=== PATIENT | male | born 1955 | race Caucasian/White ===

== ENCOUNTER 2017-01-12 15:28 | Inpatient (IN) | payer BC ==
[2017-01-12 15:44] VITALS: BMI 17.9
--- NOTE | 2017-01-12 16:26 | PDOC ---
History of Present Illness - General History Source: Patient - History of Present Illness Initial Comments: 01/12/17 16:52 Patient is a 61 y.o. 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 Uribe) where patient was noted to be saturating in the high 80's. Patient notes increased labored breathing for the past 4 days as well as productive (whitish sputum) cough. Patient further notes a chest tightness similar to the tightness he experience at the time of his previous PNAs. Patient notes his last radiation treatment was in August 2016 and his decreased appetite hastened placement of a J tube. <Chhaya Cortez - Last Filed: 01/12/17 19:09> <Jon Moser - Last Filed: 01/12/17 19:54> - General Chief Complaint: Shortness of Breath Stated Complaint: SOB (PCP SENT) Time Seen by Provider: 01/12/17 16:25 Past History - Past Medical History Anemia: No Asthma: Yes Cancer: No Cardiac Disorders: No CVA: No COPD: Yes CHF: No Dementia: No Diabetes: No GI Disorders: No Disorders: No HTN: No Hypercholesterolemia: No Liver Disease: No Seizures: No Thyroid Disease: No - Surgical History Abdominal Surgery: No Appendectomy: No Cardiac Surgery: No Cholecystectomy: No Lung Surgery: Yes (rt partial thoracotomy 50 yrs ago) Neurologic Surgery: No Orthopedic Surgery: No - Immunization History Td Vaccination: No Immunization Up to Date: Yes (FLU/PNA) - Suicide/Smoking/Psychosocial Hx Smoking Status: No Smoking History: Never smoked Have you smoked in the past 12 months: No Number of Cigarettes Smoked Daily: 0 Information on smoking cessation initiated: No Hx Alcohol Use: No Drug/Substance Use Hx: No Substance Use Type: None Hx Substance Use Treatment: No <Chhaya Cortez - Last Filed: 01/12/17 19:09> <Jon Moser - Last Filed: 01/12/17 19:54> - Past Medical History Allergies/Adverse Reactions: Allergies Allergy/AdvReac Type Severity Reaction Status Date / Time No Known Allergies Allergy Verified 01/12/17 15:39 Home Medications: Ambulatory Orders Montelukast Na [Singulair -] 10 mg PO HS 05/04/12 Albuterol Sulfate 0.042% [Ventolin 0.042% (Half-Strength) -] 1 neb PO BID #0 vial 05/10/12 Tiotropium [place] [Spiriva] 1 inh IH DAILY #0 inh 05/10/12 Budesonide/Formeterol Fumarate [SYMBICORT 160/4.5mcg -] 2 inh PO BID 02/20/14 Review of Systems - Review of Systems Constitutional: No: Chills, Fever Respiratory: Yes: Cough (productive, whitish/grayish sputum), Shortness of Breath Cardiac (ROS): Yes: Chest Pain ("tightness') ABD/GI: No: Constipated, Diarrhea, Nausea, Vomiting <Chhaya Cortez - Last Filed: 01/12/17 19:09> *Physical Exam - Vital Signs Last Vital Signs Temp Pulse Resp BP Pulse Ox 98.0 F 111 H 16 109/90 93 L 01/12/17 15:39 01/12/17 15:39 01/12/17 15:39 01/12/17 15:39 01/12/17 15:39 - Physical Exam General Appearance: Yes: Cachetic, Thin Neck: positive: Trachea midline, Supple Respiratory/Chest: positive: Accessory Muscle Use, Labored Respiration, Rhonchi Cardiovascular: positive: S1, S2 Gastrointestinal/Abdominal: positive: Soft Integumentary: positive: Dry, Warm, Pale Neurologic: positive: Fully Oriented, Alert <Chhaya Cortez - Last Filed: 01/12/17 19:09> - Vital Signs Last Vital Signs Temp Pulse Resp BP Pulse Ox 98.0 F 111 H 16 109/90 93 L 01/12/17 15:39 01/12/17 15:39 01/12/17 15:39 01/12/17 15:39 01/12/17 15:39 <Jon Moser - Last Filed: 01/12/17 19:54> ED Treatment Course - LABORATORY CBC & Chemistry Diagram: 01/12/17 16:52 01/12/17 16:52 <Chhaya Cortez - Last Filed: 01/12/17 19:09> - LABORATORY CBC & Chemistry Diagram: 01/12/17 16:52 01/12/17 16:52 - ADDITIONAL ORDERS Additional order review: Laboratory Results 01/12/17 01/12/17 17:11 16:52 Sodium 134 L Potassium 4.4 Chloride 95 L Carbon Dioxide 34 H D Anion Gap 5 L BUN 18 Creatinine 0.9 Creat Clearance w eGFR > 60 Random Glucose 92 Calcium 8.7 Total Bilirubin 0.4 AST 21 D ALT 26 D Alkaline Phosphatase 94 D Creatine Kinase 38 L Troponin I 0.02 B-Natriuretic Peptide 870.75 H Total Protein 8.2 D Albumin 2.8 L 01/12/17 16:52 RBC 4.26 MCV 84.8 MCHC 33.0 RDW 15.6 D MPV 7.4 L D Neutrophils % 71.5 Lymphocytes % 12.2 Monocytes % 14.5 H D Eosinophils % 1.4 D Basophils % 0.4 D <Jon Moser - Last Filed: 01/12/17 19:54> Medical Decision Making - Medical Decision Making 01/12/17 17:16 Patient is a 61 y.o. male with a h/o restrictive lung disease 2/2 to childhood collapsed lung w/subsequent lobectomy, tonsillar cancer with lymphatic spread (s /p chemotherapy and radiation completed August 2016) as well as two recent episodes of pneumonia (MRSA and Pseudomonas) who presents with dyspnea. Initial DDx is for PNA vs. Pulmonary Embolism (h/o of malignancy, dyspneic, tachycardic) vs. Bronchitis vs. ACS (less likely) PLAN: 1. CXR 2. Sputum Culture 3. CBC, CMP 4. BNP 01/12/17 18:55 CXR shows pleural thickening/effusion. CBC shows no leukocytosis; Troponin (-) x1. CT with contrast ordered to rule out PE. Patient signed out to Dr. Curtis ( Resident) and Dr. Moser (Attending) <Chhaya Cortez - Last Filed: 01/12/17 19:09> *DC/Admit/Observation/Transfer <Chhaya Cortez - Last Filed: 01/12/17 19:09> - Discharge Dispostion Admit: Yes Decision to Admit order Date/Time: Decision to Admit Order Category Date Time Status Decision to Admit to Hospital Routine Admission 01/12/17 19:53 Active <Jon Moser - Last Filed: 01/12/17 19:54> Diagnosis at time of Disposition: Dyspnea
[2017-01-12 17:21] LABS: BASOPHIL 0.4 % (0-2.0); EOSINOPHIL 1.4 % (0-4.5); MEAN CELL VOLUME 84.8 fl (80-96); MEAN PLT VOLUME 7.4 fl (7.5-11.1); NEUTROPHILS 71.5 % (42.8-82.8); PLATELET COUNT 238 K/MM3 (134-434); RDW 15.6 % (11.9-15.9); WHITE BLOOD COUNT 7.4 K/mm3 (4.0-10.0)
[2017-01-12 17:44] LABS: ALBUMIN 2.8 g/dl (3.4-5.0); ANION GAP 5 (8-16); BILIRUBIN,TOTAL 0.4 mg/dL (0.2-1.0); CALCIUM 8.7 mg/dL (8.5-10.1); CO2 34 mmol/L (21-32); CREATININE 0.9 mg/dL (0.7-1.3); GLUCOSE,RANDOM 92 mg/dL (74-106); SGOT/AST 21 U/L (15-37); SGPT/ALT 26 U/L (12-78); TOT PROT 8.2 g/dl (6.4-8.2)
[2017-01-12 17:45] LABS: TROPONIN I 0.02 ng/ml (0.00-0.05)
[2017-01-12 17:47] LABS: ALK PHOS 94 U/L (45-117)
--- NOTE | 2017-01-12 18:34 | PDOC ---
Attending Attestation - Resident Resident Name: DanaChhaya - ED Attending Attestation I have performed the following: I have examined & evaluated the patient, The case was reviewed & discussed with the resident, I agree w/resident's findings & plan, Exceptions are as noted - HPI HPI: 01/12/17 18:28 61 M with h/o RL lobectomy, restrictive lung disease on 3 L O2 @ baseline, metastatic tonsillar cancer, presenting to ER with SOB. Pt has baseline dyspnea but states that it has progressively worsened over past 4 days. Denies CP. Denies F/C. Denies leg swelling. Pt endorses cough. - Physicial Exam PE: 01/12/17 18:30 "GENERAL: Awake, alert, and fully oriented, in no acute distress HEAD: No signs of trauma EYES: PERRLA, EOMI, sclera anicteric, conjunctiva clear ENT: Auricles normal inspection, hearing grossly normal, nares patent, oropharynx clear without exudates. Moist mucosa NECK: Normal ROM, supple, no lymphadenopathy, JVD, or masses LUNGS: diffuse rales, no wheezing, no rhonchi HEART: Regular rate and rhythm, normal S1 and S2, no murmurs, rubs or gallops ABDOMEN: Soft, nontender, normoactive bowel sounds. No guarding, no rebound. No masses EXTREMITIES: Normal range of motion, no edema. No clubbing or cyanosis. No cords, erythema, or tenderness NEUROLOGICAL: Cranial nerves II through XII grossly intact. Normal speech, normal gait SKIN: Warm, Dry, normal turgor, no rashes or lesions noted. " - Medical Decision Making 01/12/17 18:31 61 M with SOB x 4 days and increasing O2 requirement. Pt non-toxic appearing with no fever. Suspicion for infectious process is low, but pt has h/o recurrent PNA. Pt also has active cancer and is at risk for PE. Symptoms may also simply be due to progression of underlying chronic lung disease. - Labs - CXR - Consider CTPE 01/12/17 18:57 CTPE negative for PE. Pt to be admitted for new oxygen requirement, worsening SOB. Case discussed in detail with admitting physician including history, physical exam and ancillary studies. Admitting physician has assumed care for the patient and will follow all pending diagnostics and complete the evaluation and treatment.
--- NOTE | 2017-01-12 19:59 | PDOC ---
*Physical Exam - Vital Signs Last Vital Signs Temp Pulse Resp BP Pulse Ox 98.0 F 111 H 16 109/90 93 L 01/12/17 15:39 01/12/17 15:39 01/12/17 15:39 01/12/17 15:39 01/12/17 15:39 ED Treatment Course - LABORATORY CBC & Chemistry Diagram: 01/12/17 16:52 01/12/17 16:52 - ADDITIONAL ORDERS Additional order review: Laboratory Results 01/12/17 01/12/17 17:11 16:52 Sodium 134 L Potassium 4.4 Chloride 95 L Carbon Dioxide 34 H D Anion Gap 5 L BUN 18 Creatinine 0.9 Creat Clearance w eGFR > 60 Random Glucose 92 Calcium 8.7 Total Bilirubin 0.4 AST 21 D ALT 26 D Alkaline Phosphatase 94 D Creatine Kinase 38 L Troponin I 0.02 B-Natriuretic Peptide 870.75 H Total Protein 8.2 D Albumin 2.8 L 01/12/17 16:52 RBC 4.26 MCV 84.8 MCHC 33.0 RDW 15.6 D MPV 7.4 L D Neutrophils % 71.5 Lymphocytes % 12.2 Monocytes % 14.5 H D Eosinophils % 1.4 D Basophils % 0.4 D Medical Decision Making - Medical Decision Making 01/12/17 19:52 Sign out received by Dr. Cortez EKG: Sinus tachycardia - RBBB - Septal infarct age indertemined - Possible inferior infarct Abnormal ECG 01/13/17 01:30 CTA:There is no evidence of a pulmonary embolus in the main pulmonary artery and its proximal branches, bilaterally. Worsening extensive bronchiectatic changes again seen with suggestion of air trapping/ scattered areas of atelectatic changes. Chronic consolidation/atelectasis of the right lower lobe with cystic changes and tubular like densities likely on the basis of bronchiectasis is again seen. PAtient admitted to med surg by Dr. TRIVEDI. *DC/Admit/Observation/Transfer Diagnosis at time of Disposition: Dyspnea
[2017-01-12] MEDS ORDERED: methylPREDNISolone NA SUCC 125 MG/2 ML VIAL IVPB ONE (22:38)
[2017-01-12] MEDS ORDERED: [UNRECOGNIZED DRUG - OTHER] IN SCH (22:45)
[2017-01-12] MEDS: ALPRAZolam 0.25 MG TABLET PO PRN (23:17)
[2017-01-12] MEDS: BUDESONIDE 0.25 MG/2ML INH SUSP VIAL NEB PRN (23:55)
[2017-01-13 00:43] LABS: TROPONIN I 0.02 ng/ml (0.00-0.05)
[2017-01-13] MEDS: BUDESONIDE/FORMETEROL FUMARATE 160/4.5 mcg INHALER IH SCH ×2 (01:15→09:56)
[2017-01-13] MEDS: methylPREDNISolone NA SUCC 40 MG/1 ML VIAL IVPB SCH ×5 (05:13→21:28)
[2017-01-13] MEDS: ALBUTEROL SO4 0.083% IH SOL 2.5 MG/3 ML VIAL.NEB. NEB PRN (05:59)
[2017-01-13 07:12] LABS: MCH 27.7 pg (25.7-33.7); MCHC 32.5 g/dl (32.0-35.9); MEAN CELL VOLUME 85.2 fl (80-96); MEAN PLT VOLUME 7.9 fl (7.5-11.1); PLATELET COUNT 209 K/MM3 (134-434); RDW 15.2 % (11.9-15.9); WHITE BLOOD COUNT 5.6 K/mm3 (4.0-10.0)
[2017-01-13 07:43] LABS: ALBUMIN 2.7 g/dl (3.4-5.0); ALK PHOS 88 U/L (45-117); ANION GAP 9 (8-16); BILIRUBIN,TOTAL 0.5 mg/dL (0.2-1.0); CALCIUM 8.6 mg/dL (8.5-10.1); CO2 30 mmol/L (21-32); CREATININE 0.7 mg/dL (0.7-1.3); GLUCOSE,RANDOM 106 mg/dL (74-106); SGOT/AST 19 U/L (15-37); SGPT/ALT 27 U/L (12-78); TOT PROT 7.8 g/dl (6.4-8.2)
[2017-01-13 07:47] LABS: CPK 34 IU/L (39-308); TROPONIN I < 0.02 ng/ml (0.00-0.05)
--- NOTE | 2017-01-13 08:55 | CON.CARD ---
Consult Consult Specialty:: cardiology Reason for Consultation:: dyspnea; atypical chest pain - History of Present Illness Chief Complaint: Presently no chest pain; dyspnea on minimal exertion. History of Present Illness: Patient is a 61 y.o. 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 Uribe) where patient was noted to be saturating in the high 80's. Patient notes increased labored breathing for the past 4 days as well as productive (whitish sputum) cough. Patient further notes a chest tightness similar to the tightness he experienced at the time of his previous PNAs. Patient notes his last radiation treatment was in August 2016 and his decreased appetite hastened placement of a J tube. - History Source History Provided By: Patient, Medical Record Limitations to Obtaining History: No Limitations - Past Medical History Cardio/Vascular: Yes: CHF Pulmonary: Yes: COPD, Pneumonia - Past Surgical History Additional Surgical History: right lobectomy - Alcohol/Substance Use Hx Alcohol Use: No History of Substance Use: reports: None - Smoking History Smoking history: Never smoked Have you smoked in the past 12 months: No Aproximately how many cigarettes per day: 0 Home Medications - Allergies Allergies/Adverse Reactions: Allergies Allergy/AdvReac Type Severity Reaction Status Date / Time No Known Allergies Allergy Verified 01/12/17 15:39 - Home Medications Home Medications: Ambulatory Orders Montelukast Na [Singulair -] 10 mg PO HS 05/04/12 Tiotropium [place] [Spiriva] 1 inh IH DAILY #0 inh 05/10/12 Budesonide/Formeterol Fumarate [SYMBICORT 160/4.5mcg -] 2 inh PO BID 02/20/14 Albuterol Sulfate [Proair Respiclick] 90 mcg IH DAILY 01/12/17 Alprazolam [Xanax] 0.25 mg PO DAILY 01/12/17 Erythromycin [Derrikc-Tab -] 500 mg PO Q2D 01/12/17 Escitalopram Oxalate [Lexapro -] 5 mg PO DAILY 10/12/17 Nebulizer/Compressor [Pulmoneb Lt Compressor Nebul] 1 inh IN BID 01/12/17 Family Disease History - Family Disease History Family History: Denies Review of Systems - Review of Systems Constitutional: reports: Unintentional Wgt. Loss, Weakness Eyes: reports: No Symptoms HENT: reports: No Symptoms Neck: reports: No Symptoms Cardiovascular: reports: Shortness of Breath Respiratory: reports: SOB on Exertion Gastrointestinal: reports: No Symptoms Genitourinary: reports: No Symptoms Breasts: reports: No Symptoms Reported Musculoskeletal: reports: Muscle Weakness Integumentary: reports: No Symptoms Neurological: reports: No Symptoms Endocrine: reports: No Symptoms Hematology/Lymphatic: reports: No Symptoms Psychiatric: reports: Anxiety, Depression - Risk Factors Known Risk Factors: Yes: Age, Gender, Physical Inactivity, Other (COPD ( bronchiectasis)) Vital Signs: Vital Signs Temperature 98.1 F 01/13/17 06:33 Pulse Rate 87 01/13/17 06:33 Respiratory Rate 22 01/13/17 06:33 Blood Pressure 102/59 01/13/17 06:33 O2 Sat by Pulse Oximetry (%) 92 L 01/12/17 19:15 Constitutional: Yes: Anxious Eyes: Yes: WNL HENT: Yes: WNL Neck: Yes: WNL Respiratory: Yes: Diminished, SOB on Exertion Gastrointestinal: Yes: Soft Renal/: No: Anuria Cardiovascular: Yes: Tachycardia JVD: No Carotid Bruit: No PMI: Non-Displaced Heart Sounds: Yes: S1, Split S2 Murmur: Yes: Diastolic Murmur (2/4, RSB-->base) Musculoskeletal: Yes: Muscle Weakness Extremities: Yes: Cool Edema: No Peripheral Pulses WNL: No Peripheral Pulses: 1+ Left Doralis Pedis, 1+ Right Dorsalis Pedis Integumentary: Yes: WNL Neurological: Yes: Alert, Oriented, Weakness Psychiatric: Yes: Alert, Oriented - Other Data Labs, Other Data: CBC, BMP 01/13/17 05:10 01/13/17 05:10 Troponin, BNP 01/13/17 01/13/17 00:00 05:10 Troponin I 0.02 < 0.02 Troponin, BNP 01/13/17 01/13/17 00:00 05:10 Troponin I 0.02 < 0.02 Echo: Pending Imaging - Results Chest X-ray: Image Reviewed Cat Scan: Image Reviewed (bronchiectasis;plueral thickening) EKG: Image Reviewed (sinus tachycardia; RBBB; RADHA; ?old septal and inferior [place]) Problem List - Problems (1) Acute and chronic respiratory failure with hypoxia Assessment/Plan: CT chest: bronchiectasis Antibiotics, O2, steroids, and bronchodilators per PMD and appeals nurse. Code(s): J96.21 - ACUTE AND CHRONIC RESPIRATORY FAILURE WITH HYPOXIA (2) Bronchiectasis Code(s): J47.9 - BRONCHIECTASIS, UNCOMPLICATED (3) Dyspnea Code(s): R06.00 - DYSPNEA, UNSPECIFIED (4) Tongue cancer Assessment/Plan: s/p radiation-and chemotherapy Code(s): C02.9 - MALIGNANT NEOPLASM OF TONGUE, UNSPECIFIED (5) Congestive heart failure Assessment/Plan: elevated BNP; +JVP. ECHO for LVEF and and RVEF, chamber sizes, valve status (diastolic murmum), wall motion ( EKG changes: ? old infacrct) Lipid levels TSH Code(s): I50.9 - HEART FAILURE, UNSPECIFIED (6) Anxiety and depression Assessment/Plan: Pt's physical health has deterioated significantly over the past 2 years, as has his emotional state. Code(s): F41.8 - OTHER SPECIFIED ANXIETY DISORDERS
--- NOTE | 2017-01-13 09:08 | EKG ---
Test Reason : Blood Pressure : / mmHG Vent. Rate : 104 BPM Atrial Rate : 104 BPM P-R Int : 146 ms QRS Dur : 130 ms QT Int : 360 ms P-R-T Axes : 065 234 053 degrees QTc Int : 473 ms SINUS TACHYCARDIA RIGHT ATRIAL ENLARGEMENT RIGHT BUNDLE BRANCH BLOCK SEPTAL INFARCT , AGE UNDETERMINED POSSIBLE INFERIOR INFARCT (CITED ON OR BEFORE 01-JUL-2011) ABNORMAL ECG Confirmed by ASHLI COHEN MD ([id number]) on 01/13/2017 9:08:17 AM Referred By: Confirmed By:ASHLI COHEN MD
[2017-01-13] MEDS: ESCITALOPRAM OXALATE 10 MG TABLET (FP) PO SCH (09:34)
[2017-01-13] MEDS: HEPARIN NA (PORCINE) 5,000 UNITS/ML 1ML VIAL SQ SCH ×2 (09:34→21:28)
[2017-01-13] MEDS ORDERED: PT OWN MED DRAWER 7, Y5N ONE (09:55)
[2017-01-13] MEDS: TIOTROPIUM BROMIDE 18 MCG/INH (DEVICE W/ 5 CAPSULES) IH SCH (09:56)
--- NOTE | 2017-01-13 10:06 | HP ---
Admitting History and Physical - Primary Care Physician PCP: Johnnie Uribe - Admission Chief Complaint: SOB History of Present Illness: Pt with worsening SOB and more white productive cough for the last 3-4 days, came to my office yesterday, noticed to be in respiratory distress, RR 30, O2 sat of 86-87% on 4 L NC, referred to ER. He was found tachycardic, tachypneic, admitted to telemetry History Source: Patient Limitations to Obtaining History: No Limitations - Past Medical History Pulmonary: Yes: COPD, Other (ILD, Bronchiectasis, Bulluos Ds. Now on cotinue O2 supplementation) Additional Past Medical History: Tongue CA w innvassion of cervical LN, s/p chemo - Smoking History Smoking history: Never smoked Have you smoked in the past 12 months: No Aproximately how many cigarettes per day: 0 - Alcohol/Substance Use Hx Alcohol Use: No Home Medications - Allergies Allergies/Adverse Reactions: Allergies Allergy/AdvReac Type Severity Reaction Status Date / Time No Known Allergies Allergy Verified 01/12/17 15:39 - Home Medications Home Medications: Ambulatory Orders RX: Montelukast Na [Singulair -] 10 mg PO HS 05/04/12 RX: Tiotropium [place] [Spiriva] 1 inh IH DAILY #0 inh 05/10/12 RX: Budesonide/Formeterol Fumarate [SYMBICORT 160/4.5mcg -] 2 inh PO BID Albuterol Sulfate [Proair Respiclick] 90 mcg IH DAILY 01/12/17 Alprazolam [Xanax] 0.25 mg PO DAILY 01/12/17 Escitalopram Oxalate [Lexapro -] 5 mg PO DAILY 01/12/17 Nebulizer/Compressor [Pulmoneb Lt Compressor Nebul] 1 inh IN BID 01/12/17 RX: Erythromycin [Derrick-Tab -] 500 mg PO TID 01/12/17 Review of Systems - Review of Systems Constitutional: denies: Chills, Fever Eyes: denies: Blurred Vision, Double Vision, Recent Change in Vision HENT: denies: Difficult Swallowing, Ear Discharge, Ear Pain, Nasal Congestion, Throat Pain Neck: denies: Pain on Movement, Stiffness Cardiovascular: reports: Palpitations, Shortness of Breath. denies: Chest Pain , Edema Respiratory: reports: Cough, SOB on Exertion, Wheezing Gastrointestinal: denies: Abdominal Pain, Constipation, Diarrhea, Nausea, Vomiting Genitourinary: denies: Burning, Discharge, Dysuria, Frequency Musculoskeletal: denies: Back Pain, Muscle Pain Integumentary: denies: Eczema, Rash Neurological: reports: Weakness. denies: Change in LOC, Change in Speech, Numbness Endocrine: denies: Excessive Sweating, Intolerance to Cold Hematology/Lymphatic: denies: Easily Bruised, Excessive Bleeding Psychiatric: denies: Anxiety, Depression Physical Examination Vital Signs: Vital Signs Temperature 98.4 F 01/13/17 09:15 Pulse Rate 96 H 01/13/17 09:15 Respiratory Rate 22 01/13/17 09:15 Blood Pressure 109/60 01/13/17 09:15 O2 Sat by Pulse Oximetry (%) 96 01/13/17 09:15 Constitutional: Yes: No Distress, Calm Eyes: Yes: EOM Intact, PERRL HENT: Yes: Normocephalic. No: Epistaxis, Nasal Congestion, Pharyngeal Erythema , Rhinnorhea Neck: Yes: Supple. No: Lymphadenopathy Cardiovascular: Yes: Regular Rate and Rhythm, Tachycardia Respiratory: Yes: Regular, CTA Bilaterally, Rales, Rhonchi. No: Wheezes Gastrointestinal: Yes: Normal Bowel Sounds, Soft. No: Palpable Mass, Tenderness ...Rectal Exam: Yes: Deferred Renal/: No: CVA Tenderness - Left, CVA Tenderness - Right Musculoskeletal: No: Back Pain, Joint Stiffness, Joint Swelling Extremities: Yes: Calf Tenderness. No: Cyanosis Edema: No Integumentary: No: Bruising, Rash Neurological: Yes: Alert, Oriented, Other (motor and sensory symmetric bilat in UE, LE, face) Psychiatric: Yes: Alert, Oriented Labs: CBC, BMP 01/13/17 05:10 01/13/17 05:10 Imaging - Results Chest X-ray: Report Reviewed, Image Reviewed Cat Scan: Report Reviewed Assessment/Plan (Problem list was added here, as program doesn't "Problem list" tab is not active) Acute COPD exacerbation Tachycardia Dspnea Hypoxia ILD Bronchietasis Bilateral Bullous Disease Admit to telemetry Start IV steroids. Pulmonary and Cardio Consults ECHO Serial CE- negative AM labs DVT and GI Prophylaxis
--- NOTE | 2017-01-13 12:35 | PN ---
Progress Note (short form) - Note Progress Note: PULMONARY CONSULTATION DICTATED 01/13/17 IMP ACUTE ON CHRONIC HYPOXEMIC RESPIRATORY FAILURE EXTENSIVE BRONCHIECTASIS ILD URI H/O TONGUE CA S/P RT/CHEMO PLAN IV STEROIDS INHALED BRONCHODILATORS O2 ANTIBIOTICS CHEST PT SPUTUM C+S OUTPATIENT PULMONARY REHAB 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
[2017-01-13] MEDS: RANITIDINE HCL 150 MG TABLET (FP) PO SCH (13:50)
[2017-01-13] MEDS ORDERED: ARFORMOTEROL TARTRATE 15 MCG/2 ML VIAL NEB ONE (14:03)
[2017-01-13] MEDS: BUDESONIDE 0.25 MG/2ML INH SUSP VIAL NEB PRN ×2 (14:06→14:20)
--- NOTE | 2017-01-13 15:10 | CONS ---
DATE OF CONSULTATION: 01/13/2017 REFERRING PHYSICIAN: Johnnie Uribe MD HISTORY OF PRESENT ILLNESS: The patient is a 61-year-old male with a past medical history of chronic lung disease, extensive bronchiectasis, chronic hypoxemic respiratory failure on home O2, history of tongue CA with invasion of lymph nodes status post RT and chemotherapy approximately 6 months ago. He also has a history of a partial lung resection many years ago secondary to pneumonia, a history of multiple bronchoscopies in the past currently being followed at [facility]. He was initially on the transplant list until he recently was noted to have tongue CA. He was admitted to [facility] with complaints of increasing shortness of breath and cough productive of white sputum. The patient denied having chest pain or palpitations. The patient stated that for approximately the past few months, he has been on continuous home O2. He states that he went to see Dr. Uribe yesterday in the office and was noted to be in marked respiratory distress with tachypnea at a rate in the 30s and O2 saturation 86% to 87% on 4 L of nasal cannula. At this time, he was referred to the emergency room. In the ER, he was treated with inhaled bronchodilators and steroids and transferred to the medical telemetry unit for further management. The patient denies hemoptysis and denies any history of DVT or PE in the past. There is no history of respiratory failure in the past requiring ventilatory support. He is a nonsmoker. There is no history of occupational exposure to chemical fumes. There is no history of recent travel. The patient is currently maintained at home on inhaled bronchodilators as well as Zithromax 3 times a week. In the past, when he has had exacerbations, he has been placed on tobramycin. PAST MEDICAL HISTORY: Again, this includes extensive chronic lung disease with chronic hypoxemic respiratory failure, extensive bronchiectasis, bullous disease, history of tongue CA with invasion of cervical lymph nodes status post chemotherapy. MEDICATIONS PRIOR TO ADMISSION: Singulair, Spiriva, Symbicort, ProAir, Xanax, Lexapro, PulmoNeb and erythromycin. CURRENT MEDICATIONS: Pulmicort, Symbicort, Solu-Medrol, heparin, Lexapro, Spiriva, Xanax, albuterol, Zantac and Singulair. REVIEW OF SYSTEMS: Positive shortness of breath, positive cough, positive sputum. No chest pain. No palpitations. No fevers. Positive weight loss. No hemoptysis. No abdominal pain. PHYSICAL EXAMINATION: General: The patient is a well-developed, well-nourished male, awake, alert, and currently in no acute distress. Vital signs: He is currently afebrile, blood pressure 109/60, respiratory rate 22, O2 saturation is 94% on 4 L. HEENT: Head is normocephalic atraumatic. Neck: Supple. Heart: Regular, S1, S2. Chest: A few scattered , bilateral wheezes and crackles throughout. Abdomen: Soft. Bowel sounds positive. Extremities: No cyanosis or edema. LABORATORIES: WBC is 5.6, hemoglobin 11.4, hematocrit 35, platelet count of 209,000. INR is 1.10. Chemistries: BUN 21, creatinine 0.7, albumin 2.7. Chest CT showed no evidence of any pulmonary emboli or extensive bronchiectatic changes. Right lower lobe bilaterally, extensive, right greater than left, chronic consolidation, atelectasis, and cystic changes, again, the right lower lobe and bilateral ground-glass opacities. There is a nodular density. IMPRESSION: 1. Acute on chronic hypoxemic respiratory failure signaling extensive chronic lung disease, extensive chronic bronchiectasis. There is also underlying interstitial lung disease. 2. Rule out possible underlying infectious process, upper respiratory infection. 3. History of tongue cancer status post chemotherapy. PLAN: Antibiotics, IV steroids, inhaled bronchodilators, chest PT, supplemental O2. Also, patient is a good candidate for outpatient pulmonary rehabilitation post discharge and nutritional support. DENISE FORD M.D. [id number]
[2017-01-13] MEDS ORDERED: ERYTHROMYCIN BASE 500 MG TABLET PO SCH (20:45)
[2017-01-13] MEDS: MONTELUKAST NA 10 MG TABLET PO SCH (21:28)
[2017-01-13] MEDS: ALPRAZolam 0.25 MG TABLET PO PRN (21:31)
[2017-01-13] MEDS: BUDESONIDE 0.25 MG/2ML INH SUSP VIAL NEB SCH (22:56)
[2017-01-14] MEDS: methylPREDNISolone NA SUCC 40 MG/1 ML VIAL IVPB SCH ×4 (03:38→22:34)
[2017-01-14 07:44] LABS: MCH 27.5 pg (25.7-33.7); MCHC 32.2 g/dl (32.0-35.9); MEAN CELL VOLUME 85.4 fl (80-96); PLATELET COUNT 196 K/MM3 (134-434); RDW 14.8 % (11.9-15.9); WHITE BLOOD COUNT 5.7 K/mm3 (4.0-10.0)
[2017-01-14 08:52] LABS: ANION GAP 7 (8-16); CALCIUM 8.5 mg/dL (8.5-10.1); CO2 30 mmol/L (21-32); CREATININE 0.8 mg/dL (0.7-1.3); GLUCOSE,RANDOM 121 mg/dL (74-106)
--- NOTE | 2017-01-14 08:56 | PN ---
Progress Note (short form) - Note Progress Note: ID Consult dictated Acute exacerbation, chronic bronchiectasis RLL pneumonia Hx Tonsillar ca with local metastasis s/p chemo/RT Hx Pseudomonas pneumonia Await sputum c/s Empiric zosyn/ zithromax
--- NOTE | 2017-01-14 09:06 | PN ---
Progress Note, Physician Chief Complaint: feeling "better" TELE: NSR - Current Medication List Current Medications: Active Medications Albuterol Sulfate (Ventolin 0.083% Nebulizer Soln -) 1 amp NEB Q6H PRN PRN Reason: SHORT OF BREATH/WHEEZING Last Admin: 01/13/17 05:59 Dose: 1 amp Alprazolam (Xanax -) 0.25 mg PO HS PRN Last Admin: 01/13/17 21:31 Dose: 0.25 mg Budesonide (Pulmicort 0.25 Mg Nebulizer -) 1 amp NEB BID [facility] Last Admin: 01/13/17 22:56 Dose: 1 amp Erythromycin (Derrick-Tab -) 500 mg PO MoWeFr@1000 [facility] Escitalopram Oxalate (Lexapro -) 5 mg PO DAILY [facility] Last Admin: 01/13/17 09:34 Dose: 5 mg Heparin Sodium (Porcine) (Heparin -) 5,000 unit SQ BID [facility] Last Admin: 01/13/17 21:28 Dose: 5,000 unit Piperacillin/Tazobactam/Dextrose (Zosyn 3.375gm Ivpb (Premix)) 50 mls @ 100 mls /hr IVPB Q8H-IV [facility] PRN Reason: Protocol Azithromycin 500 mg/ Dextrose 250 mls @ 250 mls/hr IVPB DAILY [facility] Methylprednisolone Sodium Succinate (Solu-Medrol -) 40 mg IVPB Q6H-IV [facility] Last Admin: 01/14/17 03:38 Dose: 40 mg Montelukast Sodium (Singulair -) 10 mg PO HS [facility] Last Admin: 01/13/17 21:28 Dose: 10 mg Ranitidine HCl (Zantac -) 150 mg PO DAILY [facility] Last Admin: 01/13/17 13:50 Dose: 150 mg Tiotropium [place] (Spiriva -) 1 puff IH DAILY [facility] Last Admin: 01/13/17 09:56 Dose: 1 inh - Objective Vital Signs: Vital Signs Temperature 98 F 01/14/17 05:32 Pulse Rate 88 01/14/17 05:32 Respiratory Rate 18 01/14/17 05:32 Blood Pressure 100/45 01/14/17 05:32 O2 Sat by Pulse Oximetry (%) 98 01/13/17 20:24 Constitutional: Yes: Calm Cardiovascular: Yes: Regular Rate and Rhythm Respiratory: Yes: Other (decreased basilar breath sounds) Gastrointestinal: Yes: Soft Edema: No Neurological: Yes: Alert Labs: CBC, BMP 01/14/17 05:18 01/14/17 05:18 Laboratory Tests 01/12/17 01/13/17 01/13/17 17:11 00:00 05:10 WBC Hgb Plt Count Potassium Creatinine Creatine Kinase 38 L 37 L 34 L Troponin I 0.02 0.02 < 0.02 01/14/17 01/14/17 05:18 05:18 WBC 5.7 Hgb 10.4 L Plt Count 196 Potassium 4.5 Creatinine 0.8 Creatine Kinase Troponin I - ....Imaging EKG: Image Reviewed Assessment/Plan Bronchiectasis RLL PNA Possible ASHD REC: Supp O2 and abx as per PMD and ID As echo shows wall motion abnormalities, underlying ASHD is possible and should be further evaluated when PNA resolves. Start ASA 81 if no contraindications. Plan for Persantine MIBI prior to d/c when acute infectious process resolved/ treated. Coverage for [facility]
[2017-01-14] MEDS: BUDESONIDE 0.25 MG/2ML INH SUSP VIAL NEB SCH ×2 (10:33→22:12)
[2017-01-14] MEDS ORDERED: PT OWN MED DRAWER 7, Y5N ONE (10:34)
[2017-01-14] MEDS: HEPARIN NA (PORCINE) 5,000 UNITS/ML 1ML VIAL SQ SCH ×2 (10:40→22:34)
[2017-01-14] MEDS: ESCITALOPRAM OXALATE 10 MG TABLET (FP) PO SCH (10:41)
[2017-01-14] MEDS: RANITIDINE HCL 150 MG TABLET (FP) PO SCH (10:41)
[2017-01-14] MEDS: TIOTROPIUM BROMIDE 18 MCG/INH (DEVICE W/ 5 CAPSULES) IH SCH (10:45)
[2017-01-14] MEDS: PIPERACILLIN/TAZOB 3.375 GM 50 ML IVPB SCH ×2 (10:46→16:59)
--- NOTE | 2017-01-14 11:35 | CONS ---
DATE OF CONSULTATION: DATE OF DICTATION: 01/14/2017 HISTORY OF PRESENT ILLNESS: The patient is a 61-year-old male with a long history of chronic bronchiectasis with frequent exacerbations, evaluated for right lower lobe pneumonia. He presented to his primary care physician with complaints of worsening shortness of breath and cough for the past 4 days. He was noted in the doctor's office to be in respiratory distress with a respiratory rate in the 30s and hypoxemic with an O2 saturation in the high 80s. He was referred to the emergency room, where he was admitted. A CAT scan of the chest shows severe bronchiectasis of the lungs bilaterally with a chronic right lower lobe consolidation. He reports cough productive of yellowish sputum. He denies any hemoptysis. He denies any high-grade fever or shaking chills. The patient has a long history of chronic lung disease. He had a lobectomy performed at age 7 for a collapsed lung. He has had exacerbations of his bronchiectasis with recurrent pneumonias. Sputum cultures in the past have grown Pseudomonas and MRSA. He is on oxygen at home. 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 He is status post chemotherapy and radiation. His treatments finished in August of this year. PAST MEDICAL HISTORY: As above. ALLERGIES: No known allergies. MEDICATIONS: Include Singulair, Ventolin, Symbicort. SOCIAL HISTORY: He is a nonsmoker. He lives at home. He was recently hospitalized at [facility] for exacerbation of his bronchiectasis and pneumonia. He reports in the recent past he was treated with tobramycin for recurrent Pseudomonas pneumonia. SYSTEMS REVIEW: Neurologic: No loss of consciousness, seizure activity, focal weakness. Cardiac: Negative chest pain or palpitations. Respiratory: As per HPI. Gastrointestinal: Negative vomiting or diarrhea. Genitourinary: Negative for urinary tract infection. LABORATORY DATA: White count 5.7, hematocrit 32.1, platelet count 196. Creatinine 0.7. CAT scan shows extensive bronchiectatic changes bilaterally with a right lower lobe consolidation. PHYSICAL EXAMINATION: General: He is a thin male. He is moderately short of breath at rest on nasal cannula O2. Vital Signs: His temperature 98, blood pressure 100/45, pulse 88, regular, respirations 18 per minute. HEENT: Sclerae anicteric. Cardiac: Heart sounds S1, S2. Lungs: Diminished breath sounds bilaterally. Scattered rhonchi. Abdomen: Soft. No tenderness elicited. No mass, rebound, or rigidity. Extremities: Negative for edema. IMPRESSION: 1. Acute exacerbation of chronic bronchiectasis. 2. Right lower lobe pneumonia. 3. History of Pseudomonas pneumonia. RECOMMENDATIONS: Obtain blood cultures. Await sputum culture result. Urine Legionella and pneumococcal antigens. Empiric antibiotic coverage for possible recurrent Pseudomonas pneumonia with Zosyn. Zithromax for coverage of atypical pulmonary pathogens. Continue supplemental oxygen, intravenous corticosteroids, and bronchodilators. Will follow. Thank you for the kind referral. ASHLI EMANUEL M.D. [id number]
[2017-01-14] MEDS: AZITHROMYCIN IVPB 500 MG in DEXTROSE 5%-WATER - 250 ML IVPB SCH (11:41)
--- NOTE | 2017-01-14 12:12 | PN ---
Progress Note (short form) - Note Progress Note: Feels better today. Less SOB. No CP. No acute events overnight. Intake & Output 01/11/17 01/12/17 01/13/17 01/14/17 23:59 23:59 23:59 23:59 Intake Total 600 200 Balance 600 200 Weight 125 lb 125 lb Last Vital Signs Temp Pulse Resp BP Pulse Ox 98 F 93 H 18 100/45 95 01/14/17 05:32 01/14/17 10:33 01/14/17 05:32 01/14/17 05:32 01/14/17 10:33 Active Medications Albuterol Sulfate (Ventolin 0.083% Nebulizer Soln -) 1 amp NEB Q6H PRN PRN Reason: SHORT OF BREATH/WHEEZING Last Admin: 01/13/17 05:59 Dose: 1 amp Alprazolam (Xanax -) 0.25 mg PO HS PRN Last Admin: 01/13/17 21:31 Dose: 0.25 mg Budesonide (Pulmicort 0.25 Mg Nebulizer -) 1 amp NEB BID [facility] Last Admin: 01/14/17 10:33 Dose: 1 amp Erythromycin (Derrick-Tab -) 500 mg PO MoWeFr@1000 [facility] Escitalopram Oxalate (Lexapro -) 5 mg PO DAILY [facility] Last Admin: 01/14/17 10:41 Dose: 5 mg Heparin Sodium (Porcine) (Heparin -) 5,000 unit SQ BID [facility] Last Admin: 01/14/17 10:40 Dose: 5,000 unit Piperacillin/Tazobactam/Dextrose (Zosyn 3.375gm Ivpb (Premix)) 50 mls @ 100 mls /hr IVPB Q8H-IV [facility] PRN Reason: Protocol Last Admin: 01/14/17 10:46 Dose: 100 mls/hr Azithromycin 500 mg/ Dextrose 250 mls @ 250 mls/hr IVPB DAILY [facility] Last Admin: 01/14/17 11:41 Dose: 250 mls/hr Methylprednisolone Sodium Succinate (Solu-Medrol -) 40 mg IVPB Q6H-IV [facility] Last Admin: 01/14/17 10:41 Dose: 40 mg Montelukast Sodium (Singulair -) 10 mg PO HS [facility] Last Admin: 01/13/17 21:28 Dose: 10 mg Ranitidine HCl (Zantac -) 150 mg PO DAILY [facility] Last Admin: 01/14/17 10:41 Dose: 150 mg Tiotropium [place] (Spiriva -) 1 puff IH DAILY [facility] Last Admin: 01/14/17 10:45 Dose: 1 inh Constitutional: Yes: NAD Calm Cardiovascular: Yes: Regular Rate and Rhythm Respiratory: Yes: few bilateral rhonchi Gastrointestinal: Yes: Soft Edema: No Neurological: Yes: Alert Laboratory Results - last 24 hr 01/14/17 01/14/17 05:18 05:18 WBC 5.7 RBC 3.76 L Hgb 10.4 L Hct 32.1 L MCV 85.4 MCH 27.5 MCHC 32.2 RDW 14.8 Plt Count 196 MPV 8.0 Sodium 135 L Potassium 4.5 Chloride 98 Carbon Dioxide 30 Anion Gap 7 L BUN 30 H D Creatinine 0.8 Random Glucose 121 H Calcium 8.5 Problem List - Problems (1) Dyspnea Code(s): R06.00 - DYSPNEA, UNSPECIFIED (2) Acute and chronic respiratory failure with hypoxia Code(s): J96.21 - ACUTE AND CHRONIC RESPIRATORY FAILURE WITH HYPOXIA (3) Bronchiectasis Code(s): J47.9 - BRONCHIECTASIS, UNCOMPLICATED (4) Tongue cancer Code(s): C02.9 - MALIGNANT NEOPLASM OF TONGUE, UNSPECIFIED IMP ACUTE ON CHRONIC HYPOXEMIC RESPIRATORY FAILURE EXTENSIVE BRONCHIECTASIS ILD URI H/O TONGUE CA S/P RT/CHEMO PLAN IV STEROIDS INHALED BRONCHODILATORS O2 ANTIBIOTICS CHEST PT OUTPATIENT PULMONARY REHAB POST DISCHARGE DR CARVER
--- NOTE | 2017-01-14 14:09 | PN ---
Progress Note, Physician History of Present Illness: Pt w/o fever, CP, palp, N, V, abd pain. - Current Medication List Current Medications: Active Medications Albuterol Sulfate (Ventolin 0.083% Nebulizer Soln -) 1 amp NEB Q6H PRN PRN Reason: SHORT OF BREATH/WHEEZING Last Admin: 01/13/17 05:59 Dose: 1 amp Alprazolam (Xanax -) 0.25 mg PO HS PRN Last Admin: 01/13/17 21:31 Dose: 0.25 mg Budesonide (Pulmicort 0.25 Mg Nebulizer -) 1 amp NEB BID [facility] Last Admin: 01/14/17 10:33 Dose: 1 amp Erythromycin (Derrick-Tab -) 500 mg PO MoWeFr@1000 [facility] Escitalopram Oxalate (Lexapro -) 5 mg PO DAILY [facility] Last Admin: 01/14/17 10:41 Dose: 5 mg Heparin Sodium (Porcine) (Heparin -) 5,000 unit SQ BID [facility] Last Admin: 01/14/17 10:40 Dose: 5,000 unit Piperacillin/Tazobactam/Dextrose (Zosyn 3.375gm Ivpb (Premix)) 50 mls @ 100 mls /hr IVPB Q8H-IV [facility] PRN Reason: Protocol Last Admin: 01/14/17 10:46 Dose: 100 mls/hr Azithromycin 500 mg/ Dextrose 250 mls @ 250 mls/hr IVPB DAILY [facility] Last Admin: 01/14/17 11:41 Dose: 250 mls/hr Methylprednisolone Sodium Succinate (Solu-Medrol -) 40 mg IVPB Q6H-IV [facility] Last Admin: 01/14/17 10:41 Dose: 40 mg Montelukast Sodium (Singulair -) 10 mg PO HS [facility] Last Admin: 01/13/17 21:28 Dose: 10 mg Ranitidine HCl (Zantac -) 150 mg PO DAILY [facility] Last Admin: 01/14/17 10:41 Dose: 150 mg Tiotropium [place] (Spiriva -) 1 puff IH DAILY [facility] Last Admin: 01/14/17 10:45 Dose: 1 inh - Objective Vital Signs: Vital Signs Temperature 98 F 01/14/17 05:32 Pulse Rate 93 H 01/14/17 10:33 Respiratory Rate 18 01/14/17 05:32 Blood Pressure 100/45 01/14/17 05:32 O2 Sat by Pulse Oximetry (%) 95 01/14/17 10:33 Constitutional: Yes: No Distress, Calm Cardiovascular: Yes: Regular Rate and Rhythm, S1, S2 Respiratory: Yes: Regular, CTA Bilaterally, Rales Gastrointestinal: Yes: Normal Bowel Sounds, Soft. No: Tenderness Edema: No Neurological: Yes: Alert, Oriented Labs: CBC, BMP 01/14/17 05:18 01/14/17 05:18 Problem List - Problems (1) Acute and chronic respiratory failure with hypoxia Code(s): J96.21 - ACUTE AND CHRONIC RESPIRATORY FAILURE WITH HYPOXIA (2) Dyspnea Code(s): R06.00 - DYSPNEA, UNSPECIFIED (3) Tachycardia Code(s): R00.0 - TACHYCARDIA, UNSPECIFIED (4) Congestive heart failure Code(s): I50.9 - HEART FAILURE, UNSPECIFIED Qualifiers: Congestive heart failure type: systolic (5) Pulmonary hypertension Code(s): I27.20 - PULMONARY HYPERTENSION, UNSPECIFIED (6) Bronchiectasis Code(s): J47.9 - BRONCHIECTASIS, UNCOMPLICATED (7) Anxiety Code(s): F41.9 - ANXIETY DISORDER, UNSPECIFIED (8) Depression Code(s): F32.9 - MAJOR DEPRESSIVE DISORDER, SINGLE EPISODE, UNSPECIFIED Assessment/Plan Admitted to telemetry. IV steroids. Pulmonary and Cardio Consults appreciated ID consult appreciated.. Possible RLL PNA; IV abtx-per ID ECHO done, abnormal Serial CE- negative AM labs DVT and GI Prophylaxis Incentive spirometry.
[2017-01-14] MEDS: MONTELUKAST NA 10 MG TABLET PO SCH (22:35)
[2017-01-14] MEDS: ALPRAZolam 0.25 MG TABLET PO PRN (22:43)
[2017-01-15] MEDS: PIPERACILLIN/TAZOB 3.375 GM 50 ML IVPB SCH ×3 (01:46→17:28)
[2017-01-15] MEDS: methylPREDNISolone NA SUCC 40 MG/1 ML VIAL IVPB SCH ×3 (03:00→17:13)
[2017-01-15 07:57] LABS: MCH 27.9 pg (25.7-33.7); MCHC 32.4 g/dl (32.0-35.9); PLATELET COUNT 187 K/MM3 (134-434); RDW 15.4 % (11.9-15.9)
[2017-01-15 08:16] LABS: ANION GAP 9 (8-16); CALCIUM 8.1 mg/dL (8.5-10.1); CO2 30 mmol/L (21-32); CREATININE 0.9 mg/dL (0.7-1.3); GLUCOSE,RANDOM 109 mg/dL (74-106)
--- NOTE | 2017-01-15 09:10 | PN ---
Progress Note, Physician Chief Complaint: no distress TELE: NSR - Current Medication List Current Medications: Active Medications Albuterol Sulfate (Ventolin 0.083% Nebulizer Soln -) 1 amp NEB Q6H PRN PRN Reason: SHORT OF BREATH/WHEEZING Last Admin: 01/13/17 05:59 Dose: 1 amp Alprazolam (Xanax -) 0.25 mg PO HS PRN Last Admin: 01/14/17 22:43 Dose: 0.25 mg Budesonide (Pulmicort 0.25 Mg Nebulizer -) 1 amp NEB BID [facility] Last Admin: 01/14/17 22:12 Dose: 1 amp Erythromycin (Derrick-Tab -) 500 mg PO MoWeFr@1000 [facility] Escitalopram Oxalate (Lexapro -) 5 mg PO DAILY [facility] Last Admin: 01/14/17 10:41 Dose: 5 mg Heparin Sodium (Porcine) (Heparin -) 5,000 unit SQ BID [facility] Last Admin: 01/14/17 22:34 Dose: 5,000 unit Piperacillin/Tazobactam/Dextrose (Zosyn 3.375gm Ivpb (Premix)) 50 mls @ 100 mls /hr IVPB Q8H-IV [facility] PRN Reason: Protocol Last Admin: 01/15/17 01:46 Dose: 100 mls/hr Azithromycin 500 mg/ Dextrose 250 mls @ 250 mls/hr IVPB DAILY [facility] Last Admin: 01/14/17 11:41 Dose: 250 mls/hr Methylprednisolone Sodium Succinate (Solu-Medrol -) 40 mg IVPB Q6H-IV [facility] Last Admin: 01/15/17 03:00 Dose: 40 mg Montelukast Sodium (Singulair -) 10 mg PO HS [facility] Last Admin: 01/14/17 22:35 Dose: 10 mg Ranitidine HCl (Zantac -) 150 mg PO DAILY [facility] Last Admin: 01/14/17 10:41 Dose: 150 mg Tiotropium [place] (Spiriva -) 1 puff IH DAILY [facility] Last Admin: 01/14/17 10:45 Dose: 1 inh - Objective Vital Signs: Vital Signs Temperature 98 F 01/15/17 05:58 Pulse Rate 60 01/15/17 05:58 Respiratory Rate 20 01/15/17 05:58 Blood Pressure 92/52 01/15/17 05:58 O2 Sat by Pulse Oximetry (%) 95 01/14/17 20:45 Constitutional: Yes: Calm Cardiovascular: Yes: Regular Rate and Rhythm Respiratory: Yes: Other (no wheezing, decreased basilar breath sounds) Gastrointestinal: Yes: Soft Edema: No Neurological: Yes: Alert Labs: CBC, BMP 01/15/17 05:15 01/15/17 05:15 Laboratory Tests 01/15/17 01/15/17 05:15 05:15 WBC 6.0 Hgb 10.7 L Plt Count 187 Sodium 136 Potassium 4.5 Creatinine 0.9 - ....Imaging EKG: Image Reviewed Assessment/Plan Assessment/Plan Bronchiectasis, extensive RLL PNA Possible ASHD REC: Supp O2 and abx as per PMD and ID As echo shows wall motion abnormalities, underlying ASHD is possible and should be further evaluated when PNA resolves. Start ASA 81 if no contraindications. Plan for Persantine MIBI prior to d/c when acute infectious process resolved/ treated. Coverage for [facility]
[2017-01-15] MEDS: AZITHROMYCIN IVPB 500 MG in DEXTROSE 5%-WATER - 250 ML IVPB SCH (09:30)
[2017-01-15] MEDS: HEPARIN NA (PORCINE) 5,000 UNITS/ML 1ML VIAL SQ SCH ×2 (09:30→22:15)
[2017-01-15] MEDS: RANITIDINE HCL 150 MG TABLET (FP) PO SCH (09:30)
[2017-01-15] MEDS: ESCITALOPRAM OXALATE 10 MG TABLET (FP) PO SCH (09:31)
[2017-01-15] MEDS: TIOTROPIUM BROMIDE 18 MCG/INH (DEVICE W/ 5 CAPSULES) IH SCH (09:43)
[2017-01-15] MEDS: BUDESONIDE 0.25 MG/2ML INH SUSP VIAL NEB SCH ×2 (10:29→21:57)
[2017-01-15] MEDS ORDERED: PT OWN MED DRAWER 7, Y5N ONE ×2 (10:41→16:36)
--- NOTE | 2017-01-15 11:36 | PN ---
Progress Note, Physician History of Present Illness: Pt w/o fever, CP, palp, N, V, abd pain. Pt states that is breathing a little better. - Current Medication List Current Medications: Active Medications Albuterol Sulfate (Ventolin 0.083% Nebulizer Soln -) 1 amp NEB Q6H PRN PRN Reason: SHORT OF BREATH/WHEEZING Last Admin: 01/13/17 05:59 Dose: 1 amp Alprazolam (Xanax -) 0.25 mg PO HS PRN Last Admin: 01/14/17 22:43 Dose: 0.25 mg Budesonide (Pulmicort 0.25 Mg Nebulizer -) 1 amp NEB BID [facility] Last Admin: 01/15/17 10:29 Dose: 1 amp Erythromycin (Derrick-Tab -) 500 mg PO MoWeFr@1000 [facility] Escitalopram Oxalate (Lexapro -) 5 mg PO DAILY [facility] Last Admin: 01/15/17 09:31 Dose: 5 mg Heparin Sodium (Porcine) (Heparin -) 5,000 unit SQ BID [facility] Last Admin: 01/15/17 09:30 Dose: 5,000 unit Piperacillin/Tazobactam/Dextrose (Zosyn 3.375gm Ivpb (Premix)) 50 mls @ 100 mls /hr IVPB Q8H-IV [facility] PRN Reason: Protocol Last Admin: 01/15/17 09:30 Dose: 100 mls/hr Azithromycin 500 mg/ Dextrose 250 mls @ 250 mls/hr IVPB DAILY [facility] Last Admin: 01/15/17 09:30 Dose: 250 mls/hr Methylprednisolone Sodium Succinate (Solu-Medrol -) 40 mg IVPB Q6H-IV [facility] Last Admin: 01/15/17 09:30 Dose: 40 mg Montelukast Sodium (Singulair -) 10 mg PO HS [facility] Last Admin: 01/14/17 22:35 Dose: 10 mg Ranitidine HCl (Zantac -) 150 mg PO DAILY [facility] Last Admin: 01/15/17 09:30 Dose: 150 mg Tiotropium [place] (Spiriva -) 1 puff IH DAILY [facility] Last Admin: 01/15/17 09:43 Dose: 1 inh - Objective Vital Signs: Vital Signs Temperature 97.8 F 01/15/17 10:00 Pulse Rate 88 01/15/17 10:29 Respiratory Rate 20 01/15/17 10:00 Blood Pressure 98/54 01/15/17 10:00 O2 Sat by Pulse Oximetry (%) 98 01/15/17 10:29 Constitutional: Yes: No Distress, Calm Cardiovascular: Yes: Regular Rate and Rhythm, S1, S2 Respiratory: Yes: Regular, CTA Bilaterally, Rales Gastrointestinal: Yes: Normal Bowel Sounds, Soft. No: Tenderness Edema: No Neurological: Yes: Alert, Oriented Labs: CBC, BMP 01/15/17 05:15 01/15/17 05:15 Problem List - Problems (1) Acute and chronic respiratory failure with hypoxia Code(s): J96.21 - ACUTE AND CHRONIC RESPIRATORY FAILURE WITH HYPOXIA (2) Dyspnea Code(s): R06.00 - DYSPNEA, UNSPECIFIED (3) Tachycardia Code(s): R00.0 - TACHYCARDIA, UNSPECIFIED (4) Congestive heart failure Code(s): I50.9 - HEART FAILURE, UNSPECIFIED Qualifiers: Congestive heart failure type: systolic (5) Pulmonary hypertension Code(s): I27.20 - PULMONARY HYPERTENSION, UNSPECIFIED (6) Bronchiectasis Code(s): J47.9 - BRONCHIECTASIS, UNCOMPLICATED (7) Anxiety Code(s): F41.9 - ANXIETY DISORDER, UNSPECIFIED (8) Depression Code(s): F32.9 - MAJOR DEPRESSIVE DISORDER, SINGLE EPISODE, UNSPECIFIED Assessment/Plan Admitted to telemetry. IV steroids. Pulmonary and Cardio Consults appreciated ID consult appreciated.. Possible RLL PNA; IV abtx-per ID ECHO done, abnormal Serial CE- negative AM labs DVT and GI Prophylaxis Incentive spirometry. OOB[facility]
--- NOTE | 2017-01-15 11:55 | PN ---
Progress Note (short form) - Note Progress Note: Feels better today. Less SOB. No CP. No acute events overnight. Intake & Output 01/12/17 01/13/17 01/14/17 01/15/17 23:59 23:59 23:59 23:59 Intake Total 600 500 275 Balance 600 500 275 Weight 125 lb 125 lb Last Vital Signs Temp Pulse Resp BP Pulse Ox 97.8 F 88 20 98/54 98 01/15/17 10:00 01/15/17 10:29 01/15/17 10:00 01/15/17 10:00 01/15/17 10:29 Active Medications Albuterol Sulfate (Ventolin 0.083% Nebulizer Soln -) 1 amp NEB Q6H PRN PRN Reason: SHORT OF BREATH/WHEEZING Last Admin: 01/13/17 05:59 Dose: 1 amp Alprazolam (Xanax -) 0.25 mg PO HS PRN Last Admin: 01/14/17 22:43 Dose: 0.25 mg Budesonide (Pulmicort 0.25 Mg Nebulizer -) 1 amp NEB BID [facility] Last Admin: 01/15/17 10:29 Dose: 1 amp Erythromycin (Derrick-Tab -) 500 mg PO MoWeFr@1000 [facility] Escitalopram Oxalate (Lexapro -) 5 mg PO DAILY [facility] Last Admin: 01/15/17 09:31 Dose: 5 mg Heparin Sodium (Porcine) (Heparin -) 5,000 unit SQ BID [facility] Last Admin: 01/15/17 09:30 Dose: 5,000 unit Piperacillin/Tazobactam/Dextrose (Zosyn 3.375gm Ivpb (Premix)) 50 mls @ 100 mls /hr IVPB Q8H-IV [facility] PRN Reason: Protocol Last Admin: 01/15/17 09:30 Dose: 100 mls/hr Azithromycin 500 mg/ Dextrose 250 mls @ 250 mls/hr IVPB DAILY [facility] Last Admin: 01/15/17 09:30 Dose: 250 mls/hr Methylprednisolone Sodium Succinate (Solu-Medrol -) 40 mg IVPB Q6H-IV [facility] Last Admin: 01/15/17 09:30 Dose: 40 mg Montelukast Sodium (Singulair -) 10 mg PO HS [facility] Last Admin: 01/14/17 22:35 Dose: 10 mg Ranitidine HCl (Zantac -) 150 mg PO DAILY [facility] Last Admin: 01/15/17 09:30 Dose: 150 mg Tiotropium [place] (Spiriva -) 1 puff IH DAILY [facility] Last Admin: 01/15/17 09:43 Dose: 1 inh Constitutional: Yes: NAD Cardiovascular: Yes: Regular Rate and Rhythm Respiratory: Yes: few bilateral rhonchi Gastrointestinal: Yes: Soft Edema: No Neurological: Yes: Alert Laboratory Results - last 24 hr 01/15/17 01/15/17 05:15 05:15 WBC 6.0 RBC 3.84 L Hgb 10.7 L Hct 33.0 L MCV 86.0 MCH 27.9 MCHC 32.4 RDW 15.4 Plt Count 187 MPV 8.0 Sodium 136 Potassium 4.5 Chloride 97 L Carbon Dioxide 30 Anion Gap 9 BUN 30 H Creatinine 0.9 Random Glucose 109 H Calcium 8.1 L Problem List - Problems (1) Dyspnea Code(s): R06.00 - DYSPNEA, UNSPECIFIED (2) Acute and chronic respiratory failure with hypoxia Code(s): J96.21 - ACUTE AND CHRONIC RESPIRATORY FAILURE WITH HYPOXIA (3) Bronchiectasis Code(s): J47.9 - BRONCHIECTASIS, UNCOMPLICATED (4) Tongue cancer Code(s): C02.9 - MALIGNANT NEOPLASM OF TONGUE, UNSPECIFIED IMP ACUTE ON CHRONIC HYPOXEMIC RESPIRATORY FAILURE EXTENSIVE BRONCHIECTASIS ILD URI H/O TONGUE CA S/P RT/CHEMO PLAN DECREASE IV STEROIDS INHALED BRONCHODILATORS O2 ANTIBIOTICS CHEST PT OUTPATIENT PULMONARY REHAB POST DISCHARGE DR CARVER
[2017-01-15] MEDS: ALPRAZolam 0.25 MG TABLET PO PRN (22:15)
[2017-01-15] MEDS: MONTELUKAST NA 10 MG TABLET PO SCH (22:15)
[2017-01-16] MEDS: methylPREDNISolone NA SUCC 40 MG/1 ML VIAL IVPB SCH ×3 (03:05→17:26)
[2017-01-16] MEDS: PIPERACILLIN/TAZOB 3.375 GM 50 ML IVPB SCH ×3 (03:13→17:26)
[2017-01-16 06:56] LABS: MCH 27.6 pg (25.7-33.7); MCHC 32.2 g/dl (32.0-35.9); MEAN CELL VOLUME 85.9 fl (80-96); MEAN PLT VOLUME 7.8 fl (7.5-11.1); PLATELET COUNT 178 K/MM3 (134-434); WHITE BLOOD COUNT 6.2 K/mm3 (4.0-10.0)
[2017-01-16 07:17] LABS: ALBUMIN 2.2 g/dl (3.4-5.0); ALK PHOS 75 U/L (45-117); ANION GAP 7 (8-16); BILIRUBIN,TOTAL 0.3 mg/dL (0.2-1.0); CALCIUM 7.5 mg/dL (8.5-10.1); CO2 32 mmol/L (21-32); CREATININE 0.7 mg/dL (0.7-1.3); GLUCOSE,RANDOM 101 mg/dL (74-106); SGOT/AST 14 U/L (15-37); SGPT/ALT 32 U/L (12-78); TOT PROT 6.4 g/dl (6.4-8.2)
[2017-01-16] MEDS ORDERED: PT OWN MED DRAWER 7, Y5N ONE (09:06)
[2017-01-16] MEDS: HEPARIN NA (PORCINE) 5,000 UNITS/ML 1ML VIAL SQ SCH ×2 (09:17→21:23)
[2017-01-16] MEDS: RANITIDINE HCL 150 MG TABLET (FP) PO SCH (09:17)
[2017-01-16] MEDS: ESCITALOPRAM OXALATE 10 MG TABLET (FP) PO SCH (09:17)
[2017-01-16] MEDS: AZITHROMYCIN IVPB 500 MG in DEXTROSE 5%-WATER - 250 ML IVPB SCH (09:19)
[2017-01-16] MEDS ORDERED: ERYTHROMYCIN BASE 250 MG TAB PO SCH (10:00)
[2017-01-16] MEDS: BUDESONIDE 0.25 MG/2ML INH SUSP VIAL NEB SCH ×2 (10:45→22:56)
[2017-01-16] MEDS: ALBUTEROL SO4 0.083% IH SOL 2.5 MG/3 ML VIAL.NEB. NEB PRN (10:45)
--- NOTE | 2017-01-16 11:42 | PN ---
Progress Note, Physician History of Present Illness: pulmonary alert,feeling better, less dyspneic.+ cough yellow sputum - Current Medication List Current Medications: Active Medications Albuterol Sulfate (Ventolin 0.083% Nebulizer Soln -) 1 amp NEB Q6H PRN PRN Reason: SHORT OF BREATH/WHEEZING Last Admin: 01/16/17 10:45 Dose: 1 amp Alprazolam (Xanax -) 0.25 mg PO HS PRN Last Admin: 01/15/17 22:15 Dose: 0.25 mg Budesonide (Pulmicort 0.25 Mg Nebulizer -) 1 amp NEB BID [facility] Last Admin: 01/16/17 10:45 Dose: 1 amp Erythromycin (Derrick-Tab -) 500 mg PO MoWeFr@1000 [facility] Last Admin: 01/16/17 09:18 Dose: 500 mg Escitalopram Oxalate (Lexapro -) 5 mg PO DAILY [facility] Last Admin: 01/16/17 09:17 Dose: 5 mg Heparin Sodium (Porcine) (Heparin -) 5,000 unit SQ BID [facility] Last Admin: 01/16/17 09:17 Dose: 5,000 unit Piperacillin/Tazobactam/Dextrose (Zosyn 3.375gm Ivpb (Premix)) 50 mls @ 100 mls /hr IVPB Q8H-IV [facility] PRN Reason: Protocol Last Admin: 01/16/17 09:19 Dose: 100 mls/hr Azithromycin 500 mg/ Dextrose 250 mls @ 250 mls/hr IVPB DAILY [facility] Last Admin: 01/16/17 09:19 Dose: 250 mls/hr Methylprednisolone Sodium Succinate (Solu-Medrol -) 40 mg IVPB Q8H-IV [facility] Last Admin: 01/16/17 09:17 Dose: 40 mg Montelukast Sodium (Singulair -) 10 mg PO HS [facility] Last Admin: 01/15/17 22:15 Dose: 10 mg Ranitidine HCl (Zantac -) 150 mg PO DAILY [facility] Last Admin: 01/16/17 09:17 Dose: 150 mg Tiotropium [place] (Spiriva -) 1 puff IH DAILY [facility] Last Admin: 01/15/17 09:43 Dose: 1 inh - Objective Vital Signs: Vital Signs Temperature 98 F 01/16/17 09:38 Pulse Rate 79 01/16/17 10:35 Respiratory Rate 20 01/16/17 09:38 Blood Pressure 100/54 01/16/17 09:38 O2 Sat by Pulse Oximetry (%) 97 01/16/17 10:35 Constitutional: Yes: Calm, Thin Eyes: Yes: WNL HENT: Yes: WNL Neck: Yes: WNL Cardiovascular: Yes: Regular Rate and Rhythm, S1, S2 Respiratory: Yes: Rales, Rhonchi Gastrointestinal: Yes: Normal Bowel Sounds, Soft Extremities: Yes: WNL Edema: No Labs: CBC, BMP 01/16/17 06:30 01/16/17 06:30 Problem List - Problems (1) Dyspnea Code(s): R06.00 - DYSPNEA, UNSPECIFIED (2) Acute and chronic respiratory failure with hypoxia Code(s): J96.21 - ACUTE AND CHRONIC RESPIRATORY FAILURE WITH HYPOXIA (3) Bronchiectasis Code(s): J47.9 - BRONCHIECTASIS, UNCOMPLICATED (4) Tongue cancer Code(s): C02.9 - MALIGNANT NEOPLASM OF TONGUE, UNSPECIFIED Assessment/Plan IMP ACUTE ON CHRONIC HYPOXEMIC RESPIRATORY FAILURE EXTENSIVE BRONCHIECTASIS ILD URI H/O TONGUE CA S/P RT/CHEMO PLAN IV STEROIDS INHALED BRONCHODILATORS O2 ANTIBIOTICS PER ID CHEST PT OUTPATIENT PULMONARY REHAB 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
[2017-01-16] MEDS: TIOTROPIUM BROMIDE 18 MCG/INH (DEVICE W/ 5 CAPSULES) IH SCH (11:59)
--- NOTE | 2017-01-16 12:33 | PN ---
Progress Note, Physician History of Present Illness: Patient is a 61 y.o. 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 Uribe) where patient was noted to be saturating in the high 80's. Patient notes increased labored breathing for the past 4 days as well as productive (whitish sputum) cough. Patient further notes a chest tightness similar to the tightness he experienced at the time of his previous PNAs. Patient notes his last radiation treatment was in August 2016 and his decreased appetite hastened placement of a J tube. - Current Medication List Current Medications: Active Medications Albuterol Sulfate (Ventolin 0.083% Nebulizer Soln -) 1 amp NEB Q6H PRN PRN Reason: SHORT OF BREATH/WHEEZING Last Admin: 01/16/17 10:45 Dose: 1 amp Alprazolam (Xanax -) 0.25 mg PO HS PRN Last Admin: 01/15/17 22:15 Dose: 0.25 mg Budesonide (Pulmicort 0.25 Mg Nebulizer -) 1 amp NEB BID [facility] Last Admin: 01/16/17 10:45 Dose: 1 amp Escitalopram Oxalate (Lexapro -) 5 mg PO DAILY [facility] Last Admin: 01/16/17 09:17 Dose: 5 mg Heparin Sodium (Porcine) (Heparin -) 5,000 unit SQ BID [facility] Last Admin: 01/16/17 09:17 Dose: 5,000 unit Piperacillin/Tazobactam/Dextrose (Zosyn 3.375gm Ivpb (Premix)) 50 mls @ 100 mls /hr IVPB Q8H-IV [facility]EN PRN Reason: Protocol Last Admin: 01/16/17 09:19 Dose: 100 mls/hr Methylprednisolone Sodium Succinate (Solu-Medrol -) 40 mg IVPB Q8H-IV [facility] Last Admin: 01/16/17 09:17 Dose: 40 mg Montelukast Sodium (Singulair -) 10 mg PO HS [facility] Last Admin: 01/15/17 22:15 Dose: 10 mg Ranitidine HCl (Zantac -) 150 mg PO DAILY [facility] Last Admin: 01/16/17 09:17 Dose: 150 mg Tiotropium [place] (Spiriva -) 1 puff IH DAILY [facility] Last Admin: 01/16/17 11:59 Dose: 1 inh - Objective Vital Signs: Vital Signs Temperature 98 F 01/16/17 09:38 Pulse Rate 79 01/16/17 10:35 Respiratory Rate 20 01/16/17 09:38 Blood Pressure 100/54 01/16/17 09:38 O2 Sat by Pulse Oximetry (%) 97 01/16/17 10:35 Eyes: Yes: WNL, Conjunctiva Clear, EOM Intact HENT: Yes: WNL, Atraumatic, Normocephalic Neck: Yes: WNL, Supple, Trachea Midline Cardiovascular: Yes: WNL, Regular Rate and Rhythm Respiratory: Yes: Diminished Gastrointestinal: Yes: WNL, Normal Bowel Sounds Genitourinary: Yes: WNL Musculoskeletal: Yes: WNL Extremities: Yes: WNL Edema: No Integumentary: Yes: WNL Neurological: Yes: WNL, Alert, Oriented ...Motor Strength: WNL Psychiatric: Yes: WNL Labs: CBC, BMP 01/16/17 06:30 01/16/17 06:30 Assessment/Plan Bronchiectasis, extensive RLL PNA Possible ASHD REC: Supp O2 and abx as per PMD and ID As echo shows wall motion abnormalities, underlying ASHD is possible and should be further evaluated when PNA resolves. Start ASA 81 if no contraindications. Plan for Persantine MIBI prior to d/c when acute infectious process resolved/ treated.
--- NOTE | 2017-01-16 14:52 | PN ---
Progress Note (short form) - Note Progress Note: Reports cough productive of greenish sputum Remains dyspneic at rest No c/o chest pain No c/o fever/ chills Afebrile Cor S1S2 + bilateral rhonchi, bibasilar crepitations abdomen soft, non tender no edema Sputum c/s Pseudomonas Acute exacerbation, chronic bronchiectasis RLL pneumonia + Sputum c/s Pseudomonas Hx tonsilar ca Continue zosyn, steroids, bronchodilators
--- NOTE | 2017-01-16 17:33 | PN ---
Progress Note, Physician History of Present Illness: Pt w/o fever, CP, palp, N, V, abd pain. Pt is bringing up green sputum, about the same amount as before. - Current Medication List Current Medications: Active Medications Albuterol Sulfate (Ventolin 0.083% Nebulizer Soln -) 1 amp NEB Q6H PRN PRN Reason: SHORT OF BREATH/WHEEZING Last Admin: 01/16/17 10:45 Dose: 1 amp Alprazolam (Xanax -) 0.25 mg PO HS PRN Last Admin: 01/15/17 22:15 Dose: 0.25 mg Budesonide (Pulmicort 0.25 Mg Nebulizer -) 1 amp NEB BID [facility] Last Admin: 01/16/17 10:45 Dose: 1 amp Escitalopram Oxalate (Lexapro -) 5 mg PO DAILY [facility] Last Admin: 01/16/17 09:17 Dose: 5 mg Heparin Sodium (Porcine) (Heparin -) 5,000 unit SQ BID [facility] Last Admin: 01/16/17 09:17 Dose: 5,000 unit Piperacillin/Tazobactam/Dextrose (Zosyn 3.375gm Ivpb (Premix)) 50 mls @ 100 mls /hr IVPB Q8H-IV LA[facility]EN PRN Reason: Protocol Last Admin: 01/16/17 17:26 Dose: 100 mls/hr Methylprednisolone Sodium Succinate (Solu-Medrol -) 40 mg IVPB Q8H-IV [facility] Last Admin: 01/16/17 17:26 Dose: 40 mg Montelukast Sodium (Singulair -) 10 mg PO HS [facility] Last Admin: 01/15/17 22:15 Dose: 10 mg Ranitidine HCl (Zantac -) 150 mg PO DAILY [facility] Last Admin: 01/16/17 09:17 Dose: 150 mg Tiotropium [place] (Spiriva -) 1 puff IH DAILY [facility] Last Admin: 01/16/17 11:59 Dose: 1 inh - Objective Vital Signs: Vital Signs Temperature 98.4 F 01/16/17 15:00 Pulse Rate 72 01/16/17 15:00 Respiratory Rate 20 01/16/17 15:00 Blood Pressure 94/44 01/16/17 15:00 O2 Sat by Pulse Oximetry (%) 97 01/16/17 10:35 Constitutional: Yes: No Distress, Calm Cardiovascular: Yes: Regular Rate and Rhythm, S1, S2 Respiratory: Yes: Regular, Rales, Rhonchi Gastrointestinal: Yes: Normal Bowel Sounds, Soft. No: Tenderness Edema: No Neurological: Yes: Alert, Oriented Labs: CBC, BMP 01/16/17 06:30 01/16/17 06:30 Problem List - Problems (1) Acute and chronic respiratory failure with hypoxia Code(s): J96.21 - ACUTE AND CHRONIC RESPIRATORY FAILURE WITH HYPOXIA (2) Dyspnea Code(s): R06.00 - DYSPNEA, UNSPECIFIED (3) Tachycardia Code(s): R00.0 - TACHYCARDIA, UNSPECIFIED (4) Congestive heart failure Code(s): I50.9 - HEART FAILURE, UNSPECIFIED Qualifiers: Congestive heart failure type: systolic (5) Pulmonary hypertension Code(s): I27.20 - PULMONARY HYPERTENSION, UNSPECIFIED (6) Bronchiectasis Code(s): J47.9 - BRONCHIECTASIS, UNCOMPLICATED (7) Anxiety Code(s): F41.9 - ANXIETY DISORDER, UNSPECIFIED (8) Depression Code(s): F32.9 - MAJOR DEPRESSIVE DISORDER, SINGLE EPISODE, UNSPECIFIED Assessment/Plan Admitted to telemetry. IV steroids-tapered. Pulmonary and Cardio Consults appreciated ID consult appreciated.. RLL PNA; IV abtx-per ID ECHO done, abnormal; needs Stress test in the future. Serial CE- negative AM labs DVT and GI Prophylaxis Incentive spirometry. OOBTC
[2017-01-16] MEDS: MONTELUKAST NA 10 MG TABLET PO SCH (21:23)
[2017-01-16] MEDS: ALPRAZolam 0.25 MG TABLET PO PRN (21:31)
[2017-01-17] MEDS: methylPREDNISolone NA SUCC 40 MG/1 ML VIAL IVPB SCH ×3 (01:20→21:32)
[2017-01-17] MEDS: PIPERACILLIN/TAZOB 3.375 GM 50 ML IVPB SCH ×3 (01:43→17:45)
[2017-01-17 06:59] LABS: MCH 27.9 pg (25.7-33.7); MCHC 32.4 g/dl (32.0-35.9); MEAN CELL VOLUME 86.2 fl (80-96); MEAN PLT VOLUME 7.8 fl (7.5-11.1); PLATELET COUNT 167 K/MM3 (134-434); RDW 15.4 % (11.9-15.9); WHITE BLOOD COUNT 4.4 K/mm3 (4.0-10.0)
[2017-01-17 07:05] LABS: ANION GAP 6 (8-16); CALCIUM 7.9 mg/dL (8.5-10.1); CO2 33 mmol/L (21-32); GLUCOSE,RANDOM 114 mg/dL (74-106)
[2017-01-17 07:06] LABS: CREATININE 0.7 mg/dL (0.7-1.3)
[2017-01-17] MEDS ORDERED: PT OWN MED DRAWER 7, Y5N ONE ×2 (09:15→22:24)
[2017-01-17] MEDS: RANITIDINE HCL 150 MG TABLET (FP) PO SCH (09:55)
[2017-01-17] MEDS: ESCITALOPRAM OXALATE 10 MG TABLET (FP) PO SCH (09:56)
[2017-01-17] MEDS: HEPARIN NA (PORCINE) 5,000 UNITS/ML 1ML VIAL SQ SCH ×2 (09:57→21:32)
[2017-01-17] MEDS: TIOTROPIUM BROMIDE 18 MCG/INH (DEVICE W/ 5 CAPSULES) IH SCH (09:59)
[2017-01-17] MEDS: BUDESONIDE 0.25 MG/2ML INH SUSP VIAL NEB SCH ×2 (10:03→22:51)
--- NOTE | 2017-01-17 11:26 | PN ---
Progress Note, Physician History of Present Illness: pulmonary alert,less dyspneic,+cough - Current Medication List Current Medications: Active Medications Albuterol Sulfate (Ventolin 0.083% Nebulizer Soln -) 1 amp NEB Q6H PRN PRN Reason: SHORT OF BREATH/WHEEZING Last Admin: 01/16/17 10:45 Dose: 1 amp Alprazolam (Xanax -) 0.25 mg PO HS PRN Last Admin: 01/16/17 21:31 Dose: 0.25 mg Budesonide (Pulmicort 0.25 Mg Nebulizer -) 1 amp NEB BID [facility] Last Admin: 01/17/17 10:03 Dose: 1 amp Escitalopram Oxalate (Lexapro -) 5 mg PO DAILY [facility] Last Admin: 01/17/17 09:56 Dose: 5 mg Heparin Sodium (Porcine) (Heparin -) 5,000 unit SQ BID [facility] Last Admin: 01/17/17 09:57 Dose: 5,000 unit Piperacillin/Tazobactam/Dextrose (Zosyn 3.375gm Ivpb (Premix)) 50 mls @ 100 mls /hr IVPB Q8H-IV LAUREN PRN Reason: Protocol Last Admin: 01/17/17 11:16 Dose: 100 mls/hr Methylprednisolone Sodium Succinate (Solu-Medrol -) 40 mg IVPB Q8H-IV [facility] Last Admin: 01/17/17 09:58 Dose: 40 mg Montelukast Sodium (Singulair -) 10 mg PO HS [facility] Last Admin: 01/16/17 21:23 Dose: 10 mg Ranitidine HCl (Zantac -) 150 mg PO DAILY [facility] Last Admin: 01/17/17 09:55 Dose: 150 mg Tiotropium [place] (Spiriva -) 1 puff IH DAILY [facility] Last Admin: 01/17/17 09:59 Dose: 1 inh - Objective Vital Signs: Vital Signs Temperature 98.1 F 01/17/17 08:56 Pulse Rate 81 01/17/17 08:56 Respiratory Rate 20 01/17/17 08:56 Blood Pressure 98/55 01/17/17 08:56 O2 Sat by Pulse Oximetry (%) 92 L 01/17/17 08:26 Constitutional: Yes: Well Nourished, Calm Eyes: Yes: WNL HENT: Yes: WNL Neck: Yes: WNL, Tenderness Cardiovascular: Yes: S1, S2 Respiratory: Yes: Rales (danielle crackles) Gastrointestinal: Yes: Normal Bowel Sounds, Soft Extremities: Yes: WNL Edema: No Labs: CBC, BMP 01/17/17 06:15 01/17/17 06:15 Problem List - Problems (1) Dyspnea Code(s): R06.00 - DYSPNEA, UNSPECIFIED (2) Acute and chronic respiratory failure with hypoxia Code(s): J96.21 - ACUTE AND CHRONIC RESPIRATORY FAILURE WITH HYPOXIA (3) Bronchiectasis Code(s): J47.9 - BRONCHIECTASIS, UNCOMPLICATED (4) Tongue cancer Code(s): C02.9 - MALIGNANT NEOPLASM OF TONGUE, UNSPECIFIED Assessment/Plan IMP ACUTE ON CHRONIC HYPOXEMIC RESPIRATORY FAILURE EXTENSIVE BRONCHIECTASIS ILD URI H/O TONGUE CA S/P RT/CHEMO PLAN TAPER STEROIDS INHALED BRONCHODILATORS O2 ANTIBIOTICS PER ID CHEST PT OUTPATIENT PULMONARY REHAB 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
--- NOTE | 2017-01-17 13:42 | PN ---
Progress Note, Physician Chief Complaint: Pt A&Ox3; no chest pain; remains dyspneic on minimal exertion. History of Present Illness: Patient is a 61 y.o. 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 Uribe) where patient was noted to be saturating in the high 80's. Patient notes increased labored breathing for the past 4 days as well as productive (whitish sputum) cough. Patient further notes a chest tightness similar to the tightness he experienced at the time of his previous PNAs. Patient notes his last radiation treatment was in August 2016 and his decreased appetite hastened placement of a J tube. - Current Medication List Current Medications: Active Medications Albuterol Sulfate (Ventolin 0.083% Nebulizer Soln -) 1 amp NEB Q6H PRN PRN Reason: SHORT OF BREATH/WHEEZING Last Admin: 01/16/17 10:45 Dose: 1 amp Alprazolam (Xanax -) 0.25 mg PO HS PRN Last Admin: 01/16/17 21:31 Dose: 0.25 mg Budesonide (Pulmicort 0.25 Mg Nebulizer -) 1 amp NEB BID [facility] Last Admin: 01/17/17 10:03 Dose: 1 amp Escitalopram Oxalate (Lexapro -) 5 mg PO DAILY [facility] Last Admin: 01/17/17 09:56 Dose: 5 mg Heparin Sodium (Porcine) (Heparin -) 5,000 unit SQ BID [facility] Last Admin: 01/17/17 09:57 Dose: 5,000 unit Piperacillin/Tazobactam/Dextrose (Zosyn 3.375gm Ivpb (Premix)) 50 mls @ 100 mls /hr IVPB Q8H-IV LAUREN PRN Reason: Protocol Last Admin: 01/17/17 11:16 Dose: 100 mls/hr Methylprednisolone Sodium Succinate (Solu-Medrol -) 40 mg IVPB BID [facility] Montelukast Sodium (Singulair -) 10 mg PO HS [facility] Last Admin: 01/16/17 21:23 Dose: 10 mg Ranitidine HCl (Zantac -) 150 mg PO DAILY [facility] Last Admin: 01/17/17 09:55 Dose: 150 mg Tiotropium [place] (Spiriva -) 1 puff IH DAILY [facility] Last Admin: 01/17/17 09:59 Dose: 1 inh - Objective Vital Signs: Vital Signs Temperature 98.1 F 01/17/17 08:56 Pulse Rate 81 01/17/17 08:56 Respiratory Rate 20 01/17/17 08:56 Blood Pressure 98/55 01/17/17 08:56 O2 Sat by Pulse Oximetry (%) 92 L 01/17/17 08:26 Constitutional: Yes: Calm Eyes: Yes: WNL HENT: Yes: WNL Neck: Yes: WNL Cardiovascular: Yes: S1, S2 (split) Respiratory: Yes: Diminished Gastrointestinal: Yes: Soft ...Rectal Exam: Yes: Deferred Genitourinary: No: Anuria Musculoskeletal: Yes: Muscle Weakness Extremities: Yes: Cool Edema: No Peripheral Pulses WNL: No Peripheral Pulses: Left Doralis Pedis: 1+, Right Dorsalis Pedis: 1+ Integumentary: Yes: WNL Neurological: Yes: Alert, Oriented, Weakness Psychiatric: Yes: Alert, Oriented Labs: CBC, BMP 01/17/17 06:15 01/17/17 06:15 Abnormal Lab Results 01/17/17 01/17/17 06:15 06:15 RBC 3.78 L Hgb 10.6 L Hct 32.6 L Carbon Dioxide 33 H Anion Gap 6 L BUN 26 H Random Glucose 114 H Calcium 7.9 L - ....Imaging Other: Image Reviewed (telemetry: NSR; no arrhytmias) Problem List - Problems (1) Acute and chronic respiratory failure with hypoxia Assessment/Plan: CT chest: bronchiectasis On antibiotics, O2, steroids, and bronchodilators 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 Code(s): J96.21 - ACUTE AND CHRONIC RESPIRATORY FAILURE WITH HYPOXIA (2) Bronchiectasis Code(s): J47.9 - BRONCHIECTASIS, UNCOMPLICATED (3) Dyspnea Code(s): R06.00 - DYSPNEA, UNSPECIFIED (4) Tongue cancer Assessment/Plan: s/p radiation-and chemotherapy Code(s): C02.9 - MALIGNANT NEOPLASM OF TONGUE, UNSPECIFIED (5) Congestive heart failure Assessment/Plan: Borderline reduced LVEF; regional wall motion abnormalities (anteroseptal). Would start lisinopril; f/u BUN/Cr, electrolytes, BP. Lipid levels pending TSH pending. For stress Persantine MIBI (cleared from ID standpoint). Code(s): I50.9 - HEART FAILURE, UNSPECIFIED Qualifiers: Congestive heart failure type: systolic (6) Anxiety and depression Assessment/Plan: Pt's physical health has deteriorated significantly over the past 2 years, as has his emotional state. Code(s): F41.8 - OTHER SPECIFIED ANXIETY DISORDERS
[2017-01-17 20:51] LABS: THYROID STIMULATING HORMONE 0.34 uIU/ml (0.358-3.74)
[2017-01-17] MEDS: MONTELUKAST NA 10 MG TABLET PO SCH (21:32)
[2017-01-17] MEDS: ALPRAZolam 0.25 MG TABLET PO PRN (22:58)
[2017-01-18] MEDS: PIPERACILLIN/TAZOB 3.375 GM 50 ML IVPB SCH ×3 (01:01→17:41)
[2017-01-18 07:13] LABS: MCH 27.6 pg (25.7-33.7); MEAN CELL VOLUME 86.3 fl (80-96); MEAN PLT VOLUME 7.7 fl (7.5-11.1); PLATELET COUNT 171 K/MM3 (134-434); RDW 15.7 % (11.9-15.9); WHITE BLOOD COUNT 5.8 K/mm3 (4.0-10.0)
[2017-01-18 08:21] LABS: ANION GAP 5 (8-16); CO2 34 mmol/L (21-32); CREATININE 0.7 mg/dL (0.7-1.3); GLUCOSE,RANDOM 108 mg/dL (74-106)
[2017-01-18] MEDS: HEPARIN NA (PORCINE) 5,000 UNITS/ML 1ML VIAL SQ SCH ×2 (09:19→22:37)
[2017-01-18] MEDS: ESCITALOPRAM OXALATE 10 MG TABLET (FP) PO SCH (09:20)
[2017-01-18] MEDS: methylPREDNISolone NA SUCC 40 MG/1 ML VIAL IVPB SCH ×2 (09:22→22:37)
[2017-01-18] MEDS: RANITIDINE HCL 150 MG TABLET (FP) PO SCH (09:22)
[2017-01-18] MEDS ORDERED: AZITHROMYCIN 250 MG TABLET PO SCH (10:00)
[2017-01-18] MEDS ORDERED: DIPYRIDAMOLE STRESS TEST IVPB ONE (10:00)
[2017-01-18] MEDS ORDERED: WATER IVPB ONE (10:00)
[2017-01-18] MEDS ORDERED: DEXTROSE 5% IVPB ONE (10:00)
[2017-01-18] MEDS: BUDESONIDE 0.25 MG/2ML INH SUSP VIAL NEB SCH ×2 (10:20→21:43)
--- NOTE | 2017-01-18 10:21 | PN ---
Progress Note, Physician History of Present Illness: Patient is a 61 y.o. 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 Uribe) where patient was noted to be saturating in the high 80's. Patient notes increased labored breathing for the past 4 days as well as productive (whitish sputum) cough. Patient further notes a chest tightness similar to the tightness he experienced at the time of his previous PNAs. Patient notes his last radiation treatment was in August 2016 and his decreased appetite hastened placement of a J tube. - Current Medication List Current Medications: Active Medications Albuterol Sulfate (Ventolin 0.083% Nebulizer Soln -) 1 amp NEB Q6H PRN PRN Reason: SHORT OF BREATH/WHEEZING Last Admin: 01/16/17 10:45 Dose: 1 amp Alprazolam (Xanax -) 0.25 mg PO HS PRN Last Admin: 01/17/17 22:58 Dose: 0.25 mg Budesonide (Pulmicort 0.25 Mg Nebulizer -) 1 amp NEB BID [facility] Last Admin: 01/17/17 22:51 Dose: 1 amp Escitalopram Oxalate (Lexapro -) 5 mg PO DAILY [facility] Last Admin: 01/18/17 09:20 Dose: 5 mg Heparin Sodium (Porcine) (Heparin -) 5,000 unit SQ BID [facility] Last Admin: 01/18/17 09:19 Dose: 5,000 unit Piperacillin/Tazobactam/Dextrose (Zosyn 3.375gm Ivpb (Premix)) 50 mls @ 100 mls /hr IVPB Q8H-IV LAUREN PRN Reason: Protocol Last Admin: 01/18/17 01:01 Dose: 100 mls/hr Methylprednisolone Sodium Succinate (Solu-Medrol -) 40 mg IVPB BID [facility] Last Admin: 01/18/17 09:22 Dose: 40 mg Montelukast Sodium (Singulair -) 10 mg PO HS [facility] Last Admin: 01/17/17 21:32 Dose: 10 mg Ranitidine HCl (Zantac -) 150 mg PO DAILY [facility] Last Admin: 01/18/17 09:22 Dose: 150 mg Tiotropium [place] (Spiriva -) 1 puff IH DAILY [facility] Last Admin: 01/17/17 09:59 Dose: 1 inh - Objective Vital Signs: Vital Signs Temperature 98.3 F 01/18/17 06:00 Pulse Rate 70 01/18/17 06:00 Respiratory Rate 20 01/18/17 06:00 Blood Pressure 103/54 01/18/17 06:00 O2 Sat by Pulse Oximetry (%) 100 01/17/17 20:17 Eyes: Yes: WNL, Conjunctiva Clear, EOM Intact HENT: Yes: WNL, Atraumatic, Normocephalic Neck: Yes: WNL, Supple, Trachea Midline Cardiovascular: Yes: WNL, Regular Rate and Rhythm Respiratory: Yes: WNL, Regular, CTA Bilaterally Gastrointestinal: Yes: WNL, Normal Bowel Sounds Genitourinary: Yes: WNL Musculoskeletal: Yes: WNL Extremities: Yes: WNL Edema: No Integumentary: Yes: WNL Neurological: Yes: WNL, Alert, Oriented ...Motor Strength: WNL Psychiatric: Yes: WNL Labs: CBC, BMP 01/18/17 05:18 01/18/17 05:18 Assessment/Plan - Problems (1) Acute and chronic respiratory failure with hypoxia Assessment/Plan: CT chest: bronchiectasis On antibiotics, O2, steroids, and bronchodilators 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 Code(s): J96.21 - ACUTE AND CHRONIC RESPIRATORY FAILURE WITH HYPOXIA (2) Bronchiectasis Code(s): J47.9 - BRONCHIECTASIS, UNCOMPLICATED (3) Dyspnea Code(s): R06.00 - DYSPNEA, UNSPECIFIED (4) Tongue cancer Assessment/Plan: s/p radiation-and chemotherapy Code(s): C02.9 - MALIGNANT NEOPLASM OF TONGUE, UNSPECIFIED (5) Congestive heart failure Assessment/Plan: Borderline reduced LVEF; regional wall motion abnormalities (anteroseptal). Would start lisinopril; f/u BUN/Cr, electrolytes, BP. Lipid levels pending TSH pending. For stress Persantine MIBI (cleared from ID standpoint). Code(s): I50.9 - HEART FAILURE, UNSPECIFIED Qualifiers: Congestive heart failure type: systolic (6) Anxiety and depression Assessment/Plan: Pt's physical health has deteriorated significantly over the past 2 years, as has his emotional state. Code(s): F41.8 - OTHER SPECIFIED ANXIETY DISORDERS
--- NOTE | 2017-01-18 11:53 | PN ---
Progress Note, Physician - Current Medication List Current Medications: Active Medications Albuterol Sulfate (Ventolin 0.083% Nebulizer Soln -) 1 amp NEB Q6H PRN PRN Reason: SHORT OF BREATH/WHEEZING Last Admin: 01/16/17 10:45 Dose: 1 amp Alprazolam (Xanax -) 0.25 mg PO HS PRN Last Admin: 01/17/17 22:58 Dose: 0.25 mg Budesonide (Pulmicort 0.25 Mg Nebulizer -) 1 amp NEB BID [facility] Last Admin: 01/17/17 22:51 Dose: 1 amp Escitalopram Oxalate (Lexapro -) 5 mg PO DAILY [facility] Last Admin: 01/18/17 09:20 Dose: 5 mg Heparin Sodium (Porcine) (Heparin -) 5,000 unit SQ BID [facility] Last Admin: 01/18/17 09:19 Dose: 5,000 unit Piperacillin/Tazobactam/Dextrose (Zosyn 3.375gm Ivpb (Premix)) 50 mls @ 100 mls /hr IVPB Q8H-IV [facility]UREN PRN Reason: Protocol Last Admin: 01/18/17 01:01 Dose: 100 mls/hr Methylprednisolone Sodium Succinate (Solu-Medrol -) 40 mg IVPB BID [facility] Last Admin: 01/18/17 09:22 Dose: 40 mg Montelukast Sodium (Singulair -) 10 mg PO HS [facility] Last Admin: 01/17/17 21:32 Dose: 10 mg Ranitidine HCl (Zantac -) 150 mg PO DAILY [facility] Last Admin: 01/18/17 09:22 Dose: 150 mg Tiotropium [place] (Spiriva -) 1 puff IH DAILY [facility] Last Admin: 01/17/17 09:59 Dose: 1 inh - Objective Vital Signs: Vital Signs Temperature 97.8 F 01/18/17 10:00 Pulse Rate 81 01/18/17 10:00 Respiratory Rate 20 01/18/17 10:00 Blood Pressure 110/56 01/18/17 10:00 O2 Sat by Pulse Oximetry (%) 96 01/18/17 09:00 Labs: CBC, BMP 01/18/17 05:18 01/18/17 05:18 Problem List - Problems (1) Dyspnea Code(s): R06.00 - DYSPNEA, UNSPECIFIED (2) Acute and chronic respiratory failure with hypoxia Code(s): J96.21 - ACUTE AND CHRONIC RESPIRATORY FAILURE WITH HYPOXIA (3) Bronchiectasis Code(s): J47.9 - BRONCHIECTASIS, UNCOMPLICATED (4) Tongue cancer Code(s): C02.9 - MALIGNANT NEOPLASM OF TONGUE, UNSPECIFIED Assessment/Plan IMP ACUTE ON CHRONIC HYPOXEMIC RESPIRATORY FAILURE EXTENSIVE BRONCHIECTASIS ILD URI H/O TONGUE CA S/P RT/CHEMO PLAN TAPER STEROIDS INHALED BRONCHODILATORS O2 ANTIBIOTICS PER ID CHEST PT OUTPATIENT PULMONARY REHAB 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
--- NOTE | 2017-01-18 13:50 | PN ---
Progress Note, Physician History of Present Illness: Pt w/o fever, CP, palp, N, V, abd pain. Pt still with green sputum. - Current Medication List Current Medications: Active Medications Albuterol Sulfate (Ventolin 0.083% Nebulizer Soln -) 1 amp NEB Q6H PRN PRN Reason: SHORT OF BREATH/WHEEZING Last Admin: 01/16/17 10:45 Dose: 1 amp Alprazolam (Xanax -) 0.25 mg PO HS PRN Last Admin: 01/17/17 22:58 Dose: 0.25 mg Budesonide (Pulmicort 0.25 Mg Nebulizer -) 1 amp NEB BID [facility] Last Admin: 01/18/17 10:20 Dose: Not Given Escitalopram Oxalate (Lexapro -) 5 mg PO DAILY [facility] Last Admin: 01/18/17 09:20 Dose: 5 mg Heparin Sodium (Porcine) (Heparin -) 5,000 unit SQ BID [facility] Last Admin: 01/18/17 09:19 Dose: 5,000 unit Piperacillin/Tazobactam/Dextrose (Zosyn 3.375gm Ivpb (Premix)) 50 mls @ 100 mls /hr IVPB Q8H-IV [facility] PRN Reason: Protocol Last Admin: 01/18/17 01:01 Dose: 100 mls/hr Methylprednisolone Sodium Succinate (Solu-Medrol -) 40 mg IVPB BID [facility] Last Admin: 01/18/17 09:22 Dose: 40 mg Montelukast Sodium (Singulair -) 10 mg PO HS [facility] Last Admin: 01/17/17 21:32 Dose: 10 mg Ranitidine HCl (Zantac -) 150 mg PO DAILY [facility] Last Admin: 01/18/17 09:22 Dose: 150 mg Tiotropium [place] (Spiriva -) 1 puff IH DAILY [facility] Last Admin: 01/17/17 09:59 Dose: 1 inh - Objective Vital Signs: Vital Signs Temperature 97.8 F 01/18/17 10:00 Pulse Rate 81 01/18/17 10:00 Respiratory Rate 20 01/18/17 10:00 Blood Pressure 110/56 01/18/17 10:00 O2 Sat by Pulse Oximetry (%) 96 01/18/17 09:00 Constitutional: Yes: No Distress, Calm Cardiovascular: Yes: Regular Rate and Rhythm, S1, S2 Respiratory: Yes: Regular, CTA Bilaterally, Rhonchi Gastrointestinal: Yes: Normal Bowel Sounds, Soft. No: Tenderness Edema: No Neurological: Yes: Alert, Oriented Labs: CBC, BMP 01/18/17 05:18 01/18/17 05:18 Problem List - Problems (1) Acute and chronic respiratory failure with hypoxia Code(s): J96.21 - ACUTE AND CHRONIC RESPIRATORY FAILURE WITH HYPOXIA (2) Dyspnea Code(s): R06.00 - DYSPNEA, UNSPECIFIED (3) Tachycardia Code(s): R00.0 - TACHYCARDIA, UNSPECIFIED (4) Congestive heart failure Code(s): I50.9 - HEART FAILURE, UNSPECIFIED Qualifiers: Congestive heart failure type: systolic (5) Pulmonary hypertension Code(s): I27.20 - PULMONARY HYPERTENSION, UNSPECIFIED (6) Bronchiectasis Code(s): J47.9 - BRONCHIECTASIS, UNCOMPLICATED (7) Anxiety Code(s): F41.9 - ANXIETY DISORDER, UNSPECIFIED (8) Depression Code(s): F32.9 - MAJOR DEPRESSIVE DISORDER, SINGLE EPISODE, UNSPECIFIED Assessment/Plan Admitted to telemetry. IV steroids-tapered. Pulmonary and Cardio Consults appreciated ID consult appreciated.. RLL PNA; IV abtx-per ID ECHO done, abnormal. Pt had Pharm Stress Test today. Serial CE- negative AM labs DVT and GI Prophylaxis Incentive spirometry. OOBTC
[2017-01-18] MEDS: TIOTROPIUM BROMIDE 18 MCG/INH (DEVICE W/ 5 CAPSULES) IH SCH (13:58)
[2017-01-18] MEDS ORDERED: BUDESONIDE 0.5 MG/2 ML INH SUSP VIAL NEB ONE (20:56)
[2017-01-18] MEDS: MONTELUKAST NA 10 MG TABLET PO SCH (22:37)
[2017-01-18] MEDS: ALPRAZolam 0.25 MG TABLET PO PRN (22:38)
[2017-01-19] MEDS: PIPERACILLIN/TAZOB 3.375 GM 50 ML IVPB SCH ×3 (02:07→18:53)
--- NOTE | 2017-01-19 07:08 | PN ---
Progress Note, Physician Chief Complaint: Pt A&Ox3; no chest pain; remains dyspneic on minimal exertion. History of Present Illness: Patient is a 61 y.o. 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 Uribe) where patient was noted to be saturating in the high 80's. Patient notes increased labored breathing for the past 4 days as well as productive (whitish sputum) cough. Patient further notes a chest tightness similar to the tightness he experienced at the time of his previous PNAs. Patient notes his last radiation treatment was in August 2016 and his decreased appetite hastened placement of a J tube. - Current Medication List Current Medications: Active Medications Albuterol Sulfate (Ventolin 0.083% Nebulizer Soln -) 1 amp NEB Q6H PRN PRN Reason: SHORT OF BREATH/WHEEZING Last Admin: 01/16/17 10:45 Dose: 1 amp Alprazolam (Xanax -) 0.25 mg PO HS PRN Last Admin: 01/18/17 22:38 Dose: 0.25 mg Budesonide (Pulmicort 0.25 Mg Nebulizer -) 1 amp NEB BID [facility] Last Admin: 01/18/17 21:43 Dose: 1 amp Escitalopram Oxalate (Lexapro -) 5 mg PO DAILY [facility] Last Admin: 01/18/17 09:20 Dose: 5 mg Heparin Sodium (Porcine) (Heparin -) 5,000 unit SQ BID [facility] Last Admin: 01/18/17 22:37 Dose: 5,000 unit Piperacillin/Tazobactam/Dextrose (Zosyn 3.375gm Ivpb (Premix)) 50 mls @ 100 mls /hr IVPB Q8H-IV [facility] PRN Reason: Protocol Last Admin: 01/19/17 02:07 Dose: 100 mls/hr Methylprednisolone Sodium Succinate (Solu-Medrol -) 40 mg IVPB BID [facility] Last Admin: 01/18/17 22:37 Dose: 40 mg Montelukast Sodium (Singulair -) 10 mg PO HS [facility] Last Admin: 01/18/17 22:37 Dose: 10 mg Ranitidine HCl (Zantac -) 150 mg PO DAILY [facility] Last Admin: 01/18/17 09:22 Dose: 150 mg Tiotropium [place] (Spiriva -) 1 puff IH DAILY [facility] Last Admin: 01/18/17 13:58 Dose: 1 inh - Objective Vital Signs: Vital Signs Temperature 98.1 F 01/19/17 06:00 Pulse Rate 73 01/19/17 06:00 Respiratory Rate 20 01/19/17 06:00 Blood Pressure 103/58 01/19/17 06:00 O2 Sat by Pulse Oximetry (%) 97 01/18/17 21:00 Constitutional: Yes: Anxious Eyes: Yes: WNL Respiratory: Yes: Diminished, Rhonchi, SOB on Exertion Gastrointestinal: Yes: WNL ...Rectal Exam: Yes: Deferred Genitourinary: No: Anuria Musculoskeletal: Yes: Muscle Weakness Extremities: Yes: WNL Edema: No Peripheral Pulses WNL: Yes Integumentary: Yes: WNL Neurological: Yes: WNL Psychiatric: Yes: Other (anxiety/depression) Labs: CBC, BMP 01/18/17 05:18 01/18/17 05:18 Problem List - Problems (1) Acute and chronic respiratory failure with hypoxia Assessment/Plan: CT chest: bronchiectasis On antibiotics, O2, steroids, and bronchodilators per PMD and coding advisor. Code(s): J96.21 - ACUTE AND CHRONIC RESPIRATORY FAILURE WITH HYPOXIA (2) Bronchiectasis Code(s): J47.9 - BRONCHIECTASIS, UNCOMPLICATED (3) Dyspnea Code(s): R06.00 - DYSPNEA, UNSPECIFIED (4) Tongue cancer Assessment/Plan: s/p radiation-and chemotherapy Code(s): C02.9 - MALIGNANT NEOPLASM OF TONGUE, UNSPECIFIED (5) Congestive heart failure Assessment/Plan: Borderline reduced LVEF; regional wall motion abnormalities (anteroseptal). Would start lisinopril; f/u BUN/Cr, electrolytes, BP. Total cholesterol 138 mg/dL. TSH mildly reduced/ f/u free T3 and T4. Stress Persantine MIBI : no myocardial ischemia; inferior wall changes likelier due to diaphragmatic attenuation artifact than old IW IA (no regional wall motion abnormality of inferior wall noted on ECHO). Code(s): I50.9 - HEART FAILURE, UNSPECIFIED Qualifiers: Congestive heart failure type: systolic (6) Anxiety and depression Assessment/Plan: Pt's physical health has deteriorated significantly over the past 2 years, as has his emotional state. Code(s): F41.8 - OTHER SPECIFIED ANXIETY DISORDERS
[2017-01-19] MEDS: ESCITALOPRAM OXALATE 10 MG TABLET (FP) PO SCH (10:19)
[2017-01-19] MEDS: methylPREDNISolone NA SUCC 40 MG/1 ML VIAL IVPB SCH ×2 (10:19→21:42)
[2017-01-19] MEDS: RANITIDINE HCL 150 MG TABLET (FP) PO SCH (10:19)
[2017-01-19] MEDS: HEPARIN NA (PORCINE) 5,000 UNITS/ML 1ML VIAL SQ SCH ×2 (10:19→21:42)
[2017-01-19] MEDS: BUDESONIDE 0.25 MG/2ML INH SUSP VIAL NEB SCH ×2 (10:25→22:49)
--- NOTE | 2017-01-19 11:25 | PN ---
Progress Note (short form) - Note Progress Note: PULMONARY Still dyspneic especially with exertion. About the same as yesterday. No fevers or chills. Last Vital Signs Temp Pulse Resp BP Pulse Ox 97.8 F 88 28 H 99/57 97 01/19/17 10:15 01/19/17 10:15 01/19/17 10:15 01/19/17 10:15 01/18/17 21:00 Gen: tachypneic with speaking Heart: RRR Lung: basilar rhonchi, rales Abd: soft, nontender Ext: no edema CBC, BMP 01/18/17 05:18 01/18/17 05:18 Active Medications Albuterol Sulfate (Ventolin 0.083% Nebulizer Soln -) 1 amp NEB Q6H PRN PRN Reason: SHORT OF BREATH/WHEEZING Last Admin: 01/16/17 10:45 Dose: 1 amp Alprazolam (Xanax -) 0.25 mg PO HS PRN Last Admin: 01/18/17 22:38 Dose: 0.25 mg Budesonide (Pulmicort 0.25 Mg Nebulizer -) 1 amp NEB BID [facility] Last Admin: 01/19/17 10:25 Dose: 1 amp Escitalopram Oxalate (Lexapro -) 5 mg PO DAILY [facility] Last Admin: 01/19/17 10:19 Dose: 5 mg Heparin Sodium (Porcine) (Heparin -) 5,000 unit SQ BID [facility] Last Admin: 01/19/17 10:19 Dose: 5,000 unit Piperacillin/Tazobactam/Dextrose (Zosyn 3.375gm Ivpb (Premix)) 50 mls @ 100 mls /hr IVPB Q8H-IV [facility] PRN Reason: Protocol Last Admin: 01/19/17 02:07 Dose: 100 mls/hr Methylprednisolone Sodium Succinate (Solu-Medrol -) 40 mg IVPB BID [facility] Last Admin: 01/19/17 10:19 Dose: 40 mg Montelukast Sodium (Singulair -) 10 mg PO HS [facility] Last Admin: 01/18/17 22:37 Dose: 10 mg Ranitidine HCl (Zantac -) 150 mg PO DAILY [facility] Last Admin: 01/19/17 10:19 Dose: 150 mg Tiotropium [place] (Spiriva -) 1 puff IH DAILY [facility] Last Admin: 01/18/17 13:58 Dose: 1 inh A/P Acute on Chronic Hypoxic Respiratory Failure Acute COPD/Bronchiectasis Exacerbation h/o Tonsillar Ca with LN met s/p RT/chemo - continue medrol at current dose - inhaled bronchodilators standing and PRN - O2 to keep SpO2 >90% - antibiotics per ID - DVT prophylaxis
[2017-01-19] MEDS ORDERED: PT OWN MED DRAWER 7, Y5N ONE (15:11)
[2017-01-19] MEDS: TIOTROPIUM BROMIDE 18 MCG/INH (DEVICE W/ 5 CAPSULES) IH SCH (15:30)
--- NOTE | 2017-01-19 16:49 | PN ---
Progress Note, Physician History of Present Illness: Pt w/o fever, CP, palp, N, V, abd pain. Pt still unchanged sputum (amount, color). - Current Medication List Current Medications: Active Medications Albuterol Sulfate (Ventolin 0.083% Nebulizer Soln -) 1 amp NEB Q6H PRN PRN Reason: SHORT OF BREATH/WHEEZING Last Admin: 01/16/17 10:45 Dose: 1 amp Alprazolam (Xanax -) 0.25 mg PO HS PRN Last Admin: 01/18/17 22:38 Dose: 0.25 mg Budesonide (Pulmicort 0.25 Mg Nebulizer -) 1 amp NEB BID [facility] Last Admin: 01/19/17 10:25 Dose: 1 amp Escitalopram Oxalate (Lexapro -) 5 mg PO DAILY [facility] Last Admin: 01/19/17 10:19 Dose: 5 mg Heparin Sodium (Porcine) (Heparin -) 5,000 unit SQ BID [facility] Last Admin: 01/19/17 10:19 Dose: 5,000 unit Piperacillin/Tazobactam/Dextrose (Zosyn 3.375gm Ivpb (Premix)) 50 mls @ 100 mls /hr IVPB Q8H-IV [facility] PRN Reason: Protocol Last Admin: 01/19/17 15:22 Dose: 100 mls/hr Methylprednisolone Sodium Succinate (Solu-Medrol -) 40 mg IVPB BID [facility] Last Admin: 01/19/17 10:19 Dose: 40 mg Montelukast Sodium (Singulair -) 10 mg PO HS [facility] Last Admin: 01/18/17 22:37 Dose: 10 mg Ranitidine HCl (Zantac -) 150 mg PO DAILY [facility] Last Admin: 01/19/17 10:19 Dose: 150 mg Tiotropium [place] (Spiriva -) 1 puff IH DAILY [facility] Last Admin: 01/19/17 15:30 Dose: 1 inh - Objective Vital Signs: Vital Signs Temperature 98.3 F 01/19/17 14:38 Pulse Rate 95 H 01/19/17 14:38 Respiratory Rate 28 H 01/19/17 10:15 Blood Pressure 93/57 01/19/17 14:38 O2 Sat by Pulse Oximetry (%) 94 L 01/19/17 11:00 Constitutional: Yes: No Distress, Calm Cardiovascular: Yes: Regular Rate and Rhythm, S1, S2 Respiratory: Yes: Regular, Rales (worse at bases), Rhonchi Edema: No Neurological: Yes: Alert, Oriented Labs: CBC, BMP 01/18/17 05:18 01/18/17 05:18 Problem List - Problems (1) Acute and chronic respiratory failure with hypoxia Code(s): J96.21 - ACUTE AND CHRONIC RESPIRATORY FAILURE WITH HYPOXIA (2) Dyspnea Code(s): R06.00 - DYSPNEA, UNSPECIFIED (3) Tachycardia Code(s): R00.0 - TACHYCARDIA, UNSPECIFIED (4) Congestive heart failure Code(s): I50.9 - HEART FAILURE, UNSPECIFIED Qualifiers: Congestive heart failure type: systolic (5) Pulmonary hypertension Code(s): I27.20 - PULMONARY HYPERTENSION, UNSPECIFIED (6) Bronchiectasis Code(s): J47.9 - BRONCHIECTASIS, UNCOMPLICATED (7) Anxiety Code(s): F41.9 - ANXIETY DISORDER, UNSPECIFIED (8) Depression Code(s): F32.9 - MAJOR DEPRESSIVE DISORDER, SINGLE EPISODE, UNSPECIFIED Assessment/Plan Admitted to telemetry. IV steroids-tapered. Pulmonary and Cardio Consults appreciated ID consult appreciated.. RLL PNA; IV abtx-per ID ECHO done, abnormal. Pt had Pharm Stress Test- no reversible ischemia, possible old infarct.. Serial CE- negative AM labs DVT and GI Prophylaxis Incentive spirometry. OOBTC
[2017-01-19] MEDS: MONTELUKAST NA 10 MG TABLET PO SCH (21:42)
[2017-01-19] MEDS: ALPRAZolam 0.25 MG TABLET PO PRN (21:50)
[2017-01-20] MEDS: PIPERACILLIN/TAZOB 3.375 GM 50 ML IVPB SCH ×3 (02:04→18:17)
[2017-01-20 08:49] LABS: MCH 27.6 pg (25.7-33.7); MCHC 32.7 g/dl (32.0-35.9); MEAN CELL VOLUME 84.5 fl (80-96); MEAN PLT VOLUME 7.2 fl (7.5-11.1); PLATELET COUNT 199 K/MM3 (134-434); RDW 15.4 % (11.9-15.9); WHITE BLOOD COUNT 5.5 K/mm3 (4.0-10.0)
[2017-01-20 09:11] LABS: ANION GAP 7 (8-16); CALCIUM 8.2 mg/dL (8.5-10.1); CO2 33 mmol/L (21-32); CREATININE 0.7 mg/dL (0.7-1.3); GLUCOSE,RANDOM 92 mg/dL (74-106)
[2017-01-20] MEDS ORDERED: PT OWN MED DRAWER 7, Y5N ONE (09:54)
[2017-01-20] MEDS: methylPREDNISolone NA SUCC 40 MG/1 ML VIAL IVPB SCH ×2 (10:18→21:27)
[2017-01-20] MEDS: RANITIDINE HCL 150 MG TABLET (FP) PO SCH (10:18)
[2017-01-20] MEDS: HEPARIN NA (PORCINE) 5,000 UNITS/ML 1ML VIAL SQ SCH (10:18)
[2017-01-20] MEDS: BUDESONIDE 0.25 MG/2ML INH SUSP VIAL NEB SCH ×2 (10:21→22:21)
[2017-01-20] MEDS: ESCITALOPRAM OXALATE 10 MG TABLET (FP) PO SCH (10:22)
[2017-01-20] MEDS: TIOTROPIUM BROMIDE 18 MCG/INH (DEVICE W/ 5 CAPSULES) IH SCH (10:27)
--- NOTE | 2017-01-20 13:15 | PN ---
Progress Note (short form) - Note Progress Note: PULMONARY VSS/AFEBRILE ANICTERIC SCATTERED RHONCHI S1S2 BS+ NO EDEMA LABS/MEDS/NOTES/IMAGING REVIEWED Acute on Chronic Hypoxic Respiratory Failure Acute COPD/Bronchiectasis Exacerbation h/o Tonsillar Ca with LN met s/p RT/chemo - continue medrol at current dose - inhaled bronchodilators standing and PRN - O2 to keep SpO2 >90% - antibiotics per ID - DVT prophylaxis Chanda OSORIO MD
--- NOTE | 2017-01-20 15:24 | PN ---
Progress Note, Physician History of Present Illness: Reports moderate amounts of greenish sputum despite zosyn No c/o chest pain Dyspneic at rest on nasal cannula - Current Medication List Current Medications: Active Medications Albuterol Sulfate (Ventolin 0.083% Nebulizer Soln -) 1 amp NEB Q6H PRN PRN Reason: SHORT OF BREATH/WHEEZING Last Admin: 01/16/17 10:45 Dose: 1 amp Alprazolam (Xanax -) 0.25 mg PO HS PRN Last Admin: 01/19/17 21:50 Dose: 0.25 mg Budesonide (Pulmicort 0.25 Mg Nebulizer -) 1 amp NEB BID [facility] Last Admin: 01/20/17 10:21 Dose: 1 amp Escitalopram Oxalate (Lexapro -) 5 mg PO DAILY [facility] Last Admin: 01/20/17 10:22 Dose: 5 mg Piperacillin/Tazobactam/Dextrose (Zosyn 3.375gm Ivpb (Premix)) 50 mls @ 100 mls /hr IVPB Q8H-IV [facility] PRN Reason: Protocol Last Admin: 01/20/17 10:28 Dose: 100 mls/hr Methylprednisolone Sodium Succinate (Solu-Medrol -) 40 mg IVPB BID [facility] Last Admin: 01/20/17 10:18 Dose: 40 mg Montelukast Sodium (Singulair -) 10 mg PO HS [facility] Last Admin: 01/19/17 21:42 Dose: 10 mg Ranitidine HCl (Zantac -) 150 mg PO DAILY [facility] Last Admin: 01/20/17 10:18 Dose: 150 mg Tiotropium [place] (Spiriva -) 1 puff IH DAILY [facility] Last Admin: 01/20/17 10:27 Dose: 1 inh - Objective Vital Signs: Vital Signs Temperature 97.3 F L 01/20/17 14:39 Pulse Rate 95 H 01/20/17 14:39 Respiratory Rate 20 01/20/17 10:00 Blood Pressure 98/56 01/20/17 14:39 O2 Sat by Pulse Oximetry (%) 93 L 01/19/17 20:36 Constitutional: Yes: No Distress, Thin Eyes: Yes: Conjunctiva Clear Cardiovascular: Yes: Regular Rate and Rhythm, S1, S2 Respiratory: Yes: Rhonchi, Other (rhonchi at R base) Gastrointestinal: Yes: Normal Bowel Sounds, Soft. No: Tenderness Edema: No Labs: CBC, BMP 01/20/17 07:12 01/20/17 07:12 Assessment/Plan RLL pneumonia + Sputum c/s pseudomonas Chronic bronchiectasis Hx tonsillar ca In light of persistant sputum production, will add levaquin Continue zosyn
[2017-01-20] MEDS: LEVOFLOXACIN 500 MG IVPB 100 ML IVPB SCH (16:55)
--- NOTE | 2017-01-20 18:32 | PN ---
Progress Note, Physician History of Present Illness: Pt w/o fever, CP, palp, N, V, abd pain. Pt still unchanged sputum (amount, color). - Current Medication List Current Medications: Active Medications Albuterol Sulfate (Ventolin 0.083% Nebulizer Soln -) 1 amp NEB Q6H PRN PRN Reason: SHORT OF BREATH/WHEEZING Last Admin: 01/16/17 10:45 Dose: 1 amp Budesonide (Pulmicort 0.25 Mg Nebulizer -) 1 amp NEB BID [facility] Last Admin: 01/20/17 10:21 Dose: 1 amp Escitalopram Oxalate (Lexapro -) 5 mg PO DAILY [facility] Last Admin: 01/20/17 10:22 Dose: 5 mg Piperacillin/Tazobactam/Dextrose (Zosyn 3.375gm Ivpb (Premix)) 50 mls @ 100 mls /hr IVPB Q8H-IV [facility] PRN Reason: Protocol Last Admin: 01/20/17 18:17 Dose: 100 mls/hr Levofloxacin (Levaquin 500 Mg Premixed Ivpb -) 100 mls @ 100 mls/hr IVPB DAILY [facility] Last Admin: 01/20/17 16:55 Dose: 100 mls/hr Methylprednisolone Sodium Succinate (Solu-Medrol -) 40 mg IVPB BID [facility] Last Admin: 01/20/17 10:18 Dose: 40 mg Montelukast Sodium (Singulair -) 10 mg PO HS [facility] Last Admin: 01/19/17 21:42 Dose: 10 mg Ranitidine HCl (Zantac -) 150 mg PO DAILY [facility] Last Admin: 01/20/17 10:18 Dose: 150 mg Tiotropium [place] (Spiriva -) 1 puff IH DAILY [facility] Last Admin: 01/20/17 10:27 Dose: 1 inh - Objective Vital Signs: Vital Signs Temperature 97.3 F L 01/20/17 14:39 Pulse Rate 95 H 01/20/17 14:39 Respiratory Rate 20 01/20/17 10:00 Blood Pressure 98/56 01/20/17 14:39 O2 Sat by Pulse Oximetry (%) 97 01/20/17 09:00 Constitutional: Yes: No Distress, Calm Cardiovascular: Yes: Regular Rate and Rhythm, S1, S2 Respiratory: Yes: Regular, Rhonchi, Wheezes Gastrointestinal: Yes: Normal Bowel Sounds, Soft. No: Tenderness Edema: No Neurological: Yes: Alert, Oriented Labs: CBC, BMP 01/20/17 07:12 01/20/17 07:12 Problem List - Problems (1) Acute and chronic respiratory failure with hypoxia Code(s): J96.21 - ACUTE AND CHRONIC RESPIRATORY FAILURE WITH HYPOXIA (2) Dyspnea Code(s): R06.00 - DYSPNEA, UNSPECIFIED (3) Tachycardia Code(s): R00.0 - TACHYCARDIA, UNSPECIFIED (4) Congestive heart failure Code(s): I50.9 - HEART FAILURE, UNSPECIFIED Qualifiers: Congestive heart failure type: systolic (5) Pulmonary hypertension Code(s): I27.20 - PULMONARY HYPERTENSION, UNSPECIFIED (6) Bronchiectasis Code(s): J47.9 - BRONCHIECTASIS, UNCOMPLICATED (7) Anxiety Code(s): F41.9 - ANXIETY DISORDER, UNSPECIFIED (8) Depression Code(s): F32.9 - MAJOR DEPRESSIVE DISORDER, SINGLE EPISODE, UNSPECIFIED Assessment/Plan s/p admission to telemetry, now on regular floor IV steroids-tapered. Pulmonary and Cardio Consults appreciated ID consult appreciated.. RLL PNA; IV abtx-per ID ( Levaquin was added) ECHO done, abnormal. Pt had Pharm Stress Test- no reversible ischemia, possible old infarct.. Serial CE- negative AM labs DVT and GI Prophylaxis Incentive spirometry. OOBTC
[2017-01-20] MEDS: MONTELUKAST NA 10 MG TABLET PO SCH (21:27)
--- NOTE | 2017-01-20 22:07 | PN ---
Progress Note, Physician Chief Complaint: Pt A&Ox3; no chest pain; dyspneic on mild exertion. History of Present Illness: Patient is a 61 y.o. 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 Uribe) where patient was noted to be saturating in the high 80's. Patient notes increased labored breathing for the past 4 days as well as productive (whitish sputum) cough. Patient further notes a chest tightness similar to the tightness he experienced at the time of his previous PNAs. Patient notes his last radiation treatment was in August 2016 and his decreased appetite hastened placement of a J tube. - Current Medication List Current Medications: Active Medications Albuterol Sulfate (Ventolin 0.083% Nebulizer Soln -) 1 amp NEB Q6H PRN PRN Reason: SHORT OF BREATH/WHEEZING Last Admin: 01/16/17 10:45 Dose: 1 amp Budesonide (Pulmicort 0.25 Mg Nebulizer -) 1 amp NEB BID [facility] Last Admin: 01/20/17 10:21 Dose: 1 amp Escitalopram Oxalate (Lexapro -) 5 mg PO DAILY [facility] Last Admin: 01/20/17 10:22 Dose: 5 mg Piperacillin/Tazobactam/Dextrose (Zosyn 3.375gm Ivpb (Premix)) 50 mls @ 100 mls /hr IVPB Q8H-IV [facility] PRN Reason: Protocol Last Admin: 01/20/17 18:17 Dose: 100 mls/hr Levofloxacin (Levaquin 500 Mg Premixed Ivpb -) 100 mls @ 100 mls/hr IVPB DAILY [facility] Last Admin: 01/20/17 16:55 Dose: 100 mls/hr Methylprednisolone Sodium Succinate (Solu-Medrol -) 40 mg IVPB BID [facility] Last Admin: 01/20/17 21:27 Dose: 40 mg Montelukast Sodium (Singulair -) 10 mg PO HS [facility] Last Admin: 01/20/17 21:27 Dose: 10 mg Ranitidine HCl (Zantac -) 150 mg PO DAILY [facility] Last Admin: 01/20/17 10:18 Dose: 150 mg Tiotropium [place] (Spiriva -) 1 puff IH DAILY [facility] Last Admin: 01/20/17 10:27 Dose: 1 inh - Objective Vital Signs: Vital Signs Temperature 98.4 F 01/20/17 18:37 Pulse Rate 76 01/20/17 18:37 Respiratory Rate 18 01/20/17 18:37 Blood Pressure 99/57 01/20/17 18:37 O2 Sat by Pulse Oximetry (%) 97 01/20/17 09:00 Constitutional: Yes: Calm Eyes: Yes: WNL HENT: Yes: WNL Neck: Yes: WNL Cardiovascular: Yes: Regular Rate and Rhythm Respiratory: Yes: Diminished Gastrointestinal: Yes: Soft ...Rectal Exam: Yes: Deferred Genitourinary: No: Anuria Labs: CBC, BMP 01/20/17 07:12 01/20/17 07:12 Problem List - Problems (1) Acute and chronic respiratory failure with hypoxia Assessment/Plan: CT chest: bronchiectasis On antibiotics, O2, steroids, and bronchodilators per PMD and bus company manager. Code(s): J96.21 - ACUTE AND CHRONIC RESPIRATORY FAILURE WITH HYPOXIA (2) Bronchiectasis Code(s): J47.9 - BRONCHIECTASIS, UNCOMPLICATED (3) Dyspnea Code(s): R06.00 - DYSPNEA, UNSPECIFIED (4) Congestive heart failure Assessment/Plan: Borderline reduced LVEF; regional wall motion abnormalities (anteroseptal). Would start lisinopril (though BP borderline low at times); f/u BUN/Cr, electrolytes, BP. Total cholesterol 138 mg/dL. TSH mildly reduced/ f/u free T3 and T4. Stress Persantine MIBI : no myocardial ischemia; inferior wall changes likelier due to diaphragmatic attenuation artifact than old IW IA (no regional wall motion abnormality of inferior wall noted on ECHO). Code(s): I50.9 - HEART FAILURE, UNSPECIFIED Qualifiers: Congestive heart failure type: systolic (5) Anxiety and depression Assessment/Plan: Pt's physical health has deteriorated significantly over the past 2 years, as has his emotional state. Code(s): F41.8 - OTHER SPECIFIED ANXIETY DISORDERS (6) Tonsillar cancer Code(s): C09.9 - MALIGNANT NEOPLASM OF TONSIL, UNSPECIFIED (7) Pneumonia Assessment/Plan: c/o continued cough with greenish phlegm (difficult to bring up). F/u with pulmonary, ID. Code(s): J18.9 - PNEUMONIA, UNSPECIFIED ORGANISM
[2017-01-21] MEDS: PIPERACILLIN/TAZOB 3.375 GM 50 ML IVPB SCH ×3 (01:53→17:16)
[2017-01-21 08:50] LABS: ANION GAP 5 (8-16); CALCIUM 8.1 mg/dL (8.5-10.1); CO2 32 mmol/L (21-32); CREATININE 0.7 mg/dL (0.7-1.3); GLUCOSE,RANDOM 99 mg/dL (74-106)
--- NOTE | 2017-01-21 09:31 | PN ---
Progress Note, Physician History of Present Illness: Still with cough productive of greenish sputum Dyspneic at rest. No c/o chest pain. Afebrile on steroids No adverse rxn to antibiotics - Current Medication List Current Medications: Active Medications Albuterol Sulfate (Ventolin 0.083% Nebulizer Soln -) 1 amp NEB Q6H PRN PRN Reason: SHORT OF BREATH/WHEEZING Last Admin: 01/16/17 10:45 Dose: 1 amp Budesonide (Pulmicort 0.25 Mg Nebulizer -) 1 amp NEB BID [facility] Last Admin: 01/20/17 22:21 Dose: 1 amp Escitalopram Oxalate (Lexapro -) 5 mg PO DAILY [facility] Last Admin: 01/20/17 10:22 Dose: 5 mg Piperacillin/Tazobactam/Dextrose (Zosyn 3.375gm Ivpb (Premix)) 50 mls @ 100 mls /hr IVPB Q8H-IV [facility] PRN Reason: Protocol Last Admin: 01/21/17 01:53 Dose: 100 mls/hr Levofloxacin (Levaquin 500 Mg Premixed Ivpb -) 100 mls @ 100 mls/hr IVPB DAILY [facility] Last Admin: 01/20/17 16:55 Dose: 100 mls/hr Methylprednisolone Sodium Succinate (Solu-Medrol -) 40 mg IVPB BID [facility] Last Admin: 01/20/17 21:27 Dose: 40 mg Montelukast Sodium (Singulair -) 10 mg PO HS [facility] Last Admin: 01/20/17 21:27 Dose: 10 mg Ranitidine HCl (Zantac -) 150 mg PO DAILY [facility] Last Admin: 01/20/17 10:18 Dose: 150 mg Tiotropium [place] (Spiriva -) 1 puff IH DAILY [facility] Last Admin: 01/20/17 10:27 Dose: 1 inh - Objective Vital Signs: Vital Signs Temperature 98.1 F 01/21/17 06:00 Pulse Rate 59 L 01/21/17 06:00 Respiratory Rate 18 01/21/17 06:00 Blood Pressure 98/62 01/21/17 06:00 O2 Sat by Pulse Oximetry (%) 96 01/20/17 21:00 Constitutional: Yes: No Distress, Cachectic Eyes: Yes: Conjunctiva Clear Cardiovascular: Yes: Regular Rate and Rhythm, S1, S2 Respiratory: Yes: Other (rales R base) Gastrointestinal: Yes: Normal Bowel Sounds, Soft. No: Tenderness Edema: No Labs: CBC, BMP 01/20/17 07:12 01/21/17 06:00 Assessment/Plan RLL pneumonia + Sputum c/s pseudomonas Chronic bronchiectasis Hx tonsillar ca Continue zosyn/ levaquin Steroids, bronchodilators
[2017-01-21] MEDS ORDERED: PT OWN MED DRAWER 7, Y5N ONE ×2 (09:43→22:47)
[2017-01-21] MEDS: RANITIDINE HCL 150 MG TABLET (FP) PO SCH (10:08)
[2017-01-21] MEDS: ESCITALOPRAM OXALATE 10 MG TABLET (FP) PO SCH (10:08)
[2017-01-21] MEDS: LACTOBACILLUS ACIDOPHILUS 1 EACH TAB (FP) PO SCH (10:08)
[2017-01-21] MEDS: LEVOFLOXACIN 500 MG IVPB 100 ML IVPB SCH (10:08)
[2017-01-21] MEDS: methylPREDNISolone NA SUCC 40 MG/1 ML VIAL IVPB SCH ×2 (10:08→21:14)
[2017-01-21] MEDS: TIOTROPIUM BROMIDE 18 MCG/INH (DEVICE W/ 5 CAPSULES) IH SCH (10:09)
[2017-01-21] MEDS: BUDESONIDE 0.25 MG/2ML INH SUSP VIAL NEB SCH ×2 (10:10→23:00)
--- NOTE | 2017-01-21 12:23 | PN ---
Progress Note, Physician History of Present Illness: Pt w/o fever, CP, palp, N, V, abd pain. Pt with minimal improvement in sputum (amount). - Current Medication List Current Medications: Active Medications Albuterol Sulfate (Ventolin 0.083% Nebulizer Soln -) 1 amp NEB Q6H PRN PRN Reason: SHORT OF BREATH/WHEEZING Last Admin: 01/16/17 10:45 Dose: 1 amp Budesonide (Pulmicort 0.25 Mg Nebulizer -) 1 amp NEB BID [facility] Last Admin: 01/21/17 10:10 Dose: 1 amp Escitalopram Oxalate (Lexapro -) 5 mg PO DAILY [facility] Last Admin: 01/21/17 10:08 Dose: 5 mg Piperacillin/Tazobactam/Dextrose (Zosyn 3.375gm Ivpb (Premix)) 50 mls @ 100 mls /hr IVPB Q8H-IV [facility] PRN Reason: Protocol Last Admin: 01/21/17 11:57 Dose: 100 mls/hr Levofloxacin (Levaquin 500 Mg Premixed Ivpb -) 100 mls @ 100 mls/hr IVPB DAILY [facility] Last Admin: 01/21/17 10:08 Dose: 100 mls/hr Lactobacillus Acidophilus (Bacid -) 1 tab PO DAILY [facility] Last Admin: 01/21/17 10:08 Dose: 1 tab Methylprednisolone Sodium Succinate (Solu-Medrol -) 40 mg IVPB BID [facility] Last Admin: 01/21/17 10:08 Dose: 40 mg Montelukast Sodium (Singulair -) 10 mg PO HS [facility] Last Admin: 01/20/17 21:27 Dose: 10 mg Ranitidine HCl (Zantac -) 150 mg PO DAILY [facility] Last Admin: 01/21/17 10:08 Dose: 150 mg Tiotropium [place] (Spiriva -) 1 puff IH DAILY [facility] Last Admin: 01/21/17 10:09 Dose: 1 inh - Objective Vital Signs: Vital Signs Temperature 97.9 F 01/21/17 10:00 Pulse Rate 79 01/21/17 10:10 Respiratory Rate 18 01/21/17 10:00 Blood Pressure 94/62 01/21/17 10:00 O2 Sat by Pulse Oximetry (%) 98 01/21/17 10:10 Constitutional: Yes: No Distress, Calm Cardiovascular: Yes: Regular Rate and Rhythm, S1, S2 Respiratory: Yes: Regular, Rhonchi (at bases bilat.) Gastrointestinal: Yes: Normal Bowel Sounds, Soft. No: Tenderness Edema: No Neurological: Yes: Alert, Oriented Labs: CBC, BMP 01/20/17 07:12 01/21/17 06:00 Problem List - Problems (1) Acute and chronic respiratory failure with hypoxia Code(s): J96.21 - ACUTE AND CHRONIC RESPIRATORY FAILURE WITH HYPOXIA (2) Dyspnea Code(s): R06.00 - DYSPNEA, UNSPECIFIED (3) Tachycardia Code(s): R00.0 - TACHYCARDIA, UNSPECIFIED (4) Congestive heart failure Code(s): I50.9 - HEART FAILURE, UNSPECIFIED (5) Pulmonary hypertension Code(s): I27.20 - PULMONARY HYPERTENSION, UNSPECIFIED (6) Bronchiectasis Code(s): J47.9 - BRONCHIECTASIS, UNCOMPLICATED (7) Anxiety Code(s): F41.9 - ANXIETY DISORDER, UNSPECIFIED (8) Depression Code(s): F32.9 - MAJOR DEPRESSIVE DISORDER, SINGLE EPISODE, UNSPECIFIED Assessment/Plan Hyponatremia- 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 Pulmonary and Cardio Consults appreciated ID consult appreciated. Serial CE- negative RLL PNA; IV abtx-per ID ( Levaquin was added) ECHO done, abnormal. Pt had Pharm Stress Test- no reversible ischemia, possible old infarct.. DVT and GI Prophylaxis Incentive spirometry. Pulmonary Toilet OOBTC AM labs
--- NOTE | 2017-01-21 12:34 | PN ---
Progress Note, Physician Chief Complaint: Pt A&Ox3; no chest pain; dyspneic on mild exertion. History of Present Illness: Patient is a 61 y.o. 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 Uribe) where patient was noted to be saturating in the high 80's. Patient notes increased labored breathing for the past 4 days as well as productive (whitish sputum) cough. Patient further notes a chest tightness similar to the tightness he experienced at the time of his previous PNAs. Patient notes his last radiation treatment was in August 2016 and his decreased appetite hastened placement of a J tube. - Current Medication List Current Medications: Active Medications Albuterol Sulfate (Ventolin 0.083% Nebulizer Soln -) 1 amp NEB Q6H PRN PRN Reason: SHORT OF BREATH/WHEEZING Last Admin: 01/16/17 10:45 Dose: 1 amp Budesonide (Pulmicort 0.25 Mg Nebulizer -) 1 amp NEB BID [facility] Last Admin: 01/21/17 10:10 Dose: 1 amp Escitalopram Oxalate (Lexapro -) 5 mg PO DAILY [facility] Last Admin: 01/21/17 10:08 Dose: 5 mg Piperacillin/Tazobactam/Dextrose (Zosyn 3.375gm Ivpb (Premix)) 50 mls @ 100 mls /hr IVPB Q8H-IV [facility] PRN Reason: Protocol Last Admin: 01/21/17 11:57 Dose: 100 mls/hr Levofloxacin (Levaquin 500 Mg Premixed Ivpb -) 100 mls @ 100 mls/hr IVPB DAILY [facility] Last Admin: 01/21/17 10:08 Dose: 100 mls/hr Lactobacillus Acidophilus (Bacid -) 1 tab PO DAILY [facility] Last Admin: 01/21/17 10:08 Dose: 1 tab Methylprednisolone Sodium Succinate (Solu-Medrol -) 40 mg IVPB BID [facility] Last Admin: 01/21/17 10:08 Dose: 40 mg Montelukast Sodium (Singulair -) 10 mg PO HS [facility] Last Admin: 01/20/17 21:27 Dose: 10 mg Ranitidine HCl (Zantac -) 150 mg PO DAILY [facility] Last Admin: 01/21/17 10:08 Dose: 150 mg Tiotropium [place] (Spiriva -) 1 puff IH DAILY [facility] Last Admin: 01/21/17 10:09 Dose: 1 inh - Objective Vital Signs: Vital Signs Temperature 97.9 F 01/21/17 10:00 Pulse Rate 79 01/21/17 10:10 Respiratory Rate 18 01/21/17 10:00 Blood Pressure 94/62 01/21/17 10:00 O2 Sat by Pulse Oximetry (%) 98 01/21/17 10:10 Constitutional: Yes: Anxious, Thin Eyes: Yes: WNL HENT: Yes: WNL Neck: Yes: WNL, Thyromegaly Respiratory: Yes: Diminished Gastrointestinal: Yes: Soft ...Rectal Exam: Yes: Deferred Genitourinary: No: Anuria Breast(s): Yes: WNL Musculoskeletal: Yes: Muscle Weakness Extremities: Yes: Cool Edema: No Peripheral Pulses WNL: Yes Integumentary: Yes: WNL Neurological: Yes: Alert, Oriented, Weakness Psychiatric: Yes: Alert, Oriented, Other (anxiety/depression) Labs: CBC, BMP 01/20/17 07:12 01/21/17 06:00 Problem List - Problems (1) Acute and chronic respiratory failure with hypoxia Assessment/Plan: CT chest: bronchiectasis On antibiotics, O2, steroids, and bronchodilators 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 Code(s): J96.21 - ACUTE AND CHRONIC RESPIRATORY FAILURE WITH HYPOXIA (2) Bronchiectasis Code(s): J47.9 - BRONCHIECTASIS, UNCOMPLICATED (3) Dyspnea Code(s): R06.00 - DYSPNEA, UNSPECIFIED (4) Congestive heart failure Assessment/Plan: Borderline reduced LVEF; regional wall motion abnormalities (anteroseptal). Would start lisinopril (though BP borderline low at times); f/u BUN/Cr, electrolytes, BP. Total cholesterol 138 mg/dL. TSH mildly reduced/ f/u free T3 and T4. Stress Persantine MIBI : no myocardial ischemia; inferior wall changes likelier due to diaphragmatic attenuation artifact than old IW NM (no regional wall motion abnormality of inferior wall noted on ECHO). Code(s): I50.9 - HEART FAILURE, UNSPECIFIED Qualifiers: Congestive heart failure type: systolic (5) Anxiety and depression Assessment/Plan: Pt's physical health has deteriorated significantly over the past 2 years, as has his emotional state. Code(s): F41.8 - OTHER SPECIFIED ANXIETY DISORDERS (6) Tonsillar cancer Code(s): C09.9 - MALIGNANT NEOPLASM OF TONSIL, UNSPECIFIED (7) Pneumonia Assessment/Plan: c/o continued cough with greenish phlegm (difficult to bring up). F/u with pulmonary, ID. Code(s): J18.9 - PNEUMONIA, UNSPECIFIED ORGANISM
[2017-01-21] MEDS: MONTELUKAST NA 10 MG TABLET PO SCH (21:13)
[2017-01-21] MEDS: HEPARIN NA (PORCINE) 5,000 UNITS/ML 1ML VIAL SQ SCH (21:13)
[2017-01-21] MEDS: ALPRAZolam 0.25 MG TABLET PO PRN (23:47)
[2017-01-22] MEDS: PIPERACILLIN/TAZOB 3.375 GM 50 ML IVPB SCH ×3 (02:35→18:22)
[2017-01-22 08:31] LABS: ANION GAP 9 (8-16); CALCIUM 8.1 mg/dL (8.5-10.1); CO2 30 mmol/L (21-32); CREATININE 0.7 mg/dL (0.7-1.3); GLUCOSE,RANDOM 112 mg/dL (74-106)
[2017-01-22] MEDS: LEVOFLOXACIN 500 MG IVPB 100 ML IVPB SCH (10:07)
[2017-01-22] MEDS: LACTOBACILLUS ACIDOPHILUS 1 EACH TAB (FP) PO SCH (10:08)
[2017-01-22] MEDS: HEPARIN NA (PORCINE) 5,000 UNITS/ML 1ML VIAL SQ SCH ×2 (10:09→21:17)
[2017-01-22] MEDS: ESCITALOPRAM OXALATE 10 MG TABLET (FP) PO SCH (10:10)
[2017-01-22] MEDS: TIOTROPIUM BROMIDE 18 MCG/INH (DEVICE W/ 5 CAPSULES) IH SCH (10:11)
[2017-01-22] MEDS: RANITIDINE HCL 150 MG TABLET (FP) PO SCH (10:11)
[2017-01-22] MEDS: methylPREDNISolone NA SUCC 40 MG/1 ML VIAL IVPB SCH (10:11)
[2017-01-22] MEDS: BUDESONIDE 0.25 MG/2ML INH SUSP VIAL NEB SCH ×2 (10:15→21:46)
--- NOTE | 2017-01-22 11:15 | PN ---
Progress Note, Physician History of Present Illness: Pt w/o fever, CP, palp, N, V, abd pain. Pt with sputum unchanged (amount, color, thichness). - Current Medication List Current Medications: Active Medications Albuterol Sulfate (Ventolin 0.083% Nebulizer Soln -) 1 amp NEB Q6H PRN PRN Reason: SHORT OF BREATH/WHEEZING Last Admin: 01/16/17 10:45 Dose: 1 amp Alprazolam (Xanax -) 0.25 mg PO HS PRN Last Admin: 01/21/17 23:47 Dose: 0.25 mg Budesonide (Pulmicort 0.25 Mg Nebulizer -) 1 amp NEB BID [facility] Last Admin: 01/21/17 23:00 Dose: 1 amp Escitalopram Oxalate (Lexapro -) 5 mg PO DAILY [facility] Last Admin: 01/22/17 10:10 Dose: 5 mg Heparin Sodium (Porcine) (Heparin -) 5,000 unit SQ BID [facility] Last Admin: 01/22/17 10:09 Dose: 5,000 unit Piperacillin/Tazobactam/Dextrose (Zosyn 3.375gm Ivpb (Premix)) 50 mls @ 100 mls /hr IVPB Q8H-IV [facility] PRN Reason: Protocol Last Admin: 01/22/17 10:14 Dose: 100 mls/hr Levofloxacin (Levaquin 500 Mg Premixed Ivpb -) 100 mls @ 100 mls/hr IVPB DAILY [facility] Last Admin: 01/22/17 10:07 Dose: 100 mls/hr Lactobacillus Acidophilus (Bacid -) 1 tab PO DAILY [facility] Last Admin: 01/22/17 10:08 Dose: 1 tab Methylprednisolone Sodium Succinate (Solu-Medrol -) 40 mg IVPB BID [facility] Last Admin: 01/22/17 10:11 Dose: 40 mg Montelukast Sodium (Singulair -) 10 mg PO HS [facility] Last Admin: 01/21/17 21:13 Dose: 10 mg Ranitidine HCl (Zantac -) 150 mg PO DAILY [facility] Last Admin: 01/22/17 10:11 Dose: 150 mg Tiotropium [place] (Spiriva -) 1 puff IH DAILY [facility] Last Admin: 01/22/17 10:11 Dose: 1 inh - Objective Vital Signs: Vital Signs Temperature 97.9 F 01/22/17 06:00 Pulse Rate 71 01/22/17 06:00 Respiratory Rate 18 01/22/17 06:00 Blood Pressure 96/71 01/22/17 06:00 O2 Sat by Pulse Oximetry (%) 98 01/21/17 21:00 Constitutional: Yes: No Distress, Calm Cardiovascular: Yes: Regular Rate and Rhythm, S1, S2 Respiratory: Yes: Regular, Rhonchi (bilat) Gastrointestinal: Yes: Normal Bowel Sounds, Soft. No: Tenderness Edema: No Neurological: Yes: Alert, Oriented Labs: CBC, BMP 01/20/17 07:12 01/22/17 06:00 Problem List - Problems (1) Acute and chronic respiratory failure with hypoxia Code(s): J96.21 - ACUTE AND CHRONIC RESPIRATORY FAILURE WITH HYPOXIA (2) Dyspnea Code(s): R06.00 - DYSPNEA, UNSPECIFIED (3) Tachycardia Code(s): R00.0 - TACHYCARDIA, UNSPECIFIED (4) Congestive heart failure Code(s): I50.9 - HEART FAILURE, UNSPECIFIED Qualifiers: Congestive heart failure type: systolic (5) Pulmonary hypertension Code(s): I27.20 - PULMONARY HYPERTENSION, UNSPECIFIED (6) Bronchiectasis Code(s): J47.9 - BRONCHIECTASIS, UNCOMPLICATED (7) Anxiety Code(s): F41.9 - ANXIETY DISORDER, UNSPECIFIED (8) Depression Code(s): F32.9 - MAJOR DEPRESSIVE DISORDER, SINGLE EPISODE, UNSPECIFIED (9) Hyponatremia Code(s): E87.1 - HYPO-OSMOLALITY AND HYPONATREMIA Assessment/Plan Hyponatremia- 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 Pulmonary and Cardio Consults appreciated ID consult appreciated. Serial CE- negative RLL PNA; IV abtx-per ID ( Levaquin was added) ECHO done, abnormal. Pt had Pharm Stress Test- no reversible ischemia, possible old infarct.. DVT and GI Prophylaxis Incentive spirometry. Pulmonary Toilet. Cont current treatment. OOBTC AM labs
--- NOTE | 2017-01-22 12:16 | PN ---
Progress Note (short form) - Note Progress Note: PULMONARY VSS/AFEBRILE ANICTERIC SCATTERED RHONCHI S1S2 BS+ NO EDEMA LABS/MEDS/NOTES/IMAGING REVIEWED Acute on Chronic Hypoxic Respiratory Failure Acute COPD/Bronchiectasis Exacerbation h/o Tonsillar Ca with LN met s/p RT/chemo - medrol changed to prednisone - inhaled bronchodilators standing and PRN - O2 to keep SpO2 >90% - antibiotics per ID - DVT prophylaxis - chest PT Chanda OSORIO MD
[2017-01-22] MEDS: MONTELUKAST NA 10 MG TABLET PO SCH (21:16)
[2017-01-22] MEDS: ALPRAZolam 0.25 MG TABLET PO PRN (22:49)
[2017-01-23] MEDS: PIPERACILLIN/TAZOB 3.375 GM 50 ML IVPB SCH ×3 (01:17→17:34)
[2017-01-23 07:31] LABS: ANION GAP 10 (8-16); CALCIUM 7.8 mg/dL (8.5-10.1); CO2 32 mmol/L (21-32); CREATININE 0.8 mg/dL (0.7-1.3); GLUCOSE,RANDOM 84 mg/dL (74-106)
[2017-01-23] MEDS: ESCITALOPRAM OXALATE 10 MG TABLET (FP) PO SCH (09:19)
[2017-01-23] MEDS: LEVOFLOXACIN 500 MG IVPB 100 ML IVPB SCH (09:19)
[2017-01-23] MEDS: predniSONE 20 MG TABLET (UD) PO SCH (09:19)
[2017-01-23] MEDS: LACTOBACILLUS ACIDOPHILUS 1 EACH TAB (FP) PO SCH (09:19)
[2017-01-23] MEDS: RANITIDINE HCL 150 MG TABLET (FP) PO SCH (09:19)
[2017-01-23] MEDS: HEPARIN NA (PORCINE) 5,000 UNITS/ML 1ML VIAL SQ SCH ×2 (09:20→21:36)
[2017-01-23] MEDS ORDERED: PT OWN MED DRAWER 7, Y5N ONE (09:32)
[2017-01-23] MEDS: BUDESONIDE 0.25 MG/2ML INH SUSP VIAL NEB SCH ×2 (10:35→22:20)
[2017-01-23] MEDS: ALBUTEROL SO4 0.083% IH SOL 2.5 MG/3 ML VIAL.NEB. NEB PRN ×2 (10:35→17:25)
[2017-01-23] MEDS: TIOTROPIUM BROMIDE 18 MCG/INH (DEVICE W/ 5 CAPSULES) IH SCH (10:59)
--- NOTE | 2017-01-23 13:18 | PN ---
Progress Note, Physician History of Present Illness: Patient is a 61 y.o. 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 Uribe) where patient was noted to be saturating in the high 80's. Patient notes increased labored breathing for the past 4 days as well as productive (whitish sputum) cough. Patient further notes a chest tightness similar to the tightness he experienced at the time of his previous PNAs. Patient notes his last radiation treatment was in August 2016 and his decreased appetite hastened placement of a J tube. - Current Medication List Current Medications: Active Medications Albuterol Sulfate (Ventolin 0.083% Nebulizer Soln -) 1 amp NEB Q6H PRN PRN Reason: SHORT OF BREATH/WHEEZING Last Admin: 01/23/17 10:35 Dose: 1 amp Alprazolam (Xanax -) 0.25 mg PO HS PRN Last Admin: 01/22/17 22:49 Dose: 0.25 mg Budesonide (Pulmicort 0.25 Mg Nebulizer -) 1 amp NEB BID [facility] Last Admin: 01/23/17 10:35 Dose: 1 amp Escitalopram Oxalate (Lexapro -) 5 mg PO DAILY [facility] Last Admin: 01/23/17 09:19 Dose: 5 mg Heparin Sodium (Porcine) (Heparin -) 5,000 unit SQ BID [facility] Last Admin: 01/23/17 09:20 Dose: 5,000 unit Piperacillin/Tazobactam/Dextrose (Zosyn 3.375gm Ivpb (Premix)) 50 mls @ 100 mls /hr IVPB Q8H-IV [facility] PRN Reason: Protocol Last Admin: 01/23/17 09:24 Dose: 100 mls/hr Levofloxacin (Levaquin 500 Mg Premixed Ivpb -) 100 mls @ 100 mls/hr IVPB DAILY [facility] Last Admin: 01/23/17 09:19 Dose: 100 mls/hr Lactobacillus Acidophilus (Bacid -) 1 tab PO DAILY [facility] Last Admin: 01/23/17 09:19 Dose: 1 tab Montelukast Sodium (Singulair -) 10 mg PO HS [facility] Last Admin: 01/22/17 21:16 Dose: 10 mg Prednisone (Deltasone -) 40 mg PO DAILY [facility] Last Admin: 01/23/17 09:19 Dose: 40 mg Ranitidine HCl (Zantac -) 150 mg PO DAILY [facility] Last Admin: 01/23/17 09:19 Dose: 150 mg Tiotropium [place] (Spiriva -) 1 puff IH DAILY [facility] Last Admin: 01/23/17 10:59 Dose: 1 inh - Objective Vital Signs: Vital Signs Temperature 98.2 F 01/22/17 20:31 Pulse Rate 88 01/23/17 10:54 Respiratory Rate 18 01/22/17 20:31 Blood Pressure 95/63 01/22/17 20:31 O2 Sat by Pulse Oximetry (%) 94 L 01/23/17 10:54 Eyes: Yes: WNL, Conjunctiva Clear, EOM Intact HENT: Yes: WNL, Atraumatic, Normocephalic Neck: Yes: WNL, Supple, Trachea Midline Cardiovascular: Yes: WNL, Regular Rate and Rhythm Respiratory: Yes: WNL, Regular, CTA Bilaterally Gastrointestinal: Yes: WNL, Normal Bowel Sounds Genitourinary: Yes: WNL Musculoskeletal: Yes: WNL Extremities: Yes: WNL Edema: No Integumentary: Yes: WNL Neurological: Yes: WNL, Alert, Oriented ...Motor Strength: WNL Psychiatric: Yes: WNL Labs: CBC, BMP 01/20/17 07:12 01/23/17 05:40 Assessment/Plan - Problems (1) Acute and chronic respiratory failure with hypoxia Assessment/Plan: CT chest: bronchiectasis On antibiotics, O2, steroids, and 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 Code(s): J96.21 - ACUTE AND CHRONIC RESPIRATORY FAILURE WITH HYPOXIA (2) Bronchiectasis Code(s): J47.9 - BRONCHIECTASIS, UNCOMPLICATED (3) Dyspnea Code(s): R06.00 - DYSPNEA, UNSPECIFIED (4) Congestive heart failure Assessment/Plan: Borderline reduced LVEF; regional wall motion abnormalities (anteroseptal). Would start lisinopril (though BP borderline low at times); f/u BUN/Cr, electrolytes, BP. Total cholesterol 138 mg/dL. TSH mildly reduced/ f/u free T3 and T4. Stress Persantine MIBI : no myocardial ischemia; inferior wall changes likelier due to diaphragmatic attenuation artifact than old IW CO (no regional wall motion abnormality of inferior wall noted on ECHO). Code(s): I50.9 - HEART FAILURE, UNSPECIFIED Qualifiers: Congestive heart failure type: systolic (5) Anxiety and depression Assessment/Plan: Pt's physical health has deteriorated significantly over the past 2 years, as has his emotional state. Code(s): F41.8 - OTHER SPECIFIED ANXIETY DISORDERS (6) Tonsillar cancer Code(s): C09.9 - MALIGNANT NEOPLASM OF TONSIL, UNSPECIFIED (7) Pneumonia Assessment/Plan: c/o continued cough with greenish phlegm (difficult to bring up). F/u with pulmonary, ID. Code(s): J18.9 - PNEUMONIA, UNSPECIFIED ORGANISM
--- NOTE | 2017-01-23 13:34 | PN ---
Progress Note, Physician History of Present Illness: PULMONARY ALERT,FEELING BETTER,LESS DYSPNEIC,+COUGH - Current Medication List Current Medications: Active Medications Albuterol Sulfate (Ventolin 0.083% Nebulizer Soln -) 1 amp NEB Q6H PRN PRN Reason: SHORT OF BREATH/WHEEZING Last Admin: 01/23/17 10:35 Dose: 1 amp Alprazolam (Xanax -) 0.25 mg PO HS PRN Last Admin: 01/22/17 22:49 Dose: 0.25 mg Budesonide (Pulmicort 0.25 Mg Nebulizer -) 1 amp NEB BID [facility] Last Admin: 01/23/17 10:35 Dose: 1 amp Escitalopram Oxalate (Lexapro -) 5 mg PO DAILY [facility] Last Admin: 01/23/17 09:19 Dose: 5 mg Heparin Sodium (Porcine) (Heparin -) 5,000 unit SQ BID [facility] Last Admin: 01/23/17 09:20 Dose: 5,000 unit Piperacillin/Tazobactam/Dextrose (Zosyn 3.375gm Ivpb (Premix)) 50 mls @ 100 mls /hr IVPB Q8H-IV [facility] PRN Reason: Protocol Last Admin: 01/23/17 09:24 Dose: 100 mls/hr Levofloxacin (Levaquin 500 Mg Premixed Ivpb -) 100 mls @ 100 mls/hr IVPB DAILY [facility] Last Admin: 01/23/17 09:19 Dose: 100 mls/hr Lactobacillus Acidophilus (Bacid -) 1 tab PO DAILY [facility] Last Admin: 01/23/17 09:19 Dose: 1 tab Montelukast Sodium (Singulair -) 10 mg PO HS [facility] Last Admin: 01/22/17 21:16 Dose: 10 mg Prednisone (Deltasone -) 40 mg PO DAILY [facility] Last Admin: 01/23/17 09:19 Dose: 40 mg Ranitidine HCl (Zantac -) 150 mg PO DAILY [facility] Last Admin: 01/23/17 09:19 Dose: 150 mg Tiotropium [place] (Spiriva -) 1 puff IH DAILY [facility] Last Admin: 01/23/17 10:59 Dose: 1 inh - Objective Vital Signs: Vital Signs Temperature 98.2 F 01/22/17 20:31 Pulse Rate 88 01/23/17 10:54 Respiratory Rate 18 01/22/17 20:31 Blood Pressure 95/63 01/22/17 20:31 O2 Sat by Pulse Oximetry (%) 94 L 01/23/17 10:54 Constitutional: Yes: Calm, Thin Eyes: Yes: WNL HENT: Yes: WNL Neck: Yes: WNL Cardiovascular: Yes: Regular Rate and Rhythm, S1, S2 Respiratory: Yes: Rhonchi (SCATTERED RHONCHI) Gastrointestinal: Yes: Normal Bowel Sounds, Soft Extremities: Yes: WNL Edema: No Labs: CBC, BMP 01/20/17 07:12 01/23/17 05:40 Problem List - Problems (1) Dyspnea Code(s): R06.00 - DYSPNEA, UNSPECIFIED (2) Acute and chronic respiratory failure with hypoxia Code(s): J96.21 - ACUTE AND CHRONIC RESPIRATORY FAILURE WITH HYPOXIA (3) Bronchiectasis Code(s): J47.9 - BRONCHIECTASIS, UNCOMPLICATED (4) Tongue cancer Code(s): C02.9 - MALIGNANT NEOPLASM OF TONGUE, UNSPECIFIED Assessment/Plan IMP ACUTE ON CHRONIC HYPOXEMIC RESPIRATORY FAILURE EXTENSIVE BRONCHIECTASIS ILD URI H/O TONGUE CA S/P RT/CHEMO PLAN TAPER STEROIDS INHALED BRONCHODILATORS O2 ANTIBIOTICS PER ID CHEST PT OUTPATIENT PULMONARY REHAB 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
--- NOTE | 2017-01-23 14:33 | PN ---
Progress Note, Physician History of Present Illness: Still with dyspnea, thick green sputum No fever/ chills No c/o chest pain - Current Medication List Current Medications: Active Medications Albuterol Sulfate (Ventolin 0.083% Nebulizer Soln -) 1 amp NEB Q6H PRN PRN Reason: SHORT OF BREATH/WHEEZING Last Admin: 01/23/17 10:35 Dose: 1 amp Alprazolam (Xanax -) 0.25 mg PO HS PRN Last Admin: 01/22/17 22:49 Dose: 0.25 mg Budesonide (Pulmicort 0.25 Mg Nebulizer -) 1 amp NEB BID [facility] Last Admin: 01/23/17 10:35 Dose: 1 amp Escitalopram Oxalate (Lexapro -) 5 mg PO DAILY [facility] Last Admin: 01/23/17 09:19 Dose: 5 mg Heparin Sodium (Porcine) (Heparin -) 5,000 unit SQ BID [facility] Last Admin: 01/23/17 09:20 Dose: 5,000 unit Piperacillin/Tazobactam/Dextrose (Zosyn 3.375gm Ivpb (Premix)) 50 mls @ 100 mls /hr IVPB Q8H-IV [facility] PRN Reason: Protocol Last Admin: 01/23/17 09:24 Dose: 100 mls/hr Levofloxacin (Levaquin 500 Mg Premixed Ivpb -) 100 mls @ 100 mls/hr IVPB DAILY [facility] Last Admin: 01/23/17 09:19 Dose: 100 mls/hr Lactobacillus Acidophilus (Bacid -) 1 tab PO DAILY [facility] Last Admin: 01/23/17 09:19 Dose: 1 tab Montelukast Sodium (Singulair -) 10 mg PO HS [facility] Last Admin: 01/22/17 21:16 Dose: 10 mg Prednisone (Deltasone -) 40 mg PO DAILY [facility] Last Admin: 01/23/17 09:19 Dose: 40 mg Ranitidine HCl (Zantac -) 150 mg PO DAILY [facility] Last Admin: 01/23/17 09:19 Dose: 150 mg Tiotropium [place] (Spiriva -) 1 puff IH DAILY [facility] Last Admin: 01/23/17 10:59 Dose: 1 inh - Objective Vital Signs: Vital Signs Temperature 98.2 F 01/23/17 10:00 Pulse Rate 88 01/23/17 10:54 Respiratory Rate 18 01/23/17 10:00 Blood Pressure 98/65 01/23/17 10:00 O2 Sat by Pulse Oximetry (%) 94 L 01/23/17 10:54 Constitutional: Yes: Cachectic Cardiovascular: Yes: Regular Rate and Rhythm, S1, S2 Respiratory: Yes: Other (crepitations R base) Gastrointestinal: Yes: Normal Bowel Sounds, Soft. No: Tenderness Edema: No Labs: CBC, BMP 01/20/17 07:12 01/23/17 05:40 Assessment/Plan RLL pneumonia + Sputum c/s pseudomonas Chronic bronchiectasis Hx tonsillar ca Continue zosyn D/C levaquin Substitute tobramycin Steroids, bronchodilators
--- NOTE | 2017-01-23 15:26 | PN ---
Progress Note, Physician History of Present Illness: Pt w/o fever, CP, palp, N, V, abd pain. Pt with sputum, unchanged (amount, color, thickness). - Current Medication List Current Medications: Active Medications Albuterol Sulfate (Ventolin 0.083% Nebulizer Soln -) 1 amp NEB Q6H PRN PRN Reason: SHORT OF BREATH/WHEEZING Last Admin: 01/23/17 10:35 Dose: 1 amp Alprazolam (Xanax -) 0.25 mg PO HS PRN Last Admin: 01/22/17 22:49 Dose: 0.25 mg Budesonide (Pulmicort 0.25 Mg Nebulizer -) 1 amp NEB BID [facility] Last Admin: 01/23/17 10:35 Dose: 1 amp Escitalopram Oxalate (Lexapro -) 5 mg PO DAILY [facility] Last Admin: 01/23/17 09:19 Dose: 5 mg Heparin Sodium (Porcine) (Heparin -) 5,000 unit SQ BID [facility] Last Admin: 01/23/17 09:20 Dose: 5,000 unit Piperacillin/Tazobactam/Dextrose (Zosyn 3.375gm Ivpb (Premix)) 50 mls @ 100 mls /hr IVPB Q8H-IV [facility] PRN Reason: Protocol Last Admin: 01/23/17 09:24 Dose: 100 mls/hr Tobramycin Sulfate 250 mg/ (Sodium Chloride) 106.25 mls @ 106.25 mls/hr IVPB DAILY@1530 [facility] PRN Reason: Protocol Lactobacillus Acidophilus (Bacid -) 1 tab PO DAILY [facility] Last Admin: 01/23/17 09:19 Dose: 1 tab Montelukast Sodium (Singulair -) 10 mg PO HS [facility] Last Admin: 01/22/17 21:16 Dose: 10 mg Prednisone (Deltasone -) 40 mg PO DAILY [facility] Last Admin: 01/23/17 09:19 Dose: 40 mg Ranitidine HCl (Zantac -) 150 mg PO DAILY [facility] Last Admin: 01/23/17 09:19 Dose: 150 mg Tiotropium [place] (Spiriva -) 1 puff IH DAILY [facility] Last Admin: 01/23/17 10:59 Dose: 1 inh - Objective Vital Signs: Vital Signs Temperature 98.1 F 01/23/17 14:37 Pulse Rate 107 H 01/23/17 14:37 Respiratory Rate 22 01/23/17 14:37 Blood Pressure 99/54 01/23/17 14:37 O2 Sat by Pulse Oximetry (%) 94 L 01/23/17 10:54 Constitutional: Yes: No Distress, Calm Cardiovascular: Yes: Regular Rate and Rhythm, S1, S2 Respiratory: Yes: Regular, Rhonchi (1/3 up from base, bilat.) Gastrointestinal: Yes: Normal Bowel Sounds, Soft. No: Tenderness Edema: No Neurological: Yes: Alert, Oriented Labs: CBC, BMP 01/20/17 07:12 01/23/17 05:40 Problem List - Problems (1) Acute and chronic respiratory failure with hypoxia Code(s): J96.21 - ACUTE AND CHRONIC RESPIRATORY FAILURE WITH HYPOXIA (2) Dyspnea Code(s): R06.00 - DYSPNEA, UNSPECIFIED (3) Tachycardia Code(s): R00.0 - TACHYCARDIA, UNSPECIFIED (4) Congestive heart failure Code(s): I50.9 - HEART FAILURE, UNSPECIFIED Qualifiers: Congestive heart failure type: systolic (5) Pulmonary hypertension Code(s): I27.20 - PULMONARY HYPERTENSION, UNSPECIFIED (6) Bronchiectasis Code(s): J47.9 - BRONCHIECTASIS, UNCOMPLICATED (7) Anxiety Code(s): F41.9 - ANXIETY DISORDER, UNSPECIFIED (8) Depression Code(s): F32.9 - MAJOR DEPRESSIVE DISORDER, SINGLE EPISODE, UNSPECIFIED (9) Hyponatremia Code(s): E87.1 - HYPO-OSMOLALITY AND HYPONATREMIA (10) Anemia Code(s): D64.9 - ANEMIA, UNSPECIFIED (11) Hypoalbuminemia Code(s): E88.09 - OT DISORDERS OF PLASMA-PROTEIN METABOLISM, NEC Assessment/Plan Hyponatremia- 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 Pulmonary and Cardio Consults appreciated ID consult appreciated. Serial CE- negative RLL PNA; IV abtx-per ID ( Levaquin was chnged for Tobramycin) ECHO done, abnormal. Pt had Pharm Stress Test- no reversible ischemia, possible old infarct.. DVT and GI Prophylaxis Incentive spirometry. Pulmonary Toilet- helps pt to bring up sputum. OOBTC AM labs
[2017-01-23] MEDS: TOBRAMYCIN SULFATE 250 MG in SODIUM CHLORIDE 100 ML IVPB SCH (17:43)
[2017-01-23] MEDS: MONTELUKAST NA 10 MG TABLET PO SCH (21:36)
[2017-01-23] MEDS ORDERED: BUDESONIDE 0.5 MG/2 ML INH SUSP VIAL NEB ONE (22:04)
[2017-01-23] MEDS: ALPRAZolam 0.25 MG TABLET PO PRN (22:58)
[2017-01-24] MEDS: PIPERACILLIN/TAZOB 3.375 GM 50 ML IVPB SCH ×3 (02:24→18:12)
[2017-01-24] MEDS ORDERED: BUDESONIDE 0.5 MG/2 ML INH SUSP VIAL NEB ONE (09:26)
[2017-01-24 09:35] LABS: MCH 28.1 pg (25.7-33.7); MEAN CELL VOLUME 85.1 fl (80-96); MEAN PLT VOLUME 7.1 fl (7.5-11.1); PLATELET COUNT 170 K/MM3 (134-434); RDW 15.6 % (11.9-15.9); WHITE BLOOD COUNT 4.5 K/mm3 (4.0-10.0)
[2017-01-24] MEDS: BUDESONIDE 0.25 MG/2ML INH SUSP VIAL NEB SCH ×2 (10:00→22:32)
[2017-01-24] MEDS: RANITIDINE HCL 150 MG TABLET (FP) PO SCH (10:06)
[2017-01-24] MEDS: ESCITALOPRAM OXALATE 10 MG TABLET (FP) PO SCH (10:06)
[2017-01-24] MEDS: predniSONE 20 MG TABLET (UD) PO SCH (10:06)
[2017-01-24] MEDS: LACTOBACILLUS ACIDOPHILUS 1 EACH TAB (FP) PO SCH (10:07)
[2017-01-24] MEDS: HEPARIN NA (PORCINE) 5,000 UNITS/ML 1ML VIAL SQ SCH ×2 (10:07→21:39)
[2017-01-24] MEDS: TIOTROPIUM BROMIDE 18 MCG/INH (DEVICE W/ 5 CAPSULES) IH SCH (10:08)
[2017-01-24 10:18] LABS: ALBUMIN 2.2 g/dl (3.4-5.0); ANION GAP 5 (8-16); BILIRUBIN,TOTAL 0.5 mg/dL (0.2-1.0); CALCIUM 7.7 mg/dL (8.5-10.1); CO2 34 mmol/L (21-32); CREATININE 0.7 mg/dL (0.7-1.3); GLUCOSE,RANDOM 77 mg/dL (74-106); SGOT/AST 16 U/L (15-37); SGPT/ALT 46 U/L (12-78)
[2017-01-24 10:24] LABS: ALK PHOS 63 U/L (45-117)
--- NOTE | 2017-01-24 14:02 | PN ---
Progress Note, Physician History of Present Illness: Dyspneic at rest Still with cough, greenish sputum No c/o chest pain. No fever/ chills - Current Medication List Current Medications: Active Medications Albuterol Sulfate (Ventolin 0.083% Nebulizer Soln -) 1 amp NEB Q6H PRN PRN Reason: SHORT OF BREATH/WHEEZING Last Admin: 01/23/17 17:25 Dose: 1 amp Alprazolam (Xanax -) 0.25 mg PO HS PRN Last Admin: 01/23/17 22:58 Dose: 0.25 mg Budesonide (Pulmicort 0.25 Mg Nebulizer -) 1 amp NEB BID [facility] Last Admin: 01/24/17 10:00 Dose: 1 amp Escitalopram Oxalate (Lexapro -) 5 mg PO DAILY [facility] Last Admin: 01/24/17 10:06 Dose: 5 mg Heparin Sodium (Porcine) (Heparin -) 5,000 unit SQ BID [facility] Last Admin: 01/24/17 10:07 Dose: 5,000 unit Piperacillin/Tazobactam/Dextrose (Zosyn 3.375gm Ivpb (Premix)) 50 mls @ 100 mls /hr IVPB Q8H-IV [facility] PRN Reason: Protocol Last Admin: 01/24/17 10:14 Dose: 100 mls/hr Tobramycin Sulfate 250 mg/ (Sodium Chloride) 106.25 mls @ 106.25 mls/hr IVPB DAILY@1530 [facility] PRN Reason: Protocol Last Admin: 01/23/17 17:43 Dose: 106.25 mls/hr Lactobacillus Acidophilus (Bacid -) 1 tab PO DAILY [facility] Last Admin: 01/24/17 10:07 Dose: 1 tab Montelukast Sodium (Singulair -) 10 mg PO HS [facility] Last Admin: 01/23/17 21:36 Dose: 10 mg Prednisone (Deltasone -) 40 mg PO DAILY [facility] Last Admin: 01/24/17 10:06 Dose: 40 mg Ranitidine HCl (Zantac -) 150 mg PO DAILY [facility] Last Admin: 01/24/17 10:06 Dose: 150 mg Tiotropium [place] (Spiriva -) 1 puff IH DAILY [facility] Last Admin: 01/24/17 10:08 Dose: 1 inh - Objective Vital Signs: Vital Signs Temperature 98.0 F 01/24/17 06:00 Pulse Rate 756 H 01/24/17 06:00 Respiratory Rate 18 01/24/17 06:00 Blood Pressure 101/56 01/24/17 06:00 O2 Sat by Pulse Oximetry (%) 98 01/23/17 21:00 Constitutional: Yes: No Distress, Cachectic Eyes: Yes: Conjunctiva Clear Cardiovascular: Yes: Regular Rate and Rhythm, S1, S2 Respiratory: Yes: Other (crepitations, R base) Gastrointestinal: Yes: Normal Bowel Sounds, Soft. No: Tenderness Edema: No Labs: CBC, BMP 01/24/17 09:10 01/24/17 08:10 Assessment/Plan RLL pneumonia + Sputum c/s pseudomonas Chronic bronchiectasis Hx tonsillar ca Continue zosyn /tobramycin Steroids, bronchodilators
[2017-01-24] MEDS: TOBRAMYCIN SULFATE 250 MG in SODIUM CHLORIDE 100 ML IVPB SCH (15:51)
[2017-01-24] MEDS: ALBUTEROL SO4 0.083% IH SOL 2.5 MG/3 ML VIAL.NEB. NEB PRN (17:10)
--- NOTE | 2017-01-24 21:24 | PN ---
Progress Note, Physician History of Present Illness: Pt w/o fever, CP, palp, N, V, abd pain. Pt with sputum, unchanged (amount, color, thickness). Pt's dyspnea is unchanged ( with minimal activity, talking) - Current Medication List Current Medications: Active Medications Albuterol Sulfate (Ventolin 0.083% Nebulizer Soln -) 1 amp NEB Q6H PRN PRN Reason: SHORT OF BREATH/WHEEZING Last Admin: 01/24/17 17:10 Dose: 1 amp Alprazolam (Xanax -) 0.25 mg PO HS PRN Budesonide (Pulmicort 0.25 Mg Nebulizer -) 1 amp NEB BID [facility] Last Admin: 01/24/17 10:00 Dose: 1 amp Escitalopram Oxalate (Lexapro -) 5 mg PO DAILY [facility] Last Admin: 01/24/17 10:06 Dose: 5 mg Heparin Sodium (Porcine) (Heparin -) 5,000 unit SQ BID [facility] Last Admin: 01/24/17 10:07 Dose: 5,000 unit Piperacillin/Tazobactam/Dextrose (Zosyn 3.375gm Ivpb (Premix)) 50 mls @ 100 mls /hr IVPB Q8H-IV [facility] PRN Reason: Protocol Last Admin: 01/24/17 18:12 Dose: 100 mls/hr Tobramycin Sulfate 250 mg/ (Sodium Chloride) 106.25 mls @ 106.25 mls/hr IVPB DAILY@1530 [facility] PRN Reason: Protocol Last Admin: 01/24/17 15:51 Dose: 106.25 mls/hr Lactobacillus Acidophilus (Bacid -) 1 tab PO DAILY [facility] Last Admin: 01/24/17 10:07 Dose: 1 tab Montelukast Sodium (Singulair -) 10 mg PO HS [facility] Last Admin: 01/23/17 21:36 Dose: 10 mg Prednisone (Deltasone -) 40 mg PO DAILY [facility] Last Admin: 01/24/17 10:06 Dose: 40 mg Ranitidine HCl (Zantac -) 150 mg PO DAILY [facility] Last Admin: 01/24/17 10:06 Dose: 150 mg Tiotropium [place] (Spiriva -) 1 puff IH DAILY [facility] Last Admin: 01/24/17 10:08 Dose: 1 inh - Objective Vital Signs: Vital Signs Temperature 98.6 F 01/24/17 18:00 Pulse Rate 80 01/24/17 18:00 Respiratory Rate 20 01/24/17 18:00 Blood Pressure 91/56 01/24/17 18:00 O2 Sat by Pulse Oximetry (%) 98 01/23/17 21:00 Constitutional: Yes: No Distress, Calm Cardiovascular: Yes: Regular Rate and Rhythm, S1, S2 Respiratory: Yes: Regular, CTA Bilaterally, Rhonchi (bilat, more at bases) Gastrointestinal: Yes: Normal Bowel Sounds, Soft. No: Tenderness Edema: No Neurological: Yes: Alert, Oriented Labs: CBC, BMP 01/24/17 09:10 01/24/17 08:10 Problem List - Problems (1) Acute and chronic respiratory failure with hypoxia Code(s): J96.21 - ACUTE AND CHRONIC RESPIRATORY FAILURE WITH HYPOXIA (2) Dyspnea Code(s): R06.00 - DYSPNEA, UNSPECIFIED (3) Tachycardia Code(s): R00.0 - TACHYCARDIA, UNSPECIFIED (4) Congestive heart failure Code(s): I50.9 - HEART FAILURE, UNSPECIFIED Qualifiers: Congestive heart failure type: systolic (5) Pulmonary hypertension Code(s): I27.20 - PULMONARY HYPERTENSION, UNSPECIFIED (6) Bronchiectasis Code(s): J47.9 - BRONCHIECTASIS, UNCOMPLICATED (7) Anxiety Code(s): F41.9 - ANXIETY DISORDER, UNSPECIFIED (8) Depression Code(s): F32.9 - MAJOR DEPRESSIVE DISORDER, SINGLE EPISODE, UNSPECIFIED (9) Hyponatremia Code(s): E87.1 - HYPO-OSMOLALITY AND HYPONATREMIA (10) Anemia Code(s): D64.9 - ANEMIA, UNSPECIFIED (11) Hypoalbuminemia Code(s): E88.09 - OT DISORDERS OF PLASMA-PROTEIN METABOLISM, NEC Assessment/Plan Hyponatremia- 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 Pulmonary and Cardio Consults appreciated. ID consult appreciated. Serial CE- negative RLL PNA; IV abtx-per ID ( on Zosyn and Tobramycin) ECHO done, abnormal. Pt had Pharm Stress Test- no reversible ischemia, possible old infarct.. DVT and GI Prophylaxis Incentive spirometry. Pulmonary Toilet- helps pt to bring up sputum. OOBTC AM labs
[2017-01-24] MEDS: MONTELUKAST NA 10 MG TABLET PO SCH (21:39)
[2017-01-24] MEDS: ALPRAZolam 0.25 MG TABLET PO PRN (21:39)
[2017-01-25] MEDS: PIPERACILLIN/TAZOB 3.375 GM 50 ML IVPB SCH ×3 (02:00→18:37)
[2017-01-25] MEDS ORDERED: PT OWN MED DRAWER 7, Y5N ONE (09:13)
[2017-01-25] MEDS: BUDESONIDE 0.25 MG/2ML INH SUSP VIAL NEB SCH ×2 (09:25→22:48)
--- NOTE | 2017-01-25 09:44 | PN ---
Progress Note, Physician History of Present Illness: Pt w/o fever, CP, palp, N, V, abd pain. Pt with sputum, unchanged (amount, color, thickness). Pt's dyspnea is unchanged ( with minimal activity, talking) - Current Medication List Current Medications: Active Medications Albuterol Sulfate (Ventolin 0.083% Nebulizer Soln -) 1 amp NEB Q6H PRN PRN Reason: SHORT OF BREATH/WHEEZING Last Admin: 01/24/17 17:10 Dose: 1 amp Alprazolam (Xanax -) 0.25 mg PO HS PRN Last Admin: 01/24/17 21:39 Dose: 0.25 mg Budesonide (Pulmicort 0.25 Mg Nebulizer -) 1 amp NEB BID [facility] Last Admin: 01/24/17 22:32 Dose: 1 amp Escitalopram Oxalate (Lexapro -) 5 mg PO DAILY [facility] Last Admin: 01/24/17 10:06 Dose: 5 mg Heparin Sodium (Porcine) (Heparin -) 5,000 unit SQ BID [facility] Last Admin: 01/24/17 21:39 Dose: 5,000 unit Piperacillin/Tazobactam/Dextrose (Zosyn 3.375gm Ivpb (Premix)) 50 mls @ 100 mls /hr IVPB Q8H-IV [facility] PRN Reason: Protocol Last Admin: 01/25/17 02:00 Dose: 100 mls/hr Tobramycin Sulfate 250 mg/ (Sodium Chloride) 106.25 mls @ 106.25 mls/hr IVPB DAILY@1530 [facility] PRN Reason: Protocol Last Admin: 01/24/17 15:51 Dose: 106.25 mls/hr Lactobacillus Acidophilus (Bacid -) 1 tab PO DAILY [facility] Last Admin: 01/24/17 10:07 Dose: 1 tab Montelukast Sodium (Singulair -) 10 mg PO HS [facility] Last Admin: 01/24/17 21:39 Dose: 10 mg Prednisone (Deltasone -) 40 mg PO DAILY [facility] Last Admin: 01/24/17 10:06 Dose: 40 mg Ranitidine HCl (Zantac -) 150 mg PO DAILY [facility] Last Admin: 01/24/17 10:06 Dose: 150 mg Tiotropium [place] (Spiriva -) 1 puff IH DAILY [facility] Last Admin: 01/24/17 10:08 Dose: 1 inh - Objective Vital Signs: Vital Signs Temperature 98.0 F 01/25/17 06:00 Pulse Rate 65 01/25/17 06:00 Respiratory Rate 18 01/25/17 06:00 Blood Pressure 93/52 01/25/17 06:00 O2 Sat by Pulse Oximetry (%) 96 01/24/17 21:00 Constitutional: Yes: No Distress, Calm Cardiovascular: Yes: Regular Rate and Rhythm, S1, S2 Respiratory: Yes: Regular, CTA Bilaterally, Rhonchi Gastrointestinal: Yes: Normal Bowel Sounds, Soft, Tenderness Edema: RLE: 1+ (pt sitting on it) Neurological: Yes: Alert, Oriented Labs: CBC, BMP 01/24/17 09:10 01/24/17 08:10 Problem List - Problems (1) Acute and chronic respiratory failure with hypoxia Code(s): J96.21 - ACUTE AND CHRONIC RESPIRATORY FAILURE WITH HYPOXIA (2) Dyspnea Code(s): R06.00 - DYSPNEA, UNSPECIFIED (3) Tachycardia Code(s): R00.0 - TACHYCARDIA, UNSPECIFIED (4) Congestive heart failure Code(s): I50.9 - HEART FAILURE, UNSPECIFIED Qualifiers: Congestive heart failure type: systolic (5) Pulmonary hypertension Code(s): I27.20 - PULMONARY HYPERTENSION, UNSPECIFIED (6) Bronchiectasis Code(s): J47.9 - BRONCHIECTASIS, UNCOMPLICATED (7) Anxiety Code(s): F41.9 - ANXIETY DISORDER, UNSPECIFIED (8) Depression Code(s): F32.9 - MAJOR DEPRESSIVE DISORDER, SINGLE EPISODE, UNSPECIFIED (9) Hyponatremia Code(s): E87.1 - HYPO-OSMOLALITY AND HYPONATREMIA (10) Anemia Code(s): D64.9 - ANEMIA, UNSPECIFIED (11) Hypoalbuminemia Code(s): E88.09 - OTH DISORDERS OF PLASMA-PROTEIN METABOLISM, NEC Assessment/Plan Hyponatremia- 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 Pulmonary and Cardio Consults appreciated. ID consult appreciated. Serial CE- negative RLL PNA; IV abtx-per ID ( on Zosyn and Tobramycin) ECHO done, abnormal. Pt had Pharm Stress Test- no reversible ischemia, possible old infarct.. DVT and GI Prophylaxis Incentive spirometry. Pulmonary Toilet- helps pt to bring up sputum. OOBTC To monitor Right leg edema; if not better within a hour to send pt for leg US (R /O DVT- pt on SQ heparin BID, also with Hx/ cancer) AM labs
[2017-01-25] MEDS: LACTOBACILLUS ACIDOPHILUS 1 EACH TAB (FP) PO SCH (10:31)
[2017-01-25] MEDS: predniSONE 20 MG TABLET (UD) PO SCH (10:32)
[2017-01-25] MEDS: ESCITALOPRAM OXALATE 10 MG TABLET (FP) PO SCH (10:32)
[2017-01-25] MEDS: HEPARIN NA (PORCINE) 5,000 UNITS/ML 1ML VIAL SQ SCH ×2 (10:32→22:37)
[2017-01-25] MEDS: RANITIDINE HCL 150 MG TABLET (FP) PO SCH (10:32)
--- NOTE | 2017-01-25 12:35 | PN ---
Progress Note, Physician History of Present Illness: Patient is a 61 y.o. 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 Uribe) where patient was noted to be saturating in the high 80's. Patient notes increased labored breathing for the past 4 days as well as productive (whitish sputum) cough. Patient further notes a chest tightness similar to the tightness he experienced at the time of his previous PNAs. Patient notes his last radiation treatment was in August 2016 and his decreased appetite hastened placement of a J tube. - Current Medication List Current Medications: Active Medications Albuterol Sulfate (Ventolin 0.083% Nebulizer Soln -) 1 amp NEB Q6H PRN PRN Reason: SHORT OF BREATH/WHEEZING Last Admin: 01/24/17 17:10 Dose: 1 amp Alprazolam (Xanax -) 0.25 mg PO HS PRN Last Admin: 01/24/17 21:39 Dose: 0.25 mg Budesonide (Pulmicort 0.25 Mg Nebulizer -) 1 amp NEB BID [facility] Last Admin: 01/25/17 09:25 Dose: 1 amp Escitalopram Oxalate (Lexapro -) 5 mg PO DAILY [facility] Last Admin: 01/25/17 10:32 Dose: 5 mg Heparin Sodium (Porcine) (Heparin -) 5,000 unit SQ BID [facility] Last Admin: 01/25/17 10:32 Dose: 5,000 unit Piperacillin/Tazobactam/Dextrose (Zosyn 3.375gm Ivpb (Premix)) 50 mls @ 100 mls /hr IVPB Q8H-IV [facility] PRN Reason: Protocol Last Admin: 01/25/17 10:31 Dose: 100 mls/hr Tobramycin Sulfate 250 mg/ (Sodium Chloride) 106.25 mls @ 106.25 mls/hr IVPB DAILY@1530 [facility] PRN Reason: Protocol Last Admin: 01/24/17 15:51 Dose: 106.25 mls/hr Lactobacillus Acidophilus (Bacid -) 1 tab PO DAILY [facility] Last Admin: 01/25/17 10:31 Dose: 1 tab Montelukast Sodium (Singulair -) 10 mg PO HS [facility] Last Admin: 01/24/17 21:39 Dose: 10 mg Prednisone (Deltasone -) 40 mg PO DAILY [facility] Last Admin: 01/25/17 10:32 Dose: 40 mg Ranitidine HCl (Zantac -) 150 mg PO DAILY [facility] Last Admin: 01/25/17 10:32 Dose: 150 mg Tiotropium [place] (Spiriva -) 1 puff IH DAILY [facility] Last Admin: 01/24/17 10:08 Dose: 1 inh - Objective Vital Signs: Vital Signs Temperature 98.4 F 01/25/17 10:00 Pulse Rate 87 01/25/17 10:00 Respiratory Rate 20 01/25/17 10:00 Blood Pressure 91/52 01/25/17 10:00 O2 Sat by Pulse Oximetry (%) 96 01/24/17 21:00 Eyes: Yes: WNL, Conjunctiva Clear, EOM Intact HENT: Yes: WNL, Atraumatic, Normocephalic Neck: Yes: WNL, Supple, Trachea Midline Cardiovascular: Yes: WNL, Regular Rate and Rhythm Respiratory: Yes: WNL, Regular, CTA Bilaterally Gastrointestinal: Yes: WNL, Normal Bowel Sounds Genitourinary: Yes: WNL Musculoskeletal: Yes: WNL Extremities: Yes: WNL Edema: No Integumentary: Yes: WNL Neurological: Yes: WNL, Alert, Oriented ...Motor Strength: WNL Psychiatric: Yes: WNL Labs: CBC, BMP 01/24/17 09:10 01/24/17 08:10 Assessment/Plan - Problems (1) Acute and chronic respiratory failure with hypoxia Assessment/Plan: CT chest: bronchiectasis On antibiotics, O2, steroids, and bronchodilators per PMD and sample maker hand. Code(s): J96.21 - ACUTE AND CHRONIC RESPIRATORY FAILURE WITH HYPOXIA (2) Bronchiectasis Code(s): J47.9 - BRONCHIECTASIS, UNCOMPLICATED (3) Dyspnea Code(s): R06.00 - DYSPNEA, UNSPECIFIED (4) Congestive heart failure Assessment/Plan: Borderline reduced LVEF; regional wall motion abnormalities (anteroseptal). Would start lisinopril (though BP borderline low at times); f/u BUN/Cr, electrolytes, BP. Total cholesterol 138 mg/dL. TSH mildly reduced/ f/u free T3 and T4. Stress Persantine MIBI : no myocardial ischemia; inferior wall changes likelier due to diaphragmatic attenuation artifact than old IW ND (no regional wall motion abnormality of inferior wall noted on ECHO). Code(s): I50.9 - HEART FAILURE, UNSPECIFIED Qualifiers: Congestive heart failure type: systolic (5) Anxiety and depression Assessment/Plan: Pt's physical health has deteriorated significantly over the past 2 years, as has his emotional state. Code(s): F41.8 - OTHER SPECIFIED ANXIETY DISORDERS (6) Tonsillar cancer Code(s): C09.9 - MALIGNANT NEOPLASM OF TONSIL, UNSPECIFIED (7) Pneumonia Assessment/Plan: c/o continued cough with greenish phlegm (difficult to bring up). F/u with pulmonary, ID. Code(s): J18.9 - PNEUMONIA, UNSPECIFIED ORGANISM
--- NOTE | 2017-01-25 12:55 | PN ---
Progress Note, Physician History of Present Illness: PULMONARY ALERT,LESS DYSPNEIC - Current Medication List Current Medications: Active Medications Albuterol Sulfate (Ventolin 0.083% Nebulizer Soln -) 1 amp NEB Q6H PRN PRN Reason: SHORT OF BREATH/WHEEZING Last Admin: 01/24/17 17:10 Dose: 1 amp Alprazolam (Xanax -) 0.25 mg PO HS PRN Last Admin: 01/24/17 21:39 Dose: 0.25 mg Budesonide (Pulmicort 0.25 Mg Nebulizer -) 1 amp NEB BID [facility] Last Admin: 01/25/17 09:25 Dose: 1 amp Escitalopram Oxalate (Lexapro -) 5 mg PO DAILY [facility] Last Admin: 01/25/17 10:32 Dose: 5 mg Heparin Sodium (Porcine) (Heparin -) 5,000 unit SQ BID [facility] Last Admin: 01/25/17 10:32 Dose: 5,000 unit Piperacillin/Tazobactam/Dextrose (Zosyn 3.375gm Ivpb (Premix)) 50 mls @ 100 mls /hr IVPB Q8H-IV [facility] PRN Reason: Protocol Last Admin: 01/25/17 10:31 Dose: 100 mls/hr Tobramycin Sulfate 250 mg/ (Sodium Chloride) 106.25 mls @ 106.25 mls/hr IVPB DAILY@1530 [facility]EN PRN Reason: Protocol Last Admin: 01/24/17 15:51 Dose: 106.25 mls/hr Lactobacillus Acidophilus (Bacid -) 1 tab PO DAILY [facility] Last Admin: 01/25/17 10:31 Dose: 1 tab Montelukast Sodium (Singulair -) 10 mg PO HS [facility] Last Admin: 01/24/17 21:39 Dose: 10 mg Prednisone (Deltasone -) 40 mg PO DAILY [facility] Last Admin: 01/25/17 10:32 Dose: 40 mg Ranitidine HCl (Zantac -) 150 mg PO DAILY [facility] Last Admin: 01/25/17 10:32 Dose: 150 mg Tiotropium [place] (Spiriva -) 1 puff IH DAILY [facility] Last Admin: 01/24/17 10:08 Dose: 1 inh - Objective Vital Signs: Vital Signs Temperature 98.4 F 01/25/17 10:00 Pulse Rate 87 01/25/17 10:00 Respiratory Rate 20 01/25/17 10:00 Blood Pressure 91/52 01/25/17 10:00 O2 Sat by Pulse Oximetry (%) 96 01/24/17 21:00 Constitutional: Yes: Calm, Thin Eyes: Yes: WNL HENT: Yes: WNL Neck: Yes: WNL Cardiovascular: Yes: Regular Rate and Rhythm, S1, S2 Respiratory: Yes: Rales, Rhonchi (BILATERAL CRACKLES AND RHONCHI) Gastrointestinal: Yes: Normal Bowel Sounds, Soft Extremities: Yes: WNL Edema: No Problem List - Problems (1) Dyspnea Code(s): R06.00 - DYSPNEA, UNSPECIFIED (2) Acute and chronic respiratory failure with hypoxia Code(s): J96.21 - ACUTE AND CHRONIC RESPIRATORY FAILURE WITH HYPOXIA (3) Bronchiectasis Code(s): J47.9 - BRONCHIECTASIS, UNCOMPLICATED (4) Tongue cancer Code(s): C02.9 - MALIGNANT NEOPLASM OF TONGUE, UNSPECIFIED Assessment/Plan IMP ACUTE ON CHRONIC HYPOXEMIC RESPIRATORY FAILURE EXTENSIVE BRONCHIECTASIS ILD URI H/O TONGUE CA S/P RT/CHEMO PLAN PREDNISONE INHALED BRONCHODILATORS O2 ANTIBIOTICS PER ID CHEST PT OUTPATIENT PULMONARY REHAB 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
[2017-01-25] MEDS: TIOTROPIUM BROMIDE 18 MCG/INH (DEVICE W/ 5 CAPSULES) IH SCH (14:52)
[2017-01-25] MEDS: TOBRAMYCIN SULFATE 250 MG in SODIUM CHLORIDE 100 ML IVPB SCH (14:53)
[2017-01-25] MEDS: ALBUTEROL SO4 0.083% IH SOL 2.5 MG/3 ML VIAL.NEB. NEB PRN (15:05)
[2017-01-25] MEDS: MONTELUKAST NA 10 MG TABLET PO SCH (22:37)
[2017-01-25] MEDS: ALPRAZolam 0.25 MG TABLET PO PRN (22:40)
[2017-01-26] MEDS: PIPERACILLIN/TAZOB 3.375 GM 50 ML IVPB SCH ×3 (01:40→18:16)
[2017-01-26 07:32] LABS: MCH 28.1 pg (25.7-33.7); MCHC 32.8 g/dl (32.0-35.9); MEAN CELL VOLUME 85.7 fl (80-96); MEAN PLT VOLUME 7.4 fl (7.5-11.1); PLATELET COUNT 173 K/MM3 (134-434); RDW 15.8 % (11.9-15.9); WHITE BLOOD COUNT 4.5 K/mm3 (4.0-10.0)
[2017-01-26 08:01] LABS: ALBUMIN 2.1 g/dl (3.4-5.0); ALK PHOS 74 U/L (45-117); ANION GAP 5 (8-16); BILIRUBIN,TOTAL 0.3 mg/dL (0.2-1.0); CALCIUM 7.9 mg/dL (8.5-10.1); CO2 34 mmol/L (21-32); CREATININE 0.8 mg/dL (0.7-1.3); GLUCOSE,RANDOM 78 mg/dL (74-106); SGOT/AST 16 U/L (15-37); SGPT/ALT 46 U/L (12-78); TOT PROT 5.7 g/dl (6.4-8.2)
[2017-01-26] MEDS: BUDESONIDE 0.25 MG/2ML INH SUSP VIAL NEB SCH ×2 (09:33→22:37)
[2017-01-26] MEDS ORDERED: PT OWN MED DRAWER 7, Y5N ONE ×3 (10:04→22:31)
[2017-01-26] MEDS: HEPARIN NA (PORCINE) 5,000 UNITS/ML 1ML VIAL SQ SCH ×2 (10:06→22:32)
[2017-01-26] MEDS: predniSONE 20 MG TABLET (UD) PO SCH (10:06)
[2017-01-26] MEDS: LACTOBACILLUS ACIDOPHILUS 1 EACH TAB (FP) PO SCH (10:07)
[2017-01-26] MEDS: TIOTROPIUM BROMIDE 18 MCG/INH (DEVICE W/ 5 CAPSULES) IH SCH (10:07)
[2017-01-26] MEDS: ESCITALOPRAM OXALATE 10 MG TABLET (FP) PO SCH (10:07)
[2017-01-26] MEDS: RANITIDINE HCL 150 MG TABLET (FP) PO SCH (10:07)
--- NOTE | 2017-01-26 10:15 | PN ---
Progress Note, Physician History of Present Illness: Pt w/o fever, CP, palp, N, V, abd pain. Pt is feeling better today. - Current Medication List Current Medications: Active Medications Albuterol Sulfate (Ventolin 0.083% Nebulizer Soln -) 1 amp NEB Q6H PRN PRN Reason: SHORT OF BREATH/WHEEZING Last Admin: 01/25/17 15:05 Dose: 1 amp Alprazolam (Xanax -) 0.25 mg PO HS PRN Last Admin: 01/25/17 22:40 Dose: 0.25 mg Budesonide (Pulmicort 0.25 Mg Nebulizer -) 1 amp NEB BID [facility] Last Admin: 01/26/17 09:33 Dose: 1 amp Escitalopram Oxalate (Lexapro -) 5 mg PO DAILY [facility] Last Admin: 01/25/17 10:32 Dose: 5 mg Heparin Sodium (Porcine) (Heparin -) 5,000 unit SQ BID [facility] Last Admin: 01/25/17 22:37 Dose: 5,000 unit Piperacillin/Tazobactam/Dextrose (Zosyn 3.375gm Ivpb (Premix)) 50 mls @ 100 mls /hr IVPB Q8H-IV [facility] PRN Reason: Protocol Last Admin: 01/26/17 01:40 Dose: 100 mls/hr Tobramycin Sulfate 250 mg/ (Sodium Chloride) 106.25 mls @ 106.25 mls/hr IVPB DAILY@1530 [facility] PRN Reason: Protocol Last Admin: 01/25/17 14:53 Dose: 106.25 mls/hr Lactobacillus Acidophilus (Bacid -) 1 tab PO DAILY [facility] Last Admin: 01/25/17 10:31 Dose: 1 tab Montelukast Sodium (Singulair -) 10 mg PO HS [facility] Last Admin: 01/25/17 22:37 Dose: 10 mg Prednisone (Deltasone -) 40 mg PO DAILY [facility] Last Admin: 01/25/17 10:32 Dose: 40 mg Ranitidine HCl (Zantac -) 150 mg PO DAILY [facility] Last Admin: 01/25/17 10:32 Dose: 150 mg Tiotropium [place] (Spiriva -) 1 puff IH DAILY [facility] Last Admin: 01/25/17 14:52 Dose: 1 inh - Objective Vital Signs: Vital Signs Temperature 98.6 F 01/26/17 10:00 Pulse Rate 97 H 01/26/17 10:00 Respiratory Rate 18 01/26/17 10:00 Blood Pressure 96/55 01/26/17 10:00 O2 Sat by Pulse Oximetry (%) 96 01/26/17 09:32 Constitutional: Yes: No Distress, Calm Cardiovascular: Yes: Regular Rate and Rhythm, S1, S2 Respiratory: Yes: Regular, Rales Gastrointestinal: Yes: Normal Bowel Sounds, Soft. No: Tenderness Edema: No Neurological: Yes: Alert, Oriented Labs: CBC, BMP 01/26/17 06:40 01/26/17 06:40 Problem List - Problems (1) Acute and chronic respiratory failure with hypoxia Code(s): J96.21 - ACUTE AND CHRONIC RESPIRATORY FAILURE WITH HYPOXIA (2) Dyspnea Code(s): R06.00 - DYSPNEA, UNSPECIFIED (3) Tachycardia Code(s): R00.0 - TACHYCARDIA, UNSPECIFIED (4) Congestive heart failure Code(s): I50.9 - HEART FAILURE, UNSPECIFIED Qualifiers: Congestive heart failure type: systolic (5) Pulmonary hypertension Code(s): I27.20 - PULMONARY HYPERTENSION, UNSPECIFIED (6) Bronchiectasis Code(s): J47.9 - BRONCHIECTASIS, UNCOMPLICATED (7) Anxiety Code(s): F41.9 - ANXIETY DISORDER, UNSPECIFIED (8) Depression Code(s): F32.9 - MAJOR DEPRESSIVE DISORDER, SINGLE EPISODE, UNSPECIFIED (9) Hyponatremia Code(s): E87.1 - HYPO-OSMOLALITY AND HYPONATREMIA (10) Anemia Code(s): D64.9 - ANEMIA, UNSPECIFIED (11) Hypoalbuminemia Code(s): E88.09 - OT DISORDERS OF PLASMA-PROTEIN METABOLISM, NEC Assessment/Plan Hyponatremia- 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 Pulmonary and Cardio Consults appreciated. ID consult appreciated. Serial CE- negative. ECHO done, abnormal. Pt had Pharm Stress Test- no reversible ischemia, possible old infarct. RLL PNA; IV abtx-per ID ( on Zosyn and Tobramycin) DVT and GI Prophylaxis Incentive spirometry. Pulmonary Toilet- helps pt to bring up sputum. OOBTC To monitor Right leg edema; s/p Right leg negative for DVT US; pt on SQ heparin BID. AM labs
--- NOTE | 2017-01-26 12:40 | PN ---
Progress Note, Physician History of Present Illness: PULMONARY ALERT,FEELING BETTER,LESS DYSPNEIC,+COUGH - Current Medication List Current Medications: Active Medications Albuterol Sulfate (Ventolin 0.083% Nebulizer Soln -) 1 amp NEB Q6H PRN PRN Reason: SHORT OF BREATH/WHEEZING Last Admin: 01/25/17 15:05 Dose: 1 amp Alprazolam (Xanax -) 0.25 mg PO HS PRN Last Admin: 01/25/17 22:40 Dose: 0.25 mg Budesonide (Pulmicort 0.25 Mg Nebulizer -) 1 amp NEB BID [facility] Last Admin: 01/26/17 09:33 Dose: 1 amp Escitalopram Oxalate (Lexapro -) 5 mg PO DAILY [facility] Last Admin: 01/26/17 10:07 Dose: 5 mg Heparin Sodium (Porcine) (Heparin -) 5,000 unit SQ BID [facility] Last Admin: 01/26/17 10:06 Dose: 5,000 unit Piperacillin/Tazobactam/Dextrose (Zosyn 3.375gm Ivpb (Premix)) 50 mls @ 100 mls /hr IVPB Q8H-IV [facility] PRN Reason: Protocol Last Admin: 01/26/17 10:15 Dose: 100 mls/hr Tobramycin Sulfate 250 mg/ (Sodium Chloride) 106.25 mls @ 106.25 mls/hr IVPB DAILY@1530 [facility] PRN Reason: Protocol Last Admin: 01/25/17 14:53 Dose: 106.25 mls/hr Lactobacillus Acidophilus (Bacid -) 1 tab PO DAILY [facility] Last Admin: 01/26/17 10:07 Dose: 1 tab Montelukast Sodium (Singulair -) 10 mg PO HS [facility] Last Admin: 01/25/17 22:37 Dose: 10 mg Prednisone (Deltasone -) 40 mg PO DAILY [facility] Last Admin: 01/26/17 10:06 Dose: 40 mg Ranitidine HCl (Zantac -) 150 mg PO DAILY [facility] Last Admin: 01/26/17 10:07 Dose: 150 mg Tiotropium [place] (Spiriva -) 1 puff IH DAILY [facility] Last Admin: 01/26/17 10:07 Dose: 1 inh - Objective Vital Signs: Vital Signs Temperature 98.6 F 01/26/17 10:00 Pulse Rate 97 H 01/26/17 10:00 Respiratory Rate 18 01/26/17 10:00 Blood Pressure 96/55 01/26/17 10:00 O2 Sat by Pulse Oximetry (%) 96 01/26/17 09:32 Constitutional: Yes: Calm, Thin Eyes: Yes: WNL HENT: Yes: WNL Cardiovascular: Yes: Regular Rate and Rhythm, S1, S2 Respiratory: Yes: Rales (BILATERAL CRACKLES WITH FEW SCATTEREED RHONCHI) Gastrointestinal: Yes: Normal Bowel Sounds, Soft Extremities: Yes: WNL Edema: No Labs: CBC, BMP 01/26/17 06:40 01/26/17 06:40 Problem List - Problems (1) Dyspnea Code(s): R06.00 - DYSPNEA, UNSPECIFIED (2) Acute and chronic respiratory failure with hypoxia Code(s): J96.21 - ACUTE AND CHRONIC RESPIRATORY FAILURE WITH HYPOXIA (3) Bronchiectasis Code(s): J47.9 - BRONCHIECTASIS, UNCOMPLICATED (4) Tongue cancer Code(s): C02.9 - MALIGNANT NEOPLASM OF TONGUE, UNSPECIFIED Assessment/Plan IMP ACUTE ON CHRONIC HYPOXEMIC RESPIRATORY FAILURE EXTENSIVE BRONCHIECTASIS ILD URI H/O TONGUE CA S/P RT/CHEMO PLAN PREDNISONE INHALED BRONCHODILATORS O2 ANTIBIOTICS PER ID CHEST PT OUTPATIENT PULMONARY REHAB 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
[2017-01-26] MEDS: TOBRAMYCIN SULFATE 250 MG in SODIUM CHLORIDE 100 ML IVPB SCH (14:35)
[2017-01-26] MEDS: ALBUTEROL SO4 0.083% IH SOL 2.5 MG/3 ML VIAL.NEB. NEB PRN (16:30)
[2017-01-26] MEDS: MONTELUKAST NA 10 MG TABLET PO SCH (22:28)
[2017-01-26] MEDS: ALPRAZolam 0.25 MG TABLET PO PRN (22:31)
[2017-01-27] MEDS: PIPERACILLIN/TAZOB 3.375 GM 50 ML IVPB SCH ×2 (01:57→09:20)
[2017-01-27 07:49] LABS: MCH 28.8 pg (25.7-33.7); MEAN CELL VOLUME 84.7 fl (80-96); MEAN PLT VOLUME 7.5 fl (7.5-11.1); PLATELET COUNT 188 K/MM3 (134-434); RDW 15.6 % (11.9-15.9); WHITE BLOOD COUNT 4.7 K/mm3 (4.0-10.0)
[2017-01-27 08:32] LABS: ALBUMIN 2.1 g/dl (3.4-5.0); ALK PHOS 69 U/L (45-117); ANION GAP 5 (8-16); BILIRUBIN,TOTAL 0.8 mg/dL (0.2-1.0); CALCIUM 7.9 mg/dL (8.5-10.1); CO2 33 mmol/L (21-32); CREATININE 0.9 mg/dL (0.7-1.3); GLUCOSE,RANDOM 78 mg/dL (74-106); SGOT/AST 16 U/L (15-37); SGPT/ALT 48 U/L (12-78); TOT PROT 5.8 g/dl (6.4-8.2)
[2017-01-27] MEDS: TIOTROPIUM BROMIDE 18 MCG/INH (DEVICE W/ 5 CAPSULES) IH SCH (09:17)
[2017-01-27] MEDS: RANITIDINE HCL 150 MG TABLET (FP) PO SCH (09:18)
[2017-01-27] MEDS: ESCITALOPRAM OXALATE 10 MG TABLET (FP) PO SCH (09:18)
[2017-01-27] MEDS: LACTOBACILLUS ACIDOPHILUS 1 EACH TAB (FP) PO SCH (09:18)
[2017-01-27] MEDS: HEPARIN NA (PORCINE) 5,000 UNITS/ML 1ML VIAL SQ SCH ×2 (09:20→21:50)
[2017-01-27] MEDS: predniSONE 20 MG TABLET (UD) PO SCH (09:20)
[2017-01-27] MEDS ORDERED: BUDESONIDE 0.5 MG/2 ML INH SUSP VIAL NEB ONE (09:50)
[2017-01-27] MEDS: BUDESONIDE 0.25 MG/2ML INH SUSP VIAL NEB SCH ×2 (10:00→22:22)
--- NOTE | 2017-01-27 10:46 | PN ---
Progress Note, Physician History of Present Illness: Slightly tachypneic at rest on nasal cannula Still with green sputum production No c/o chest pain No fever/chills - Current Medication List Current Medications: Active Medications Albuterol Sulfate (Ventolin 0.083% Nebulizer Soln -) 1 amp NEB Q6H PRN PRN Reason: SHORT OF BREATH/WHEEZING Last Admin: 01/26/17 16:30 Dose: 1 amp Alprazolam (Xanax -) 0.25 mg PO HS PRN Last Admin: 01/26/17 22:31 Dose: 0.25 mg Budesonide (Pulmicort 0.25 Mg Nebulizer -) 1 amp NEB BID [facility] Last Admin: 01/26/17 22:37 Dose: 1 amp Escitalopram Oxalate (Lexapro -) 5 mg PO DAILY [facility] Last Admin: 01/27/17 09:18 Dose: 5 mg Heparin Sodium (Porcine) (Heparin -) 5,000 unit SQ BID [facility] Last Admin: 01/27/17 09:20 Dose: 5,000 unit Piperacillin/Tazobactam/Dextrose (Zosyn 3.375gm Ivpb (Premix)) 50 mls @ 100 mls /hr IVPB Q8H-IV [facility]EN PRN Reason: Protocol Last Admin: 01/27/17 09:20 Dose: 100 mls/hr Tobramycin Sulfate 250 mg/ (Sodium Chloride) 106.25 mls @ 106.25 mls/hr IVPB DAILY@1530 [facility] PRN Reason: Protocol Last Admin: 01/26/17 14:35 Dose: 106.25 mls/hr Lactobacillus Acidophilus (Bacid -) 1 tab PO DAILY [facility] Last Admin: 01/27/17 09:18 Dose: 1 tab Montelukast Sodium (Singulair -) 10 mg PO HS [facility] Last Admin: 01/26/17 22:28 Dose: 10 mg Prednisone (Deltasone -) 40 mg PO DAILY [facility] Last Admin: 01/27/17 09:20 Dose: 40 mg Ranitidine HCl (Zantac -) 150 mg PO DAILY [facility] Last Admin: 01/27/17 09:18 Dose: 150 mg Tiotropium [place] (Spiriva -) 1 puff IH DAILY [facility] Last Admin: 01/27/17 09:17 Dose: 1 inh - Objective Vital Signs: Vital Signs Temperature 97.5 F L 01/27/17 06:36 Pulse Rate 71 01/27/17 06:36 Respiratory Rate 20 01/27/17 06:36 Blood Pressure 105/60 01/27/17 06:36 O2 Sat by Pulse Oximetry (%) 98 01/26/17 21:00 Constitutional: Yes: Cachectic Eyes: Yes: Conjunctiva Clear Cardiovascular: Yes: Regular Rate and Rhythm, S1, S2 Respiratory: Yes: Diminished Gastrointestinal: Yes: Normal Bowel Sounds, Soft. No: Tenderness Edema: No Labs: CBC, BMP 01/27/17 06:40 01/27/17 06:40 Assessment/Plan RLL pneumonia + Sputum c/s pseudomonas Chronic bronchiectasis Hx tonsillar ca May substitute cefepime 2gm IVPB q12h for additional 7-10d via PICC for treatment at home or subacute setting
[2017-01-27] MEDS ORDERED: PICC LINE 8 ML FLUSH PROTOCOL IVPUSH PRN (11:12)
--- NOTE | 2017-01-27 11:14 | DS ---
Physical Examination Vital Signs: Vital Signs Temperature 97.5 F L 01/27/17 06:36 Pulse Rate 71 01/27/17 06:36 Respiratory Rate 20 01/27/17 06:36 Blood Pressure 105/60 01/27/17 06:36 O2 Sat by Pulse Oximetry (%) 98 01/26/17 21:00 Findings/Remarks: Pt still with cough, sputum production ( unchanged- green and increased amount) . Pt is somewhat better than at admission but not close to his baseline. Pt w/o CP, abd pain, diarrhea. Pt still SOB at rest with minimal activity in bed (turning) and talking. on the floor, case was reviewed, to change abtx to Cefepime for 10 days. Case was d/w pt's nurse and CM. Time spent in managing pt's care: over 45 minutes. Constitutional: Yes: No Distress, Calm Cardiovascular: Yes: Regular Rate and Rhythm, S1, S2 Respiratory: Yes: Regular, Rales, Rhonchi (bilat) Gastrointestinal: Yes: Normal Bowel Sounds, Soft. No: Tenderness Edema: No Neurological: Yes: Alert Labs: CBC, BMP 01/27/17 06:40 01/27/17 06:40 Discharge Summary Reason For Visit: DYSPNEA Current Active Problems Acute and chronic respiratory failure with hypoxia (Acute) Anemia (Acute) Anxiety (Acute) Anxiety and depression (Acute) Bronchiectasis (Acute) Congestive heart failure (Acute) Depression (Acute) Dyspnea (Acute) Hypoalbuminemia (Acute) Hyponatremia (Acute) Pneumonia (Acute) Pulmonary hypertension (Acute) Tachycardia (Acute) Tonsillar cancer (Acute) Procedures: Principal: Chest CTA- no PE Other Procedures: Stress test. ECHO Hospital Course: Pt came to ER for dyspnea at rest, increased productive cough; pt found into be in respiratory failure, with tachycardia. Pt was seen by Cardiology (Dr. Daley), ECHO was done (c/w CHF, anteroseptal wall hypokinesis, pulmonary HTN); pharmacologic stress test didn't show any reversible ischemia, but possible old AL. Pt was noticed to have RLL PNA, with Pseudomonas Aeruginosa. PT was seen by ID (Dr. Ruiz) Pulmonary (Dr. Katz). Pt was started on IV abtx ( Zosyn; later was added Levaquin- that was changed to Tobra); pt with some improvement; to be treated with IV abtx (Cefepime- per ID) for 10 more days. Condition: Improved - Instructions Diet, Activity, Other Instructions: Diet: NCS [place] prednisone CBC, CMP in AM Evaluate for Pulmonary Rehab. Referrals: Johnnie Uribe MD [Primary Care Provider] - (1 week after DC) Disposition: LONGTERM FACILITY - Home Medications Comprehensive Discharge Medication List: Ambulatory Orders this list might NOT be accurate. Montelukast Na [Singulair -] 10 mg PO HS 05/04/12 Tiotropium [place] [Spiriva] 1 inh IH DAILY #0 inh 05/10/12 Budesonide/Formeterol Fumarate [SYMBICORT 160/4.5mcg -] 2 inh PO BID 02/20/14 Albuterol Sulfate [Proair Respiclick] 90 mcg IH DAILY 01/12/17 Alprazolam [Xanax] 0.25 mg PO DAILY 01/12/17 Erythromycin [Derrick-Tab -] 500 mg PO Q2D 01/12/17 Escitalopram Oxalate [Lexapro -] 5 mg PO DAILY 01/12/17 Nebulizer/Compressor [Pulmoneb Lt Compressor Nebul] 1 inh IN BID 01/12/17
--- NOTE | 2017-01-27 13:08 | PN ---
Progress Note, Physician History of Present Illness: pulmonary alert,feeling better,less congested,less dyspneic - Current Medication List Current Medications: Active Medications Albuterol Sulfate (Ventolin 0.083% Nebulizer Soln -) 1 amp NEB Q6H PRN PRN Reason: SHORT OF BREATH/WHEEZING Last Admin: 01/26/17 16:30 Dose: 1 amp Alprazolam (Xanax -) 0.25 mg PO HS PRN Last Admin: 01/26/17 22:31 Dose: 0.25 mg Budesonide (Pulmicort 0.25 Mg Nebulizer -) 1 amp NEB BID [facility] Last Admin: 01/27/17 10:00 Dose: 1 amp Escitalopram Oxalate (Lexapro -) 5 mg PO DAILY [facility] Last Admin: 01/27/17 09:18 Dose: 5 mg Heparin Sodium (Porcine) (Heparin -) 5,000 unit SQ BID [facility] Last Admin: 01/27/17 09:20 Dose: 5,000 unit IV Flush (Picc Line Flush) 8 ml IVPUSH PRN PRN PRN Reason: Protocol Piperacillin/Tazobactam/Dextrose (Zosyn 3.375gm Ivpb (Premix)) 50 mls @ 100 mls /hr IVPB Q8H-IV [facility]EN PRN Reason: Protocol Last Admin: 01/27/17 09:20 Dose: 100 mls/hr Tobramycin Sulfate 250 mg/ (Sodium Chloride) 106.25 mls @ 106.25 mls/hr IVPB DAILY@1530 [facility] PRN Reason: Protocol Last Admin: 01/26/17 14:35 Dose: 106.25 mls/hr Lactobacillus Acidophilus (Bacid -) 1 tab PO DAILY [facility] Last Admin: 01/27/17 09:18 Dose: 1 tab Montelukast Sodium (Singulair -) 10 mg PO HS [facility] Last Admin: 01/26/17 22:28 Dose: 10 mg Prednisone (Deltasone -) 40 mg PO DAILY [facility] Last Admin: 01/27/17 09:20 Dose: 40 mg Ranitidine HCl (Zantac -) 150 mg PO DAILY [facility] Last Admin: 01/27/17 09:18 Dose: 150 mg Tiotropium [place] (Spiriva -) 1 puff IH DAILY [facility] Last Admin: 01/27/17 09:17 Dose: 1 inh - Objective Vital Signs: Vital Signs Temperature 97.5 F L 01/27/17 06:36 Pulse Rate 71 01/27/17 11:28 Respiratory Rate 20 01/27/17 06:36 Blood Pressure 105/60 01/27/17 06:36 O2 Sat by Pulse Oximetry (%) 98 01/27/17 11:28 Constitutional: Yes: Calm, Thin Eyes: Yes: WNL HENT: Yes: WNL Neck: Yes: WNL Cardiovascular: Yes: Regular Rate and Rhythm, S1, S2 Respiratory: Yes: Rhonchi (scattered danielle rhonchi) Gastrointestinal: Yes: Normal Bowel Sounds, Soft Extremities: Yes: WNL Edema: No Labs: CBC, BMP 01/27/17 06:40 01/27/17 06:40 Problem List - Problems (1) Dyspnea Code(s): R06.00 - DYSPNEA, UNSPECIFIED (2) Acute and chronic respiratory failure with hypoxia Code(s): J96.21 - ACUTE AND CHRONIC RESPIRATORY FAILURE WITH HYPOXIA (3) Bronchiectasis Code(s): J47.9 - BRONCHIECTASIS, UNCOMPLICATED (4) Tongue cancer Code(s): C02.9 - MALIGNANT NEOPLASM OF TONGUE, UNSPECIFIED Assessment/Plan IMP ACUTE ON CHRONIC HYPOXEMIC RESPIRATORY FAILURE EXTENSIVE BRONCHIECTASIS ILD URI H/O TONGUE CA S/P RT/CHEMO PLAN PREDNISONE INHALED BRONCHODILATORS O2 ANTIBIOTICS PER ID CHEST PT OUTPATIENT PULMONARY REHAB POST DISCHARGE CHEST X-RAY TODAY DR FORD Problem List - Problems (1) Dyspnea Code(s): R06.00 - DYSPNEA, UNSPECIFIED (2) Acute and chronic respiratory failure with hypoxia Code(s): J96.21 - ACUTE AND CHRONIC RESPIRATORY FAILURE WITH HYPOXIA (3) Bronchiectasis Code(s): J47.9 - BRONCHIECTASIS, UNCOMPLICATED (4) Tongue cancer Code(s): C02.9 - MALIGNANT NEOPLASM OF TONGUE, UNSPECIFIED
[2017-01-27] MEDS ORDERED: CEFEPIME 2 GM in DEXTROSE 5%-WATER - 100 ML IVPB ONE (13:45)
[2017-01-27] MEDS ORDERED: ALPRAZolam 0.25 MG TABLET PO ONE (15:15)
[2017-01-27] MEDS: ALBUTEROL SO4 0.083% IH SOL 2.5 MG/3 ML VIAL.NEB. NEB PRN (15:30)
[2017-01-27] MEDS: CEFEPIME 2 GM in DEXTROSE 5%-WATER - 100 ML IVPB SCH (21:51)
[2017-01-27] MEDS: MONTELUKAST NA 10 MG TABLET PO SCH (21:52)
[2017-01-27] MEDS ORDERED: CEFEPIME HCL 2 GM VIAL (RESTRICTED TO ID) IVPB SCH (22:00)
[2017-01-28] MEDS: ALPRAZolam 0.25 MG TABLET PO PRN ×2 (02:28→21:32)
--- NOTE | 2017-01-28 09:10 | PN ---
Progress Note, Physician History of Present Illness: Patient is a 61 y.o. 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 Uribe) where patient was noted to be saturating in the high 80's. Patient notes increased labored breathing for the past 4 days as well as productive (whitish sputum) cough. Patient further notes a chest tightness similar to the tightness he experienced at the time of his previous PNAs. Patient notes his last radiation treatment was in August 2016 and his decreased appetite hastened placement of a J tube. - Current Medication List Current Medications: Active Medications Albuterol Sulfate (Ventolin 0.083% Nebulizer Soln -) 1 amp NEB Q6H PRN PRN Reason: SHORT OF BREATH/WHEEZING Last Admin: 01/27/17 15:30 Dose: 1 amp Alprazolam (Xanax -) 0.25 mg PO HS PRN Last Admin: 01/28/17 02:28 Dose: 0.25 mg Budesonide (Pulmicort 0.25 Mg Nebulizer -) 1 amp NEB BID [facility] Last Admin: 01/27/17 22:22 Dose: 1 amp Escitalopram Oxalate (Lexapro -) 5 mg PO DAILY [facility] Last Admin: 01/27/17 09:18 Dose: 5 mg Heparin Sodium (Porcine) (Heparin -) 5,000 unit SQ BID [facility] Last Admin: 01/27/17 21:50 Dose: 5,000 unit IV Flush (Picc Line Flush) 8 ml IVPUSH PRN PRN PRN Reason: Protocol Cefepime HCl 2 gm/ Dextrose 100 mls @ 200 mls/hr IVPB BID [facility] Stop: 02/06/17 22:30 Last Admin: 01/27/17 21:51 Dose: 200 mls/hr Lactobacillus Acidophilus (Bacid -) 1 tab PO DAILY [facility] Last Admin: 01/27/17 09:18 Dose: 1 tab Montelukast Sodium (Singulair -) 10 mg PO HS [facility] Last Admin: 01/27/17 21:52 Dose: 10 mg Prednisone (Deltasone -) 40 mg PO DAILY [facility] Last Admin: 01/27/17 09:20 Dose: 40 mg Ranitidine HCl (Zantac -) 150 mg PO DAILY [facility] Last Admin: 01/27/17 09:18 Dose: 150 mg Tiotropium [place] (Spiriva -) 1 puff IH DAILY [facility] Last Admin: 01/27/17 09:17 Dose: 1 inh - Objective Vital Signs: Vital Signs Temperature 98 F 01/27/17 22:00 Pulse Rate 85 01/27/17 22:00 Respiratory Rate 18 01/27/17 22:00 Blood Pressure 91/53 01/27/17 22:00 O2 Sat by Pulse Oximetry (%) 98 01/27/17 20:56 Eyes: Yes: WNL, Conjunctiva Clear, EOM Intact HENT: Yes: WNL, Atraumatic, Normocephalic Neck: Yes: WNL, Supple, Trachea Midline Cardiovascular: Yes: WNL, Regular Rate and Rhythm Respiratory: Yes: WNL, Regular, CTA Bilaterally Gastrointestinal: Yes: WNL, Normal Bowel Sounds Genitourinary: Yes: WNL Musculoskeletal: Yes: WNL Extremities: Yes: WNL Edema: No Integumentary: Yes: WNL Neurological: Yes: WNL, Alert, Oriented ...Motor Strength: WNL Psychiatric: Yes: WNL Labs: CBC, BMP 01/27/17 06:40 01/27/17 06:40 Assessment/Plan - Problems (1) Acute and chronic respiratory failure with hypoxia Assessment/Plan: CT chest: bronchiectasis On antibiotics, O2, steroids, and bronchodilators 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 Code(s): J96.21 - ACUTE AND CHRONIC RESPIRATORY FAILURE WITH HYPOXIA (2) Bronchiectasis Code(s): J47.9 - BRONCHIECTASIS, UNCOMPLICATED (3) Dyspnea Code(s): R06.00 - DYSPNEA, UNSPECIFIED (4) Congestive heart failure Assessment/Plan: Borderline reduced LVEF; regional wall motion abnormalities (anteroseptal). Would start lisinopril (though BP borderline low at times); f/u BUN/Cr, electrolytes, BP. Total cholesterol 138 mg/dL. TSH mildly reduced/ f/u free T3 and T4. Stress Persantine MIBI : no myocardial ischemia; inferior wall changes likelier due to diaphragmatic attenuation artifact than old IW [place] (no regional wall motion abnormality of inferior wall noted on ECHO). Code(s): I50.9 - HEART FAILURE, UNSPECIFIED Qualifiers: Congestive heart failure type: systolic (5) Anxiety and depression Assessment/Plan: Pt's physical health has deteriorated significantly over the past 2 years, as has his emotional state. Code(s): F41.8 - OTHER SPECIFIED ANXIETY DISORDERS (6) Tonsillar cancer Code(s): C09.9 - MALIGNANT NEOPLASM OF TONSIL, UNSPECIFIED (7) Pneumonia Assessment/Plan: c/o continued cough with greenish phlegm (difficult to bring up). F/u with pulmonary, ID. Code(s): J18.9 - PNEUMONIA, UNSPECIFIED ORGANISM
[2017-01-28] MEDS ORDERED: PT OWN MED DRAWER 7, Y5N ONE (10:31)
[2017-01-28] MEDS: BUDESONIDE 0.25 MG/2ML INH SUSP VIAL NEB SCH ×2 (10:35→22:25)
[2017-01-28] MEDS: ESCITALOPRAM OXALATE 10 MG TABLET (FP) PO SCH (10:37)
[2017-01-28] MEDS: HEPARIN NA (PORCINE) 5,000 UNITS/ML 1ML VIAL SQ SCH ×2 (10:37→21:31)
[2017-01-28] MEDS: LACTOBACILLUS ACIDOPHILUS 1 EACH TAB (FP) PO SCH (10:41)
[2017-01-28] MEDS: RANITIDINE HCL 150 MG TABLET (FP) PO SCH (10:41)
[2017-01-28] MEDS: predniSONE 20 MG TABLET (UD) PO SCH (10:41)
[2017-01-28] MEDS: TIOTROPIUM BROMIDE 18 MCG/INH (DEVICE W/ 5 CAPSULES) IH SCH (10:42)
[2017-01-28] MEDS: CEFEPIME 2 GM in DEXTROSE 5%-WATER - 100 ML IVPB SCH ×2 (10:43→21:38)
--- NOTE | 2017-01-28 11:26 | PN ---
Progress Note, Physician History of Present Illness: Pt w/o fever, CP, palp, N, V, abd pain. Pt's sputum still green but test engineer color - Current Medication List Current Medications: Active Medications Albuterol Sulfate (Ventolin 0.083% Nebulizer Soln -) 1 amp NEB Q6H PRN PRN Reason: SHORT OF BREATH/WHEEZING Last Admin: 01/27/17 15:30 Dose: 1 amp Alprazolam (Xanax -) 0.25 mg PO HS PRN Last Admin: 01/28/17 02:28 Dose: 0.25 mg Budesonide (Pulmicort 0.25 Mg Nebulizer -) 1 amp NEB BID [facility] Last Admin: 01/28/17 10:35 Dose: 1 amp Escitalopram Oxalate (Lexapro -) 5 mg PO DAILY [facility] Last Admin: 01/28/17 10:37 Dose: 5 mg Heparin Sodium (Porcine) (Heparin -) 5,000 unit SQ BID [facility] Last Admin: 01/28/17 10:37 Dose: 5,000 unit IV Flush (Picc Line Flush) 8 ml IVPUSH PRN PRN PRN Reason: Protocol Cefepime HCl 2 gm/ Dextrose 100 mls @ 200 mls/hr IVPB BID [facility] Stop: 02/06/17 22:30 Last Admin: 01/28/17 10:43 Dose: 200 mls/hr Lactobacillus Acidophilus (Bacid -) 1 tab PO DAILY [facility] Last Admin: 01/28/17 10:41 Dose: 1 tab Montelukast Sodium (Singulair -) 10 mg PO HS [facility] Last Admin: 01/27/17 21:52 Dose: 10 mg Prednisone (Deltasone -) 40 mg PO DAILY [facility] Last Admin: 01/28/17 10:41 Dose: 40 mg Ranitidine HCl (Zantac -) 150 mg PO DAILY [facility] Last Admin: 01/28/17 10:41 Dose: 150 mg Tiotropium [place] (Spiriva -) 1 puff IH DAILY [facility] Last Admin: 01/28/17 10:42 Dose: 1 inh - Objective Vital Signs: Vital Signs Temperature 98 F 01/27/17 22:00 Pulse Rate 85 01/28/17 10:35 Respiratory Rate 18 01/27/17 22:00 Blood Pressure 91/53 01/27/17 22:00 O2 Sat by Pulse Oximetry (%) 98 01/28/17 10:35 Constitutional: Yes: No Distress, Calm Cardiovascular: Yes: Regular Rate and Rhythm, S1, S2 Respiratory: Yes: Regular, Rhonchi (at bases and 1/3 up) Gastrointestinal: Yes: Normal Bowel Sounds, Soft. No: Tenderness Edema: No Neurological: Yes: Alert, Oriented Labs: CBC, BMP 01/27/17 06:40 01/27/17 06:40 Problem List - Problems (1) Acute and chronic respiratory failure with hypoxia Code(s): J96.21 - ACUTE AND CHRONIC RESPIRATORY FAILURE WITH HYPOXIA (2) Dyspnea Code(s): R06.00 - DYSPNEA, UNSPECIFIED (3) Tachycardia Code(s): R00.0 - TACHYCARDIA, UNSPECIFIED (4) Congestive heart failure Code(s): I50.9 - HEART FAILURE, UNSPECIFIED Qualifiers: Congestive heart failure type: systolic (5) Pulmonary hypertension Code(s): I27.20 - PULMONARY HYPERTENSION, UNSPECIFIED (6) Bronchiectasis Code(s): J47.9 - BRONCHIECTASIS, UNCOMPLICATED (7) Anxiety Code(s): F41.9 - ANXIETY DISORDER, UNSPECIFIED (8) Depression Code(s): F32.9 - MAJOR DEPRESSIVE DISORDER, SINGLE EPISODE, UNSPECIFIED (9) Hyponatremia Code(s): E87.1 - HYPO-OSMOLALITY AND HYPONATREMIA (10) Anemia Code(s): D64.9 - ANEMIA, UNSPECIFIED (11) Hypoalbuminemia Code(s): E88.09 - OTH DISORDERS OF PLASMA-PROTEIN METABOLISM, NEC Assessment/Plan Hyponatremia- 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 Pulmonary and Cardio Consults appreciated. ID consult appreciated. Serial CE- negative. ECHO done, abnormal. Pt had Pharm Stress Test- no reversible ischemia, possible old infarct. RLL PNA; IV abtx-per ID ( on Zosyn and Tobramycin) DVT and GI Prophylaxis Incentive spirometry. Pulmonary Toilet- helps pt to bring up sputum. OOBTC To monitor Right leg edema resolved. Pt cou;dn't have PICC line place and be transferred to Rehab. To cont IV abtx. AM labs
--- NOTE | 2017-01-28 12:00 | PN ---
Progress Note (short form) - Note Progress Note: Feels overall better, but still has some greenish sputum. No CP. No acute events overnight. Intake & Output 01/25/17 01/26/17 01/27/17 01/28/17 23:59 23:59 23:59 23:59 Intake Total 2375 2080 1710 220 Output Total 300 1000 Balance 2075 1080 1710 220 Last Vital Signs Temp Pulse Resp BP Pulse Ox 98 F 85 18 91/53 98 01/27/17 22:00 01/28/17 10:35 01/27/17 22:00 01/27/17 22:00 01/28/17 10:35 Active Medications Albuterol Sulfate (Ventolin 0.083% Nebulizer Soln -) 1 amp NEB Q6H PRN PRN Reason: SHORT OF BREATH/WHEEZING Last Admin: 01/27/17 15:30 Dose: 1 amp Alprazolam (Xanax -) 0.25 mg PO HS PRN Last Admin: 01/28/17 02:28 Dose: 0.25 mg Budesonide (Pulmicort 0.25 Mg Nebulizer -) 1 amp NEB BID [facility] Last Admin: 01/28/17 10:35 Dose: 1 amp Escitalopram Oxalate (Lexapro -) 5 mg PO DAILY [facility] Last Admin: 01/28/17 10:37 Dose: 5 mg Heparin Sodium (Porcine) (Heparin -) 5,000 unit SQ BID [facility] Last Admin: 01/28/17 10:37 Dose: 5,000 unit IV Flush (Picc Line Flush) 8 ml IVPUSH PRN PRN PRN Reason: Protocol Cefepime HCl 2 gm/ Dextrose 100 mls @ 200 mls/hr IVPB BID [facility] Stop: 02/06/17 22:30 Last Admin: 01/28/17 10:43 Dose: 200 mls/hr Lactobacillus Acidophilus (Bacid -) 1 tab PO DAILY [facility] Last Admin: 01/28/17 10:41 Dose: 1 tab Montelukast Sodium (Singulair -) 10 mg PO HS [facility] Last Admin: 01/27/17 21:52 Dose: 10 mg Prednisone (Deltasone -) 40 mg PO DAILY [facility] Last Admin: 01/28/17 10:41 Dose: 40 mg Ranitidine HCl (Zantac -) 150 mg PO DAILY [facility] Last Admin: 01/28/17 10:41 Dose: 150 mg Tiotropium [place] (Spiriva -) 1 puff IH DAILY [facility] Last Admin: 01/28/17 10:42 Dose: 1 inh Constitutional: Yes: NAD, Thin Eyes: Yes: WNL HENT: Yes: WNL Neck: Yes: WNL Cardiovascular: Yes: Regular Rate and Rhythm, S1, S2 Respiratory: Yes: Scattered bilateral Rhonchi Gastrointestinal: Yes: Normal Bowel Sounds, Soft Extremities: Yes: WNL Edema: No Labs: Problem List - Problems (1) Dyspnea Code(s): R06.00 - DYSPNEA, UNSPECIFIED (2) Acute and chronic respiratory failure with hypoxia Code(s): J96.21 - ACUTE AND CHRONIC RESPIRATORY FAILURE WITH HYPOXIA (3) Bronchiectasis Code(s): J47.9 - BRONCHIECTASIS, UNCOMPLICATED (4) Tongue cancer Code(s): C02.9 - MALIGNANT NEOPLASM OF TONGUE, UNSPECIFIED Assessment/Plan IMP ACUTE ON CHRONIC HYPOXEMIC RESPIRATORY FAILURE EXTENSIVE BRONCHIECTASIS ILD URI H/O TONGUE CA S/P RT/CHEMO PLAN PREDNISONE INHALED BRONCHODILATORS O2 ANTIBIOTICS PER ID CHEST PT OUTPATIENT PULMONARY REHAB POST DISCHARGE CHEST X-RAY TODAY DR CARVER
[2017-01-28] MEDS: ALBUTEROL SO4 0.083% IH SOL 2.5 MG/3 ML VIAL.NEB. NEB PRN (14:56)
[2017-01-28] MEDS: MONTELUKAST NA 10 MG TABLET PO SCH (21:31)
[2017-01-29 08:53] LABS: MCH 28.8 pg (25.7-33.7); MCHC 33.7 g/dl (32.0-35.9); MEAN CELL VOLUME 85.4 fl (80-96); MEAN PLT VOLUME 7.3 fl (7.5-11.1); PLATELET COUNT 183 K/MM3 (134-434); WHITE BLOOD COUNT 4.8 K/mm3 (4.0-10.0)
[2017-01-29 09:18] LABS: ALBUMIN 2.3 g/dl (3.4-5.0); ANION GAP 8 (8-16); CALCIUM 7.9 mg/dL (8.5-10.1); CO2 31 mmol/L (21-32); GLUCOSE,RANDOM 76 mg/dL (74-106)
[2017-01-29 09:23] LABS: ALK PHOS 71 U/L (45-117); BILIRUBIN,TOTAL 0.6 mg/dL (0.2-1.0); CREATININE 0.7 mg/dL (0.7-1.3); SGOT/AST 19 U/L (15-37); SGPT/ALT 61 U/L (12-78)
[2017-01-29] MEDS ORDERED: PT OWN MED DRAWER 7, Y5N ONE (10:10)
[2017-01-29] MEDS: RANITIDINE HCL 150 MG TABLET (FP) PO SCH (10:27)
[2017-01-29] MEDS: HEPARIN NA (PORCINE) 5,000 UNITS/ML 1ML VIAL SQ SCH ×2 (10:27→21:27)
[2017-01-29] MEDS: predniSONE 20 MG TABLET (UD) PO SCH (10:27)
[2017-01-29] MEDS: LACTOBACILLUS ACIDOPHILUS 1 EACH TAB (FP) PO SCH (10:27)
[2017-01-29] MEDS: ESCITALOPRAM OXALATE 10 MG TABLET (FP) PO SCH (10:27)
[2017-01-29] MEDS: CEFEPIME 2 GM in DEXTROSE 5%-WATER - 100 ML IVPB SCH ×2 (10:27→21:27)
[2017-01-29] MEDS: TIOTROPIUM BROMIDE 18 MCG/INH (DEVICE W/ 5 CAPSULES) IH SCH (10:28)
[2017-01-29] MEDS: BUDESONIDE 0.25 MG/2ML INH SUSP VIAL NEB SCH ×2 (10:40→21:03)
--- NOTE | 2017-01-29 11:42 | PN ---
Progress Note (short form) - Note Progress Note: OOB to chair. Feels overall better, but still has some greenish sputum. No CP. No acute events overnight. Intake & Output 01/26/17 01/27/17 01/28/17 01/29/17 23:59 23:59 23:59 23:59 Intake Total 2080 1710 1960 100 Output Total 1000 1 700 Balance 1080 1710 1959 -600 Last Vital Signs Temp Pulse Resp BP Pulse Ox 97.9 F 104 H 18 102/59 98 01/29/17 06:00 01/29/17 06:00 01/29/17 06:00 01/29/17 06:00 01/28/17 22:00 Active Medications Albuterol Sulfate (Ventolin 0.083% Nebulizer Soln -) 1 amp NEB Q6H PRN PRN Reason: SHORT OF BREATH/WHEEZING Last Admin: 01/28/17 14:56 Dose: 1 amp Alprazolam (Xanax -) 0.25 mg PO HS PRN Last Admin: 01/28/17 21:32 Dose: 0.25 mg Budesonide (Pulmicort 0.25 Mg Nebulizer -) 1 amp NEB BID [facility] Last Admin: 01/28/17 22:25 Dose: 1 amp Escitalopram Oxalate (Lexapro -) 5 mg PO DAILY [facility] Last Admin: 01/29/17 10:27 Dose: 5 mg Heparin Sodium (Porcine) (Heparin -) 5,000 unit SQ BID [facility] Last Admin: 01/29/17 10:27 Dose: 5,000 unit IV Flush (Picc Line Flush) 8 ml IVPUSH PRN PRN PRN Reason: Protocol Cefepime HCl 2 gm/ Dextrose 100 mls @ 200 mls/hr IVPB BID [facility] Stop: 02/06/17 22:30 Last Admin: 01/29/17 10:27 Dose: 200 mls/hr Lactobacillus Acidophilus (Bacid -) 1 tab PO DAILY [facility] Last Admin: 01/29/17 10:27 Dose: 1 tab Montelukast Sodium (Singulair -) 10 mg PO HS [facility] Last Admin: 01/28/17 21:31 Dose: 10 mg Prednisone (Deltasone -) 40 mg PO DAILY [facility] Last Admin: 01/29/17 10:27 Dose: 40 mg Ranitidine HCl (Zantac -) 150 mg PO DAILY [facility] Last Admin: 01/29/17 10:27 Dose: 150 mg Tiotropium [place] (Spiriva -) 1 puff IH DAILY [facility] Last Admin: 01/29/17 10:28 Dose: 1 inh Constitutional: Yes: NAD, Thin Eyes: Yes: WNL HENT: Yes: WNL Neck: Yes: WNL Cardiovascular: Yes: Regular Rate and Rhythm, S1, S2 Respiratory: Yes: Scattered bilateral Rhonchi Gastrointestinal: Yes: Normal Bowel Sounds, Soft Extremities: Yes: WNL Edema: No Labs: Laboratory Results - last 24 hr 01/29/17 01/29/17 07:00 07:00 WBC 4.8 RBC 3.87 L Hgb 11.2 L Hct 33.1 L MCV 85.4 MCH 28.8 MCHC 33.7 RDW 16.0 H Plt Count 183 MPV 7.3 L Sodium 134 L Potassium 4.0 Chloride 95 L Carbon Dioxide 31 Anion Gap 8 BUN 22 H Creatinine 0.7 D Creat Clearance w eGFR > 60 Random Glucose 76 Calcium 7.9 L Total Bilirubin 0.6 D AST 19 ALT 61 D Alkaline Phosphatase 71 Total Protein 6.0 L Albumin 2.3 L Problem List - Problems (1) Dyspnea Code(s): R06.00 - DYSPNEA, UNSPECIFIED (2) Acute and chronic respiratory failure with hypoxia Code(s): J96.21 - ACUTE AND CHRONIC RESPIRATORY FAILURE WITH HYPOXIA (3) Bronchiectasis Code(s): J47.9 - BRONCHIECTASIS, UNCOMPLICATED (4) Tongue cancer Code(s): C02.9 - MALIGNANT NEOPLASM OF TONGUE, UNSPECIFIED Assessment/Plan IMP ACUTE ON CHRONIC HYPOXEMIC RESPIRATORY FAILURE EXTENSIVE BRONCHIECTASIS ILD URI H/O TONGUE CA S/P RT/CHEMO PLAN PREDNISONE INHALED BRONCHODILATORS O2 ANTIBIOTICS PER ID CHEST PT OUTPATIENT PULMONARY REHAB POST DISCHARGE DR CARVER
[2017-01-29] MEDS: ALBUTEROL SO4 0.083% IH SOL 2.5 MG/3 ML VIAL.NEB. NEB PRN (14:38)
--- NOTE | 2017-01-29 15:52 | PN ---
Progress Note, Physician History of Present Illness: Pt w/o fever, CP, palp, N, V, abd pain. Pt's sputum still green but ? laboratory tech color. - Current Medication List Current Medications: Active Medications Albuterol Sulfate (Ventolin 0.083% Nebulizer Soln -) 1 amp NEB Q6H PRN PRN Reason: SHORT OF BREATH/WHEEZING Last Admin: 01/29/17 14:38 Dose: 1 amp Alprazolam (Xanax -) 0.25 mg PO HS PRN Last Admin: 01/28/17 21:32 Dose: 0.25 mg Budesonide (Pulmicort 0.25 Mg Nebulizer -) 1 amp NEB BID [facility] Last Admin: 01/29/17 10:40 Dose: 1 amp Escitalopram Oxalate (Lexapro -) 5 mg PO DAILY [facility] Last Admin: 01/29/17 10:27 Dose: 5 mg Heparin Sodium (Porcine) (Heparin -) 5,000 unit SQ BID [facility] Last Admin: 01/29/17 10:27 Dose: 5,000 unit IV Flush (Picc Line Flush) 8 ml IVPUSH PRN PRN PRN Reason: Protocol Cefepime HCl 2 gm/ Dextrose 100 mls @ 200 mls/hr IVPB BID [facility] Stop: 02/06/17 22:30 Last Admin: 01/29/17 10:27 Dose: 200 mls/hr Lactobacillus Acidophilus (Bacid -) 1 tab PO DAILY [facility] Last Admin: 01/29/17 10:27 Dose: 1 tab Montelukast Sodium (Singulair -) 10 mg PO HS [facility] Last Admin: 01/28/17 21:31 Dose: 10 mg Prednisone (Deltasone -) 40 mg PO DAILY [facility] Last Admin: 01/29/17 10:27 Dose: 40 mg Ranitidine HCl (Zantac -) 150 mg PO DAILY [facility] Last Admin: 01/29/17 10:27 Dose: 150 mg Tiotropium [place] (Spiriva -) 1 puff IH DAILY [facility] Last Admin: 01/29/17 10:28 Dose: 1 inh - Objective Vital Signs: Vital Signs Temperature 98.7 F 01/29/17 14:43 Pulse Rate 84 01/29/17 14:43 Respiratory Rate 22 01/29/17 14:43 Blood Pressure 83/48 01/29/17 14:43 O2 Sat by Pulse Oximetry (%) 98 01/29/17 10:40 Constitutional: Yes: No Distress, Calm Cardiovascular: Yes: Regular Rate and Rhythm, S1, S2 Respiratory: Yes: Regular, Rhonchi (bilat.) Gastrointestinal: Yes: Normal Bowel Sounds, Soft. No: Tenderness Edema: No Neurological: Yes: Alert, Oriented Labs: CBC, BMP 01/29/17 07:00 01/29/17 07:00 Problem List - Problems (1) Acute and chronic respiratory failure with hypoxia Code(s): J96.21 - ACUTE AND CHRONIC RESPIRATORY FAILURE WITH HYPOXIA (2) Dyspnea Code(s): R06.00 - DYSPNEA, UNSPECIFIED (3) Tachycardia Code(s): R00.0 - TACHYCARDIA, UNSPECIFIED (4) Congestive heart failure Code(s): I50.9 - HEART FAILURE, UNSPECIFIED Qualifiers: Congestive heart failure type: systolic (5) Pulmonary hypertension Code(s): I27.20 - PULMONARY HYPERTENSION, UNSPECIFIED (6) Bronchiectasis Code(s): J47.9 - BRONCHIECTASIS, UNCOMPLICATED (7) Anxiety Code(s): F41.9 - ANXIETY DISORDER, UNSPECIFIED (8) Depression Code(s): F32.9 - MAJOR DEPRESSIVE DISORDER, SINGLE EPISODE, UNSPECIFIED (9) Hyponatremia Code(s): E87.1 - HYPO-OSMOLALITY AND HYPONATREMIA (10) Anemia Code(s): D64.9 - ANEMIA, UNSPECIFIED (11) Hypoalbuminemia Code(s): E88.09 - OTH DISORDERS OF PLASMA-PROTEIN METABOLISM, NEC Assessment/Plan Hyponatremia- 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 Pulmonary and Cardio Consults appreciated. ID consult appreciated. Serial CE- negative. ECHO done, abnormal. Pt had Pharm Stress Test- no reversible ischemia, possible old infarct. RLL PNA; IV abtx-per ID ( on Zosyn and Tobramycin now on Cefepime) DVT and GI Prophylaxis Incentive spirometry. Pulmonary Toilet- helps pt to bring up sputum. OOBTC To monitor Right leg edema resolved. Pt couldn't have PICC line place and be transferred to Rehab. To cont IV abtx. AM labs
[2017-01-29] MEDS: ALPRAZolam 0.25 MG TABLET PO PRN (21:27)
[2017-01-29] MEDS: MONTELUKAST NA 10 MG TABLET PO SCH (21:27)
--- NOTE | 2017-01-30 09:46 | PN ---
Progress Note, Physician - Current Medication List Current Medications: Active Medications Albuterol Sulfate (Ventolin 0.083% Nebulizer Soln -) 1 amp NEB Q6H PRN PRN Reason: SHORT OF BREATH/WHEEZING Last Admin: 01/29/17 14:38 Dose: 1 amp Alprazolam (Xanax -) 0.25 mg PO HS PRN Last Admin: 01/29/17 21:27 Dose: 0.25 mg Budesonide (Pulmicort 0.25 Mg Nebulizer -) 1 amp NEB BID [facility] Last Admin: 01/29/17 21:03 Dose: 1 amp Escitalopram Oxalate (Lexapro -) 5 mg PO DAILY [facility] Last Admin: 01/29/17 10:27 Dose: 5 mg Heparin Sodium (Porcine) (Heparin -) 5,000 unit SQ BID [facility] Last Admin: 01/29/17 21:27 Dose: 5,000 unit IV Flush (Picc Line Flush) 8 ml IVPUSH PRN PRN PRN Reason: Protocol Cefepime HCl 2 gm/ Dextrose 100 mls @ 200 mls/hr IVPB BID [facility] Stop: 02/06/17 22:30 Last Admin: 01/29/17 21:27 Dose: 200 mls/hr Lactobacillus Acidophilus (Bacid -) 1 tab PO DAILY [facility] Last Admin: 01/29/17 10:27 Dose: 1 tab Montelukast Sodium (Singulair -) 10 mg PO HS [facility] Last Admin: 01/29/17 21:27 Dose: 10 mg Prednisone (Deltasone -) 40 mg PO DAILY [facility] Last Admin: 01/29/17 10:27 Dose: 40 mg Ranitidine HCl (Zantac -) 150 mg PO DAILY [facility] Last Admin: 01/29/17 10:27 Dose: 150 mg Tiotropium [place] (Spiriva -) 1 puff IH DAILY [facility] Last Admin: 01/29/17 10:28 Dose: 1 inh - Objective Vital Signs: Vital Signs Temperature 98.3 F 01/30/17 09:00 Pulse Rate 80 01/30/17 09:00 Respiratory Rate 18 01/30/17 09:00 Blood Pressure 87/46 01/30/17 09:00 O2 Sat by Pulse Oximetry (%) 98 01/29/17 22:00 Labs: CBC, BMP 01/29/17 07:00 01/29/17 07:00 Problem List - Problems (1) Acute and chronic respiratory failure with hypoxia Code(s): J96.21 - ACUTE AND CHRONIC RESPIRATORY FAILURE WITH HYPOXIA (2) Dyspnea Code(s): R06.00 - DYSPNEA, UNSPECIFIED (3) Tachycardia Code(s): R00.0 - TACHYCARDIA, UNSPECIFIED (4) Congestive heart failure Code(s): I50.9 - HEART FAILURE, UNSPECIFIED Qualifiers: Congestive heart failure type: systolic (5) Pulmonary hypertension Code(s): I27.20 - PULMONARY HYPERTENSION, UNSPECIFIED (6) Bronchiectasis Code(s): J47.9 - BRONCHIECTASIS, UNCOMPLICATED (7) Anxiety Code(s): F41.9 - ANXIETY DISORDER, UNSPECIFIED (8) Depression Code(s): F32.9 - MAJOR DEPRESSIVE DISORDER, SINGLE EPISODE, UNSPECIFIED (9) Hyponatremia Code(s): E87.1 - HYPO-OSMOLALITY AND HYPONATREMIA (10) Anemia Code(s): D64.9 - ANEMIA, UNSPECIFIED (11) Hypoalbuminemia Code(s): E88.09 - OTH DISORDERS OF PLASMA-PROTEIN METABOLISM, NEC
[2017-01-30] MEDS: BUDESONIDE 0.25 MG/2ML INH SUSP VIAL NEB SCH (10:00)
[2017-01-30] MEDS ORDERED: BUDESONIDE 0.5 MG/2 ML INH SUSP VIAL NEB ONE (10:05)
[2017-01-30] MEDS ORDERED: PT OWN MED DRAWER 7, Y5N ONE ×3 (10:14→19:34)
[2017-01-30] MEDS: LACTOBACILLUS ACIDOPHILUS 1 EACH TAB (FP) PO SCH (10:27)
[2017-01-30] MEDS: predniSONE 20 MG TABLET (UD) PO SCH (10:27)
[2017-01-30] MEDS: ESCITALOPRAM OXALATE 10 MG TABLET (FP) PO SCH (10:28)
[2017-01-30] MEDS: HEPARIN NA (PORCINE) 5,000 UNITS/ML 1ML VIAL SQ SCH (10:28)
[2017-01-30] MEDS: RANITIDINE HCL 150 MG TABLET (FP) PO SCH (10:29)
[2017-01-30] MEDS: CEFEPIME 2 GM in DEXTROSE 5%-WATER - 100 ML IVPB SCH (10:30)
[2017-01-30] MEDS: TIOTROPIUM BROMIDE 18 MCG/INH (DEVICE W/ 5 CAPSULES) IH SCH (10:30)
--- NOTE | 2017-01-30 12:02 | PN ---
Progress Note (short form) - Note Progress Note: PULMONARY Breathing about the same. +cough with green sputum. No fevers or chills. Last Vital Signs Temp Pulse Resp BP Pulse Ox 98.3 F 83 18 76/48 94 L 01/30/17 09:00 01/30/17 10:27 01/30/17 10:18 01/30/17 10:27 01/30/17 10:18 Gen: tachypneic with speaking Heart: RRR Lung: basilar rhonchi, rales Abd: soft, nontender Ext: no edema CBC, BMP 01/29/17 07:00 01/29/17 07:00 Active Medications Albuterol Sulfate (Ventolin 0.083% Nebulizer Soln -) 1 amp NEB Q6H PRN PRN Reason: SHORT OF BREATH/WHEEZING Last Admin: 01/29/17 14:38 Dose: 1 amp Alprazolam (Xanax -) 0.25 mg PO HS PRN Last Admin: 01/29/17 21:27 Dose: 0.25 mg Budesonide (Pulmicort 0.25 Mg Nebulizer -) 1 amp NEB BID [facility] Last Admin: 01/30/17 10:00 Dose: 1 amp Escitalopram Oxalate (Lexapro -) 5 mg PO DAILY [facility] Last Admin: 01/30/17 10:28 Dose: 5 mg Heparin Sodium (Porcine) (Heparin -) 5,000 unit SQ BID [facility] Last Admin: 01/30/17 10:28 Dose: 5,000 unit IV Flush (Picc Line Flush) 8 ml IVPUSH PRN PRN PRN Reason: Protocol Cefepime HCl 2 gm/ Dextrose 100 mls @ 200 mls/hr IVPB BID [facility] Stop: 02/06/17 22:30 Last Admin: 01/30/17 10:30 Dose: 200 mls/hr Lactobacillus Acidophilus (Bacid -) 1 tab PO DAILY [facility] Last Admin: 01/30/17 10:27 Dose: 1 tab Montelukast Sodium (Singulair -) 10 mg PO HS [facility] Last Admin: 01/29/17 21:27 Dose: 10 mg Prednisone (Deltasone -) 40 mg PO DAILY [facility] Last Admin: 01/30/17 10:27 Dose: 40 mg Ranitidine HCl (Zantac -) 150 mg PO DAILY [facility] Last Admin: 01/30/17 10:29 Dose: 150 mg Tiotropium [place] (Spiriva -) 1 puff IH DAILY [facility] Last Admin: 01/30/17 10:30 Dose: 1 inh A/P Acute on Chronic Hypoxic Respiratory Failure Acute COPD/Bronchiectasis Exacerbation h/o Tonsillar Ca with LN met s/p RT/chemo - will decrease prednisone to 30mg daily - inhaled bronchodilators standing and PRN - O2 to keep SpO2 >90% - antibiotics per ID - DVT prophylaxis - d/c planning
--- NOTE | 2017-01-30 13:20 | PN ---
Progress Note, Physician History of Present Illness: Patient is a 61 y.o. 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 Uribe) where patient was noted to be saturating in the high 80's. Patient notes increased labored breathing for the past 4 days as well as productive (whitish sputum) cough. Patient further notes a chest tightness similar to the tightness he experienced at the time of his previous PNAs. Patient notes his last radiation treatment was in August 2016 and his decreased appetite hastened placement of a J tube. - Current Medication List Current Medications: Active Medications Albuterol Sulfate (Ventolin 0.083% Nebulizer Soln -) 1 amp NEB Q6H PRN PRN Reason: SHORT OF BREATH/WHEEZING Last Admin: 01/29/17 14:38 Dose: 1 amp Alprazolam (Xanax -) 0.25 mg PO HS PRN Last Admin: 01/29/17 21:27 Dose: 0.25 mg Budesonide (Pulmicort 0.25 Mg Nebulizer -) 1 amp NEB BID [facility] Last Admin: 01/30/17 10:00 Dose: 1 amp Escitalopram Oxalate (Lexapro -) 5 mg PO DAILY [facility] Last Admin: 01/30/17 10:28 Dose: 5 mg Heparin Sodium (Porcine) (Heparin -) 5,000 unit SQ BID [facility] Last Admin: 01/30/17 10:28 Dose: 5,000 unit IV Flush (Picc Line Flush) 8 ml IVPUSH PRN PRN PRN Reason: Protocol Cefepime HCl 2 gm/ Dextrose 100 mls @ 200 mls/hr IVPB BID [facility] Stop: 02/06/17 22:30 Last Admin: 01/30/17 10:30 Dose: 200 mls/hr Lactobacillus Acidophilus (Bacid -) 1 tab PO DAILY [facility] Last Admin: 01/30/17 10:27 Dose: 1 tab Montelukast Sodium (Singulair -) 10 mg PO HS [facility] Last Admin: 01/29/17 21:27 Dose: 10 mg Prednisone (Deltasone -) 30 mg PO DAILY [facility] Ranitidine HCl (Zantac -) 150 mg PO DAILY [facility] Last Admin: 01/30/17 10:29 Dose: 150 mg Tiotropium [place] (Spiriva -) 1 puff IH DAILY [facility] Last Admin: 01/30/17 10:30 Dose: 1 inh - Objective Vital Signs: Vital Signs Temperature 98.3 F 01/30/17 09:00 Pulse Rate 102 H 01/30/17 12:47 Respiratory Rate 18 01/30/17 10:18 Blood Pressure 84/50 01/30/17 12:47 O2 Sat by Pulse Oximetry (%) 94 L 01/30/17 10:18 Eyes: Yes: WNL, Conjunctiva Clear, EOM Intact HENT: Yes: WNL, Atraumatic, Normocephalic Neck: Yes: WNL, Supple, Trachea Midline Cardiovascular: Yes: WNL, Regular Rate and Rhythm Respiratory: Yes: WNL, Regular, CTA Bilaterally Gastrointestinal: Yes: WNL, Normal Bowel Sounds Genitourinary: Yes: WNL Musculoskeletal: Yes: WNL Extremities: Yes: WNL Edema: No Integumentary: Yes: WNL Neurological: Yes: WNL, Alert, Oriented ...Motor Strength: WNL Psychiatric: Yes: WNL Labs: CBC, BMP 01/29/17 07:00 01/29/17 07:00 Assessment/Plan - Problems (1) Acute and chronic respiratory failure with hypoxia Assessment/Plan: CT chest: bronchiectasis On antibiotics, O2, steroids, and bronchodilators 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 Code(s): J96.21 - ACUTE AND CHRONIC RESPIRATORY FAILURE WITH HYPOXIA (2) Bronchiectasis Code(s): J47.9 - BRONCHIECTASIS, UNCOMPLICATED (3) Dyspnea Code(s): R06.00 - DYSPNEA, UNSPECIFIED (4) Congestive heart failure Assessment/Plan: Borderline reduced LVEF; regional wall motion abnormalities (anteroseptal). Would start lisinopril (though BP borderline low at times); f/u BUN/Cr, electrolytes, BP. Total cholesterol 138 mg/dL. TSH mildly reduced/ f/u free T3 and T4. Stress Persantine MIBI : no myocardial ischemia; inferior wall changes likelier due to diaphragmatic attenuation artifact than old IW DC (no regional wall motion abnormality of inferior wall noted on ECHO). Code(s): I50.9 - HEART FAILURE, UNSPECIFIED Qualifiers: Congestive heart failure type: systolic (5) Anxiety and depression Assessment/Plan: Pt's physical health has deteriorated significantly over the past 2 years, as has his emotional state. Code(s): F41.8 - OTHER SPECIFIED ANXIETY DISORDERS (6) Tonsillar cancer Code(s): C09.9 - MALIGNANT NEOPLASM OF TONSIL, UNSPECIFIED (7) Pneumonia Assessment/Plan: c/o continued cough with greenish phlegm (difficult to bring up). F/u with pulmonary, ID. Code(s): J18.9 - PNEUMONIA, UNSPECIFIED ORGANISM
[2017-01-30 17:40] VITALS: BP 100/64; PULSE 115; TEMP 98.1
[2017-01-31] MEDS ORDERED: predniSONE 20 MG TABLET (UD) PO SCH (10:00)
== END 2017-01-30 18:23 | DRG 189 ==
LOC: JER 15:28 → JERBED 19:53 → J4W 21:47 → J5S 01-18 20:21
PROVIDERS: ADMIT Specialist; ATTEND Specialist
PROC: 02HV33Z Insertion of Infusion Device into Superior Vena Cava, Percutaneous Approach (ICD-10-PCS; principal; 2017-01-30)
DX: J96.21 Acute and chronic respiratory failure with hypoxia (principal); J18.9 Pneumonia, unspecified organism; J44.1 Chronic obstructive pulmonary disease with (acute) exacerbation; J84.9 Interstitial pulmonary disease, unspecified; E87.1 Hypo-osmolality and hyponatremia; I50.20 Unspecified systolic (congestive) heart failure; J98.11 Atelectasis; C77.0 Secondary and unspecified malignant neoplasm of lymph nodes of head, face and neck; R00.0 Tachycardia, unspecified; F41.8 Other specified anxiety disorders; C02.9 Malignant neoplasm of tongue, unspecified; D64.9 Anemia, unspecified; E88.09 Other disorders of plasma-protein metabolism, not elsewhere classified; I27.20 Pulmonary hypertension, unspecified; J47.9 Bronchiectasis, uncomplicated; J06.9 Acute upper respiratory infection, unspecified; R07.89 Other chest pain; C09.9 Malignant neoplasm of tonsil, unspecified; Z92.21 Personal history of antineoplastic chemotherapy
CPT/HCPCS: 36415; 36569; 71020-TC; 71275-TC; 77001-TC; 78452-TC; 80048; 80053; 80061; 80200; 82550; 83721; 83880; 84443; 84484; 85025; 85027; 87040; 87070; 87077; 87081; 87186; 87205; 87899; 93005; 93010; 93017; 93306-TC; 93971-TC; 94010; 94640; 97116-GP; 97161-GP; 99283-25; A9502; C1751; J1644

== ENCOUNTER 2017-02-08 21:44 | Inpatient (IN) | payer BC, OTHER ==
--- NOTE | 2017-02-08 21:50 | PDOC ---
Attending Attestation - HPI HPI: 02/08/17 22:57 61 year old male, with significant past medical history of childhood collapsed lung(s/p RL lobectomy), bronchiectasis on 3 L O2, tonsillar cancer with metastasis to R lymph nodes, who presents to the emergency room today [facility] from [facility] complaining of fatigue, productive cough with green sputum. He notes that he has pneumonia, but has been feeling unwell and more fatigued than usual. The patient was recently admitted on 01/12/17 for CHF and discharged on 01/30/17. Denies chest pain, SOB. Denies fever, chills, nausea, vomiting. Allergies: NKA PCP: Dr. Johnnie Uribe Parts Clerk Plant Maintenance: Dr. Katz/Munira/Herrera Hydrogen Plant Operator: Dr. Lemus - Physicial Exam PE: 02/08/17 22:57 Constitutional: Awake, alert, oriented. No acute distress. Head: Normocephalic. Atraumatic Eyes: PERRL. EOMI. Conjunctivae are not pale. ENT: Mucous membranes are moist and intact. Posterior pharynx without exudates or erythema. Uvula midline. Neck: Supple. Full ROM. No lymphadenopathy. Cardiovascular: Regular rate. Regular rhythm. S1, S2 regular. Distal pulses are 2+ and symmetric. Pulmonary/Chest: +crackles at the left base. No evidence of respiratory distress. No wheezing, rales or rhonchi. Abdominal: Soft and non-distended. There is no tenderness. No rebound, guarding or rigidity. No organomegaly. No palpable masses. Good bowel sounds. Back: No CVA tenderness. Musculoskeletal: No edema. No cyanosis. No clubbing. Full range of motion in all extremities. Nocalf tenderness. Radial/pedal pulses are intact and 2+ bilaterally Skin: Skin is warm and dry. No petechiae. No purpura. Neurological: Alert and oriented to person, place, and time. Cranial nerves II -XII are grossly intact. Normal speech. Strength is grossly symmetric. No sensory deficits. Psychiatric: Good eye contact. Normal interaction, affect and behavior. <Kathie Flores - Last Filed: 02/08/17 22:56> - Resident Resident Name: Chuck Buenrostro - ED Attending Attestation I have performed the following: I have examined & evaluated the patient, The case was reviewed & discussed with the resident, I agree w/resident's findings & plan, Exceptions are as noted - Medical Decision Making 02/08/17 21:49 I, Dr. Ivonne Ken, DO, attest that this document has been prepared under my direction and personally reviewed by me in its entirety. I further attest, that it accurately reflects all work, treatment, procedures and medical decision -making performed by me. 02/09/17 00:27 a/p: 61yo male sent in from his rehab for low wbc -no recent chemo or rads (last was august) -repeat labs, per records, pt with wbc 2.3 at facility -orders show starting cefepime today. -will obtain xray, ekg, most likely admission for further eval of low wbc. will discuss case with dr. uribe <Ivonne Ken - Last Filed: 02/09/17 00:29> Heart Score/ECG Review - ECG Intrepretation Comment:: 02/09/17 00:28 sinus at 74, RBBB, no acute st/t wave findings <Ivonne Ken - Last Filed: 02/09/17 00:29>
--- NOTE | 2017-02-08 22:24 | PDOC ---
History of Present Illness - General Chief Complaint: Revisit, Lab Variance Stated Complaint: LOW WHITE BLOOD COUNT Time Seen by Provider: 02/08/17 21:49 - History of Present Illness Initial Comments: 02/09/17 00:12 The patient is a 61 year old male with a history of HTN, COPD, Tongsillar Cancer , Right lower lung lobectomy who presents for evaluation of low WBC. The patient reports that he was recently admitted for pneumonia on 01/28. He was receiving antibiotics and discharged to rehab on 01/30. Since then he reports some improvement in his symptoms, however today began complaining of some white plaques in his mouth. He states that his PCP performed labs which demonstrated a low WBC and sent him to the ED for further evaluation. He reports some SOB at baseline and denies any new cough, fevers, chills, chest pain, abdominal pain , nausea, vomiting, or changes with urination or bowel movements. He reports that his last chemotherapy and radiation was in 07/18 and 08/17 respectively. Past History - Past Medical History Allergies/Adverse Reactions: Allergies Allergy/AdvReac Type Severity Reaction Status Date / Time No Known Allergies Allergy Verified 02/08/17 22:23 Home Medications: Ambulatory Orders Montelukast Na [Singulair -] 10 mg PO HS 05/04/12 Tiotropium [place] [Spiriva] 1 inh IH DAILY #0 inh 05/10/12 Escitalopram Oxalate [Lexapro -] 5 mg PO DAILY 01/12/17 Albuterol 0.083% Nebulizer [place] [Ventolin 0.083% Nebulizer Soln -] 1 amp NEB Q6H PRN #0 amp 01/27/17 Alprazolam [Xanax] 0.25 mg PO HS PRN #0 tablet MDD 1 01/27/17 Budesonide [Pulmicort 0.25 mg Nebulizer -] 1 amp NEB BID amp 01/27/17 Heparin - 5,000 unit SQ BID vial 01/27/17 Lactobacillus Acidophilus [Bacid -] 1 tab PO DAILY 30 Days tab 01/27/17 Picc Line Flush [Picc Line Flush -] 8 ml IVPUSH PRN PRN #0 ml 01/27/17 Ranitidine [Zantac -] 150 mg PO DAILY tablet 01/27/17 Prednisone [Deltasone -] 30 mg PO DAILY tablet 01/30/17 Anemia: No Asthma: Yes Cancer: Yes (Tonsilar ca, completed rad+chemo tx August 2016) Cardiac Disorders: No CVA: No COPD: Yes CHF: No Dementia: No Diabetes: No GI Disorders: No Disorders: No HTN: No Hypercholesterolemia: No Liver Disease: No Seizures: No Thyroid Disease: No - Surgical History Abdominal Surgery: Yes (peg tube placement) Appendectomy: No Cardiac Surgery: No Cholecystectomy: No Lung Surgery: Yes (rt partial thoracotomy 50 yrs ago) Neurologic Surgery: No Orthopedic Surgery: No - Immunization History Td Vaccination: No Immunization Up to Date: Yes (FLU/PNA) - Suicide/Smoking/Psychosocial Hx Smoking Status: No Smoking History: Never smoked Have you smoked in the past 12 months: No Number of Cigarettes Smoked Daily: 0 Hx Alcohol Use: No Drug/Substance Use Hx: No Substance Use Type: None Hx Substance Use Treatment: No Review of Systems - Review of Systems Comments:: 02/09/17 00:16 Constitutional: No fevers, chills, fatigue, malaise HEENT: No Rhinorrhea, nasal congestion, visual changes Cardiovascular: No chest pain, syncope, palpitations, lightheadedness Respiratory: SOB. No Cough, Hemoptysis, Gastrointestinal: No Abdominal pain, Nausea, Vomiting, Constipation, Diarrhea, Melena Genitourinary: No Dysuria, Frequency, Urgency, Hesitancy, Hematuria, Flank pain Musculoskeletal: No Myalgia, arthralgia Skin: No rashes, bruising, pallor Neurologic: No Headache, Dizziness, Numbness, Weakness, or Tingling Psychiatric: No Hallucinations. No SI or HI *Physical Exam - Physical Exam Comments: 02/09/17 00:17 General Appearance: Nourished. No Apparent Distress HEENT: EOMI, LAURA. White plaques noted on the buccal mucosa and tongue. No Pharyngeal Erythema, Tonsillar Exudate, Tonsillar Erythema Neck: No Cervical Lymphadenopathy Respiratory/Chest: Lungs Clear, Normal Breath Sounds. Bilateral crackles auscultated on exam. No Rhonchi, Wheezing Cardiovascular: Regular Rhythm, Regular Rate. No Murmur, Gallops, Rubs Gastrointestinal/Abdominal: Normal Bowel Sounds, Soft. No Guarding, Rebound, Tenderness Musculoskeletal: No CVA Tenderness Extremity: Normal Capillary Refill Integumentary: Normal Color, Dry, Warm Neurologic: Fully Oriented, Alert, Normal Mood/Affect, Normal Response, ED Treatment Course - LABORATORY CBC & Chemistry Diagram: 02/08/17 23:09 02/08/17 23:09 - RADIOLOGY Radiology Studies Ordered: Category Date Time Status CHEST PA & LAT [RAD] Stat Radiology 02/08/17 22:18 Ordered Medical Decision Making - Medical Decision Making 02/09/17 00:41 The patient is a 61 year old male with a history of HTN, COPD, Tongsillar Cancer , Right lower lung lobectomy who presents for evaluation of low WBC. Differential includes but is not limited to: Pneumonia, COPD, infectious, metabolic. Given the patient's history of pneumonia as well as his recent admission, it is likely the patient's symptoms are due to possible recurrent pneumonia. We discussed the case with Dr. Uribe who would like the patient to be admitted due to hypotension at the rehab facility and possible recurrent pneumonia. The patient is hypotensive here in the ED with a pnp of 88 systolic. We will send a cbc, cmp, blood cultures, chest plain film, EKG to evaluate further and will admit the patient to Dr. Uribe. We will continue to monitor and reassess and give the patient a dose of cefepime here in the ED. *DC/Admit/Observation/Transfer Diagnosis at time of Disposition: Pneumonia Qualifiers: Pneumonia type: due to unspecified organism Laterality: unspecified laterality Lung location: unspecified part of lung Qualified Code(s): J18.9 - Pneumonia, unspecified organism Hypotension Qualifiers: Hypotension type: unspecified hypotension type Qualified Code(s): I95.9 - Hypotension, unspecified - Discharge Dispostion Condition at time of disposition: Guarded Admit: Yes - Referrals - Patient Instructions - Post Discharge Activity
[2017-02-08 23:28] LABS: BASOPHIL 0.3 % (0-2.0); EOSINOPHIL 1.4 % (0-4.5); MCH 28.9 pg (25.7-33.7); MCHC 33.5 g/dl (32.0-35.9); MEAN CELL VOLUME 86.2 fl (80-96); MEAN PLT VOLUME 7.4 fl (7.5-11.1); NEUTROPHILS 56.4 % (42.8-82.8); PLATELET COUNT 164 K/MM3 (134-434); RDW 16.2 % (11.9-15.9); WHITE BLOOD COUNT 3.2 K/mm3 (4.0-10.0)
[2017-02-09 00:04] LABS: ALBUMIN 2.4 g/dl (3.4-5.0); ANION GAP 8 (8-16); CALCIUM 7.9 mg/dL (8.5-10.1); CO2 30 mmol/L (21-32); GLUCOSE,RANDOM 86 mg/dL (74-106); SGOT/AST 14 U/L (15-37); SGPT/ALT 37 U/L (12-78)
[2017-02-09 00:06] LABS: ALK PHOS 87 U/L (45-117); BILIRUBIN,TOTAL 0.3 mg/dL (0.2-1.0); TOT PROT 6.3 g/dl (6.4-8.2)
[2017-02-09] MEDS ORDERED: CEFEPIME HCL 2 GM VIAL (RESTRICTED TO ID) IVPB ONE (00:29)
[2017-02-09] MEDS: SODIUM CHLORIDE 1,000 ML IV SCH (06:48)
[2017-02-09 07:43] VITALS: BMI 18.6
--- NOTE | 2017-02-09 12:18 | CONSULT ---
Consultation: REQUESTING PROVIDER:Dr. Rony Ramsay CONSULT REQUEST: We have been asked to medically evaluate this patient for productive cough suspected Pneumonia HISTORY OF PRESENT ILLNESS: 61 year old male, with significant past medical history of childhood collapsed lung(s/p RL lobectomy), bronchiectasis on 3 L O2, tonsillar cancer with metastasis to R lymph nodes, who presents to the emergency room today BIBA from [facility] complaining of fatigue, productive cough with green sputum. He notes that he has pneumonia, but has been feeling unwell and more fatigued than usual. The patient was recently admitted on 01/12/17 for CHF and discharged on 01/30/17. He reports that his last chemotherapy and radiation was in 07/18 and 08/17 respectively. Denies chest pain, SOB. Palpitation Denies fever, chills, nausea, vomiting, diarrhea, constipation. Allergies: NKA PCP: Dr. Johnnie Uribe REVIEW OF SYSTEMS: CONSTITUTIONAL: Absent: fever, chills, diaphoresis, generalized weakness, malaise, loss of appetite, weight change HEENT: Absent: rhinorrhea, nasal congestion, throat pain, throat swelling, difficulty swallowing, mouth swelling, ear pain, eye pain, visual changes CARDIOVASCULAR: Absent: chest pain, syncope, palpitations, irregular heart rate, lightheadedness , peripheral edema RESPIRATORY: Absent: cough, shortness of breath, dyspnea with exertion, orthopnea, wheezing, stridor, hemoptysis GASTROINTESTINAL: Absent: abdominal pain, abdominal distension, nausea, vomiting, diarrhea, constipation, melena, hematochezia GENITOURINARY: Absent: dysuria, frequency, urgency, hesitancy, hematuria, flank pain, genital pain MUSCULOSKELETAL: Absent: myalgia, arthralgia, joint swelling, back pain, neck pain SKIN: Absent: rash, itching, pallor HEMATOLOGIC/IMMUNOLOGIC: Absent: easy bleeding, easy bruising, lymphadenopathy, frequent infections ENDOCRINE: Absent: unexplained weight gain, unexplained weight loss, heat intolerance, cold intolerance NEUROLOGIC: Absent: headache, focal weakness or paresthesias, dizziness, unsteady gait, seizure, mental status changes, bladder or bowel incontinence PSYCHIATRIC: Absent: anxiety, depression, suicidal or homicidal ideation, hallucinations. PHYSICAL EXAMINATION Vital Signs - 24 hr 02/08/17 02/09/17 02/09/17 22:23 03:03 03:10 Temperature 98.3 F 98.4 F Pulse Rate 78 67 Pulse Rate [ 77 Radial] Respiratory 14 16 20 Rate Blood Pressure 88/53 93/54 Blood Pressure 89/60 [Right Arm] O2 Sat by Pulse 99 97 Oximetry (%) 02/09/17 02/09/17 02/09/17 03:15 06:00 10:00 Temperature 98.7 F 98.5 F Pulse Rate 72 73 Pulse Rate [ Radial] Respiratory 20 20 Rate Blood Pressure 77/43 92/58 Blood Pressure [Right Arm] O2 Sat by Pulse 96 99 Oximetry (%) GENERAL: Awake, alert, and fully oriented, in no acute distress. HEAD: Normal with no signs of trauma. EYES: sclera anicteric, conjunctiva clear. EARS, NOSE, THROAT: , oropharynx clear without exudates , with some red blisters. Moist mucous membranes. LUNGS:Coarse BS at the bases Right > Left, No wheezes, and no crackles. No accessory muscle use. HEART: Regular rate and rhythm, normal S1 and S2 without murmur, rub or gallop. ABDOMEN: Soft, nontender, not distended, normoactive bowel sounds, no guarding, no rebound,Peg in place with no leakage. MUSCULOSKELETAL: Normal range of motion at all joints. No bony deformities or tenderness. No CVA tenderness. LOWER EXTREMITIES: warm, well-perfused. No calf tenderness. No peripheral edema. NEUROLOGICAL: no focal deficit. Normal speech. unsteady gait gait. PSYCHIATRIC: Cooperative. Good eye contact. Appropriate mood and affect. SKIN: Warm, dry, no rashes or lesions noted. Laboratory Results - last 24 hr 02/08/17 02/08/17 23:09 23:09 WBC 3.2 L D RBC 3.81 L Hgb 11.0 L Hct 32.9 L MCV 86.2 MCH 28.9 MCHC 33.5 RDW 16.2 H Plt Count 164 MPV 7.4 L Neutrophils % 56.4 D Lymphocytes % 20.8 D Monocytes % 21.1 H Eosinophils % 1.4 Basophils % 0.3 Sodium 136 Potassium 4.3 Chloride 98 Carbon Dioxide 30 Anion Gap 8 BUN 19 H Creatinine 1.0 D Creat Clearance w eGFR > 60 Random Glucose 86 Calcium 7.9 L Total Bilirubin 0.3 D AST 14 L D ALT 37 D Alkaline Phosphatase 87 D Total Protein 6.3 L Albumin 2.4 L Active Medications Generic Name Dose Route Start Last Admin Trade Name Freq PRN Reason Stop Dose Admin Albuterol Sulfate 1 amp 02/09/17 11:50 Ventolin 0.083% Nebulizer Soln - NEB Q4H PRN SHORT OF BREATH/WHEEZING Sodium Chloride 1,000 mls @ 100 mls/hr 02/09/17 06:30 02/09/17 06:48 Normal Saline - IV 100 mls/hr ASDIR LAUREN Administration CBC, BMP 02/08/17 23:09 02/08/17 23:09 ASSESSMENT/PLAN: # Extensive bibasilar bronchiectasis #COPD without exacerbation #HTN #CHF #HCAP Pneumonia? #Mtastatic Tonsilar CA, #Right lower lung lobectomy Paln: Abx per ID cefipime 2 gm daily Broncho dilater PRN Prednisone daily O2 @ 3 L to keep O2 sat >90 % Spiriva Sputum cx. Dispo: We will continue to follow the patient. Thank you for this consultative opportunity. Visit type - Emergency Visit Emergency Visit: Yes ED Registration Date: 02/09/17 Care time: The patient presented to the Emergency Department on the above date and was hospitalized for further evaluation of their emergent condition. - New Patient This patient is new to me today: Yes Date on this admission: 02/09/17 - Critical Care Critical Care patient: No
[2017-02-09] MEDS ORDERED: PICC LINE 8 ML FLUSH PROTOCOL IVPUSH PRN (12:29)
--- NOTE | 2017-02-09 12:33 | HP ---
Admitting History and Physical - Primary Care Physician PCP: Sobia Uribe S - Admission Chief Complaint: hypotension, leukopenia, cough History of Present Illness: The patient is a 61 year old male with a history of HTN, COPD, tongue Cancer, Right lower lung lobectomy who presents for evaluation of low blood pressure and low WBC r/o sepsis from [facility]. The patient was recently admitted for pneumonia on 01/28. He was receiving antibiotics and discharged to rehab on 01/30. Since then he reports some improvement in his symptoms, however today began complaining of some white plaques in his mouth. His labs showed in MD a low WBC and he was sent to the ED for further evaluation. He reports some SOB at baseline and denies any new cough, fevers, chills, chest pain, abdominal pain, nausea, vomiting, or changes with urination or bowel movements. He reports that his last chemotherapy and radiation was in 07/18 and 08/17 respectively. History Source: Patient, Medical Record Limitations to Obtaining History: No Limitations - Past Medical History Cardiovascular: Yes: CHF Pulmonary: Yes: COPD, Pneumonia - Smoking History Smoking history: Never smoked Have you smoked in the past 12 months: No Aproximately how many cigarettes per day: 0 - Alcohol/Substance Use Hx Alcohol Use: No History of Substance Use: reports: None - Social History Usual Living Arrangement: Yes: With Spouse ADL: Independent History of Recent Travel: No Home Medications - Allergies Allergies/Adverse Reactions: Allergies Allergy/AdvReac Type Severity Reaction Status Date / Time No Known Allergies Allergy Verified 02/08/17 22:23 - Home Medications Home Medications: Ambulatory Orders Montelukast Na [Singulair -] 10 mg PO HS 05/04/12 Tiotropium Grayling [Spiriva] 1 inh IH DAILY #0 inh 05/10/12 Escitalopram Oxalate [Lexapro -] 5 mg PO DAILY 01/12/17 Albuterol 0.083% Nebulizer Mary [Ventolin 0.083% Nebulizer Soln -] 1 amp NEB Q6H PRN #0 amp 01/27/17 Alprazolam [Xanax] 0.25 mg PO HS PRN #0 tablet MDD 1 01/27/17 Budesonide [Pulmicort 0.25 mg Nebulizer -] 1 amp NEB BID amp 01/27/17 Heparin - 5,000 unit SQ BID vial 01/27/17 Lactobacillus Acidophilus [Bacid -] 1 tab PO DAILY 30 Days tab 01/27/17 Picc Line Flush [Picc Line Flush -] 8 ml IVPUSH PRN PRN #0 ml 01/27/17 Ranitidine [Zantac -] 150 mg PO DAILY tablet 01/27/17 Prednisone [Deltasone -] 30 mg PO DAILY tablet 01/30/17 Family Disease History - Family Disease History Family History: Unremarkable Review of Systems - Review of Systems Constitutional: reports: Loss of Appetite. denies: Chills, Fever, Lethargy Eyes: denies: Blind Spots, Blurred Vision, Double Vision HENT: denies: Difficult Swallowing, Epistaxis, Hearing Loss Neck: denies: Stiffness, Tenderness Cardiovascular: reports: Shortness of Breath. denies: Chest Pain Respiratory: reports: Cough, Exercise Intolerance, SOB, SOB on Exertion. denies : Hemoptysis, Orthopnea, Wheezing Gastrointestinal: denies: Abdominal Pain, Bloating, Constipation, Diarrhea, Dysphagia, Melena, Nausea, Rectal Bleeding, Vomiting Genitourinary: denies: Burning, Dysuria, Flank Pain Musculoskeletal: denies: Back Pain, Joint Pain Integumentary: denies: Rash Neurological: reports: Dizziness. denies: Change in LOC, Change in Speech, Confusion, Seizure, Syncope, Tremors, Unsteady Gait Endocrine: reports: Unexplained Weight Loss. denies: Excessive Sweating, Unexplained Weight Gain Hematology/Lymphatic: denies: Easily Bruised, Excessive Bleeding Psychiatric: reports: Anxiety. denies: Altered Sleep Pattern, Depression, Suicidal Physical Examination Vital Signs: Vital Signs Temperature 98.5 F 02/09/17 10:00 Pulse Rate 73 02/09/17 10:00 Respiratory Rate 20 02/09/17 10:00 Blood Pressure 92/58 02/09/17 10:00 O2 Sat by Pulse Oximetry (%) 99 02/09/17 10:00 Constitutional: Yes: No Distress, Calm Eyes: Yes: Conjunctiva Clear HENT: Yes: Atraumatic Neck: Yes: Supple Cardiovascular: Yes: Regular Rate and Rhythm Respiratory: Yes: CTA Bilaterally Gastrointestinal: Yes: Soft. No: Distention, Tenderness Renal/: No: CVA Tenderness - Left, CVA Tenderness - Right Musculoskeletal: No: Joint Stiffness, Joint Swelling Extremities: No: Calf Tenderness, Cold, Cool Edema: No Integumentary: No: Rash, Venous Stasis Changes Neurological: Yes: WNL, Alert, Oriented ...Motor Strength: WNL Psychiatric: Yes: WNL, Alert, Oriented. No: Agitated, Suicidal Ideation Labs: CBC, BMP 02/08/17 23:09 02/08/17 23:09 Imaging - Results Chest X-ray: Report Reviewed Other: Report Reviewed Assessment/Plan The patient is a 61 year old male with a history of HTN, COPD, Tongue Cancer, Right lower lung lobectomy admitted with hypotension and leukopenia from [facility] s/p recent and recurrent PNA admit to telemetry cardio, pulmonary and ID eval IVF IV ATB check cultures DVT falls PFX O2 NC as ordered prognosis guarded d/w pt and staff
--- NOTE | 2017-02-09 12:49 | EKG ---
Test Reason : Blood Pressure : / mmHG Vent. Rate : 074 BPM Atrial Rate : 074 BPM P-R Int : 156 ms QRS Dur : 130 ms QT Int : 380 ms P-R-T Axes : 056 239 048 degrees QTc Int : 421 ms POOR DATA QUALITY, INTERPRETATION MAY BE ADVERSELY AFFECTED NORMAL SINUS RHYTHM RIGHT BUNDLE BRANCH BLOCK ABNORMAL ECG WHEN COMPARED WITH ECG OF 12-JAN-2017 17:24, CRITERIA FOR SEPTAL INFARCT ARE NO LONGER PRESENT ST NO LONGER DEPRESSED IN ANTERIOR LEADS Confirmed by ITZ CASTANEDA MD ([id number]) on 02/09/2017 12:49:23 PM Referred By: Confirmed By:ITZ CASTANEDA MD
[2017-02-09] MEDS: ALBUTEROL SO4 0.083% IH SOL 2.5 MG/3 ML VIAL.NEB. NEB PRN ×2 (12:50→22:11)
[2017-02-09] MEDS: predniSONE 20 MG TABLET (UD) PO SCH (13:01)
[2017-02-09] MEDS ORDERED: CEFEPIME 2 GM in DEXTROSE 5%-WATER - 100 ML IVPB ONE (13:30)
--- NOTE | 2017-02-09 15:00 | PN ---
Teaching Attending Note Name of Resident: Go Reddy ATTENDING PHYSICIAN STATEMENT I saw and evaluated the patient. I reviewed the resident's note and discussed the case with the resident. I agree with the resident's findings and plan as documented. SUBJECTIVE: 61 M, history of a RLL lobectomy for unclear reasons, COPD, and chronic bronchiectasis maintained on 3 L NC. Known metastatic tonsillar cancer. Last treatment with ChemoTx was 07/2016 and last RT was 08/2016. Admitted via the ER from the SNF due to generalized fatigue and and productive cough with green sputum. No hemoptysis. Patient has been admitted several times in the last 6 months for similar symptoms. CXR: volume loss RLL with extensive bonchiectasis. LLL atelectasis and chronic changes. There is no significant radiographic changes from previous imaging. GENERAL: Awake, alert, thin, chronically ill appearing, NAD HEAD: Normal with no signs of trauma. EYES: sclera anicteric, conjunctiva clear. EARS, NOSE, THROAT: oropharynx clear without exudates. Dry mucous membranes. NECK: Normal range of motion, supple without lymphadenopathy, JVD, or masses. LUNGS: Coarse BS at the bases Right > Left, no wheezing HEART: Regular rate and rhythm, normal S1 and S2 without murmur, rub or gallop. ABDOMEN: Soft, nontender, not distended, normoactive bowel sounds, (+) GT MUSCULOSKELETAL: Normal range of motion at all joints. No bony deformities or tenderness. No CVA tenderness. UPPER EXTREMITIES: 2+ pulses, warm, well-perfused. No cyanosis. No clubbing. LOWER EXTREMITIES: 2+ pulses, warm, well-perfused. No calf tenderness. No peripheral edema. NEUROLOGICAL: Non-focal PSYCHIATRIC: Cooperative. SKIN: chronic changes Laboratory Results - last 24 hr 02/08/17 02/08/17 23:09 23:09 WBC 3.2 L D RBC 3.81 L Hgb 11.0 L Hct 32.9 L MCV 86.2 MCH 28.9 MCHC 33.5 RDW 16.2 H Plt Count 164 MPV 7.4 L Neutrophils % 56.4 D Lymphocytes % 20.8 D Monocytes % 21.1 H Eosinophils % 1.4 Basophils % 0.3 Sodium 136 Potassium 4.3 Chloride 98 Carbon Dioxide 30 Anion Gap 8 BUN 19 H Creatinine 1.0 D Creat Clearance w eGFR > 60 Random Glucose 86 Calcium 7.9 L Total Bilirubin 0.3 D AST 14 L D ALT 37 D Alkaline Phosphatase 87 D Total Protein 6.3 L Albumin 2.4 L IMP: Questionable new HCAP COPD, not in AE HTN CHF History of RLL lobectomy Metastatic Tonsillar CA Extensive bibasilar bronchiectasis Noted patient received Cefepime and ID consult has been called O2 as needed Check sputum Noted daily Prednisone BD TX PRN Spiriva OD Will follow Thank you. Dr Lombardo
--- NOTE | 2017-02-09 16:26 | PN ---
Progress Note (short form) - Note Progress Note: ID consult dictated impl/reccd
--- NOTE | 2017-02-09 16:28 | PN ---
Progress Note (short form) - Note Progress Note: ID consult dictated 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 history of bronchiectasis Just discharged 01/30 after long admission for pseudomonas pneumonia- treated with zosyn for 2 weeks and then picc line placed - on cefepime until 02/05 he was sent from [place] with hypotension, reports no improvement in pulmonary status - still coughing green sputum still SOB unchanged no fevers had 2 episodes of dizziness in the [place]- received IVF there no diarrhea denies pain at picc line site or GT site unexplained hypotension- ?sepsis suggest vancomycin and zosyn blood cultures and sputum cultures consider repeat ct scan of chest add valtrex for ulcers on tongue ?hsv Problem List - Problems (1) Hypotension Code(s): I95.9 - HYPOTENSION, UNSPECIFIED Qualifiers: Hypotension type: unspecified hypotension type Qualified Code(s): I95.9 - Hypotension, unspecified (2) Pneumonia Code(s): J18.9 - PNEUMONIA, UNSPECIFIED ORGANISM Qualifiers: Pneumonia type: due to unspecified organism Laterality: unspecified laterality Lung location: unspecified part of lung Qualified Code(s): J18.9 - Pneumonia, unspecified organism (3) Bronchiectasis Code(s): J47.9 - BRONCHIECTASIS, UNCOMPLICATED (4) HSV infection Code(s): B00.9 - HERPESVIRAL INFECTION, UNSPECIFIED
[2017-02-09] MEDS ORDERED: valACYclovir HCL 1000 MG TABLET GT SCH (16:45)
[2017-02-09] MEDS ORDERED: PIPERACILLIN/TAZOB 4.5 GM/100 ML PRE-DOCKED IVPB SCH (16:45)
--- NOTE | 2017-02-09 17:38 | CONS ---
INFECTIOUS DISEASE CONSULTATION DATE OF CONSULTATION: 02/09/2017 REQUESTING PHYSICIAN: Johnnie Uribe MD HISTORY OF PRESENT ILLNESS: This is a 61-year-old man who was recently in the hospital from the 12 of January to the . During that admission, he was admitted for acute exacerbation of chronic bronchiectasis, right lower lobe pneumonia. He was found to have pseudomonas in his sputum. He was treated with about 2 weeks of piperacillin/tazobactam. A PICC line was placed, and he was subsequently treated with cefepime which he completed this past weekend. He has been at a SNF for rehab. He was noted in the SNF to be dizzy and hypotensive. He was given IV fluids, but the dizziness persisted. He had some labs sent and was noted to be leukopenic and was sent to the hospital. He has had persistent hypotension, and he [facility] 2 [facility] of [facility]. He has no nausea or vomiting. He has no diarrhea. He has had no fevers. PAST MEDICAL HISTORY: Notable for COPD, interstitial lung disease, bronchiectasis. He has had tongue cancer with invasion of the cervical lymph nodes. He is status post radiation and chemotherapy. He has a history of chronic lung disease. He had a lobectomy at age 7 for a collapsed lung. He has had recurrent pneumonias. He is on home oxygen. He finished his chemotherapy and radiation in August of this year. Of note, during his recent hospitalization, he had sputum with pseudomonas and was treated as stated. He denies any pain at his PICC line site as well. He does note that he has some blisters on his tongue, making it difficult to eat, but he does have a G tube. ALLERGIES: He has no known drug allergies. CURRENT MEDICATIONS: Include Spiriva, Zantac, prednisone, Singulair, Bacid, Lexapro, Pulmicort, Xanax, and nebulizer. FAMILY HISTORY: Noncontributory. SOCIAL HISTORY: He is . He is currently at the SNF. He has had a profound weight loss in the last 9 months since his diagnosis. REVIEW OF SYSTEMS: Notable for no diarrhea or dysuria. No pain at the G-tube site or PICC site. He has had 2 episodes of dizziness at the prison, and he reports continued green sputum production. PHYSICAL EXAMINATION: General: He is awake and alert. Vital Signs: He is saturating 99% on 3 L. His temperature is 97.5, pulse of 81, blood pressure of 105/65. On admission, his blood pressure was 77/43. HEENT: He is normocephalic. His eyes are anicteric. He is able to open his mouth. He has some small oral ulcers on the right side of his tongue. He says he has had oral lesions before after he had radiation. He has no thrush. Lungs: Crackles at both bases. Heart: Regular rate and rhythm. Abdomen: Soft, nontender. G-tube site is clean. Extremities: PICC line in his left arm. There is no erythema. His extremities are without edema. DIAGNOSTIC DATA: White count is 3.2, hemoglobin 11, platelets are 164. BUN is 19 and creatinine 1. LFTs are normal. His sputum culture on the grew pseudomonas. Repeat on the as well grew pseudomonas and yeast. In summary, this is a 61-year-old man just discharged after a long admission for pseudomonas pneumonia, just completed cefepime treatment, now with hypotension. No fevers. No improvement in pulmonary status with continued green sputum production. His chest x-ray is essentially unchanged from his x-ray at discharge, with extensive right lower lobe bronchiectasis with atelectatic changes at the right heart border, and he has some left lower lobe atelectasis. He has had blood cultures sent. Would send sputum for culture as well. Would suggest given the hypotension that we treat him for sepsis with vancomycin and Zosyn as he is on prednisone. Would consider repeat CAT scan of his chest as well. Would add Valtrex at this time for the lesions on the tongue for possible herpes simplex virus. Further recommendations to follow. I discussed the case with Pulmonary, Dr. Lombardo, as well as with Dr. Uribe. I spoke with the family as well. MARIELOS LI M.D. MIGDALIA/[id number]
--- NOTE | 2017-02-09 17:56 | CON.CARD ---
Consult Consult Specialty:: Cardiology - History of Present Illness History of Present Illness: SUBJECTIVE: 61 M, history of a RLL lobectomy for unclear reasons, COPD, and chronic bronchiectasis maintained on 3 L NC. Known metastatic tonsillar cancer. Last treatment with ChemoTx was 07/2016 and last RT was 08/2016. Admitted via the ER from the SNF due to generalized fatigue and and productive cough with green sputum. No hemoptysis. Patient has been admitted several times in the last 6 months for similar symptoms. CXR: volume loss RLL with extensive bonchiectasis. LLL atelectasis and chronic changes. There is no significant radiographic changes from previous imaging. - History Source History Provided By: Patient, Medical Record - Past Medical History Cardio/Vascular: Yes: CHF Pulmonary: Yes: COPD, Pneumonia - Alcohol/Substance Use Hx Alcohol Use: No History of Substance Use: reports: None - Smoking History Smoking history: Never smoked Have you smoked in the past 12 months: No Aproximately how many cigarettes per day: 0 Home Medications - Allergies Allergies/Adverse Reactions: Allergies Allergy/AdvReac Type Severity Reaction Status Date / Time No Known Allergies Allergy Verified 02/08/17 22:23 - Home Medications Home Medications: Ambulatory Orders Montelukast Na [Singulair -] 10 mg PO HS 05/04/12 Tiotropium [place] [Spiriva] 1 inh IH DAILY #0 inh 05/10/12 Escitalopram Oxalate [Lexapro -] 5 mg PO DAILY 01/12/17 Albuterol 0.083% Nebulizer Mary [Ventolin 0.083% Nebulizer Soln -] 1 amp NEB Q6H PRN #0 amp 01/27/17 Alprazolam [Xanax] 0.25 mg PO HS PRN #0 tablet MDD 1 01/27/17 Budesonide [Pulmicort 0.25 mg Nebulizer -] 1 amp NEB BID amp 01/27/17 Heparin - 5,000 unit SQ BID vial 01/27/17 Lactobacillus Acidophilus [Bacid -] 1 tab PO DAILY 30 Days tab 01/27/17 Picc Line Flush [Picc Line Flush -] 8 ml IVPUSH PRN PRN #0 ml 01/27/17 Ranitidine [Zantac -] 150 mg PO DAILY tablet 01/27/17 Prednisone [Deltasone -] 30 mg PO DAILY tablet 01/30/17 Review of Systems - Review of Systems Constitutional: reports: Weakness Eyes: reports: No Symptoms HENT: reports: No Symptoms Neck: reports: No Symptoms Cardiovascular: reports: No Symptoms Respiratory: reports: Cough Gastrointestinal: reports: No Symptoms Genitourinary: reports: No Symptoms Breasts: reports: No Symptoms Reported Musculoskeletal: reports: No Symptoms Integumentary: reports: No Symptoms Neurological: reports: No Symptoms Endocrine: reports: No Symptoms Hematology/Lymphatic: reports: No Symptoms Psychiatric: reports: No Symptoms Vital Signs: Vital Signs Temperature 97.5 F L 02/09/17 14:00 Pulse Rate 81 02/09/17 14:00 Respiratory Rate 20 02/09/17 10:00 Blood Pressure 105/65 02/09/17 14:00 O2 Sat by Pulse Oximetry (%) 99 02/09/17 10:00 Constitutional: Yes: Well Nourished, No Distress, Calm Eyes: Yes: WNL, Conjunctiva Clear, EOM Intact HENT: Yes: WNL, Atraumatic, Normocephalic Neck: Yes: WNL, Supple, Trachea Midline Respiratory: Yes: Diminished Gastrointestinal: Yes: WNL, Normal Bowel Sounds Renal/: Yes: WNL Cardiovascular: Yes: WNL, Regular Rate and Rhythm Musculoskeletal: Yes: WNL Extremities: Yes: WNL Integumentary: Yes: WNL Neurological: Yes: WNL, Alert, Oriented ...Motor Strength: WNL Psychiatric: Yes: WNL, Alert, Oriented - Other Data Labs, Other Data: CBC, BMP 02/08/17 23:09 02/08/17 23:09 Laboratory Tests 02/08/17 02/08/17 23:09 23:09 WBC 3.2 L D RBC 3.81 L Hgb 11.0 L Hct 32.9 L MCV 86.2 MCH 28.9 MCHC 33.5 RDW 16.2 H Plt Count 164 MPV 7.4 L Neutrophils % 56.4 D Lymphocytes % 20.8 D Monocytes % 21.1 H Eosinophils % 1.4 Basophils % 0.3 Sodium 136 Potassium 4.3 Chloride 98 Carbon Dioxide 30 Anion Gap 8 BUN 19 H Creatinine 1.0 D Creat Clearance w eGFR > 60 Random Glucose 86 Calcium 7.9 L Total Bilirubin 0.3 D AST 14 L D ALT 37 D Alkaline Phosphatase 87 D Total Protein 6.3 L Albumin 2.4 L Imaging - Results Chest X-ray: Image Reviewed (bronchiectasis atelectasis) EKG: Image Reviewed (sr RBBB) Problem List - Problems (1) HSV infection Code(s): B00.9 - HERPESVIRAL INFECTION, UNSPECIFIED (2) Hypotension Code(s): I95.9 - HYPOTENSION, UNSPECIFIED Qualifiers: Hypotension type: unspecified hypotension type Qualified Code(s): I95.9 - Hypotension, unspecified (3) Pneumonia Code(s): J18.9 - PNEUMONIA, UNSPECIFIED ORGANISM Qualifiers: Pneumonia type: due to unspecified organism Laterality: unspecified laterality Lung location: unspecified part of lung Qualified Code(s): J18.9 - Pneumonia, unspecified organism (4) Acute and chronic respiratory failure with hypoxia Code(s): J96.21 - ACUTE AND CHRONIC RESPIRATORY FAILURE WITH HYPOXIA (5) Anemia Code(s): D64.9 - ANEMIA, UNSPECIFIED (6) Anxiety Code(s): F41.9 - ANXIETY DISORDER, UNSPECIFIED (7) Anxiety and depression Code(s): F41.8 - OTHER SPECIFIED ANXIETY DISORDERS (8) Bronchiectasis Code(s): J47.9 - BRONCHIECTASIS, UNCOMPLICATED (9) Congestive heart failure Code(s): I50.9 - HEART FAILURE, UNSPECIFIED Qualifiers: Congestive heart failure type: systolic (10) Depression Code(s): F32.9 - MAJOR DEPRESSIVE DISORDER, SINGLE EPISODE, UNSPECIFIED (11) Dyspnea Code(s): R06.00 - DYSPNEA, UNSPECIFIED (12) Hypoalbuminemia Code(s): E88.09 - OTH DISORDERS OF PLASMA-PROTEIN METABOLISM, NEC (13) Hyponatremia Code(s): E87.1 - HYPO-OSMOLALITY AND HYPONATREMIA (14) Pulmonary hypertension Code(s): I27.20 - PULMONARY HYPERTENSION, UNSPECIFIED (15) Tachycardia Code(s): R00.0 - TACHYCARDIA, UNSPECIFIED (16) Tonsillar cancer Code(s): C09.9 - MALIGNANT NEOPLASM OF TONSIL, UNSPECIFIED Assessment/Plan copd hypotension r/o sepsis bronchitis vs PMA RBBB Plan; telemetry abx, steroids ivf cardiac hicks stable.
[2017-02-09] MEDS: VANCOMYCIN 1,000 MG in DEXTROSE 5%-WATER - 250 ML IVPB SCH (18:10)
[2017-02-09] MEDS ORDERED: CEFEPIME HCL 2 GM VIAL (RESTRICTED TO ID) IVPB SCH (22:00)
[2017-02-09] MEDS: BUDESONIDE 0.25 MG/2ML INH SUSP VIAL NEB SCH (22:00)
[2017-02-09] MEDS ORDERED: PT OWN MED DRAWER 7, Y5N ONE (22:50)
[2017-02-09] MEDS: PIPERACILLIN/TAZOB 4.5 GM 4.5 GM in DEXTROSE 5%-WATER - 100 ML IVPB SCH (22:56)
[2017-02-09] MEDS: HEPARIN NA (PORCINE) 5,000 UNITS/ML 1ML VIAL SQ SCH (22:56)
[2017-02-09] MEDS: valACYclovir HCL 500 MG TABLET (FP) GT SCH (22:57)
[2017-02-09] MEDS: MONTELUKAST NA 10 MG TABLET PO SCH (22:57)
[2017-02-09] MEDS: ALPRAZolam 0.25 MG TABLET PO PRN (23:00)
[2017-02-10] MEDS: PIPERACILLIN/TAZOB 4.5 GM 4.5 GM in DEXTROSE 5%-WATER - 100 ML IVPB SCH ×3 (02:00→18:11)
[2017-02-10] MEDS: VANCOMYCIN 1,000 MG in DEXTROSE 5%-WATER - 250 ML IVPB SCH ×2 (06:30→16:51)
[2017-02-10] MEDS: SODIUM CHLORIDE 1,000 ML IV SCH ×2 (06:31→21:05)
[2017-02-10] MEDS: ALBUTEROL SO4 0.083% IH SOL 2.5 MG/3 ML VIAL.NEB. NEB PRN ×2 (06:40→22:29)
[2017-02-10 07:24] LABS: MCH 28.6 pg (25.7-33.7); MCHC 33.4 g/dl (32.0-35.9); MEAN CELL VOLUME 85.8 fl (80-96); MEAN PLT VOLUME 7.2 fl (7.5-11.1); PLATELET COUNT 146 K/MM3 (134-434); RDW 15.8 % (11.9-15.9); WHITE BLOOD COUNT 2.5 K/mm3 (4.0-10.0)
[2017-02-10 08:11] LABS: ALBUMIN 2.1 g/dl (3.4-5.0); ALK PHOS 58 U/L (45-117); ANION GAP 12 (8-16); BILIRUBIN,TOTAL 0.5 mg/dL (0.2-1.0); CALCIUM 7.9 mg/dL (8.5-10.1); CO2 27 mmol/L (21-32); CREATININE 0.9 mg/dL (0.7-1.3); GLUCOSE,RANDOM 108 mg/dL (74-106); SGOT/AST 7 U/L (15-37); SGPT/ALT 28 U/L (12-78); TOT PROT 5.6 g/dl (6.4-8.2)
[2017-02-10 08:46] LABS: PLATELET ESTIMATE DECREASED (NORMAL)
[2017-02-10] MEDS ORDERED: PT OWN MED DRAWER 7, Y5N ONE ×4 (09:09→22:04)
[2017-02-10] MEDS: LACTOBACILLUS ACIDOPHILUS 1 EACH TAB (FP) PO SCH (09:55)
[2017-02-10] MEDS: predniSONE 20 MG TABLET (UD) PO SCH (09:55)
[2017-02-10] MEDS: ESCITALOPRAM OXALATE 10 MG TABLET (FP) PO SCH (09:55)
[2017-02-10] MEDS: HEPARIN NA (PORCINE) 5,000 UNITS/ML 1ML VIAL SQ SCH ×2 (09:56→21:00)
[2017-02-10] MEDS: RANITIDINE HCL 150 MG TABLET (FP) PO SCH (09:56)
[2017-02-10] MEDS: valACYclovir HCL 500 MG TABLET (FP) GT SCH ×2 (09:56→21:01)
[2017-02-10] MEDS: BUDESONIDE 0.25 MG/2ML INH SUSP VIAL NEB SCH ×2 (10:41→22:29)
--- NOTE | 2017-02-10 11:21 | PN ---
Progress Note, Physician History of Present Illness: PULMONARY ALERT,FEELING BETTER,LESS DYSPNEIC, + COUGH - Current Medication List Current Medications: Active Medications Albuterol Sulfate (Ventolin 0.083% Nebulizer Soln -) 1 amp NEB Q4H PRN PRN Reason: SHORT OF BREATH/WHEEZING Albuterol Sulfate (Ventolin 0.083% Nebulizer Soln -) 1 amp NEB Q6H PRN PRN Reason: SHORT OF BREATH/WHEEZING Last Admin: 02/10/17 06:40 Dose: 1 amp Alprazolam (Xanax -) 0.25 mg PO HS PRN PRN Reason: ANXIETY Last Admin: 02/09/17 23:00 Dose: 0.25 mg Budesonide (Pulmicort 0.25 Mg Nebulizer -) 1 amp NEB BID [facility] [place] Last Admin: 02/10/17 10:41 Dose: 1 amp Escitalopram Oxalate (Lexapro -) 5 mg PO DAILY [facility] [place] Last Admin: 02/10/17 09:55 Dose: 5 mg Heparin Sodium (Porcine) (Heparin -) 5,000 unit SQ BID [facility] [place] Last Admin: 02/10/17 09:56 Dose: 5,000 unit IV Flush (Picc Line Flush) 8 ml IVPUSH PRN PRN PRN Reason: Protocol Sodium Chloride (Normal Saline -) 1,000 mls @ 100 mls/hr IV ASDIR [facility] [place] Last Admin: 02/10/17 06:31 Dose: 100 mls/hr Vancomycin HCl 1,000 mg/ (Dextrose) 250 mls @ 250 mls/hr IVPB BID@0500,1700 [facility] PRN Reason: Protocol Last Admin: 02/10/17 06:30 Dose: 250 mls/hr Piperacillin Sod/Tazobactam (Sod 4.5 gm/ Dextrose) 100 mls @ 200 mls/hr IVPB Q8H-IV [facility] Last Admin: 02/10/17 02:00 Dose: 200 mls/hr Lactobacillus Acidophilus (Bacid -) 1 tab PO DAILY [facility] [place] Last Admin: 02/10/17 09:55 Dose: 1 tab Montelukast Sodium (Singulair -) 10 mg PO HS [facility] [place] Last Admin: 02/09/17 22:57 Dose: 10 mg Prednisone (Deltasone -) 30 mg PO DAILY [facility] [place] Last Admin: 02/10/17 09:55 Dose: 30 mg Ranitidine HCl (Zantac -) 150 mg PO DAILY [facility] [place] Last Admin: 02/10/17 09:56 Dose: 150 mg Tiotropium [place] (Spiriva -) 1 puff IH DAILY [facility] [place] Valacyclovir HCl (Valtrex -) 1,000 mg GT BID [facility] [place] Last Admin: 02/10/17 09:56 Dose: 1,000 mg - Objective Vital Signs: Vital Signs Temperature 97.9 F 02/10/17 10:00 Pulse Rate 78 02/10/17 10:00 Respiratory Rate 18 02/10/17 10:00 Blood Pressure 91/47 02/10/17 10:00 O2 Sat by Pulse Oximetry (%) 98 02/10/17 10:00 Constitutional: Yes: Calm, Thin Eyes: Yes: WNL HENT: Yes: WNL Neck: Yes: WNL Cardiovascular: Yes: Regular Rate and Rhythm, S1, S2 Respiratory: Yes: Rales (BILATERAL CRACKLES R>L) Gastrointestinal: Yes: Normal Bowel Sounds, Soft Extremities: Yes: WNL Edema: No Peripheral Pulses WNL: No Labs: CBC, BMP 02/10/17 05:19 02/10/17 05:19 Problem List - Problems (1) Pneumonia Code(s): J18.9 - PNEUMONIA, UNSPECIFIED ORGANISM Qualifiers: Pneumonia type: due to unspecified organism Laterality: unspecified laterality Lung location: unspecified part of lung Qualified Code(s): J18.9 - Pneumonia, unspecified organism (2) Acute and chronic respiratory failure with hypoxia Code(s): J96.21 - ACUTE AND CHRONIC RESPIRATORY FAILURE WITH HYPOXIA (3) Anxiety Code(s): F41.9 - ANXIETY DISORDER, UNSPECIFIED (4) Bronchiectasis Code(s): J47.9 - BRONCHIECTASIS, UNCOMPLICATED (5) Dyspnea Code(s): R06.00 - DYSPNEA, UNSPECIFIED (6) Pulmonary hypertension Code(s): I27.20 - PULMONARY HYPERTENSION, UNSPECIFIED (7) Tonsillar cancer Code(s): C09.9 - MALIGNANT NEOPLASM OF TONSIL, UNSPECIFIED Assessment/Plan IMP: Acute on chronic hypoxemic respiratory failure Questionable new HCAP COPD, not in AE HTN CHF History of RLL lobectomy Metastatic Tonsillar CA Extensive bibasilar bronchiectasis PLAN Antibiotics as per ID O2 as needed Prednisone BD [place] PRN Spiriva DR FORD
--- NOTE | 2017-02-10 11:22 | PN ---
Progress Note, Physician Chief Complaint: in bed awake NAD afebrile cultures reviewed and d/w pt - Current Medication List Current Medications: Active Medications Albuterol Sulfate (Ventolin 0.083% Nebulizer Soln -) 1 amp NEB Q4H PRN PRN Reason: SHORT OF BREATH/WHEEZING Albuterol Sulfate (Ventolin 0.083% Nebulizer Soln -) 1 amp NEB Q6H PRN PRN Reason: SHORT OF BREATH/WHEEZING Last Admin: 02/10/17 06:40 Dose: 1 amp Alprazolam (Xanax -) 0.25 mg PO HS PRN PRN Reason: ANXIETY Last Admin: 02/09/17 23:00 Dose: 0.25 mg Budesonide (Pulmicort 0.25 Mg Nebulizer -) 1 amp NEB BID [facility] Last Admin: 02/10/17 10:41 Dose: 1 amp Escitalopram Oxalate (Lexapro -) 5 mg PO DAILY [facility] Last Admin: 02/10/17 09:55 Dose: 5 mg Heparin Sodium (Porcine) (Heparin -) 5,000 unit SQ BID [facility] Last Admin: 02/10/17 09:56 Dose: 5,000 unit IV Flush (Picc Line Flush) 8 ml IVPUSH PRN PRN PRN Reason: Protocol Sodium Chloride (Normal Saline -) 1,000 mls @ 100 mls/hr IV ASDIR [facility] Last Admin: 02/10/17 06:31 Dose: 100 mls/hr Vancomycin HCl 1,000 mg/ (Dextrose) 250 mls @ 250 mls/hr IVPB BID@0500,1700 LAUREN PRN Reason: Protocol Last Admin: 02/10/17 06:30 Dose: 250 mls/hr Piperacillin Sod/Tazobactam (Sod 4.5 gm/ Dextrose) 100 mls @ 200 mls/hr IVPB Q8H-IV [facility] Last Admin: 02/10/17 02:00 Dose: 200 mls/hr Lactobacillus Acidophilus (Bacid -) 1 tab PO DAILY [facility] Last Admin: 02/10/17 09:55 Dose: 1 tab Montelukast Sodium (Singulair -) 10 mg PO HS [facility] Last Admin: 02/09/17 22:57 Dose: 10 mg Prednisone (Deltasone -) 30 mg PO DAILY [facility] Last Admin: 02/10/17 09:55 Dose: 30 mg Ranitidine HCl (Zantac -) 150 mg PO DAILY [facility] Last Admin: 02/10/17 09:56 Dose: 150 mg Tiotropium [place] (Spiriva -) 1 puff IH DAILY [facility] Valacyclovir HCl (Valtrex -) 1,000 mg GT BID [facility] Last Admin: 02/10/17 09:56 Dose: 1,000 mg - Objective Vital Signs: Vital Signs Temperature 97.9 F 02/10/17 10:00 Pulse Rate 78 02/10/17 10:00 Respiratory Rate 18 02/10/17 10:00 Blood Pressure 91/47 02/10/17 10:00 O2 Sat by Pulse Oximetry (%) 98 02/10/17 10:00 Constitutional: Yes: No Distress, Calm Eyes: Yes: Conjunctiva Clear HENT: Yes: Atraumatic Neck: Yes: Supple Cardiovascular: Yes: Regular Rate and Rhythm Respiratory: Yes: CTA Bilaterally Gastrointestinal: Yes: Soft. No: Distention Genitourinary: No: CVA Tenderness - Left, CVA Tenderness - Right, Hematuria Musculoskeletal: No: Joint Stiffness, Joint Swelling Extremities: No: Cold, Cool, Cyanosis Edema: No Integumentary: No: Rash, Skin Tear, Venous Stasis Changes Neurological: Yes: WNL, Alert, Oriented ...Motor Strength: WNL Psychiatric: Yes: WNL, Alert, Oriented. No: Agitated, Suicidal Ideation Labs: CBC, BMP 02/10/17 05:19 02/10/17 05:19 - ....Imaging Other: Report Reviewed Assessment/Plan The patient is a 61 year old male with a history of HTN, COPD, Tongue Cancer, Right lower lung lobectomy admitted with hypotension and leukopenia s/p recent and recurrent PNA admit to telemetry cardio, pulmonary and ID eval IVF IV ATB check cultures DVT falls PFX O2 NC as ordered prognosis guarded d/w pt and staff
--- NOTE | 2017-02-10 14:09 | PN ---
Progress Note (short form) - Note Progress Note: still with productive cough feels the same no better no worse Vital Signs Period Temp Pulse Resp BP Sys/Stephens Pulse Ox Last 24 Hr 97.9 F-98.0 F 69-91 18-18 90-106/46-62 97-98 cor-rrr lungs scattered rhonchi abd soft,nt ext no edema CBC, BMP 02/10/17 05:19 02/10/17 05:19 ct scan unchanged Microbiology 02/09/17 00:53 Blood - Peripheral Venous Blood Culture - Preliminary NO GROWTH OBTAINED AFTER 24 HOURS, INCUBATION TO CONTINUE FOR 4 DAYS. 02/09/17 00:35 Blood - Peripheral Venous Blood Culture - Preliminary NO GROWTH OBTAINED AFTER 24 HOURS, INCUBATION TO CONTINUE FOR 4 DAYS. 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 history of bronchiectasis hypotension-vanco/zosyn day #1 consider d/c antibiotics in am if cultures remain negative- chest ct essentially unchanged will d/w Dr Katz, would suggest mucolytics and chest PT ?oral hsv- on valtrex, day #1 Problem List - Problems (1) Hypotension Code(s): I95.9 - HYPOTENSION, UNSPECIFIED Qualifiers: Hypotension type: unspecified hypotension type Qualified Code(s): I95.9 - Hypotension, unspecified (2) Pneumonia Code(s): J18.9 - PNEUMONIA, UNSPECIFIED ORGANISM Qualifiers: Pneumonia type: due to unspecified organism Laterality: unspecified laterality Lung location: unspecified part of lung Qualified Code(s): J18.9 - Pneumonia, unspecified organism (3) Bronchiectasis Code(s): J47.9 - BRONCHIECTASIS, UNCOMPLICATED (4) HSV infection Code(s): B00.9 - HERPESVIRAL INFECTION, UNSPECIFIED
--- NOTE | 2017-02-10 15:12 | PN ---
Progress Note, Physician History of Present Illness: SUBJECTIVE: 61 M, history of a RLL lobectomy for unclear reasons, COPD, and chronic bronchiectasis maintained on 3 L NC. Known metastatic tonsillar cancer. Last treatment with ChemoTx was 07/2016 and last RT was 08/2016. Admitted via the ER from the SNF due to generalized fatigue and and productive cough with green sputum. No hemoptysis. Patient has been admitted several times in the last 6 months for similar symptoms. CXR: volume loss RLL with extensive bonchiectasis. LLL atelectasis and chronic changes. There is no significant radiographic changes from previous imaging. - Current Medication List Current Medications: Active Medications Albuterol Sulfate (Ventolin 0.083% Nebulizer Soln -) 1 amp NEB Q4H PRN PRN Reason: SHORT OF BREATH/WHEEZING Albuterol Sulfate (Ventolin 0.083% Nebulizer Soln -) 1 amp NEB Q6H PRN PRN Reason: SHORT OF BREATH/WHEEZING Last Admin: 02/10/17 06:40 Dose: 1 amp Alprazolam (Xanax -) 0.25 mg PO HS PRN PRN Reason: ANXIETY Last Admin: 02/09/17 23:00 Dose: 0.25 mg Budesonide (Pulmicort 0.25 Mg Nebulizer -) 1 amp NEB BID [facility] Last Admin: 02/10/17 10:41 Dose: 1 amp Escitalopram Oxalate (Lexapro -) 5 mg PO DAILY [facility] Last Admin: 02/10/17 09:55 Dose: 5 mg Heparin Sodium (Porcine) (Heparin -) 5,000 unit SQ BID [facility] Last Admin: 02/10/17 09:56 Dose: 5,000 unit IV Flush (Picc Line Flush) 8 ml IVPUSH PRN PRN PRN Reason: Protocol Sodium Chloride (Normal Saline -) 1,000 mls @ 100 mls/hr IV ASDIR [facility] Last Admin: 02/10/17 06:31 Dose: 100 mls/hr Vancomycin HCl 1,000 mg/ (Dextrose) 250 mls @ 250 mls/hr IVPB BID@0500,1700 [facility]UREN PRN Reason: Protocol Last Admin: 02/10/17 06:30 Dose: 250 mls/hr Piperacillin Sod/Tazobactam (Sod 4.5 gm/ Dextrose) 100 mls @ 200 mls/hr IVPB Q8H-IV [facility] Last Admin: 02/10/17 14:13 Dose: 200 mls/hr Lactobacillus Acidophilus (Bacid -) 1 tab PO DAILY [facility] Last Admin: 02/10/17 09:55 Dose: 1 tab Montelukast Sodium (Singulair -) 10 mg PO HS [facility] Last Admin: 02/09/17 22:57 Dose: 10 mg Prednisone (Deltasone -) 30 mg PO DAILY [facility] Last Admin: 02/10/17 09:55 Dose: 30 mg Ranitidine HCl (Zantac -) 150 mg PO DAILY [facility] Last Admin: 02/10/17 09:56 Dose: 150 mg Tiotropium [place] (Spiriva -) 1 puff IH DAILY [facility] Valacyclovir HCl (Valtrex -) 1,000 mg GT BID [facility] Last Admin: 02/10/17 09:56 Dose: 1,000 mg - Objective Vital Signs: Vital Signs Temperature 97.9 F 02/10/17 10:00 Pulse Rate 78 02/10/17 10:00 Respiratory Rate 18 02/10/17 10:00 Blood Pressure 91/47 02/10/17 10:00 O2 Sat by Pulse Oximetry (%) 98 02/10/17 10:00 Eyes: Yes: WNL, Conjunctiva Clear, EOM Intact HENT: Yes: WNL, Atraumatic, Normocephalic Neck: Yes: WNL, Supple, Trachea Midline Cardiovascular: Yes: WNL, Regular Rate and Rhythm Respiratory: Yes: WNL, Regular, CTA Bilaterally Gastrointestinal: Yes: WNL, Normal Bowel Sounds Genitourinary: Yes: WNL Musculoskeletal: Yes: WNL Extremities: Yes: WNL Edema: No Integumentary: Yes: WNL Neurological: Yes: WNL, Alert, Oriented ...Motor Strength: WNL Psychiatric: Yes: WNL Labs: CBC, BMP 02/10/17 05:19 02/10/17 05:19 Problem List - Problems (1) HSV infection Code(s): B00.9 - HERPESVIRAL INFECTION, UNSPECIFIED (2) Hypotension Code(s): I95.9 - HYPOTENSION, UNSPECIFIED Qualifiers: Hypotension type: unspecified hypotension type Qualified Code(s): I95.9 - Hypotension, unspecified (3) Pneumonia Code(s): J18.9 - PNEUMONIA, UNSPECIFIED ORGANISM Qualifiers: Pneumonia type: due to unspecified organism Laterality: unspecified laterality Lung location: unspecified part of lung Qualified Code(s): J18.9 - Pneumonia, unspecified organism (4) Acute and chronic respiratory failure with hypoxia Code(s): J96.21 - ACUTE AND CHRONIC RESPIRATORY FAILURE WITH HYPOXIA (5) Anemia Code(s): D64.9 - ANEMIA, UNSPECIFIED (6) Anxiety Code(s): F41.9 - ANXIETY DISORDER, UNSPECIFIED (7) Anxiety and depression Code(s): F41.8 - OTHER SPECIFIED ANXIETY DISORDERS (8) Bronchiectasis Code(s): J47.9 - BRONCHIECTASIS, UNCOMPLICATED (9) Congestive heart failure Code(s): I50.9 - HEART FAILURE, UNSPECIFIED Qualifiers: Congestive heart failure type: systolic (10) Depression Code(s): F32.9 - MAJOR DEPRESSIVE DISORDER, SINGLE EPISODE, UNSPECIFIED (11) Dyspnea Code(s): R06.00 - DYSPNEA, UNSPECIFIED (12) Hypoalbuminemia Code(s): E88.09 - OTH DISORDERS OF PLASMA-PROTEIN METABOLISM, NEC (13) Hyponatremia Code(s): E87.1 - HYPO-OSMOLALITY AND HYPONATREMIA (14) Pulmonary hypertension Code(s): I27.20 - PULMONARY HYPERTENSION, UNSPECIFIED (15) Tachycardia Code(s): R00.0 - TACHYCARDIA, UNSPECIFIED (16) Tonsillar cancer Code(s): C09.9 - MALIGNANT NEOPLASM OF TONSIL, UNSPECIFIED Assessment/Plan copd hypotension r/o sepsis bronchitis vs PMA RBBB Plan; abx, steroids ivf cardiac hicks stable. d/c telemetry
[2017-02-10] MEDS: TIOTROPIUM BROMIDE 18 MCG/INH (DEVICE W/ 5 CAPSULES) IH SCH (16:50)
[2017-02-10] MEDS: MONTELUKAST NA 10 MG TABLET PO SCH (21:01)
[2017-02-10] MEDS: ALPRAZolam 0.25 MG TABLET PO PRN (23:29)
[2017-02-11 00:10] LABS: URINE APPEARANCE CLEAR; URINE BILIRUBIN NEGATIVE (NEGATIVE); URINE BLOOD 1+ (NEGATIVE); URINE COLOR STRAW; URINE GLUCOSE (UA) NEGATIVE (NEGATIVE); URINE KETONE NEGATIVE (NEGATIVE); URINE NITRITE NEGATIVE (NEGATIVE); URINE PROTEIN NEGATIVE (NEGATIVE); URINE UROBILINOGEN NEGATIVE mg/dL (0.2-1.0)
[2017-02-11 00:54] LABS: URINE RBC < 1; URINE WBC < 1
[2017-02-11] MEDS: PIPERACILLIN/TAZOB 4.5 GM 4.5 GM in DEXTROSE 5%-WATER - 100 ML IVPB SCH ×4 (01:37→17:44)
[2017-02-11] MEDS ORDERED: PT OWN MED DRAWER 7, Y5N ONE ×6 (05:57→21:22)
[2017-02-11] MEDS: VANCOMYCIN 1,000 MG in DEXTROSE 5%-WATER - 250 ML IVPB SCH ×2 (06:04→16:50)
--- NOTE | 2017-02-11 08:13 | PN ---
Progress Note, Physician Chief Complaint: Coverage for Mariah Offers no complaints of CP or SOB History of Present Illness: TELE: NSR, occasional ST - Current Medication List Current Medications: Active Medications Albuterol Sulfate (Ventolin 0.083% Nebulizer Soln -) 1 amp NEB Q4H PRN PRN Reason: SHORT OF BREATH/WHEEZING Last Admin: 02/10/17 22:29 Dose: 1 amp Albuterol Sulfate (Ventolin 0.083% Nebulizer Soln -) 1 amp NEB Q6H PRN PRN Reason: SHORT OF BREATH/WHEEZING Last Admin: 02/10/17 06:40 Dose: 1 amp Alprazolam (Xanax -) 0.25 mg PO HS PRN PRN Reason: ANXIETY Last Admin: 02/10/17 23:29 Dose: 0.25 mg Budesonide (Pulmicort 0.25 Mg Nebulizer -) 1 amp NEB BID [facility] Last Admin: 02/10/17 22:29 Dose: Not Given Escitalopram Oxalate (Lexapro -) 5 mg PO DAILY [facility] Last Admin: 02/10/17 09:55 Dose: 5 mg Heparin Sodium (Porcine) (Heparin -) 5,000 unit SQ BID [facility] Last Admin: 02/10/17 21:00 Dose: 5,000 unit IV Flush (Picc Line Flush) 8 ml IVPUSH PRN PRN PRN Reason: Protocol Sodium Chloride (Normal Saline -) 1,000 mls @ 100 mls/hr IV ASDIR [facility] Last Admin: 02/10/17 21:05 Dose: 100 mls/hr Vancomycin HCl 1,000 mg/ (Dextrose) 250 mls @ 250 mls/hr IVPB BID@0500,1700 [facility]UREN PRN Reason: Protocol Last Admin: 02/11/17 06:04 Dose: 250 mls/hr Piperacillin Sod/Tazobactam (Sod 4.5 gm/ Dextrose) 100 mls @ 200 mls/hr IVPB Q8H-IV [facility] Last Admin: 02/11/17 01:37 Dose: 200 mls/hr Lactobacillus Acidophilus (Bacid -) 1 tab PO DAILY [facility] Last Admin: 02/10/17 09:55 Dose: 1 tab Montelukast Sodium (Singulair -) 10 mg PO HS [facility] Last Admin: 02/10/17 21:01 Dose: 10 mg Prednisone (Deltasone -) 30 mg PO DAILY [facility] Last Admin: 02/10/17 09:55 Dose: 30 mg Ranitidine HCl (Zantac -) 150 mg PO DAILY [facility] Last Admin: 02/10/17 09:56 Dose: 150 mg Tiotropium [place] (Spiriva -) 1 puff IH DAILY [facility] Last Admin: 02/10/17 16:50 Dose: 1 inh Valacyclovir HCl (Valtrex -) 1,000 mg GT BID [facility] Last Admin: 02/10/17 21:01 Dose: 1,000 mg - Objective Vital Signs: Vital Signs Temperature 98.5 F 02/11/17 02:00 Pulse Rate 88 02/11/17 02:00 Respiratory Rate 20 02/11/17 02:00 Blood Pressure 100/54 02/11/17 02:00 O2 Sat by Pulse Oximetry (%) 98 02/10/17 21:00 Constitutional: Yes: No Distress Cardiovascular: Yes: Regular Rate and Rhythm Respiratory: Yes: Other (decreased basilar breath sounds) Gastrointestinal: Yes: Soft Edema: No Neurological: Yes: Alert, Oriented ...Motor Strength: WNL Labs: CBC, BMP 02/10/17 05:19 02/10/17 05:19 - ....Imaging EKG: Image Reviewed Assessment/Plan Assessment/Plan copd hypotension r/o sepsis bronchitis vs PNA RBBB Plan: abx, steroids ivf BP is on low side, continue hydration. Remains in NSR. Coverage for Mariah
--- NOTE | 2017-02-11 09:24 | PN ---
Progress Note, Physician Chief Complaint: still with cough and some green sputum, no CP/SOB cultures labs and tests reviwed and d/w pt - Current Medication List Current Medications: Active Medications Albuterol Sulfate (Ventolin 0.083% Nebulizer Soln -) 1 amp NEB Q4H PRN PRN Reason: SHORT OF BREATH/WHEEZING Last Admin: 02/10/17 22:29 Dose: 1 amp Albuterol Sulfate (Ventolin 0.083% Nebulizer Soln -) 1 amp NEB Q6H PRN PRN Reason: SHORT OF BREATH/WHEEZING Last Admin: 02/10/17 06:40 Dose: 1 amp Alprazolam (Xanax -) 0.25 mg PO HS PRN PRN Reason: ANXIETY Last Admin: 02/10/17 23:29 Dose: 0.25 mg Budesonide (Pulmicort 0.25 Mg Nebulizer -) 1 amp NEB BID [facility] Last Admin: 02/10/17 22:29 Dose: Not Given Escitalopram Oxalate (Lexapro -) 5 mg PO DAILY [facility] Last Admin: 02/10/17 09:55 Dose: 5 mg Heparin Sodium (Porcine) (Heparin -) 5,000 unit SQ BID [facility] Last Admin: 02/10/17 21:00 Dose: 5,000 unit IV Flush (Picc Line Flush) 8 ml IVPUSH PRN PRN PRN Reason: Protocol Sodium Chloride (Normal Saline -) 1,000 mls @ 100 mls/hr IV ASDIR [facility] Last Admin: 02/10/17 21:05 Dose: 100 mls/hr Vancomycin HCl 1,000 mg/ (Dextrose) 250 mls @ 250 mls/hr IVPB BID@0500,1700 [facility] PRN Reason: Protocol Last Admin: 02/11/17 06:04 Dose: 250 mls/hr Piperacillin Sod/Tazobactam (Sod 4.5 gm/ Dextrose) 100 mls @ 200 mls/hr IVPB Q8H-IV [facility] Last Admin: 02/11/17 01:37 Dose: 200 mls/hr Lactobacillus Acidophilus (Bacid -) 1 tab PO DAILY [facility] Last Admin: 02/10/17 09:55 Dose: 1 tab Montelukast Sodium (Singulair -) 10 mg PO HS [facility] Last Admin: 02/10/17 21:01 Dose: 10 mg Prednisone (Deltasone -) 30 mg PO DAILY [facility] Last Admin: 02/10/17 09:55 Dose: 30 mg Ranitidine HCl (Zantac -) 150 mg PO DAILY [facility] Last Admin: 02/10/17 09:56 Dose: 150 mg Tiotropium [place] (Spiriva -) 1 puff IH DAILY [facility] Last Admin: 02/10/17 16:50 Dose: 1 inh Valacyclovir HCl (Valtrex -) 1,000 mg GT BID [facility] Last Admin: 02/10/17 21:01 Dose: 1,000 mg - Objective Vital Signs: Vital Signs Temperature 98.5 F 02/11/17 02:00 Pulse Rate 88 02/11/17 02:00 Respiratory Rate 20 02/11/17 02:00 Blood Pressure 100/54 02/11/17 02:00 O2 Sat by Pulse Oximetry (%) 98 02/10/17 21:00 Constitutional: Yes: No Distress, Calm Eyes: Yes: Conjunctiva Clear HENT: Yes: Atraumatic Neck: Yes: Supple Cardiovascular: Yes: Regular Rate and Rhythm Respiratory: Yes: CTA Bilaterally Gastrointestinal: Yes: Soft. No: Distention, Tenderness Genitourinary: No: CVA Tenderness - Left, CVA Tenderness - Right Musculoskeletal: No: Joint Stiffness, Joint Swelling Extremities: Yes: Other (LUE PICC line). No: Cold, Cool Edema: No Integumentary: No: Skin Tear, Venous Stasis Changes Neurological: Yes: WNL, Alert, Oriented ...Motor Strength: WNL Psychiatric: Yes: WNL, Alert, Oriented. No: Agitated Labs: CBC, BMP 02/10/17 05:19 02/10/17 05:19 - ....Imaging Other: Report Reviewed Assessment/Plan The patient is a 61 year old male with a history of HTN, COPD, Tongue Cancer, Right lower lung lobectomy admitted with hypotension and leukopenia s/p recent and recurrent PNA admit to telemetry cardio, pulmonary and ID f/u IVF IV ATB check cultures DVT falls PFX O2 NC as ordered prognosis guarded d/w pt and staff
[2017-02-11] MEDS: SODIUM CHLORIDE 1,000 ML IV SCH (10:02)
[2017-02-11] MEDS: predniSONE 20 MG TABLET (UD) PO SCH (10:03)
[2017-02-11] MEDS: HEPARIN NA (PORCINE) 5,000 UNITS/ML 1ML VIAL SQ SCH ×2 (10:03→21:26)
[2017-02-11] MEDS: ESCITALOPRAM OXALATE 10 MG TABLET (FP) PO SCH (10:03)
[2017-02-11] MEDS: LACTOBACILLUS ACIDOPHILUS 1 EACH TAB (FP) PO SCH (10:03)
[2017-02-11] MEDS: RANITIDINE HCL 150 MG TABLET (FP) PO SCH (10:03)
[2017-02-11] MEDS: valACYclovir HCL 500 MG TABLET (FP) GT SCH ×2 (10:04→21:25)
[2017-02-11] MEDS: TIOTROPIUM BROMIDE 18 MCG/INH (DEVICE W/ 5 CAPSULES) IH SCH (10:04)
[2017-02-11] MEDS: BUDESONIDE 0.25 MG/2ML INH SUSP VIAL NEB SCH ×2 (10:40→22:15)
[2017-02-11 14:50] LABS: URINE LEUK ESTERASE Negative (NEGATIVE)
--- NOTE | 2017-02-11 15:41 | PN ---
Progress Note (short form) - Note Progress Note: PULMONARY Breathing slightly improved. No fevers or chills. +chronic cough with green sputum. No hemoptysis Last Vital Signs Temp Pulse Resp BP Pulse Ox 98.2 F 101 H 18 104/59 95 02/11/17 14:41 02/11/17 14:41 02/11/17 11:50 02/11/17 14:41 02/11/17 11:10 Gen: tachypneic at rest Heart: tachycardic, regular Lung: basilar rales Abd: soft, nontender Ext: no edema CBC, BMP 02/10/17 05:19 02/10/17 05:19 Active Medications Albuterol Sulfate (Ventolin 0.083% Nebulizer Soln -) 1 amp NEB Q4H PRN PRN Reason: SHORT OF BREATH/WHEEZING Last Admin: 02/10/17 22:29 Dose: 1 amp Albuterol Sulfate (Ventolin 0.083% Nebulizer Soln -) 1 amp NEB Q6H PRN PRN Reason: SHORT OF BREATH/WHEEZING Last Admin: 02/10/17 06:40 Dose: 1 amp Alprazolam (Xanax -) 0.25 mg PO HS PRN PRN Reason: ANXIETY Last Admin: 02/10/17 23:29 Dose: 0.25 mg Budesonide (Pulmicort 0.25 Mg Nebulizer -) 1 amp NEB BID [facility] Last Admin: 02/11/17 10:40 Dose: 1 amp Escitalopram Oxalate (Lexapro -) 5 mg PO DAILY [facility] Last Admin: 02/11/17 10:03 Dose: 5 mg Heparin Sodium (Porcine) (Heparin -) 5,000 unit SQ BID [facility] Last Admin: 02/11/17 10:03 Dose: 5,000 unit IV Flush (Picc Line Flush) 8 ml IVPUSH PRN PRN PRN Reason: Protocol Sodium Chloride (Normal Saline -) 1,000 mls @ 100 mls/hr IV ASDIR [facility] Last Admin: 02/11/17 10:02 Dose: 100 mls/hr Vancomycin HCl 1,000 mg/ (Dextrose) 250 mls @ 250 mls/hr IVPB BID@0500,1700 [facility] PRN Reason: Protocol Last Admin: 02/11/17 06:04 Dose: 250 mls/hr Piperacillin Sod/Tazobactam (Sod 4.5 gm/ Dextrose) 100 mls @ 200 mls/hr IVPB Q8H-IV [facility] Last Admin: 02/11/17 11:25 Dose: 200 mls/hr Lactobacillus Acidophilus (Bacid -) 1 tab PO DAILY [facility] Last Admin: 02/11/17 10:03 Dose: 1 tab Montelukast Sodium (Singulair -) 10 mg PO HS [facility] Last Admin: 02/10/17 21:01 Dose: 10 mg Prednisone (Deltasone -) 30 mg PO DAILY [facility] Last Admin: 02/11/17 10:03 Dose: 30 mg Ranitidine HCl (Zantac -) 150 mg PO DAILY [facility] Last Admin: 02/11/17 10:03 Dose: 150 mg Tiotropium [place] (Spiriva -) 1 puff IH DAILY [facility] Last Admin: 02/11/17 10:04 Dose: 1 inh Valacyclovir HCl (Valtrex -) 1,000 mg GT BID [facility] Last Admin: 02/11/17 10:04 Dose: 1,000 mg A/P Acute on Chronic Hypoxic Respiratory Failure Acute Bronchiectasis Exacerbation COPD h/o Tonsillar Ca with mets Pulmonary HTN - antibiotics per ID - continue prednisone - inhaled bronchodilators - chest PT - postural drainage - O2 to keep SpO2 >90% - DVT prophylaxis
[2017-02-11] MEDS: MONTELUKAST NA 10 MG TABLET PO SCH (21:25)
[2017-02-11] MEDS: ALPRAZolam 0.25 MG TABLET PO PRN (23:25)
[2017-02-12] MEDS ORDERED: PT OWN MED DRAWER 7, Y5N ONE ×3 (01:26→08:58)
[2017-02-12] MEDS: PIPERACILLIN/TAZOB 4.5 GM 4.5 GM in DEXTROSE 5%-WATER - 100 ML IVPB SCH ×3 (01:29→17:43)
[2017-02-12] MEDS: VANCOMYCIN 1,000 MG in DEXTROSE 5%-WATER - 250 ML IVPB SCH (04:33)
[2017-02-12 09:06] LABS: ALBUMIN 2.2 g/dl (3.4-5.0); ALK PHOS 49 U/L (45-117); ANION GAP 10 (8-16); BILIRUBIN,TOTAL 0.4 mg/dL (0.2-1.0); CALCIUM 7.9 mg/dL (8.5-10.1); CO2 26 mmol/L (21-32); CREATININE 0.9 mg/dL (0.7-1.3); GLUCOSE,RANDOM 74 mg/dL (74-106); SGOT/AST 11 U/L (15-37); SGPT/ALT 27 U/L (12-78); TOT PROT 5.6 g/dl (6.4-8.2)
[2017-02-12] MEDS: predniSONE 20 MG TABLET (UD) PO SCH (09:19)
[2017-02-12] MEDS: ESCITALOPRAM OXALATE 10 MG TABLET (FP) PO SCH (09:19)
[2017-02-12] MEDS: RANITIDINE HCL 150 MG TABLET (FP) PO SCH (09:19)
[2017-02-12] MEDS: LACTOBACILLUS ACIDOPHILUS 1 EACH TAB (FP) PO SCH (09:19)
[2017-02-12] MEDS: SODIUM CHLORIDE 1,000 ML IV SCH (09:20)
[2017-02-12] MEDS: HEPARIN NA (PORCINE) 5,000 UNITS/ML 1ML VIAL SQ SCH ×2 (09:20→21:06)
[2017-02-12] MEDS: valACYclovir HCL 500 MG TABLET (FP) GT SCH (09:20)
[2017-02-12] MEDS: TIOTROPIUM BROMIDE 18 MCG/INH (DEVICE W/ 5 CAPSULES) IH SCH (09:21)
--- NOTE | 2017-02-12 09:21 | PN ---
Progress Note, Physician Chief Complaint: no chest pain TELE: no Ventricular ectopy - Current Medication List Current Medications: Active Medications Albuterol Sulfate (Ventolin 0.083% Nebulizer Soln -) 1 amp NEB Q4H PRN PRN Reason: SHORT OF BREATH/WHEEZING Last Admin: 02/10/17 22:29 Dose: 1 amp Albuterol Sulfate (Ventolin 0.083% Nebulizer Soln -) 1 amp NEB Q6H PRN PRN Reason: SHORT OF BREATH/WHEEZING Last Admin: 02/10/17 06:40 Dose: 1 amp Alprazolam (Xanax -) 0.25 mg PO HS PRN PRN Reason: ANXIETY Last Admin: 02/11/17 23:25 Dose: 0.25 mg Budesonide (Pulmicort 0.25 Mg Nebulizer -) 1 amp NEB BID [facility] Last Admin: 02/11/17 22:15 Dose: 1 amp Escitalopram Oxalate (Lexapro -) 5 mg PO DAILY [facility] Last Admin: 02/11/17 10:03 Dose: 5 mg Heparin Sodium (Porcine) (Heparin -) 5,000 unit SQ BID [facility] Last Admin: 02/11/17 21:26 Dose: 5,000 unit IV Flush (Picc Line Flush) 8 ml IVPUSH PRN PRN PRN Reason: Protocol Sodium Chloride (Normal Saline -) 1,000 mls @ 100 mls/hr IV ASDIR [facility] Last Admin: 02/11/17 10:02 Dose: 100 mls/hr Vancomycin HCl 1,000 mg/ (Dextrose) 250 mls @ 250 mls/hr IVPB BID@0500,1700 [facility] PRN Reason: Protocol Last Admin: 02/12/17 04:33 Dose: 250 mls/hr Piperacillin Sod/Tazobactam (Sod 4.5 gm/ Dextrose) 100 mls @ 200 mls/hr IVPB Q8H-IV [facility] Last Admin: 02/12/17 01:29 Dose: 200 mls/hr Lactobacillus Acidophilus (Bacid -) 1 tab PO DAILY [facility] Last Admin: 02/11/17 10:03 Dose: 1 tab Montelukast Sodium (Singulair -) 10 mg PO HS [facility] Last Admin: 02/11/17 21:25 Dose: 10 mg Prednisone (Deltasone -) 30 mg PO DAILY [facility] Last Admin: 02/11/17 10:03 Dose: 30 mg Ranitidine HCl (Zantac -) 150 mg PO DAILY [facility] Last Admin: 02/11/17 10:03 Dose: 150 mg Tiotropium [place] (Spiriva -) 1 puff IH DAILY [facility] Last Admin: 02/11/17 10:04 Dose: 1 inh Valacyclovir HCl (Valtrex -) 1,000 mg GT BID [facility] Last Admin: 02/11/17 21:25 Dose: 1,000 mg - Objective Vital Signs: Vital Signs Temperature 98.1 F 02/12/17 06:00 Pulse Rate 75 02/12/17 06:00 Respiratory Rate 18 02/12/17 06:00 Blood Pressure 94/50 02/12/17 06:00 O2 Sat by Pulse Oximetry (%) 96 02/11/17 21:00 Cardiovascular: Yes: Regular Rate and Rhythm Respiratory: Yes: Other (decreased basilar breath sounds) Gastrointestinal: Yes: Soft Edema: No Neurological: Yes: Alert, Oriented Labs: CBC, BMP 02/12/17 06:30 Laboratory Tests 02/10/17 02/12/17 02/12/17 05:19 06:30 06:30 WBC 2.5 L Pending RBC Pending Hgb 9.7 L D Pending Plt Count 146 Pending Potassium 3.9 Creatinine 0.9 Assessment/Plan Assessment/Plan copd hypotension r/o sepsis bronchitis vs PNA RBBB Plan: abx, steroids ivf Supplimental O2 Can d/c telemetry Coverage for Mariah
[2017-02-12 09:51] LABS: BASOPHIL 0.2 % (0-2.0); EOSINOPHIL 0.3 % (0-4.5); MCH 28.4 pg (25.7-33.7); MCHC 32.9 g/dl (32.0-35.9); MEAN CELL VOLUME 86.3 fl (80-96); MEAN PLT VOLUME 7.4 fl (7.5-11.1); PLATELET COUNT 151 K/MM3 (134-434); WHITE BLOOD COUNT 2.6 K/mm3 (4.0-10.0)
--- NOTE | 2017-02-12 10:10 | PN ---
Progress Note, Physician Chief Complaint: no changes CT scans reviewed and d/w pt will ask and ONC to eval - Current Medication List Current Medications: Active Medications Albuterol Sulfate (Ventolin 0.083% Nebulizer Soln -) 1 amp NEB Q4H PRN PRN Reason: SHORT OF BREATH/WHEEZING Last Admin: 02/10/17 22:29 Dose: 1 amp Albuterol Sulfate (Ventolin 0.083% Nebulizer Soln -) 1 amp NEB Q6H PRN PRN Reason: SHORT OF BREATH/WHEEZING Last Admin: 02/10/17 06:40 Dose: 1 amp Alprazolam (Xanax -) 0.25 mg PO HS PRN PRN Reason: ANXIETY Last Admin: 02/11/17 23:25 Dose: 0.25 mg Budesonide (Pulmicort 0.25 Mg Nebulizer -) 1 amp NEB BID [facility] Last Admin: 02/11/17 22:15 Dose: 1 amp Escitalopram Oxalate (Lexapro -) 5 mg PO DAILY [facility] Last Admin: 02/12/17 09:19 Dose: 5 mg Heparin Sodium (Porcine) (Heparin -) 5,000 unit SQ BID [facility] Last Admin: 02/12/17 09:20 Dose: 5,000 unit IV Flush (Picc Line Flush) 8 ml IVPUSH PRN PRN PRN Reason: Protocol Sodium Chloride (Normal Saline -) 1,000 mls @ 100 mls/hr IV ASDIR [facility] Last Admin: 02/12/17 09:20 Dose: 100 mls/hr Vancomycin HCl 1,000 mg/ (Dextrose) 250 mls @ 250 mls/hr IVPB BID@0500,1700 [facility] PRN Reason: Protocol Last Admin: 02/12/17 04:33 Dose: 250 mls/hr Piperacillin Sod/Tazobactam (Sod 4.5 gm/ Dextrose) 100 mls @ 200 mls/hr IVPB Q8H-IV [facility] Last Admin: 02/12/17 09:16 Dose: 200 mls/hr Lactobacillus Acidophilus (Bacid -) 1 tab PO DAILY [facility] Last Admin: 02/12/17 09:19 Dose: 1 tab Montelukast Sodium (Singulair -) 10 mg PO HS [facility] Last Admin: 02/11/17 21:25 Dose: 10 mg Prednisone (Deltasone -) 30 mg PO DAILY [facility] Last Admin: 02/12/17 09:19 Dose: 30 mg Ranitidine HCl (Zantac -) 150 mg PO DAILY [facility] Last Admin: 02/12/17 09:19 Dose: 150 mg Tiotropium [place] (Spiriva -) 1 puff IH DAILY [facility] Last Admin: 02/12/17 09:21 Dose: 1 inh Valacyclovir HCl (Valtrex -) 1,000 mg GT BID [facility] Last Admin: 02/12/17 09:20 Dose: 1,000 mg - Objective Vital Signs: Vital Signs Temperature 98.1 F 02/12/17 06:00 Pulse Rate 75 02/12/17 06:00 Respiratory Rate 18 02/12/17 06:00 Blood Pressure 94/50 02/12/17 06:00 O2 Sat by Pulse Oximetry (%) 96 02/11/17 21:00 Constitutional: Yes: No Distress, Calm Eyes: Yes: Conjunctiva Clear HENT: Yes: Atraumatic Neck: Yes: Supple Cardiovascular: Yes: Regular Rate and Rhythm Respiratory: Yes: CTA Bilaterally Gastrointestinal: Yes: Soft, Other (PEG in place from before). No: Distention Genitourinary: No: CVA Tenderness - Left, CVA Tenderness - Right, Hematuria Musculoskeletal: No: Joint Stiffness, Joint Swelling Extremities: No: Calf Tenderness, Cold, Cool Edema: No Integumentary: No: Rash, Venous Stasis Changes Neurological: Yes: WNL, Alert, Oriented ...Motor Strength: WNL Psychiatric: Yes: WNL, Alert, Oriented. No: Agitated Labs: CBC, BMP 02/12/17 06:30 02/12/17 06:30 - ....Imaging Other: Report Reviewed Assessment/Plan The patient is a 61 year old male with a history of HTN, COPD, Tongue Cancer, Right lower lung lobectomy admitted with hypotension and leukopenia s/p recent and recurrent PNA admit to telemetry cardio, pulmonary and ID f/u IVF IV ATB ONC and eval DVT falls PFX O2 NC as ordered prognosis guarded d/w pt and staff
[2017-02-12] MEDS: BUDESONIDE 0.25 MG/2ML INH SUSP VIAL NEB SCH ×2 (10:31→22:18)
--- NOTE | 2017-02-12 13:10 | CONSULT ---
Consult - text type - Consultation Consultation Note: HEMATOLOGY- ONCOLOGY CONSULTATION NTOE Consultation: REQUESTING PROVIDER:Dr. Rony Ramsay CONSULT REQUEST: kNOWN TONSILLAR CANCER HISTORY OF PRESENT ILLNESS: This is a 61 year old male with previously treated localised tonisllar cancer in remission [s/p concurrent chemo RT completed in August 2016]. He is here from [place] with symptoms of pneumonia which is improving. Today he also complains of mouth pain. Comorbidities :childhood collapsed lung(s/p RL lobectomy), bronchiectasis on 3 L O2, CHF Denies chest pain, SOB. Palpitation Denies fever, chills, nausea, vomiting, diarrhea, constipation. Allergies: NKA PCP: Dr. Johnnie Uribe REVIEW OF SYSTEMS: CONSTITUTIONAL: Absent: fever, chills, diaphoresis, generalized weakness, malaise, loss of appetite, weight change HEENT: Absent: rhinorrhea, nasal congestion, throat pain, throat swelling, difficulty swallowing, mouth swelling, ear pain, eye pain, visual changes CARDIOVASCULAR: Absent: chest pain, syncope, palpitations, irregular heart rate, lightheadedness , peripheral edema RESPIRATORY: Absent: cough, shortness of breath, dyspnea with exertion, orthopnea, wheezing, stridor, hemoptysis GASTROINTESTINAL: Absent: abdominal pain, abdominal distension, nausea, vomiting, diarrhea, constipation, melena, hematochezia GENITOURINARY: Absent: dysuria, frequency, urgency, hesitancy, hematuria, flank pain, genital pain MUSCULOSKELETAL: Absent: myalgia, arthralgia, joint swelling, back pain, neck pain SKIN: Absent: rash, itching, pallor HEMATOLOGIC/IMMUNOLOGIC: Absent: easy bleeding, easy bruising, lymphadenopathy, frequent infections ENDOCRINE: Absent: unexplained weight gain, unexplained weight loss, heat intolerance, cold intolerance NEUROLOGIC: Absent: headache, focal weakness or paresthesias, dizziness, unsteady gait, seizure, mental status changes, bladder or bowel incontinence PSYCHIATRIC: Absent: anxiety, depression, suicidal or homicidal ideation, hallucinations. PHYSICAL EXAMINATION Vital Signs Period Temp Pulse Resp BP Sys/Stephens Pulse Ox Last 24 Hr 97.9 F-98.9 F 75-101 18-18 91-105/48-60 93-97 GENERAL: Awake, alert, and fully oriented, in no acute distress. HEAD: Normal with no signs of trauma. EYES: sclera anicteric, conjunctiva clear. EARS, NOSE, THROAT: , oropharynx clear without exudates , mild ulceration seen. telangiectasia present Moist mucous membranes. LUNGS:Coarse BS at the bases Right > Left, No wheezes, and no crackles. No accessory muscle use. HEART: Regular rate and rhythm, normal S1 and S2 without murmur, rub or gallop. ABDOMEN: Soft, nontender, not distended, normoactive bowel sounds, no guarding, no rebound,Peg in place MUSCULOSKELETAL: Normal range of motion at all joints. No bony deformities or tenderness. No CVA tenderness. LOWER EXTREMITIES: warm, well-perfused. No calf tenderness. No peripheral edema. NEUROLOGICAL: no focal deficit. Normal speech. unsteady gait gait. PSYCHIATRIC: Cooperative. Good eye contact. Appropriate mood and affect. SKIN: Warm, dry, no rashes or lesions noted. CBC, BMP 02/12/17 06:30 02/12/17 06:30 Active Medications Generic Name Dose Route Start Last Admin Trade Name Freq PRN Reason Stop Dose Admin Albuterol Sulfate 1 amp 02/09/17 11:50 02/10/17 22:29 Ventolin 0.083% Nebulizer Soln - NEB 1 amp Q4H PRN Administration SHORT OF BREATH/WHEEZING Albuterol Sulfate 1 amp 02/09/17 12:29 02/10/17 06:40 Ventolin 0.083% Nebulizer Soln - NEB 1 amp Q6H PRN Administration SHORT OF BREATH/WHEEZING Alprazolam 0.25 mg 02/09/17 22:00 02/11/17 23:25 Xanax - PO 0.25 mg HS PRN Administration ANXIETY Budesonide 1 amp 02/09/17 22:00 02/12/17 10:31 Pulmicort 0.25 Mg Nebulizer - NEB 1 amp BID [facility] Administration Escitalopram Oxalate 5 mg 02/10/17 10:00 02/12/17 09:19 Lexapro - PO 5 mg DAILY [facility] Administration Heparin Sodium (Porcine) 5,000 unit 02/09/17 22:00 02/12/17 09:20 Heparin - SQ 5,000 unit BID [facility] Administration IV Flush 8 ml 02/09/17 12:29 Picc Line Flush IVPUSH PRN PRN Protocol Sodium Chloride 1,000 mls @ 100 mls/hr 02/09/17 06:30 02/12/17 09:20 Normal Saline - IV 100 mls/hr ASDIR [facility] Administration Vancomycin HCl 1,000 mg/ 250 mls @ 250 mls/hr 02/09/17 17:00 02/12/17 04:33 Dextrose IVPB 250 mls/hr BID@0500,1700 [facility] Administration Protocol Piperacillin Sod/Tazobactam 100 mls @ 200 mls/hr 02/09/17 18:00 02/12/17 09: 16 Sod 4.5 gm/ Dextrose IVPB 200 mls/hr Q8H-IV [facility] Administration Lactobacillus Acidophilus 1 tab 02/10/17 10:00 02/12/17 09:19 Bacid - PO 1 tab DAILY [facility] Administration Montelukast Sodium 10 mg 02/09/17 22:00 02/11/17 21:25 Singulair - PO 10 mg HS [facility] Administration Prednisone 30 mg 02/09/17 12:29 02/12/17 09:19 Deltasone - PO 30 mg DAILY [facility] Administration Ranitidine HCl 150 mg 02/10/17 10:00 02/12/17 09:19 Zantac - PO 150 mg DAILY [facility] Administration Tiotropium [place] 1 puff 02/10/17 10:00 02/12/17 09:21 Spiriva - IH 1 inh DAILY [facility] Administration Valacyclovir HCl 1,000 mg 02/09/17 16:45 02/12/17 09:20 Valtrex - GT 1,000 mg BID [facility] Administration ASSESSMENT/PLAN: This is a 61 year old male with previously treated localised tonsilar Ca with chemo RT and now in remission. He is here for pneumonia and is being treated with antibiotics. His recent CT scans does not show any evidence fo relapse and a gross HEENT examination also does not show any lymph nodes or new mass. His pain is likley from a mild ? aphthous ulcer. Significant dry mouth could also contribute to this. His mild leucopenia can be the result of prior chemotherapy or current antibiotics. The one abnormal finding is a monocytosis. A peripheral blood flow cytometry is indicated and the weekday hematology team will be able to order this to r/o MDS. Continue treatment for pneumonia. I have ordered an anemia workup He will also benefit form a nutrition consult. # Extensive bibasilar bronchiectasis #COPD without exacerbation #HTN #CHF #HCAP Pneumonia? #Mtastatic Tonsilar CA, #Right lower lung lobectomy We will continue to follow the patient. Thank you for this consult
--- NOTE | 2017-02-12 15:46 | PN ---
Progress Note (short form) - Note Progress Note: PULMONARY Breathing feels more tight today. No fevers or chills. Still with chronic cough with green sputum. No hemoptysis Last Vital Signs Temp Pulse Resp BP Pulse Ox 97.9 F 80 18 91/53 93 L 02/12/17 10:57 02/12/17 10:57 02/12/17 10:57 02/12/17 10:57 02/12/17 10:29 Gen: tachypneic at rest Heart: tachycardic, regular Lung: basilar rales Abd: soft, nontender Ext: no edema CBC, BMP 02/12/17 06:30 02/12/17 06:30 Active Medications Albuterol Sulfate (Ventolin 0.083% Nebulizer Soln -) 1 amp NEB Q4H PRN PRN Reason: SHORT OF BREATH/WHEEZING Last Admin: 02/10/17 22:29 Dose: 1 amp Albuterol Sulfate (Ventolin 0.083% Nebulizer Soln -) 1 amp NEB Q6H PRN PRN Reason: SHORT OF BREATH/WHEEZING Last Admin: 02/10/17 06:40 Dose: 1 amp Alprazolam (Xanax -) 0.25 mg PO HS PRN PRN Reason: ANXIETY Last Admin: 02/11/17 23:25 Dose: 0.25 mg Budesonide (Pulmicort 0.25 Mg Nebulizer -) 1 amp NEB BID [facility] Last Admin: 02/12/17 10:31 Dose: 1 amp Escitalopram Oxalate (Lexapro -) 5 mg PO DAILY [facility] Last Admin: 02/12/17 09:19 Dose: 5 mg Heparin Sodium (Porcine) (Heparin -) 5,000 unit SQ BID [facility] Last Admin: 02/12/17 09:20 Dose: 5,000 unit IV Flush (Picc Line Flush) 8 ml IVPUSH PRN PRN PRN Reason: Protocol Sodium Chloride (Normal Saline -) 1,000 mls @ 100 mls/hr IV ASDIR [facility] Last Admin: 02/12/17 09:20 Dose: 100 mls/hr Vancomycin HCl 1,000 mg/ (Dextrose) 250 mls @ 250 mls/hr IVPB BID@0500,1700 [facility] PRN Reason: Protocol Last Admin: 02/12/17 04:33 Dose: 250 mls/hr Piperacillin Sod/Tazobactam (Sod 4.5 gm/ Dextrose) 100 mls @ 200 mls/hr IVPB Q8H-IV [facility] Last Admin: 02/12/17 09:16 Dose: 200 mls/hr Lactobacillus Acidophilus (Bacid -) 1 tab PO DAILY [facility] Last Admin: 02/12/17 09:19 Dose: 1 tab Montelukast Sodium (Singulair -) 10 mg PO HS [facility] Last Admin: 02/11/17 21:25 Dose: 10 mg Prednisone (Deltasone -) 30 mg PO DAILY [facility] Last Admin: 02/12/17 09:19 Dose: 30 mg Ranitidine HCl (Zantac -) 150 mg PO DAILY [facility] Last Admin: 02/12/17 09:19 Dose: 150 mg Tiotropium [place] (Spiriva -) 1 puff IH DAILY [facility] Last Admin: 02/12/17 09:21 Dose: 1 inh Valacyclovir HCl (Valtrex -) 1,000 mg GT BID [facility] Last Admin: 02/12/17 09:20 Dose: 1,000 mg A/P Acute on Chronic Hypoxic Respiratory Failure Acute Bronchiectasis Exacerbation COPD h/o Tonsillar Ca with mets Pulmonary HTN - antibiotics per ID - continue prednisone - inhaled bronchodilators - chest PT - postural drainage - instructed pt to bring his chest PT vest in - O2 to keep SpO2 >90% - DVT prophylaxis
[2017-02-12] MEDS: MONTELUKAST NA 10 MG TABLET PO SCH (21:06)
[2017-02-12] MEDS: ALBUTEROL SO4 0.083% IH SOL 2.5 MG/3 ML VIAL.NEB. NEB PRN (22:18)
[2017-02-12] MEDS: ALPRAZolam 0.25 MG TABLET PO PRN (23:54)
[2017-02-13] MEDS: PIPERACILLIN/TAZOB 4.5 GM 4.5 GM in DEXTROSE 5%-WATER - 100 ML IVPB SCH ×3 (01:13→18:36)
[2017-02-13] MEDS: SODIUM CHLORIDE 1,000 ML IV SCH ×2 (01:13→10:34)
--- NOTE | 2017-02-13 08:33 | PN ---
Progress Note, Physician History of Present Illness: no CP/SOB but still coughing green sputum - Current Medication List Current Medications: Active Medications Albuterol Sulfate (Ventolin 0.083% Nebulizer Soln -) 1 amp NEB Q4H PRN PRN Reason: SHORT OF BREATH/WHEEZING Last Admin: 02/12/17 22:18 Dose: 1 amp Albuterol Sulfate (Ventolin 0.083% Nebulizer Soln -) 1 amp NEB Q6H PRN PRN Reason: SHORT OF BREATH/WHEEZING Last Admin: 02/10/17 06:40 Dose: 1 amp Alprazolam (Xanax -) 0.25 mg PO HS PRN PRN Reason: ANXIETY Last Admin: 02/12/17 23:54 Dose: 0.25 mg Budesonide (Pulmicort 0.25 Mg Nebulizer -) 1 amp NEB BID [facility] Last Admin: 02/12/17 22:18 Dose: Not Given Escitalopram Oxalate (Lexapro -) 5 mg PO DAILY [facility] Last Admin: 02/12/17 09:19 Dose: 5 mg Heparin Sodium (Porcine) (Heparin -) 5,000 unit SQ BID [facility] Last Admin: 02/12/17 21:06 Dose: 5,000 unit IV Flush (Picc Line Flush) 8 ml IVPUSH PRN PRN PRN Reason: Protocol Sodium Chloride (Normal Saline -) 1,000 mls @ 100 mls/hr IV ASDIR [facility] Last Admin: 02/13/17 01:13 Dose: 100 mls/hr Piperacillin Sod/Tazobactam (Sod 4.5 gm/ Dextrose) 100 mls @ 200 mls/hr IVPB Q8H-IV [facility] Last Admin: 02/13/17 01:13 Dose: 200 mls/hr Lactobacillus Acidophilus (Bacid -) 1 tab PO DAILY [facility] Last Admin: 02/12/17 09:19 Dose: 1 tab Montelukast Sodium (Singulair -) 10 mg PO HS [facility] Last Admin: 02/12/17 21:06 Dose: 10 mg Prednisone (Deltasone -) 30 mg PO DAILY [facility] Last Admin: 02/12/17 09:19 Dose: 30 mg Ranitidine HCl (Zantac -) 150 mg PO DAILY [facility] Last Admin: 02/12/17 09:19 Dose: 150 mg Tiotropium [place] (Spiriva -) 1 puff IH DAILY [facility] Last Admin: 02/12/17 09:21 Dose: 1 inh - Objective Vital Signs: Vital Signs Temperature 98.0 F 02/13/17 05:39 Pulse Rate 68 02/13/17 05:39 Respiratory Rate 18 02/13/17 05:39 Blood Pressure 97/50 02/13/17 05:39 O2 Sat by Pulse Oximetry (%) 97 02/12/17 20:55 Constitutional: Yes: No Distress, Calm Eyes: Yes: Conjunctiva Clear HENT: Yes: Atraumatic Neck: Yes: Supple Cardiovascular: Yes: Regular Rate and Rhythm Respiratory: Yes: CTA Bilaterally Gastrointestinal: Yes: Soft. No: Palpable Mass, Tenderness Genitourinary: No: CVA Tenderness - Left, CVA Tenderness - Right, Hematuria Musculoskeletal: No: Joint Stiffness, Joint Swelling Extremities: No: Cold, Cool, Cyanosis Edema: No Integumentary: No: Rash, Skin Tear Neurological: Yes: WNL, Alert, Oriented ...Motor Strength: WNL Psychiatric: Yes: WNL, Alert, Oriented. No: Agitated Labs: CBC, BMP 02/12/17 06:30 - ....Imaging Other: Report Reviewed Assessment/Plan The patient is a 61 year old male with a history of HTN, COPD, Tongue Cancer, Right lower lung lobectomy admitted with hypotension and leukopenia s/p recent and recurrent PNA cardio, pulmonary and ID f/u IVF IV ATB ONC and eval DVT falls PFX O2 NC as ordered prognosis guarded d/w pt and staff
--- NOTE | 2017-02-13 09:34 | PN ---
Physical Exam: SUBJECTIVE: Patient seen and examined at bedside. No acute events over night. he denies any fever, chills, N/V/D/C. He is still coughing with green phlegm, still have chest tightness. He still have some herpes lesions in his mouth. OBJECTIVE: Vital Signs Period Temp Pulse Resp BP Sys/Stephens Pulse Ox Last 24 Hr 97.8 F-98.8 F 68-94 18-18 91-107/50-61 93-97 GENERAL: The patient is awake, alert, and fully oriented, in no acute distress. HEAD: Normal with no signs of trauma. EYES: conjunctiva clear. No ptosis. ENT: moist mucous membranes.red blisters in hisright side of the mouth. LUNGS: Coarse BS at the bases Right > Left, No wheezes, and no crackles. No accessory muscle use. HEART: Regular rate and rhythm, S1, S2 without murmur, rub or gallop. ABDOMEN: Soft, nontender, nondistended, normoactive bowel sounds,PEG in place EXTREMITIES:warm, well-perfused, no edema. NEUROLOGICAL: no focal deficit. slow muffled voice , gait not observed. PSYCH: Normal mood, normal affect. SKIN: Warm, dry, no rashes or lesions noted Laboratory Results - last 24 hr 02/12/17 02/12/17 02/12/17 06:30 06:30 06:30 WBC 2.6 L RBC 3.37 L Hgb 9.6 L Hct 29.1 L MCV 86.3 MCH 28.4 MCHC 32.9 RDW 16.0 H Plt Count 151 MPV 7.4 L Neutrophils % 56.0 Lymphocytes % 23.4 Monocytes % 20.1 H Eosinophils % 0.3 D Basophils % 0.2 Ferritin TSH 0.50 D Free T4 1.17 H 02/13/17 05:27 WBC RBC Hgb Hct MCV MCH MCHC RDW Plt Count MPV Neutrophils % Lymphocytes % Monocytes % Eosinophils % Basophils % Ferritin 58.195 TSH Free T4 Active Medications Generic Name Dose Route Start Last Admin Trade Name Freq PRN Reason Stop Dose Admin Albuterol Sulfate 1 amp 02/09/17 11:50 02/12/17 22:18 Ventolin 0.083% Nebulizer Soln - NEB 1 amp Q4H PRN Administration SHORT OF BREATH/WHEEZING Albuterol Sulfate 1 amp 02/09/17 12:29 02/10/17 06:40 Ventolin 0.083% Nebulizer Soln - NEB 1 amp Q6H PRN Administration SHORT OF BREATH/WHEEZING Alprazolam 0.25 mg 02/09/17 22:00 02/12/17 23:54 Xanax - PO 0.25 mg HS PRN Administration ANXIETY Budesonide 1 amp 02/09/17 22:00 02/12/17 22:18 Pulmicort 0.25 Mg Nebulizer - NEB Not Given BID LAUREN Escitalopram Oxalate 5 mg 02/10/17 10:00 02/12/17 09:19 Lexapro - PO 5 mg DAILY LAUREN Administration Heparin Sodium (Porcine) 5,000 unit 02/09/17 22:00 02/12/17 21:06 Heparin - SQ 5,000 unit BID LAUREN Administration IV Flush 8 ml 02/09/17 12:29 Picc Line Flush IVPUSH PRN PRN Protocol Sodium Chloride 1,000 mls @ 100 mls/hr 02/09/17 06:30 02/13/17 01:13 Normal Saline - IV 100 mls/hr ASDIR LAUREN Administration Piperacillin Sod/Tazobactam 100 mls @ 200 mls/hr 02/09/17 18:00 02/13/17 01: 13 Sod 4.5 gm/ Dextrose IVPB 200 mls/hr Q8H-IV LAUREN Administration Lactobacillus Acidophilus 1 tab 02/10/17 10:00 02/12/17 09:19 Bacid - PO 1 tab DAILY LAUREN Administration Montelukast Sodium 10 mg 02/09/17 22:00 02/12/17 21:06 Singulair - PO 10 mg HS LAUREN Administration Prednisone 30 mg 02/09/17 12:29 02/12/17 09:19 Deltasone - PO 30 mg DAILY LAUREN Administration Ranitidine HCl 150 mg 02/10/17 10:00 02/12/17 09:19 Zantac - PO 150 mg DAILY LAUREN Administration Tiotropium [place] 1 puff 02/10/17 10:00 02/12/17 09:21 Spiriva - IH 1 inh DAILY LAUREN Administration CBC, BMP 02/12/17 06:30 Microbiology 02/09/17 00:53 Blood - Peripheral Venous Blood Culture - Preliminary NO GROWTH OBTAINED AFTER 96 HOURS, INCUBATION TO CONTINUE FOR 1 DAYS. 02/09/17 00:35 Blood - Peripheral Venous Blood Culture - Preliminary NO GROWTH OBTAINED AFTER 96 HOURS, INCUBATION TO CONTINUE FOR 1 DAYS. 02/10/17 11:30 Sputum - Expectorated Gram Stain - Final 02/10/17 11:30 Sputum - Expectorated Sputum Culture - Preliminary Presumptive Pseudomonas Spec. 02/10/17 00:00 Urine - Urine Clean Catch Urine Culture - Final NO GROWTH OBTAINED 02/10/17 20:00 Urine - Urine Clean Catch Legionella Antigen - Final 02/10/17 20:00 Urine - Urine Clean Catch Streptococcus pneumoniae Antigen ( M - Final ASSESSMENT/PLAN: # Extensive bibasilar bronchiectasis #COPD without exacerbation #HTN #CHF #HCAP Pneumonia? #Mtastatic Tonsilar CA, #Right lower lung lobectomy # Normocytic anemia likley 2/2 chemotherapy vs abx # Hypotensive # RBBB # possible oral HSV? Paln: Abx per ID vanco/zosyn/valacyclovir Broncho dilater PRN Prednisone daily O2 @ 3 L to keep O2 sat >90 % Spiriva , singulair, pulmicort chest PT postural drainage instructed pt to bring his chest PT vest in Sputum cx presumuptive psudomonase, Legionella and streptococus are negative Blood cx no growth, urine cx no growth. DVT prophylaxis Visit type - Emergency Visit Emergency Visit: Yes ED Registration Date: 02/09/17 Care time: The patient presented to the Emergency Department on the above date and was hospitalized for further evaluation of their emergent condition. - New Patient This patient is new to me today: No - Critical Care Critical Care patient: No - Discharge Referral Referred to [facility] Med [facility] No
[2017-02-13] MEDS: BUDESONIDE 0.25 MG/2ML INH SUSP VIAL NEB SCH ×2 (10:04→22:10)
[2017-02-13] MEDS ORDERED: PT OWN MED DRAWER 7, Y5N ONE ×2 (10:13→10:18)
[2017-02-13] MEDS: HEPARIN NA (PORCINE) 5,000 UNITS/ML 1ML VIAL SQ SCH ×2 (10:31→21:57)
[2017-02-13] MEDS: ESCITALOPRAM OXALATE 10 MG TABLET (FP) PO SCH (10:32)
[2017-02-13] MEDS: LACTOBACILLUS ACIDOPHILUS 1 EACH TAB (FP) PO SCH (10:32)
[2017-02-13] MEDS: predniSONE 20 MG TABLET (UD) PO SCH (10:33)
[2017-02-13] MEDS: RANITIDINE HCL 150 MG TABLET (FP) PO SCH (10:33)
[2017-02-13] MEDS: TIOTROPIUM BROMIDE 18 MCG/INH (DEVICE W/ 5 CAPSULES) IH SCH (10:35)
--- NOTE | 2017-02-13 11:44 | PN ---
Progress Note (short form) - Note Progress Note: still with productive cough feels the same less tongue discomfort Vital Signs Period Temp Pulse Resp BP Sys/Stephens Pulse Ox Last 24 Hr 97.8 F-98.8 F 68-94 18-18 94-107/50-61 97 cor-rrr lungs right basilar crackles abd soft, gt ext no edema CBC, BMP 02/12/17 06:30 Microbiology 02/09/17 00:53 Blood - Peripheral Venous Blood Culture - Preliminary NO GROWTH OBTAINED AFTER 96 HOURS, INCUBATION TO CONTINUE FOR 1 DAYS. 02/09/17 00:35 Blood - Peripheral Venous Blood Culture - Preliminary NO GROWTH OBTAINED AFTER 96 HOURS, INCUBATION TO CONTINUE FOR 1 DAYS. 02/10/17 11:30 Sputum - Expectorated Gram Stain - Final 02/10/17 11:30 Sputum - Expectorated Sputum Culture - Preliminary Presumptive Pseudomonas Spec. 02/10/17 00:00 Urine - Urine Clean Catch Urine Culture - Final NO GROWTH OBTAINED 02/10/17 20:00 Urine - Urine Clean Catch Legionella Antigen - Final 02/10/17 20:00 Urine - Urine Clean Catch Streptococcus pneumoniae Antigen ( M - Final 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 history of bronchiectasis hypotension- ?etiology remains on zosyn day #4- chest ct essentially unchanged will d/w Dr Katz, would suggest mucolytics and chest PT ?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
--- NOTE | 2017-02-13 12:26 | PN ---
Progress Note, Physician History of Present Illness: pulmonary alert,less dyspneic,+cough. - Current Medication List Current Medications: Active Medications Albuterol Sulfate (Ventolin 0.083% Nebulizer Soln -) 1 amp NEB Q4H PRN PRN Reason: SHORT OF BREATH/WHEEZING Last Admin: 02/12/17 22:18 Dose: 1 amp Albuterol Sulfate (Ventolin 0.083% Nebulizer Soln -) 1 amp NEB Q6H PRN PRN Reason: SHORT OF BREATH/WHEEZING Last Admin: 02/10/17 06:40 Dose: 1 amp Alprazolam (Xanax -) 0.25 mg PO HS PRN PRN Reason: ANXIETY Last Admin: 02/12/17 23:54 Dose: 0.25 mg Budesonide (Pulmicort 0.25 Mg Nebulizer -) 1 amp NEB BID [facility] Last Admin: 02/13/17 10:04 Dose: 1 amp Clotrimazole (Mycelex Wilbert's -) 10 mg PO 5XD [facility] Escitalopram Oxalate (Lexapro -) 5 mg PO DAILY [facility] Last Admin: 02/13/17 10:32 Dose: 5 mg Heparin Sodium (Porcine) (Heparin -) 5,000 unit SQ BID LAUREN Last Admin: 02/13/17 10:31 Dose: 5,000 unit IV Flush (Picc Line Flush) 8 ml IVPUSH PRN PRN PRN Reason: Protocol Sodium Chloride (Normal Saline -) 1,000 mls @ 100 mls/hr IV ASDIR [facility] Last Admin: 02/13/17 10:34 Dose: Not Given Piperacillin Sod/Tazobactam (Sod 4.5 gm/ Dextrose) 100 mls @ 200 mls/hr IVPB Q8H-IV LAUREN Last Admin: 02/13/17 10:31 Dose: 200 mls/hr Lactobacillus Acidophilus (Bacid -) 1 tab PO DAILY [facility] Last Admin: 02/13/17 10:32 Dose: 1 tab Montelukast Sodium (Singulair -) 10 mg PO HS [facility] Last Admin: 02/12/17 21:06 Dose: 10 mg Prednisone (Deltasone -) 30 mg PO DAILY [facility] Last Admin: 02/13/17 10:33 Dose: 30 mg Ranitidine HCl (Zantac -) 150 mg PO DAILY [facility] Last Admin: 02/13/17 10:33 Dose: 150 mg Tiotropium [place] (Spiriva -) 1 puff IH DAILY [facility] Last Admin: 02/13/17 10:35 Dose: 1 inh Valacyclovir HCl (Valtrex -) 1,000 mg PO BID [facility] - Objective Vital Signs: Vital Signs Temperature 98.0 F 02/13/17 05:39 Pulse Rate 68 02/13/17 05:39 Respiratory Rate 18 02/13/17 05:39 Blood Pressure 97/50 02/13/17 05:39 O2 Sat by Pulse Oximetry (%) 97 02/12/17 20:55 Constitutional: Yes: Calm, Thin Eyes: Yes: WNL HENT: Yes: WNL Neck: Yes: WNL Cardiovascular: Yes: Regular Rate and Rhythm, S1, S2 Respiratory: Yes: Rales, Rhonchi (bilateral crackles and rhonchi) Gastrointestinal: Yes: Normal Bowel Sounds, Soft Extremities: Yes: WNL Edema: No Labs: Problem List - Problems (1) Pneumonia Code(s): J18.9 - PNEUMONIA, UNSPECIFIED ORGANISM Qualifiers: Pneumonia type: due to unspecified organism Laterality: unspecified laterality Lung location: unspecified part of lung Qualified Code(s): J18.9 - Pneumonia, unspecified organism (2) Acute and chronic respiratory failure with hypoxia Code(s): J96.21 - ACUTE AND CHRONIC RESPIRATORY FAILURE WITH HYPOXIA (3) Anxiety Code(s): F41.9 - ANXIETY DISORDER, UNSPECIFIED (4) Bronchiectasis Code(s): J47.9 - BRONCHIECTASIS, UNCOMPLICATED (5) Dyspnea Code(s): R06.00 - DYSPNEA, UNSPECIFIED (6) Pulmonary hypertension Code(s): I27.20 - PULMONARY HYPERTENSION, UNSPECIFIED (7) Tonsillar cancer Code(s): C09.9 - MALIGNANT NEOPLASM OF TONSIL, UNSPECIFIED Assessment/Plan IMP: Acute on chronic hypoxemic respiratory failure Questionable new HCAP COPD, not in AE HTN CHF History of RLL lobectomy Metastatic Tonsillar CA Extensive bibasilar bronchiectasis PLAN Chest pt O2 as needed Prednisone BD [place] PRN Spiriva pulmonary rehab DR FORD
--- NOTE | 2017-02-13 13:03 | PN ---
Progress Note, Physician History of Present Illness: SUBJECTIVE: 61 M, history of a RLL lobectomy for unclear reasons, COPD, and chronic bronchiectasis maintained on 3 L NC. Known metastatic tonsillar cancer. Last treatment with ChemoTx was 07/2016 and last RT was 08/2016. Admitted via the ER from the SNF due to generalized fatigue and and productive cough with green sputum. No hemoptysis. Patient has been admitted several times in the last 6 months for similar symptoms. CXR: volume loss RLL with extensive bonchiectasis. LLL atelectasis and chronic changes. There is no significant radiographic changes from previous imaging. - Current Medication List Current Medications: Active Medications Albuterol Sulfate (Ventolin 0.083% Nebulizer Soln -) 1 amp NEB Q4H PRN PRN Reason: SHORT OF BREATH/WHEEZING Last Admin: 02/12/17 22:18 Dose: 1 amp Albuterol Sulfate (Ventolin 0.083% Nebulizer Soln -) 1 amp NEB Q6H PRN PRN Reason: SHORT OF BREATH/WHEEZING Last Admin: 02/10/17 06:40 Dose: 1 amp Alprazolam (Xanax -) 0.25 mg PO HS PRN PRN Reason: ANXIETY Last Admin: 02/12/17 23:54 Dose: 0.25 mg Budesonide (Pulmicort 0.25 Mg Nebulizer -) 1 amp NEB BID LAUREN Last Admin: 02/13/17 10:04 Dose: 1 amp Clotrimazole (Mycelex Wilbert's -) 10 mg PO 5XD LAUREN Escitalopram Oxalate (Lexapro -) 5 mg PO DAILY [facility] Last Admin: 02/13/17 10:32 Dose: 5 mg Heparin Sodium (Porcine) (Heparin -) 5,000 unit SQ BID LAUREN Last Admin: 02/13/17 10:31 Dose: 5,000 unit IV Flush (Picc Line Flush) 8 ml IVPUSH PRN PRN PRN Reason: Protocol Sodium Chloride (Normal Saline -) 1,000 mls @ 100 mls/hr IV ASDIR LAUREN Last Admin: 02/13/17 10:34 Dose: Not Given Piperacillin Sod/Tazobactam (Sod 4.5 gm/ Dextrose) 100 mls @ 200 mls/hr IVPB Q8H-IV LAUREN Last Admin: 02/13/17 10:31 Dose: 200 mls/hr Lactobacillus Acidophilus (Bacid -) 1 tab PO DAILY [facility] Last Admin: 02/13/17 10:32 Dose: 1 tab Montelukast Sodium (Singulair -) 10 mg PO HS [facility] Last Admin: 02/12/17 21:06 Dose: 10 mg Prednisone (Deltasone -) 30 mg PO DAILY [facility] Last Admin: 02/13/17 10:33 Dose: 30 mg Ranitidine HCl (Zantac -) 150 mg PO DAILY [facility] Last Admin: 02/13/17 10:33 Dose: 150 mg Tiotropium [place] (Spiriva -) 1 puff IH DAILY [facility] Last Admin: 02/13/17 10:35 Dose: 1 inh Valacyclovir HCl (Valtrex -) 1,000 mg PO BID [facility] - Objective Vital Signs: Vital Signs Temperature 98.0 F 02/13/17 05:39 Pulse Rate 68 02/13/17 05:39 Respiratory Rate 18 02/13/17 05:39 Blood Pressure 97/50 02/13/17 05:39 O2 Sat by Pulse Oximetry (%) 97 02/12/17 20:55 Eyes: Yes: WNL, Conjunctiva Clear, EOM Intact HENT: Yes: WNL, Atraumatic, Normocephalic Neck: Yes: WNL, Supple, Trachea Midline Cardiovascular: Yes: WNL, Regular Rate and Rhythm Respiratory: Yes: WNL, Regular, CTA Bilaterally Gastrointestinal: Yes: WNL, Normal Bowel Sounds Genitourinary: Yes: WNL Musculoskeletal: Yes: WNL Extremities: Yes: WNL Edema: No Integumentary: Yes: WNL Neurological: Yes: WNL, Alert, Oriented ...Motor Strength: WNL Psychiatric: Yes: WNL Labs: CBC, BMP 02/12/17 06:30 Problem List - Problems (1) HSV infection Code(s): B00.9 - HERPESVIRAL INFECTION, UNSPECIFIED (2) Hypotension Code(s): I95.9 - HYPOTENSION, UNSPECIFIED Qualifiers: Hypotension type: unspecified hypotension type Qualified Code(s): I95.9 - Hypotension, unspecified (3) Pneumonia Code(s): J18.9 - PNEUMONIA, UNSPECIFIED ORGANISM Qualifiers: Pneumonia type: due to unspecified organism Laterality: unspecified laterality Lung location: unspecified part of lung Qualified Code(s): J18.9 - Pneumonia, unspecified organism (4) Acute and chronic respiratory failure with hypoxia Code(s): J96.21 - ACUTE AND CHRONIC RESPIRATORY FAILURE WITH HYPOXIA (5) Anemia Code(s): D64.9 - ANEMIA, UNSPECIFIED (6) Anxiety Code(s): F41.9 - ANXIETY DISORDER, UNSPECIFIED (7) Anxiety and depression Code(s): F41.8 - OTHER SPECIFIED ANXIETY DISORDERS (8) Bronchiectasis Code(s): J47.9 - BRONCHIECTASIS, UNCOMPLICATED (9) Congestive heart failure Code(s): I50.9 - HEART FAILURE, UNSPECIFIED Qualifiers: Congestive heart failure type: systolic (10) Depression Code(s): F32.9 - MAJOR DEPRESSIVE DISORDER, SINGLE EPISODE, UNSPECIFIED (11) Dyspnea Code(s): R06.00 - DYSPNEA, UNSPECIFIED (12) Hypoalbuminemia Code(s): E88.09 - OTH DISORDERS OF PLASMA-PROTEIN METABOLISM, NEC (13) Hyponatremia Code(s): E87.1 - HYPO-OSMOLALITY AND HYPONATREMIA (14) Pulmonary hypertension Code(s): I27.20 - PULMONARY HYPERTENSION, UNSPECIFIED (15) Tachycardia Code(s): R00.0 - TACHYCARDIA, UNSPECIFIED (16) Tonsillar cancer Code(s): C09.9 - MALIGNANT NEOPLASM OF TONSIL, UNSPECIFIED Assessment/Plan copd hypotension r/o sepsis bronchitis vs PNA RBBB Plan: abx, steroids ivf Supplimental O2 Can d/c telemetry
[2017-02-13] MEDS: CLOTRIMAZOLE 10 MG TROCHE (FP) PO SCH ×4 (13:16→21:57)
[2017-02-13] MEDS: valACYclovir HCL 500 MG TABLET (FP) PO SCH ×2 (13:16→21:57)
--- NOTE | 2017-02-13 14:02 | CON.GU ---
Consult - History of Present Illness History of Present Illness: 61 yo male with h/o tonsillar CA, admitted for pneumonia. Underwent CT which shows enlarged prostate with circumferential bladder thickening. No voiding complaints. No prior history - Past Medical History Cardio/Vascular: Yes: CHF Pulmonary: Yes: COPD, Pneumonia - Alcohol/Substance Use Hx Alcohol Use: No History of Substance Use: reports: None - Smoking History Smoking history: Never smoked Have you smoked in the past 12 months: No Aproximately how many cigarettes per day: 0 Home Medications - Allergies Allergies/Adverse Reactions: Allergies Allergy/AdvReac Type Severity Reaction Status Date / Time No Known Allergies Allergy Verified 02/08/17 22:23 - Home Medications Home Medications: Ambulatory Orders Montelukast Na [Singulair -] 10 mg PO HS 05/04/12 Tiotropium [place] [Spiriva] 1 inh IH DAILY #0 inh 05/10/12 Escitalopram Oxalate [Lexapro -] 5 mg PO DAILY 01/12/17 Albuterol 0.083% Nebulizer [place] [Ventolin 0.083% Nebulizer Soln -] 1 amp NEB Q6H PRN #0 amp 01/27/17 Alprazolam [Xanax] 0.25 mg PO HS PRN #0 tablet MDD 1 01/27/17 Budesonide [Pulmicort 0.25 mg Nebulizer -] 1 amp NEB BID amp 01/27/17 Heparin - 5,000 unit SQ BID vial 01/27/17 Lactobacillus Acidophilus [Bacid -] 1 tab PO DAILY 30 Days tab 01/27/17 Picc Line Flush [Picc Line Flush -] 8 ml IVPUSH PRN PRN #0 ml 01/27/17 Ranitidine [Zantac -] 150 mg PO DAILY tablet 01/27/17 Prednisone [Deltasone -] 30 mg PO DAILY tablet 01/30/17 Review of Systems - Review of Systems Cardiovascular: reports: No Symptoms Gastrointestinal: reports: No Symptoms Genitourinary: reports: No Symptoms Physical Exam- Vital Signs: Vital Signs Temperature 98.0 F 02/13/17 05:39 Pulse Rate 68 02/13/17 05:39 Respiratory Rate 18 02/13/17 05:39 Blood Pressure 97/50 02/13/17 05:39 O2 Sat by Pulse Oximetry (%) 97 02/12/17 20:55 Labs: CBC, BMP 02/12/17 06:30 Imaging - Results Cat Scan: Report Reviewed Problem List - Problems (1) Enlarged prostate Assessment/Plan: No treament necessary since pt asymptomatic. psa ordered, needs outpt f/u for possible cystoscopy Code(s): N40.0 - BENIGN PROSTATIC HYPERPLASIA WITHOUT LOWER URINRY TRACT SYMP
[2017-02-13] MEDS: MONTELUKAST NA 10 MG TABLET PO SCH (21:57)
[2017-02-14] MEDS: SODIUM CHLORIDE 1,000 ML IV SCH ×2 (02:41→10:03)
[2017-02-14] MEDS: PIPERACILLIN/TAZOB 4.5 GM 4.5 GM in DEXTROSE 5%-WATER - 100 ML IVPB SCH ×2 (02:41→10:24)
[2017-02-14 06:06] LABS: HEMATOCRIT 27.8 % (37.5-51.0)
[2017-02-14] MEDS: CLOTRIMAZOLE 10 MG TROCHE (FP) PO SCH ×5 (06:22→21:39)
[2017-02-14 08:39] LABS: BASOPHIL 0.3 % (0-2.0); EOSINOPHIL 0.5 % (0-4.5); MCH 28.1 pg (25.7-33.7); MCHC 32.3 g/dl (32.0-35.9); MEAN CELL VOLUME 87.1 fl (80-96); MEAN PLT VOLUME 6.9 fl (7.5-11.1); NEUTROPHILS 63.7 % (42.8-82.8); PLATELET COUNT 167 K/MM3 (134-434); RDW 15.9 % (11.9-15.9); WHITE BLOOD COUNT 3.2 K/mm3 (4.0-10.0)
--- NOTE | 2017-02-14 08:57 | PN ---
Progress Note, Physician Chief Complaint: on 5 S off telemetry afebrile; no change in his condition afebrile; WBC 3.6 better, BP 90s'60s better but still borderline low - Current Medication List Current Medications: Active Medications Albuterol Sulfate (Ventolin 0.083% Nebulizer Soln -) 1 amp NEB Q4H PRN PRN Reason: SHORT OF BREATH/WHEEZING Last Admin: 02/12/17 22:18 Dose: 1 amp Albuterol Sulfate (Ventolin 0.083% Nebulizer Soln -) 1 amp NEB Q6H PRN PRN Reason: SHORT OF BREATH/WHEEZING Last Admin: 02/10/17 06:40 Dose: 1 amp Alprazolam (Xanax -) 0.25 mg PO HS PRN PRN Reason: ANXIETY Last Admin: 02/12/17 23:54 Dose: 0.25 mg Budesonide (Pulmicort 0.25 Mg Nebulizer -) 1 amp NEB BID LAUREN Last Admin: 02/13/17 22:10 Dose: 1 amp Clotrimazole (Mycelex Wilbert's -) 10 mg PO 5XD LAUREN Last Admin: 02/14/17 06:22 Dose: 10 mg Escitalopram Oxalate (Lexapro -) 5 mg PO DAILY LAUREN Last Admin: 02/13/17 10:32 Dose: 5 mg Heparin Sodium (Porcine) (Heparin -) 5,000 unit SQ BID LAUREN Last Admin: 02/13/17 21:57 Dose: 5,000 unit IV Flush (Picc Line Flush) 8 ml IVPUSH PRN PRN PRN Reason: Protocol Sodium Chloride (Normal Saline -) 1,000 mls @ 100 mls/hr IV ASDIR LAUREN Last Admin: 02/14/17 02:41 Dose: 100 mls/hr Piperacillin Sod/Tazobactam (Sod 4.5 gm/ Dextrose) 100 mls @ 200 mls/hr IVPB Q8H-IV LAUREN Last Admin: 02/14/17 02:41 Dose: 200 mls/hr Lactobacillus Acidophilus (Bacid -) 1 tab PO DAILY LAUREN Last Admin: 02/13/17 10:32 Dose: 1 tab Montelukast Sodium (Singulair -) 10 mg PO HS LAUREN Last Admin: 02/13/17 21:57 Dose: 10 mg Prednisone (Deltasone -) 30 mg PO DAILY [facility] Last Admin: 02/13/17 10:33 Dose: 30 mg Ranitidine HCl (Zantac -) 150 mg PO DAILY [facility] Last Admin: 02/13/17 10:33 Dose: 150 mg Tiotropium [place] (Spiriva -) 1 puff IH DAILY [facility] Last Admin: 02/13/17 10:35 Dose: 1 inh Valacyclovir HCl (Valtrex -) 1,000 mg PO BID [facility] Last Admin: 02/13/17 21:57 Dose: 1,000 mg - Objective Vital Signs: Vital Signs Temperature 98.1 F 02/14/17 06:00 Pulse Rate 86 02/14/17 06:00 Respiratory Rate 20 02/14/17 06:00 Blood Pressure 95/52 02/14/17 06:00 O2 Sat by Pulse Oximetry (%) 98 02/13/17 21:00 Constitutional: Yes: No Distress, Calm Eyes: Yes: Conjunctiva Clear HENT: Yes: Atraumatic Neck: Yes: Supple Cardiovascular: Yes: Regular Rate and Rhythm Respiratory: Yes: CTA Bilaterally Gastrointestinal: Yes: Soft. No: Distention Genitourinary: No: CVA Tenderness - Left, CVA Tenderness - Right Musculoskeletal: No: Joint Stiffness, Joint Swelling Extremities: No: Cold, Cool Edema: No Integumentary: No: Rash, Venous Stasis Changes Neurological: Yes: WNL, Alert, Oriented ...Motor Strength: WNL Psychiatric: Yes: WNL, Alert, Oriented. No: Agitated Labs: CBC, BMP 02/14/17 08:15 - ....Imaging Other: Report Reviewed Assessment/Plan The patient is a 61 year old male with a history of HTN, COPD, Tongue Cancer, Right lower lung lobectomy admitted with hypotension and leukopenia s/p recent and recurrent PNA cardio, pulmonary and ID f/u d/w ID who advised to stop antibiotics and f/u cardio w/u for hypoTA; BNP pending ONC and f/u DVT falls PFX O2 NC as ordered prognosis guarded d/w pt and staff
[2017-02-14 09:10] LABS: ANION GAP 8 (8-16); CO2 28 mmol/L (21-32); CREATININE 0.8 mg/dL (0.7-1.3); GLUCOSE,RANDOM 81 mg/dL (74-106)
[2017-02-14] MEDS ORDERED: PT OWN MED DRAWER 7, Y5N ONE (10:11)
[2017-02-14] MEDS: LACTOBACILLUS ACIDOPHILUS 1 EACH TAB (FP) PO SCH (10:22)
[2017-02-14] MEDS: ESCITALOPRAM OXALATE 10 MG TABLET (FP) PO SCH (10:22)
[2017-02-14] MEDS: valACYclovir HCL 500 MG TABLET (FP) PO SCH ×2 (10:23→21:40)
[2017-02-14] MEDS: RANITIDINE HCL 150 MG TABLET (FP) PO SCH (10:23)
[2017-02-14] MEDS: predniSONE 20 MG TABLET (UD) PO SCH (10:23)
[2017-02-14] MEDS: HEPARIN NA (PORCINE) 5,000 UNITS/ML 1ML VIAL SQ SCH ×2 (10:24→21:40)
[2017-02-14] MEDS: TIOTROPIUM BROMIDE 18 MCG/INH (DEVICE W/ 5 CAPSULES) IH SCH (10:25)
[2017-02-14] MEDS: BUDESONIDE 0.25 MG/2ML INH SUSP VIAL NEB SCH ×2 (10:30→23:00)
[2017-02-14] MEDS ORDERED: BUDESONIDE 0.5 MG/2 ML INH SUSP VIAL NEB ONE ×2 (10:55→23:14)
--- NOTE | 2017-02-14 11:45 | PN ---
Progress Note, Physician History of Present Illness: SUBJECTIVE: 61 M, history of a RLL lobectomy for unclear reasons, COPD, and chronic bronchiectasis maintained on 3 L NC. Known metastatic tonsillar cancer. Last treatment with ChemoTx was 07/2016 and last RT was 08/2016. Admitted via the ER from the SNF due to generalized fatigue and and productive cough with green sputum. No hemoptysis. Patient has been admitted several times in the last 6 months for similar symptoms. CXR: volume loss RLL with extensive bonchiectasis. LLL atelectasis and chronic changes. There is no significant radiographic changes from previous imaging. - Current Medication List Current Medications: Active Medications Albuterol Sulfate (Ventolin 0.083% Nebulizer Soln -) 1 amp NEB Q4H PRN PRN Reason: SHORT OF BREATH/WHEEZING Last Admin: 02/12/17 22:18 Dose: 1 amp Albuterol Sulfate (Ventolin 0.083% Nebulizer Soln -) 1 amp NEB Q6H PRN PRN Reason: SHORT OF BREATH/WHEEZING Last Admin: 02/10/17 06:40 Dose: 1 amp Alprazolam (Xanax -) 0.25 mg PO HS PRN PRN Reason: ANXIETY Last Admin: 02/12/17 23:54 Dose: 0.25 mg Budesonide (Pulmicort 0.25 Mg Nebulizer -) 1 amp NEB BID [facility] Last Admin: 02/14/17 10:30 Dose: 1 amp Clotrimazole (Mycelex Wilbert's -) 10 mg PO 5XD [facility] Last Admin: 02/14/17 10:24 Dose: 10 mg Escitalopram Oxalate (Lexapro -) 5 mg PO DAILY [facility] Last Admin: 02/14/17 10:22 Dose: 5 mg Heparin Sodium (Porcine) (Heparin -) 5,000 unit SQ BID [facility] Last Admin: 02/14/17 10:24 Dose: 5,000 unit IV Flush (Picc Line Flush) 8 ml IVPUSH PRN PRN PRN Reason: Protocol Sodium Chloride (Normal Saline -) 1,000 mls @ 100 mls/hr IV ASDIR [facility] Last Admin: 02/14/17 10:03 Dose: Not Given Piperacillin Sod/Tazobactam (Sod 4.5 gm/ Dextrose) 100 mls @ 200 mls/hr IVPB Q8H-IV [facility] Last Admin: 02/14/17 10:24 Dose: 200 mls/hr Lactobacillus Acidophilus (Bacid -) 1 tab PO DAILY [facility] Last Admin: 02/14/17 10:22 Dose: 1 tab Montelukast Sodium (Singulair -) 10 mg PO HS [facility] Last Admin: 02/13/17 21:57 Dose: 10 mg Prednisone (Deltasone -) 30 mg PO DAILY [facility] Last Admin: 02/14/17 10:23 Dose: 30 mg Ranitidine HCl (Zantac -) 150 mg PO DAILY [facility] Last Admin: 02/14/17 10:23 Dose: 150 mg Tiotropium [place] (Spiriva -) 1 puff IH DAILY [facility] Last Admin: 02/14/17 10:25 Dose: 1 inh Valacyclovir HCl (Valtrex -) 1,000 mg PO BID [facility] Last Admin: 02/14/17 10:23 Dose: 1,000 mg - Objective Vital Signs: Vital Signs Temperature 98.1 F 02/14/17 06:00 Pulse Rate 86 02/14/17 06:00 Respiratory Rate 20 02/14/17 06:00 Blood Pressure 95/52 02/14/17 06:00 O2 Sat by Pulse Oximetry (%) 98 02/13/17 21:00 Eyes: Yes: WNL, Conjunctiva Clear, EOM Intact HENT: Yes: WNL, Atraumatic, Normocephalic Neck: Yes: WNL, Supple, Trachea Midline Cardiovascular: Yes: WNL, Regular Rate and Rhythm Respiratory: Yes: WNL, Regular, Diminished Gastrointestinal: Yes: WNL, Normal Bowel Sounds Genitourinary: Yes: WNL Musculoskeletal: Yes: WNL Extremities: Yes: WNL Edema: No Integumentary: Yes: WNL Neurological: Yes: WNL, Alert, Oriented ...Motor Strength: WNL Psychiatric: Yes: WNL Labs: CBC, BMP 02/14/17 08:15 02/14/17 08:15 Problem List - Problems (1) HSV infection Code(s): B00.9 - HERPESVIRAL INFECTION, UNSPECIFIED (2) Hypotension Code(s): I95.9 - HYPOTENSION, UNSPECIFIED Qualifiers: Hypotension type: unspecified hypotension type Qualified Code(s): I95.9 - Hypotension, unspecified (3) Pneumonia Code(s): J18.9 - PNEUMONIA, UNSPECIFIED ORGANISM Qualifiers: Pneumonia type: due to unspecified organism Laterality: unspecified laterality Lung location: unspecified part of lung Qualified Code(s): J18.9 - Pneumonia, unspecified organism (4) Acute and chronic respiratory failure with hypoxia Code(s): J96.21 - ACUTE AND CHRONIC RESPIRATORY FAILURE WITH HYPOXIA (5) Anemia Code(s): D64.9 - ANEMIA, UNSPECIFIED (6) Anxiety Code(s): F41.9 - ANXIETY DISORDER, UNSPECIFIED (7) Anxiety and depression Code(s): F41.8 - OTHER SPECIFIED ANXIETY DISORDERS (8) Bronchiectasis Code(s): J47.9 - BRONCHIECTASIS, UNCOMPLICATED (9) Congestive heart failure Code(s): I50.9 - HEART FAILURE, UNSPECIFIED Qualifiers: Congestive heart failure type: systolic (10) Depression Code(s): F32.9 - MAJOR DEPRESSIVE DISORDER, SINGLE EPISODE, UNSPECIFIED (11) Dyspnea Code(s): R06.00 - DYSPNEA, UNSPECIFIED (12) Hypoalbuminemia Code(s): E88.09 - OTH DISORDERS OF PLASMA-PROTEIN METABOLISM, NEC (13) Hyponatremia Code(s): E87.1 - HYPO-OSMOLALITY AND HYPONATREMIA (14) Pulmonary hypertension Code(s): I27.20 - PULMONARY HYPERTENSION, UNSPECIFIED (15) Tachycardia Code(s): R00.0 - TACHYCARDIA, UNSPECIFIED (16) Tonsillar cancer Code(s): C09.9 - MALIGNANT NEOPLASM OF TONSIL, UNSPECIFIED Assessment/Plan copd hypotension r/o sepsis bronchitis vs PNA RBBB Plan: abx, steroids ivf Supplimental O2 Can d/c telemetry
--- NOTE | 2017-02-14 12:15 | PN ---
Progress Note, Physician History of Present Illness: pulmonary alert,feeling better,less dyspneic. - Current Medication List Current Medications: Active Medications Albuterol Sulfate (Ventolin 0.083% Nebulizer Soln -) 1 amp NEB Q4H PRN PRN Reason: SHORT OF BREATH/WHEEZING Last Admin: 02/12/17 22:18 Dose: 1 amp Albuterol Sulfate (Ventolin 0.083% Nebulizer Soln -) 1 amp NEB Q6H PRN PRN Reason: SHORT OF BREATH/WHEEZING Last Admin: 02/10/17 06:40 Dose: 1 amp Alprazolam (Xanax -) 0.25 mg PO HS PRN PRN Reason: ANXIETY Last Admin: 02/12/17 23:54 Dose: 0.25 mg Budesonide (Pulmicort 0.25 Mg Nebulizer -) 1 amp NEB BID [facility] Last Admin: 02/14/17 10:30 Dose: 1 amp Clotrimazole (Mycelex Wilbert's -) 10 mg PO 5XD [facility] Last Admin: 02/14/17 10:24 Dose: 10 mg Escitalopram Oxalate (Lexapro -) 5 mg PO DAILY [facility] Last Admin: 02/14/17 10:22 Dose: 5 mg Heparin Sodium (Porcine) (Heparin -) 5,000 unit SQ BID [facility] Last Admin: 02/14/17 10:24 Dose: 5,000 unit IV Flush (Picc Line Flush) 8 ml IVPUSH PRN PRN PRN Reason: Protocol Sodium Chloride (Normal Saline -) 1,000 mls @ 100 mls/hr IV ASDIR [facility] Last Admin: 02/14/17 10:03 Dose: Not Given Lactobacillus Acidophilus (Bacid -) 1 tab PO DAILY [facility] Last Admin: 02/14/17 10:22 Dose: 1 tab Montelukast Sodium (Singulair -) 10 mg PO HS [facility] Last Admin: 02/13/17 21:57 Dose: 10 mg Prednisone (Deltasone -) 30 mg PO DAILY [facility] Last Admin: 02/14/17 10:23 Dose: 30 mg Ranitidine HCl (Zantac -) 150 mg PO DAILY [facility] Last Admin: 02/14/17 10:23 Dose: 150 mg Tiotropium [place] (Spiriva -) 1 puff IH DAILY [facility] Last Admin: 02/14/17 10:25 Dose: 1 inh Valacyclovir HCl (Valtrex -) 1,000 mg PO BID [facility] Last Admin: 02/14/17 10:23 Dose: 1,000 mg - Objective Vital Signs: Vital Signs Temperature 98.1 F 02/14/17 06:00 Pulse Rate 86 02/14/17 06:00 Respiratory Rate 20 02/14/17 06:00 Blood Pressure 95/52 02/14/17 06:00 O2 Sat by Pulse Oximetry (%) 98 02/13/17 21:00 Constitutional: Yes: Calm, Thin Eyes: Yes: WNL HENT: Yes: WNL Neck: Yes: WNL Cardiovascular: Yes: Regular Rate and Rhythm, S1, S2 Respiratory: Yes: Rhonchi (bilateral rhonchi) Gastrointestinal: Yes: Normal Bowel Sounds, Soft Extremities: Yes: WNL Edema: No Labs: CBC, BMP 02/14/17 08:15 02/14/17 08:15 Problem List - Problems (1) Pneumonia Code(s): J18.9 - PNEUMONIA, UNSPECIFIED ORGANISM Qualifiers: Pneumonia type: due to unspecified organism Laterality: unspecified laterality Lung location: unspecified part of lung Qualified Code(s): J18.9 - Pneumonia, unspecified organism (2) Acute and chronic respiratory failure with hypoxia Code(s): J96.21 - ACUTE AND CHRONIC RESPIRATORY FAILURE WITH HYPOXIA (3) Anxiety Code(s): F41.9 - ANXIETY DISORDER, UNSPECIFIED (4) Bronchiectasis Code(s): J47.9 - BRONCHIECTASIS, UNCOMPLICATED (5) Dyspnea Code(s): R06.00 - DYSPNEA, UNSPECIFIED (6) Pulmonary hypertension Code(s): I27.20 - PULMONARY HYPERTENSION, UNSPECIFIED (7) Tonsillar cancer Code(s): C09.9 - MALIGNANT NEOPLASM OF TONSIL, UNSPECIFIED Assessment/Plan IMP: Acute on chronic hypoxemic respiratory failure Questionable new HCAP COPD, not in AE HTN CHF History of RLL lobectomy Metastatic Tonsillar CA Extensive bibasilar bronchiectasis PLAN Chest pt O2 as needed Prednisone BD TX PRN Spiriva zithromax 500mg tiw pulmonary rehab DR FORD
--- NOTE | 2017-02-14 14:22 | PN ---
Progress Note (short form) - Note Progress Note: Last Vital Signs Patient seen and examined. Feels a little better. He thinks he is improving O/E: Chronically ill appearing man in no acute distress NCAT RT changes in the neck present No thyromegaly. Rales+ in the RLL +PEG No CCE in the lower extremities Temp Pulse Resp BP Pulse Ox 98.1 F 75 18 99/51 98 02/14/17 06:00 02/14/17 10:00 02/14/17 10:00 02/14/17 10:00 02/13/17 21:00 CBC, BMP 02/14/17 08:15 02/14/17 08:15 Current Medications Generic Name Dose Route Start Last Admin Trade Name Freq PRN Reason Stop Dose Admin Albuterol Sulfate 1 amp 02/09/17 11:50 02/12/17 22:18 Ventolin 0.083% Nebulizer Soln - NEB 1 amp Q4H PRN Administration SHORT OF BREATH/WHEEZING Albuterol Sulfate 1 amp 02/09/17 12:29 02/10/17 06:40 Ventolin 0.083% Nebulizer Soln - NEB 1 amp Q6H PRN Administration SHORT OF BREATH/WHEEZING Alprazolam 0.25 mg 02/09/17 22:00 02/12/17 23:54 Xanax - PO 0.25 mg HS PRN Administration ANXIETY Azithromycin 500 mg 02/14/17 12:29 Azithromycin PO TuThSa [facility] Budesonide 1 amp 02/09/17 22:00 02/14/17 10:30 Pulmicort 0.25 Mg Nebulizer - NEB 1 amp BID [facility] Administration Clotrimazole 10 mg 02/13/17 12:00 02/14/17 10:24 Mycelex Wilbert's - PO 10 mg 5XD [facility] Administration Escitalopram Oxalate 5 mg 02/10/17 10:00 02/14/17 10:22 Lexapro - PO 5 mg DAILY [facility] Administration Heparin Sodium (Porcine) 5,000 unit 02/09/17 22:00 02/14/17 10:24 Heparin - SQ 5,000 unit BID [facility] Administration IV Flush 8 ml 02/09/17 12:29 Picc Line Flush IVPUSH PRN PRN Protocol Sodium Chloride 1,000 mls @ 100 mls/hr 02/09/17 06:30 02/14/17 10:03 Normal Saline - IV Not Given ASDIR [facility] Lactobacillus Acidophilus 1 tab 02/10/17 10:00 02/14/17 10:22 Bacid - PO 1 tab DAILY [facility] Administration Montelukast Sodium 10 mg 02/09/17 22:00 02/13/17 21:57 Singulair - PO 10 mg HS [facility] Administration Prednisone 30 mg 02/09/17 12:29 02/14/17 10:23 Deltasone - PO 30 mg DAILY [facility] Administration Ranitidine HCl 150 mg 02/10/17 10:00 02/14/17 10:23 Zantac - PO 150 mg DAILY [facility] Administration Tiotropium [place] 1 puff 02/10/17 10:00 02/14/17 10:25 Spiriva - IH 1 inh DAILY [facility] Administration Valacyclovir HCl 1,000 mg 02/13/17 12:00 02/14/17 10:23 Valtrex - PO 1,000 mg BID [facility] Administration Assessment/Plan: Locally advanced tonsillar Ca, s/p Concurrent chemo RT ( completed in August 2016 , as per them PET CT in 11/2016 is in CR), followed at [facility] Acute on chronic hypoxemic respiratory failure PNA? 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 TFTs normal will need OP f/u with his oncologists upon dc
[2017-02-14] MEDS: AZITHROMYCIN 500 MG TABLET PO SCH (14:23)
--- NOTE | 2017-02-14 14:29 | PN ---
Progress Note (short form) - Note Progress Note: still with productive cough feels the same less tongue discomfort Vital Signs Period Temp Pulse Resp BP Sys/Stephens Pulse Ox Last 24 Hr 97.9 F-98.3 F 75-95 18-20 95-108/51-70 98 cor-rrr lungs bilateral crackles at bases left greater then right abd soft,nt ext no edema CBC, BMP 02/14/17 08:15 02/14/17 08:15 Microbiology 02/10/17 11:30 Sputum - Expectorated Gram Stain - Final 02/10/17 11:30 Sputum - Expectorated Sputum Culture - Final Achromobact Xylosoxidans Sp.xy 02/09/17 00:53 Blood - Peripheral Venous Blood Culture - Final NO GROWTH AFTER 5 DAYS INCUBATION 02/09/17 00:35 Blood - Peripheral Venous Blood Culture - Final NO GROWTH AFTER 5 DAYS INCUBATION 02/10/17 00:00 Urine - Urine Clean Catch Urine Culture - Final NO GROWTH OBTAINED 02/10/17 20:00 Urine - Urine Clean Catch Legionella Antigen - Final 02/10/17 20:00 Urine - Urine Clean Catch Streptococcus pneumoniae Antigen ( M - Final 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 history of bronchiectasis hypotension- ?etiology I do not think bp is related to infection d/w Dr Katz yesterday and Dr Uribe given that ct scan is essentially unchanged, would d/c antibiotics and focus on chest pt/mucolytic, etc per pulmonary for his chronic bronchiectiectasis d/w patient as well ?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
[2017-02-14] MEDS: MONTELUKAST NA 10 MG TABLET PO SCH (21:39)
[2017-02-14] MEDS: ALPRAZolam 0.25 MG TABLET PO PRN (22:21)
[2017-02-15] MEDS: SODIUM CHLORIDE 1,000 ML IV SCH ×3 (00:21→10:45)
[2017-02-15] MEDS: CLOTRIMAZOLE 10 MG TROCHE (FP) PO SCH ×5 (06:40→22:40)
[2017-02-15] MEDS ORDERED: BUDESONIDE 0.5 MG/2 ML INH SUSP VIAL NEB ONE ×2 (09:47→21:50)
[2017-02-15] MEDS: BUDESONIDE 0.25 MG/2ML INH SUSP VIAL NEB SCH ×2 (09:50→22:10)
[2017-02-15] MEDS: predniSONE 20 MG TABLET (UD) PO SCH (10:37)
[2017-02-15] MEDS: HEPARIN NA (PORCINE) 5,000 UNITS/ML 1ML VIAL SQ SCH ×2 (10:37→22:39)
[2017-02-15] MEDS: ESCITALOPRAM OXALATE 10 MG TABLET (FP) PO SCH (10:37)
[2017-02-15] MEDS: LACTOBACILLUS ACIDOPHILUS 1 EACH TAB (FP) PO SCH (10:37)
[2017-02-15] MEDS: RANITIDINE HCL 150 MG TABLET (FP) PO SCH (10:37)
[2017-02-15] MEDS: valACYclovir HCL 500 MG TABLET (FP) PO SCH ×2 (10:38→22:40)
--- NOTE | 2017-02-15 10:58 | PN ---
Progress Note, Physician Chief Complaint: in bed feels tired but no other c/o borderline low BP 90-100 systolic on 100 cc/h IVF eats OK - Current Medication List Current Medications: Active Medications Albuterol Sulfate (Ventolin 0.083% Nebulizer Soln -) 1 amp NEB Q4H PRN PRN Reason: SHORT OF BREATH/WHEEZING Last Admin: 02/12/17 22:18 Dose: 1 amp Albuterol Sulfate (Ventolin 0.083% Nebulizer Soln -) 1 amp NEB Q6H PRN PRN Reason: SHORT OF BREATH/WHEEZING Last Admin: 02/10/17 06:40 Dose: 1 amp Alprazolam (Xanax -) 0.25 mg PO HS PRN PRN Reason: ANXIETY Last Admin: 02/14/17 22:21 Dose: 0.25 mg Azithromycin (Azithromycin) 500 mg PO TuThSa [facility] Last Admin: 02/14/17 14:23 Dose: 500 mg Budesonide (Pulmicort 0.25 Mg Nebulizer -) 1 amp NEB BID [facility] Last Admin: 02/15/17 09:50 Dose: 1 amp Clotrimazole (Mycelex Wilbert's -) 10 mg PO 5XD [facility] Last Admin: 02/15/17 10:38 Dose: 10 mg Escitalopram Oxalate (Lexapro -) 5 mg PO DAILY [facility] Last Admin: 02/15/17 10:37 Dose: 5 mg Heparin Sodium (Porcine) (Heparin -) 5,000 unit SQ BID [facility] Last Admin: 02/15/17 10:37 Dose: 5,000 unit IV Flush (Picc Line Flush) 8 ml IVPUSH PRN PRN PRN Reason: Protocol Sodium Chloride (Normal Saline -) 1,000 mls @ 100 mls/hr IV ASDIR [facility] Last Admin: 02/15/17 10:45 Dose: 100 mls/hr Lactobacillus Acidophilus (Bacid -) 1 tab PO DAILY [facility] Last Admin: 02/15/17 10:37 Dose: 1 tab Montelukast Sodium (Singulair -) 10 mg PO HS [facility] Last Admin: 02/14/17 21:39 Dose: 10 mg Prednisone (Deltasone -) 30 mg PO DAILY [facility] Last Admin: 02/15/17 10:37 Dose: 30 mg Ranitidine HCl (Zantac -) 150 mg PO DAILY [facility] Last Admin: 02/15/17 10:37 Dose: 150 mg Tiotropium [place] (Spiriva -) 1 puff IH DAILY [facility] Last Admin: 02/14/17 10:25 Dose: 1 inh Valacyclovir HCl (Valtrex -) 1,000 mg PO BID [facility] Last Admin: 02/15/17 10:38 Dose: 1,000 mg - Objective Vital Signs: Vital Signs Temperature 97.8 F 02/15/17 06:27 Pulse Rate 79 02/15/17 09:50 Respiratory Rate 18 02/15/17 06:27 Blood Pressure 101/44 02/15/17 06:27 O2 Sat by Pulse Oximetry (%) 98 02/15/17 09:50 Constitutional: Yes: No Distress, Calm Eyes: Yes: Conjunctiva Clear HENT: Yes: Atraumatic Neck: Yes: Supple Cardiovascular: Yes: Regular Rate and Rhythm Respiratory: Yes: CTA Bilaterally Gastrointestinal: Yes: Soft. No: Distention Genitourinary: No: CVA Tenderness - Left, CVA Tenderness - Right Musculoskeletal: No: Joint Stiffness, Joint Swelling Extremities: No: Cold, Cool, Cyanosis Edema: No Integumentary: No: Rash, Skin Tear, Venous Stasis Changes Neurological: Yes: WNL, Alert, Oriented ...Motor Strength: WNL Psychiatric: Yes: WNL, Alert, Oriented. No: Agitated, Suicidal Ideation Labs: CBC, BMP 02/14/17 08:15 02/14/17 08:15 - ....Imaging Other: Report Reviewed Assessment/Plan The patient is a 61 year old male with a history of HTN, COPD, Tongue Cancer, Right lower lung lobectomy admitted with hypotension and leukopenia s/p recent and recurrent PNA cardio, pulmonary and ID f/u all antibiotics stopped per ID; will remove PICC line f/u cardio w/u for hypoTA; BNP high DVT falls PFX O2 NC as ordered prognosis guarded d/w pt and staff
[2017-02-15] MEDS: TIOTROPIUM BROMIDE 18 MCG/INH (DEVICE W/ 5 CAPSULES) IH SCH (11:20)
--- NOTE | 2017-02-15 12:00 | PN ---
Progress Note, Physician History of Present Illness: SUBJECTIVE: 61 M, history of a RLL lobectomy for unclear reasons, COPD, and chronic bronchiectasis maintained on 3 L NC. Known metastatic tonsillar cancer. Last treatment with ChemoTx was 07/2016 and last RT was 08/2016. Admitted via the ER from the SNF due to generalized fatigue and and productive cough with green sputum. No hemoptysis. Patient has been admitted several times in the last 6 months for similar symptoms. CXR: volume loss RLL with extensive bonchiectasis. LLL atelectasis and chronic changes. There is no significant radiographic changes from previous imaging. - Current Medication List Current Medications: Active Medications Albuterol Sulfate (Ventolin 0.083% Nebulizer Soln -) 1 amp NEB Q4H PRN PRN Reason: SHORT OF BREATH/WHEEZING Last Admin: 02/12/17 22:18 Dose: 1 amp Albuterol Sulfate (Ventolin 0.083% Nebulizer Soln -) 1 amp NEB Q6H PRN PRN Reason: SHORT OF BREATH/WHEEZING Last Admin: 02/10/17 06:40 Dose: 1 amp Alprazolam (Xanax -) 0.25 mg PO HS PRN PRN Reason: ANXIETY Last Admin: 02/14/17 22:21 Dose: 0.25 mg Azithromycin (Azithromycin) 500 mg PO TuThSa [facility] Last Admin: 02/14/17 14:23 Dose: 500 mg Budesonide (Pulmicort 0.25 Mg Nebulizer -) 1 amp NEB BID [facility] Last Admin: 02/15/17 09:50 Dose: 1 amp Clotrimazole (Mycelex Wilbert's -) 10 mg PO 5XD [facility] Last Admin: 02/15/17 10:38 Dose: 10 mg Escitalopram Oxalate (Lexapro -) 5 mg PO DAILY [facility] Last Admin: 02/15/17 10:37 Dose: 5 mg Heparin Sodium (Porcine) (Heparin -) 5,000 unit SQ BID [facility] Last Admin: 02/15/17 10:37 Dose: 5,000 unit IV Flush (Picc Line Flush) 8 ml IVPUSH PRN PRN PRN Reason: Protocol Sodium Chloride (Normal Saline -) 1,000 mls @ 100 mls/hr IV ASDIR [facility] Last Admin: 02/15/17 10:45 Dose: 100 mls/hr Lactobacillus Acidophilus (Bacid -) 1 tab PO DAILY [facility] Last Admin: 02/15/17 10:37 Dose: 1 tab Montelukast Sodium (Singulair -) 10 mg PO HS [facility] Last Admin: 02/14/17 21:39 Dose: 10 mg Prednisone (Deltasone -) 30 mg PO DAILY [facility] Last Admin: 02/15/17 10:37 Dose: 30 mg Ranitidine HCl (Zantac -) 150 mg PO DAILY [facility] Last Admin: 02/15/17 10:37 Dose: 150 mg Tiotropium [place] (Spiriva -) 1 puff IH DAILY [facility] Last Admin: 02/15/17 11:20 Dose: 1 inh Valacyclovir HCl (Valtrex -) 1,000 mg PO BID [facility] Last Admin: 02/15/17 10:38 Dose: 1,000 mg - Objective Vital Signs: Vital Signs Temperature 97.8 F 02/15/17 06:27 Pulse Rate 79 02/15/17 09:50 Respiratory Rate 18 02/15/17 06:27 Blood Pressure 101/44 02/15/17 06:27 O2 Sat by Pulse Oximetry (%) 98 02/15/17 09:50 Eyes: Yes: WNL, Conjunctiva Clear, EOM Intact HENT: Yes: WNL, Atraumatic, Normocephalic Neck: Yes: WNL, Supple, Trachea Midline Cardiovascular: Yes: WNL, Regular Rate and Rhythm Respiratory: Yes: WNL, Regular, CTA Bilaterally Gastrointestinal: Yes: WNL, Normal Bowel Sounds Genitourinary: Yes: WNL Musculoskeletal: Yes: WNL Extremities: Yes: WNL Edema: No Integumentary: Yes: WNL Neurological: Yes: WNL, Alert, Oriented ...Motor Strength: WNL Psychiatric: Yes: WNL Labs: CBC, BMP 02/14/17 08:15 02/14/17 08:15 Laboratory Results - last 24 hr 02/14/17 02/15/17 08:15 06:50 B-Natriuretic Peptide 818.49 H Prostate Specific Ag 1.60 Problem List - Problems (1) HSV infection Code(s): B00.9 - HERPESVIRAL INFECTION, UNSPECIFIED (2) Hypotension Code(s): I95.9 - HYPOTENSION, UNSPECIFIED Qualifiers: Hypotension type: unspecified hypotension type Qualified Code(s): I95.9 - Hypotension, unspecified (3) Pneumonia Code(s): J18.9 - PNEUMONIA, UNSPECIFIED ORGANISM Qualifiers: Pneumonia type: due to unspecified organism Laterality: unspecified laterality Lung location: unspecified part of lung Qualified Code(s): J18.9 - Pneumonia, unspecified organism (4) Acute and chronic respiratory failure with hypoxia Code(s): J96.21 - ACUTE AND CHRONIC RESPIRATORY FAILURE WITH HYPOXIA (5) Anemia Code(s): D64.9 - ANEMIA, UNSPECIFIED (6) Anxiety Code(s): F41.9 - ANXIETY DISORDER, UNSPECIFIED (7) Anxiety and depression Code(s): F41.8 - OTHER SPECIFIED ANXIETY DISORDERS (8) Bronchiectasis Code(s): J47.9 - BRONCHIECTASIS, UNCOMPLICATED (9) Congestive heart failure Code(s): I50.9 - HEART FAILURE, UNSPECIFIED Qualifiers: Congestive heart failure type: systolic (10) Depression Code(s): F32.9 - MAJOR DEPRESSIVE DISORDER, SINGLE EPISODE, UNSPECIFIED (11) Dyspnea Code(s): R06.00 - DYSPNEA, UNSPECIFIED (12) Hypoalbuminemia Code(s): E88.09 - OTH DISORDERS OF PLASMA-PROTEIN METABOLISM, NEC (13) Hyponatremia Code(s): E87.1 - HYPO-OSMOLALITY AND HYPONATREMIA (14) Pulmonary hypertension Code(s): I27.20 - PULMONARY HYPERTENSION, UNSPECIFIED (15) Tachycardia Code(s): R00.0 - TACHYCARDIA, UNSPECIFIED (16) Tonsillar cancer Code(s): C09.9 - MALIGNANT NEOPLASM OF TONSIL, UNSPECIFIED Assessment/Plan copd bronchitis vs PNA RBBB chf Plan: abx, steroids ivf Supplimental O2
--- NOTE | 2017-02-15 14:07 | PN ---
Progress Note (short form) - Note Progress Note: PULMONARY VSS/AFEBRILE ANICTERIC RIGHT BASE/MID CRACKLES/RHONCHI S1S2 BS+ NO EDEMA LABS/MEDS/NOTES/IMAGING REVIEWED Acute on chronic hypoxemic respiratory failure Extensive bibasilar bronchiectasis COPD, not in AE HTN CHF History of RLL lobectomy Metastatic Tonsillar CA PLAN Chest pt O2 as needed Prednisone BD TX PRN Spiriva zithromax 500mg tiw pulmonary rehab Chanda OSORIO MD
--- NOTE | 2017-02-15 15:21 | PN ---
Progress Note (short form) - Note Progress Note: Patient seen and examined. Feels a better overall. But he thinks his pain in the back of the tongue is not improving and has an ulcer O/E: Chronically ill appearing man in no acute distress NCAT RT changes in the neck present I honestly could not appreciate any ulcers the area that he is complaining on No thyromegaly. Rales+ in the RLL +PEG No CCE in the lower extremities Temp Pulse Resp BP Pulse Ox 98.1 F 75 18 99/51 98 02/14/17 06:00 02/14/17 10:00 02/14/17 10:00 02/14/17 10:00 02/13/17 21:00 CBC, BMP 02/14/17 08:15 02/14/17 08:15 Current Medications Generic Name Dose Route Start Last Admin Trade Name Freq PRN Reason Stop Dose Admin Albuterol Sulfate 1 amp 02/09/17 11:50 02/12/17 22:18 Ventolin 0.083% Nebulizer Soln - NEB 1 amp Q4H PRN Administration SHORT OF BREATH/WHEEZING Albuterol Sulfate 1 amp 02/09/17 12:29 02/10/17 06:40 Ventolin 0.083% Nebulizer Soln - NEB 1 amp Q6H PRN Administration SHORT OF BREATH/WHEEZING Alprazolam 0.25 mg 02/09/17 22:00 02/12/17 23:54 Xanax - PO 0.25 mg HS PRN Administration ANXIETY Azithromycin 500 mg 02/14/17 12:29 Azithromycin PO TuThSa LAUREN Budesonide 1 amp 02/09/17 22:00 02/14/17 10:30 Pulmicort 0.25 Mg Nebulizer - NEB 1 amp BID LAUREN Administration Clotrimazole 10 mg 02/13/17 12:00 02/14/17 10:24 Mycelex Wilbert's - PO 10 mg 5XD LAUREN Administration Escitalopram Oxalate 5 mg 02/10/17 10:00 02/14/17 10:22 Lexapro - PO 5 mg DAILY LAUREN Administration Heparin Sodium (Porcine) 5,000 unit 02/09/17 22:00 02/14/17 10:24 Heparin - SQ 5,000 unit BID LAUREN Administration IV Flush 8 ml 02/09/17 12:29 Picc Line Flush IVPUSH PRN PRN Protocol Sodium Chloride 1,000 mls @ 100 mls/hr 02/09/17 06:30 02/14/17 10:03 Normal Saline - IV Not Given ASDIR LAUREN Lactobacillus Acidophilus 1 tab 02/10/17 10:00 02/14/17 10:22 Bacid - PO 1 tab DAILY LAUREN Administration Montelukast Sodium 10 mg 02/09/17 22:00 02/13/17 21:57 Singulair - PO 10 mg HS LAUREN Administration Prednisone 30 mg 02/09/17 12:29 02/14/17 10:23 Deltasone - PO 30 mg DAILY LAUREN Administration Ranitidine HCl 150 mg 02/10/17 10:00 02/14/17 10:23 Zantac - PO 150 mg DAILY LAUREN Administration Tiotropium [place] 1 puff 02/10/17 10:00 02/14/17 10:25 Spiriva - IH 1 inh DAILY LAUREN Administration Valacyclovir HCl 1,000 mg 02/13/17 12:00 02/14/17 10:23 Valtrex - PO 1,000 mg BID LAUREN Administration Assessment/Plan: Locally advanced tonsillar Ca, s/p Concurrent chemo RT ( cisRT , completed in August 2016 ,as per them PET CT in 11/2016 is in CR), followed at [facility] Acute on chronic hypoxemic respiratory failure PNA? 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 TFTs normal ENT consult, pt continues to complain of pain, PMD aware of the consult will need OP f/u with his oncologists upon dc
[2017-02-15] MEDS: ALBUTEROL SO4 0.083% IH SOL 2.5 MG/3 ML VIAL.NEB. NEB PRN (16:40)
[2017-02-15] MEDS ORDERED: PT OWN MED DRAWER 7, Y5N ONE (21:26)
--- NOTE | 2017-02-15 21:27 | CON.ENT ---
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 He underwent ChemoXRT at [facility], finishing early August. Though he was relatively early stage, his poor pulm status precluded surgery. He never required a tracheostomy, and has G tube that he doesn't use. He has periodically had sores in his mouth. He developed a sore on the right tongue ~1 week ago which hurts. Triamcin paste and topical lidocaine have not helped. He generaly eats/swallows well and denies SOB. He had a PETCT negative by report 10/17. - History Source History Provided By: Patient Limitations to Obtaining History: No Limitations - Past Medical History Cardio/Vascular: Yes: CHF Pulmonary: Yes: COPD, Pneumonia Additional Medical History: Right Tonsillar Cancer - Alcohol/Substance Use Hx Alcohol Use: No History of Substance Use: reports: None - Smoking History Smoking history: Never smoked Have you smoked in the past 12 months: No Aproximately how many cigarettes per day: 0 - Social History ADL: Independent History of Recent Travel: No Home Medications - Allergies Allergies/Adverse Reactions: Allergies Allergy/AdvReac Type Severity Reaction Status Date / Time No Known Allergies Allergy Verified 02/08/17 22:23 - Home Medications Home Medications: Ambulatory Orders Montelukast Na [Singulair -] 10 mg PO HS 05/04/12 Tiotropium [place] [Spiriva] 1 inh IH DAILY #0 inh 05/10/12 Escitalopram Oxalate [Lexapro -] 5 mg PO DAILY 01/12/17 Albuterol 0.083% Nebulizer Mary [Ventolin 0.083% Nebulizer Soln -] 1 amp NEB Q6H PRN #0 amp 01/27/17 Alprazolam [Xanax] 0.25 mg PO HS PRN #0 tablet MDD 1 01/27/17 Budesonide [Pulmicort 0.25 mg Nebulizer -] 1 amp NEB BID amp 01/27/17 Heparin - 5,000 unit SQ BID vial 01/27/17 Lactobacillus Acidophilus [Bacid -] 1 tab PO DAILY 30 Days tab 01/27/17 Picc Line Flush [Picc Line Flush -] 8 ml IVPUSH PRN PRN #0 ml 01/27/17 Ranitidine [Zantac -] 150 mg PO DAILY tablet 01/27/17 Prednisone [Deltasone -] 30 mg PO DAILY tablet 01/30/17 Review of Systems - Review of Systems HENT: reports: Throat Pain Physical Exam-ENT Vital Signs: Vital Signs Temperature 98.4 F 02/15/17 18:52 Pulse Rate 83 02/15/17 18:52 Respiratory Rate 20 02/15/17 18:52 Blood Pressure 98/54 02/15/17 18:52 O2 Sat by Pulse Oximetry (%) 98 02/15/17 10:00 Constitutional: Yes: Well Nourished, No Distress, Calm Head: Yes: WNL Face: Yes: WNL Eyes: Yes: WNL Nose: Yes: WNL, Other (nasal canula prongs) Oral/Pharynx: Yes: Other (FOM soft, flat. Tongue wn. Tonsils recessed. BOT/TF soft. There is a ~5x10mm ucler with fibrinous coating along right lingual/FOM/ mandib mucosa post to his molar. There is no underying mass or fluctuance. no abscess. It is approp TTP. Surroudning tissue wnl) Outer Ear: Yes: WNL Ear Canal: Yes: WNL Tympanic Membrane: Yes: Other (grossy clear. retracted.) Neck: Yes: WNL, Supple Neurological: Yes: Other (CN3-7,11,12 intact grossly) Imaging - Results Other: Other (Flexible Fiberoptic Laryngoscopy: Expl rbla, pt consents. Passed through n/c, withdrawn. findings: 1. WNL - unremarkabe N/p, BOT, valleculae, hypopharynx, larynx, epiglottis. 2. Nml TVC mobility 3. No masses/lesions seen) Problem List - Problems (1) Aphthous ulcer Assessment/Plan: Right oral sore is likely an aphthous ulcer in setting of immune suppression - supportive measures, may try viscous/topical lidocaine if he'd like to try again. - this should resolved spontaneously in the next week or so; if not, I urged him to see his oncologist. While it is very unlikely that this represents a malignancy, it could be osteoradionecrosis of the mandible from his radiation to the ipsilateral tonsil. Still, it is most likely an apthuous ulcer. If he is unable to be discharged and it persists for over another week, or if there is concern for occult infection, would recommend maxillofacial CT to evaluate further. Thank you for this consult. Please call if questions. Code(s): K12.0 - RECURRENT ORAL APHTHAE (2) Tonsillar cancer Assessment/Plan: Right tonsil SCCa (unclear exact stage but did have ipsi neck mets) - 6 mos s/p ChemoXRT. - CHAU - Ongoing f/u [facility] Code(s): C09.9 - MALIGNANT NEOPLASM OF TONSIL, UNSPECIFIED
[2017-02-15] MEDS: MONTELUKAST NA 10 MG TABLET PO SCH (22:39)
[2017-02-15] MEDS: ALPRAZolam 0.25 MG TABLET PO PRN (22:54)
[2017-02-16] MEDS: CLOTRIMAZOLE 10 MG TROCHE (FP) PO SCH ×3 (06:54→14:25)
[2017-02-16 08:30] LABS: BASOPHIL 0.1 % (0-2.0); EOSINOPHIL 0.7 % (0-4.5); MCH 28.2 pg (25.7-33.7); MCHC 32.6 g/dl (32.0-35.9); MEAN CELL VOLUME 86.5 fl (80-96); MEAN PLT VOLUME 6.5 fl (7.5-11.1); PLATELET COUNT 170 K/MM3 (134-434); WHITE BLOOD COUNT 3.7 K/mm3 (4.0-10.0)
[2017-02-16] MEDS ORDERED: BUDESONIDE 0.5 MG/2 ML INH SUSP VIAL NEB ONE (08:53)
[2017-02-16] MEDS: BUDESONIDE 0.25 MG/2ML INH SUSP VIAL NEB SCH (08:55)
--- NOTE | 2017-02-16 09:09 | PN ---
Progress Note, Physician Chief Complaint: in bed nad feels well no new c/o; off IVF since yesterday BP 100-110; WBC better no fever all consults and tests and meds reviewed with pt d/w cardio dr Javier and pulm dr CASTELLANO and dr andres; no objections to DC to [facility] d/w ID dr Gamboa no more antibiotics for PNA needed can DC picc line d/w pt and staff d/w [facility] staff - pt to be read[facility] to [facility] for rehab; d/w pt he agreed with plan t time 45 min - Current Medication List Current Medications: Active Medications Albuterol Sulfate (Ventolin 0.083% Nebulizer Soln -) 1 amp NEB Q4H PRN PRN Reason: SHORT OF BREATH/WHEEZING Last Admin: 02/12/17 22:18 Dose: 1 amp Albuterol Sulfate (Ventolin 0.083% Nebulizer Soln -) 1 amp NEB Q6H PRN PRN Reason: SHORT OF BREATH/WHEEZING Last Admin: 02/15/17 16:40 Dose: 1 amp Alprazolam (Xanax -) 0.25 mg PO HS PRN PRN Reason: ANXIETY Last Admin: 02/15/17 22:54 Dose: 0.25 mg Azithromycin (Azithromycin) 500 mg PO TuThSa [facility] Last Admin: 02/14/17 14:23 Dose: 500 mg Budesonide (Pulmicort 0.25 Mg Nebulizer -) 1 amp NEB BID [facility] Last Admin: 02/15/17 22:10 Dose: 1 amp Clotrimazole (Mycelex Wilbert's -) 10 mg PO 5XD [facility] Last Admin: 02/16/17 06:54 Dose: 10 mg Escitalopram Oxalate (Lexapro -) 5 mg PO DAILY [facility] Last Admin: 02/15/17 10:37 Dose: 5 mg Heparin Sodium (Porcine) (Heparin -) 5,000 unit SQ BID [facility] Last Admin: 02/15/17 22:39 Dose: 5,000 unit IV Flush (Picc Line Flush) 8 ml IVPUSH PRN PRN PRN Reason: Protocol Lactobacillus Acidophilus (Bacid -) 1 tab PO DAILY [facility] Last Admin: 02/15/17 10:37 Dose: 1 tab Montelukast Sodium (Singulair -) 10 mg PO HS [facility] Last Admin: 02/15/17 22:39 Dose: 10 mg Prednisone (Deltasone -) 30 mg PO DAILY [facility] Last Admin: 02/15/17 10:37 Dose: 30 mg Ranitidine HCl (Zantac -) 150 mg PO DAILY [facility] Last Admin: 02/15/17 10:37 Dose: 150 mg Tiotropium [place] (Spiriva -) 1 puff IH DAILY [facility] Last Admin: 02/15/17 11:20 Dose: 1 inh Valacyclovir HCl (Valtrex -) 1,000 mg PO BID [facility] Last Admin: 02/15/17 22:40 Dose: 1,000 mg - Objective Vital Signs: Vital Signs Temperature 98.1 F 02/16/17 06:18 Pulse Rate 68 02/16/17 06:18 Respiratory Rate 18 02/16/17 06:18 Blood Pressure 100/51 02/16/17 06:18 O2 Sat by Pulse Oximetry (%) 93 L 02/15/17 21:00 Constitutional: Yes: No Distress, Calm Eyes: Yes: Conjunctiva Clear HENT: Yes: Atraumatic Neck: Yes: Supple Cardiovascular: Yes: Regular Rate and Rhythm Respiratory: Yes: CTA Bilaterally Gastrointestinal: Yes: Soft. No: Distention, Tenderness Genitourinary: No: CVA Tenderness - Left, CVA Tenderness - Right Musculoskeletal: No: Joint Stiffness, Joint Swelling Extremities: No: Cold, Cool, Cyanosis Edema: No Integumentary: No: Rash, Venous Stasis Changes Neurological: Yes: WNL, Alert, Oriented ...Motor Strength: WNL Psychiatric: Yes: WNL, Alert, Oriented. No: Agitated, Suicidal Ideation Labs: CBC, BMP 02/16/17 07:00 02/14/17 08:15 - ....Imaging Other: Report Reviewed Assessment/Plan The patient is a 61 year old male with a history of HTN, COPD, Tongue Cancer, Right lower lung lobectomy admitted with hypotension and leukopenia s/p recent and recurrent PNA improved after IVF and IV ATB see above; DC to NH see DC summary
[2017-02-16] MEDS ORDERED: PT OWN MED DRAWER 7, Y5N ONE ×5 (10:52→16:12)
[2017-02-16] MEDS: RANITIDINE HCL 150 MG TABLET (FP) PO SCH (10:55)
[2017-02-16] MEDS: predniSONE 20 MG TABLET (UD) PO SCH (10:55)
[2017-02-16] MEDS: LACTOBACILLUS ACIDOPHILUS 1 EACH TAB (FP) PO SCH (10:55)
[2017-02-16] MEDS: TIOTROPIUM BROMIDE 18 MCG/INH (DEVICE W/ 5 CAPSULES) IH SCH (10:56)
[2017-02-16] MEDS: HEPARIN NA (PORCINE) 5,000 UNITS/ML 1ML VIAL SQ SCH (10:56)
[2017-02-16] MEDS: ESCITALOPRAM OXALATE 10 MG TABLET (FP) PO SCH (10:56)
[2017-02-16] MEDS: valACYclovir HCL 500 MG TABLET (FP) PO SCH (10:57)
[2017-02-16] MEDS: ALBUTEROL SO4 0.083% IH SOL 2.5 MG/3 ML VIAL.NEB. NEB PRN (12:07)
--- NOTE | 2017-02-16 12:19 | DS ---
Physical Examination Vital Signs: Vital Signs Temperature 98.1 F 02/16/17 06:18 Pulse Rate 65 02/16/17 09:00 Respiratory Rate 18 02/16/17 06:18 Blood Pressure 100/51 02/16/17 06:18 O2 Sat by Pulse Oximetry (%) 98 02/16/17 09:00 Findings/Remarks: see progress note form today also pt feels better - transefr to SNF PICC line removed Constitutional: Yes: No Distress, Calm Eyes: Yes: Conjunctiva Clear HENT: Yes: Atraumatic Neck: Yes: Supple Cardiovascular: Yes: Regular Rate and Rhythm Respiratory: Yes: CTA Bilaterally Gastrointestinal: Yes: Soft, Other (peg). No: Distention Musculoskeletal: No: Joint Stiffness, Joint Swelling Extremities: No: Cold, Cool, Cyanosis Edema: No Integumentary: No: Rash, Venous Stasis Changes Neurological: Yes: WNL, Alert, Oriented ...Motor Strength: WNL Psychiatric: Yes: WNL, Alert, Oriented. No: Agitated, Suicidal Ideation Labs: CBC, BMP 02/16/17 07:00 02/14/17 08:15 Discharge Summary Reason For Visit: HYPOTENSION PNEUMONIA Current Active Problems Aphthous ulcer (Acute) Enlarged prostate (Acute) HSV infection (Acute) Hypotension (Acute) Pneumonia (Acute) Procedures: Principal: admitted with PNA low WBC low BP Other Procedures: IVF IV ATB; seen by ID, cardiology, pulmonary ONC and ENT Hospital Course: improved with above; transfer back to SNF and f.u as advised Condition: Guarded - Instructions Diet, Activity, Other Instructions: f/u PCP in [place]; f/u pulmonary, cardiology, ENT, and ONC after DC from [place] if oral lesions not better in 1-2 weeks to see ONC and oral surgeon O2 NC continuous falls PFX Referrals: Johnnie Uribe MD [Primary Care Provider] - Disposition: LONG-TERM FACILITY - Home Medications Comprehensive Discharge Medication List: Ambulatory Orders Montelukast Na [Singulair -] 10 mg PO HS 05/04/12 Tiotropium [place] [Spiriva] 1 inh IH DAILY #0 inh 05/10/12 Escitalopram Oxalate [Lexapro -] 5 mg PO DAILY 01/12/17 Albuterol 0.083% Nebulizer Mary [Ventolin 0.083% Nebulizer Soln -] 1 amp NEB Q6H PRN #0 amp 01/27/17 Alprazolam [Xanax] 0.25 mg PO HS PRN #0 tablet MDD 1 01/27/17 Budesonide [Pulmicort 0.25 mg Nebulizer -] 1 amp NEB BID amp 01/27/17 Heparin - 5,000 unit SQ BID vial 01/27/17 Lactobacillus Acidophilus [Bacid -] 1 tab PO DAILY 30 Days tab 01/27/17 Ranitidine [Zantac -] 150 mg PO DAILY tablet 01/27/17 Prednisone [Deltasone -] 30 mg PO DAILY tablet 01/30/17 Azithromycin 500 mg PO TuThSa tablet 02/16/17 Clotrimazole [Mycelex -] 10 mg PO 5XD [place]ly 02/16/17 Valacyclovir HCl [Valtrex -] 1,000 mg PO BID tablet 02/16/17
--- NOTE | 2017-02-16 12:19 | PN ---
Progress Note (short form) - Note Progress Note: PULMONARY Breathing slightly better today. No fevers or chills. Still with chronic cough with green sputum. No hemoptysis Last Vital Signs Temp Pulse Resp BP Pulse Ox 98.1 F 65 18 100/51 98 02/16/17 06:18 02/16/17 09:00 02/16/17 06:18 02/16/17 06:18 02/16/17 09:00 Gen: tachypneic with speaking Heart: tachycardic, regular Lung: basilar rales Abd: soft, nontender Ext: no edema CBC, BMP 02/16/17 07:00 02/14/17 08:15 Active Medications Albuterol Sulfate (Ventolin 0.083% Nebulizer Soln -) 1 amp NEB Q4H PRN PRN Reason: SHORT OF BREATH/WHEEZING Last Admin: 02/16/17 12:07 Dose: 1 amp Albuterol Sulfate (Ventolin 0.083% Nebulizer Soln -) 1 amp NEB Q6H PRN PRN Reason: SHORT OF BREATH/WHEEZING Last Admin: 02/15/17 16:40 Dose: 1 amp Alprazolam (Xanax -) 0.25 mg PO HS PRN PRN Reason: ANXIETY Last Admin: 02/15/17 22:54 Dose: 0.25 mg Azithromycin (Azithromycin) 500 mg PO TuThSa [facility] Last Admin: 02/14/17 14:23 Dose: 500 mg Budesonide (Pulmicort 0.25 Mg Nebulizer -) 1 amp NEB BID [facility] Last Admin: 02/16/17 08:55 Dose: 1 amp Clotrimazole (Mycelex Wilbert's -) 10 mg PO 5XD [facility] Last Admin: 02/16/17 10:56 Dose: 10 mg Escitalopram Oxalate (Lexapro -) 5 mg PO DAILY [facility] Last Admin: 02/16/17 10:56 Dose: 5 mg Heparin Sodium (Porcine) (Heparin -) 5,000 unit SQ BID [facility] Last Admin: 02/16/17 10:56 Dose: 5,000 unit IV Flush (Picc Line Flush) 8 ml IVPUSH PRN PRN PRN Reason: Protocol Lactobacillus Acidophilus (Bacid -) 1 tab PO DAILY [facility] Last Admin: 02/16/17 10:55 Dose: 1 tab Montelukast Sodium (Singulair -) 10 mg PO HS [facility] Last Admin: 02/15/17 22:39 Dose: 10 mg Prednisone (Deltasone -) 30 mg PO DAILY [facility] Last Admin: 02/16/17 10:55 Dose: 30 mg Ranitidine HCl (Zantac -) 150 mg PO DAILY [facility] Last Admin: 02/16/17 10:55 Dose: 150 mg Tiotropium [place] (Spiriva -) 1 puff IH DAILY [facility] Last Admin: 02/16/17 10:56 Dose: 1 inh Valacyclovir HCl (Valtrex -) 1,000 mg PO BID [facility] Last Admin: 02/16/17 10:57 Dose: 1,000 mg A/P Acute on Chronic Hypoxic Respiratory Failure Acute Bronchiectasis Exacerbation COPD h/o Tonsillar Ca with mets Pulmonary HTN - completed antibiotics - continue prednisone taper - inhaled bronchodilators - postural drainage - chest PT vest - O2 to keep SpO2 >90% - DVT prophylaxis - can discharge to SNF with pulmonary rehab
--- NOTE | 2017-02-16 12:40 | PN ---
Progress Note, Physician History of Present Illness: SUBJECTIVE: 61 M, history of a RLL lobectomy for unclear reasons, COPD, and chronic bronchiectasis maintained on 3 L NC. Known metastatic tonsillar cancer. Last treatment with ChemoTx was 07/2016 and last RT was 08/2016. Admitted via the ER from the SNF due to generalized fatigue and and productive cough with green sputum. No hemoptysis. Patient has been admitted several times in the last 6 months for similar symptoms. CXR: volume loss RLL with extensive bonchiectasis. LLL atelectasis and chronic changes. There is no significant radiographic changes from previous imaging. - Current Medication List Current Medications: Active Medications Albuterol Sulfate (Ventolin 0.083% Nebulizer Soln -) 1 amp NEB Q4H PRN PRN Reason: SHORT OF BREATH/WHEEZING Last Admin: 02/16/17 12:07 Dose: 1 amp Albuterol Sulfate (Ventolin 0.083% Nebulizer Soln -) 1 amp NEB Q6H PRN PRN Reason: SHORT OF BREATH/WHEEZING Last Admin: 02/15/17 16:40 Dose: 1 amp Alprazolam (Xanax -) 0.25 mg PO HS PRN PRN Reason: ANXIETY Last Admin: 02/15/17 22:54 Dose: 0.25 mg Azithromycin (Azithromycin) 500 mg PO TuThSa [facility] Last Admin: 02/14/17 14:23 Dose: 500 mg Budesonide (Pulmicort 0.25 Mg Nebulizer -) 1 amp NEB BID [facility] Last Admin: 02/16/17 08:55 Dose: 1 amp Clotrimazole (Mycelex Wilbert's -) 10 mg PO 5XD [facility] Last Admin: 02/16/17 10:56 Dose: 10 mg Escitalopram Oxalate (Lexapro -) 5 mg PO DAILY [facility] Last Admin: 02/16/17 10:56 Dose: 5 mg Heparin Sodium (Porcine) (Heparin -) 5,000 unit SQ BID [facility] Last Admin: 02/16/17 10:56 Dose: 5,000 unit IV Flush (Picc Line Flush) 8 ml IVPUSH PRN PRN PRN Reason: Protocol Lactobacillus Acidophilus (Bacid -) 1 tab PO DAILY [facility] Last Admin: 02/16/17 10:55 Dose: 1 tab Montelukast Sodium (Singulair -) 10 mg PO HS [facility] Last Admin: 02/15/17 22:39 Dose: 10 mg Prednisone (Deltasone -) 30 mg PO DAILY [facility] Last Admin: 02/16/17 10:55 Dose: 30 mg Ranitidine HCl (Zantac -) 150 mg PO DAILY [facility] Last Admin: 02/16/17 10:55 Dose: 150 mg Tiotropium [place] (Spiriva -) 1 puff IH DAILY [facility] Last Admin: 02/16/17 10:56 Dose: 1 inh Valacyclovir HCl (Valtrex -) 1,000 mg PO BID [facility] Last Admin: 02/16/17 10:57 Dose: 1,000 mg - Objective Vital Signs: Vital Signs Temperature 98.1 F 02/16/17 06:18 Pulse Rate 65 02/16/17 09:00 Respiratory Rate 18 02/16/17 06:18 Blood Pressure 100/51 02/16/17 06:18 O2 Sat by Pulse Oximetry (%) 98 02/16/17 09:00 Eyes: Yes: WNL, Conjunctiva Clear, EOM Intact HENT: Yes: WNL, Atraumatic, Normocephalic Neck: Yes: WNL, Supple, Trachea Midline Cardiovascular: Yes: WNL, Regular Rate and Rhythm Respiratory: Yes: WNL, Regular, CTA Bilaterally Gastrointestinal: Yes: WNL, Normal Bowel Sounds Genitourinary: Yes: WNL Musculoskeletal: Yes: WNL Extremities: Yes: WNL Edema: No Integumentary: Yes: WNL Neurological: Yes: WNL, Alert, Oriented ...Motor Strength: WNL Psychiatric: Yes: WNL Labs: CBC, BMP 02/16/17 07:00 02/14/17 08:15 Problem List - Problems (1) HSV infection Code(s): B00.9 - HERPESVIRAL INFECTION, UNSPECIFIED (2) Hypotension Code(s): I95.9 - HYPOTENSION, UNSPECIFIED Qualifiers: Hypotension type: unspecified hypotension type Qualified Code(s): I95.9 - Hypotension, unspecified (3) Pneumonia Code(s): J18.9 - PNEUMONIA, UNSPECIFIED ORGANISM Qualifiers: Pneumonia type: due to unspecified organism Laterality: unspecified laterality Lung location: unspecified part of lung Qualified Code(s): J18.9 - Pneumonia, unspecified organism (4) Acute and chronic respiratory failure with hypoxia Code(s): J96.21 - ACUTE AND CHRONIC RESPIRATORY FAILURE WITH HYPOXIA (5) Anemia Code(s): D64.9 - ANEMIA, UNSPECIFIED (6) Anxiety Code(s): F41.9 - ANXIETY DISORDER, UNSPECIFIED (7) Anxiety and depression Code(s): F41.8 - OTHER SPECIFIED ANXIETY DISORDERS (8) Bronchiectasis Code(s): J47.9 - BRONCHIECTASIS, UNCOMPLICATED (9) Congestive heart failure Code(s): I50.9 - HEART FAILURE, UNSPECIFIED Qualifiers: Congestive heart failure type: systolic (10) Depression Code(s): F32.9 - MAJOR DEPRESSIVE DISORDER, SINGLE EPISODE, UNSPECIFIED (11) Dyspnea Code(s): R06.00 - DYSPNEA, UNSPECIFIED (12) Hypoalbuminemia Code(s): E88.09 - OTH DISORDERS OF PLASMA-PROTEIN METABOLISM, NEC (13) Hyponatremia Code(s): E87.1 - HYPO-OSMOLALITY AND HYPONATREMIA (14) Pulmonary hypertension Code(s): I27.20 - PULMONARY HYPERTENSION, UNSPECIFIED (15) Tachycardia Code(s): R00.0 - TACHYCARDIA, UNSPECIFIED (16) Tonsillar cancer Code(s): C09.9 - MALIGNANT NEOPLASM OF TONSIL, UNSPECIFIED Assessment/Plan copd bronchitis vs PNA RBBB chf Plan: abx, steroids stable of IVF Supplimental O2
[2017-02-16] MEDS: AZITHROMYCIN 500 MG TABLET PO SCH (12:44)
[2017-02-16 15:15] VITALS: BP 97/52; TEMP 98.2
[2017-02-16 19:57] VITALS: PULSE 100
--- NOTE | 2017-02-17 14:07 | PATH ---
Surgical Pathology Report Patient Name: ZORAIDA CLARK Med. Rec. #: [id number] /Age/Gender: 1955 (Age: 61) / M Account: [id number] Location: [address] [place] [address] Taken: 02/16/2017 Received: 02/16/2017 Reported: 02/17/2017 Physicians: Shobha Espinosa M.D. Specimen(s) Received PERIPHERAL BLOOD Clinical History Leukopenia with monocytosis History of oral cancer status post chemo radiation therapy Final Diagnosis COMPREHENSIVE FLOW PANEL performed and interpreted at [facility], [place], [place] ([id number]) shows the following: INTERPRETATION: In the samples analyzed, there is no evidence of B or T-cell proliferative disorders or increased blasts. See [facility] report ([id number]) for additional details. Electronically Signed Elizabeth Prasda M.D. Gross Description Received are 2 green top tubes of peripheral blood which are sent [facility]. /02/16/2017 saudi02/16/2017
== END 2017-02-16 17:13 | DRG 177 ==
LOC: JER 21:44 → JERBED 02-09 00:28 → UNDOADMIN 02-09 00:31 → J4W 02-09 03:01 → J5S 02-13 11:41
PROVIDERS: ADMIT Specialist; ATTEND Specialist
PROC: 0CJS8ZZ Inspection of Larynx, Via Natural or Artificial Opening Endoscopic (ICD-10-PCS; principal; 2017-02-15)
DX: J15.8 Pneumonia due to other specified bacteria (principal); J96.21 Acute and chronic respiratory failure with hypoxia; E43 Unspecified severe protein-calorie malnutrition; C77.9 Secondary and unspecified malignant neoplasm of lymph node, unspecified; J98.11 Atelectasis; J47.1 Bronchiectasis with (acute) exacerbation; Z68.1 Body mass index [BMI] 19.9 or less, adult; J18.9 Pneumonia, unspecified organism; I95.9 Hypotension, unspecified; I10 Essential (primary) hypertension; D72.818 Other decreased white blood cell count; C09.9 Malignant neoplasm of tonsil, unspecified; I11.0 Hypertensive heart disease with heart failure; B00.9 Herpesviral infection, unspecified; F41.9 Anxiety disorder, unspecified; I45.19 Other right bundle-branch block; I27.20 Pulmonary hypertension, unspecified; I78.1 Nevus, non-neoplastic; N40.0 Benign prostatic hyperplasia without lower urinary tract symptoms; K12.0 Recurrent oral aphthae; Z90.2 Acquired absence of lung [part of]; Z93.1 Gastrostomy status
CPT/HCPCS: 36415; 71020-TC; 71250-TC; 74176-TC; 80048; 80053; 81003; 81015; 82728; 82747; 83540; 83550; 83880; 84153; 84439; 84443; 84481; 85014; 85025; 87040; 87070; 87086; 87186; 87205; 87899; 88300-TC; 93005; 93010; 94640; 97116-GP; 97162-GP; 99281-25; J1644